=== PATIENT | female | born 1935 | race Caucasian/White ===

== ENCOUNTER 2020-01-27 10:09 | Outpatient (CLI) | payer MEDICARE, OTHER, SELFPAY ==
--- NOTE | ~2020-01-27 | CT_ITS ---
EXAMINATION: CT chest high resolution wo ms DATE: 01/27/2020 11:01 INDICATION: J84.9 - Interstitial pulmonary disease, unspecified TECHNIQUE: Computed tomography (CT) of the chest was performed without intravenous contrast. Addition al 3D reconstructions utilizing coronal maximum intensity projection (MIP) were performed. Automated exposure control and iterative reconstruction technique were employed. The dose-length product was 48 7.44 mGy-cm. COMPARISON: 07/28/2017 FINDINGS: Mild emphysema. Again seen is irregular septal line thickening associated honeycombing at the periphe ry of both lungs with lower lung predominance. This appears unchanged however there has been improvem ent in the prior/of more diffuse groundglass opacities. Mild bronchiectatic changes in the bilateral lower lungs. No pleural effusion or pneumothorax. Compressive atelectasis in the bilateral lower lobe s along side a large sliding-type hiatal hernia. Heart size is normal. Atherosclerotic coronary arter y calcifications. No pericardial effusion. Thoracic aorta is normal in caliber. Mild enlargement of t he central pulmonary arteries consistent with pulmonary arterial hypertension. No pathologically enla rged thoracic lymphadenopathy. Mild bilateral renal cortical atrophy. Partially visualized at least 5 .1 cm left renal cyst. Thoracic kyphosis with severe spondylosis and multiple chronic compression fra ctures in the mid and lower thoracic spine. There is also an old healed sternal fracture. Moderate le ft and severe right glenohumeral osteoarthritis. IMPRESSION: 1. Chronic interstitial lung disease with usual interstitial pneumonia (UIP) pattern with improvement in prior more diffuse groundglass opacities but no significant change in the peripheral reticular co mponent with honeycombing. 2. Mild bronchiectasis with bilateral lower lung predominance. 3. Mild emphysema. 4. Large sliding-type hiatal hernia. Reviewed, dictated and finalized at location A. RESSIONAL ASSISTANT IMPRESSION: 1. 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 2. Mild bronchiectasis with bilateral lower lung predominance. 3. Mild emphysema. 4. Large sliding-type hiatal hernia.
== END 2020-01-27 10:10 | disposition home or self-care (01) ==
LOC: ANHIMG 10:21
PROVIDERS: PCP Family Medicine; Visit Provider Nurse Practitioner Family
DX: J84.9 Interstitial pulmonary disease, unspecified (principal); M05.79 Rheumatoid arthritis with rheumatoid factor of multiple sites without organ or systems involvement; J44.9 Chronic obstructive pulmonary disease, unspecified; M48.54XA Collapsed vertebra, not elsewhere classified, thoracic region, initial encounter for fracture; R06.02 Shortness of breath; J98.11 Atelectasis; K44.9 Diaphragmatic hernia without obstruction or gangrene; I25.10 Atherosclerotic heart disease of native coronary artery without angina pectoris; I28.9 Disease of pulmonary vessels, unspecified; N28.1 Cyst of kidney, acquired; N26.1 Atrophy of kidney (terminal); M40.204 Unspecified kyphosis, thoracic region; M47.814 Spondylosis without myelopathy or radiculopathy, thoracic region; M19.012 Primary osteoarthritis, left shoulder; M19.011 Primary osteoarthritis, right shoulder
CPT/HCPCS: 71250

== ENCOUNTER 2020-03-05 14:25 | Emergency (ER) | payer MEDICARE, OTHER, SELFPAY ==
--- NOTE | ~2020-03-05 | XR_ITS ---
EXAMINATION: XR shoulder RT min 2V INDICATION: Right shoulder pain, initial encounter TECHNIQUE: Two views of the right shoulder are submitted. COMPARISON: 05/12/2018 FINDINGS: There is an acute, traumatic, closed, transverse fracture of the proximal humerus. There is severe osteoarthritis of the glenohumeral joint and mild osteoarthritis of the acromioclavicular neri nt. Soft tissues are unremarkable. IMPRESSION: 1. Acute proximal humerus fracture. 2. Severe glenohumeral joint osteoarthritis. Reviewed, dictated and finalized at location A. ONICS TECHNICIAN
[2020-03-05 14:18] VITALS: BP 163/82; PULSE 62; RESP 18; TEMP 36.6; O2SAT 98
--- NOTE | 2020-03-05 15:13 | ED.GENADULT ---
HPI - General Adult General Chief complaint: Extremity Injury, Upper Stated complaint: FALL/R SHOULDER PAIN Time Seen by Provider: 03/05/20 14:48 Source: patient History of Present Illness HPI narrative: Patient is a 84 y/o female complaining of right shoulder pain following a fall 1 hour ago. She states that she was in the waiting room of her eye doctor. She attempted to sit down and missed the chair. She landed on right shoulder. She denies any head injury or LOC. She describes her pain as aching and rates it as 8/10. She states that her pain radiates to her right elbow. Movement aggravates her pain. Related Data Home Medications Medication Instructions Recorded Confirmed amlodipine 5 mg tablet 5 mg PO DAILY 01/27/19 01/25/20 cholecalciferol (vitamin D3) 125 5,000 unit PO DAILY 01/27/19 01/25/20 mcg (5,000 unit) capsule fluticasone fur. 100 mcg-umeclid 1 inhalation INHALATION DAILY 01/27/19 01/25/20 62.5 mcg-vilant 25 mcg inhalat.powder pantoprazole 40 mg tablet,delayed 40 mg PO QAM 05/17/19 01/25/20 release aspirin 81 mg tablet,delayed 81 mg PO DAILY 08/30/19 01/25/20 release lactobacillus combination no.9 4 4,000 mmu cells PO DAILY 08/30/19 01/25/20 billion cell capsule Allergies Allergy/AdvReac Type Severity Reaction Status Date / Time ampicillin Allergy Unknown hives Verified 01/25/20 14:43 cyclobenzaprine Allergy Unknown loopy Verified 01/25/20 14:43 Review of Systems Constitutional: Constitutional: Denies chills, Denies fever(s), Denies headache(s) and Denies weakness Eyes: Eyes: Denies blurry vision ENT: Denies headache(s) and Denies neck pain Cardiovascular: Cardiovascular: Denies chest pain and Denies dyspnea Respiratory: Respiratory: Denies cough and Denies dyspnea Gastrointestinal: Gastrointestinal: Denies abdominal pain, Denies diarrhea, Denies nausea and Denies vomiting Genitourinary: Genitourinary: Denies hematuria and Denies dysuria Musculoskeletal: Musculoskeletal: Denies back pain, Reports arthralgias (right shoulder pain) and Denies neck pain Neurologic: Denies headache(s) and Denies weakness [facility] Past Medical History Medical History Counseling on health promotion and disease prevention Encounter for screening for other viral diseases H/O malignant neoplasm of esophagus Rheumatoid arthritis with rheumatoid factor of multiple sites without organ or systems involvement Surgical History Surgical History H/O section H/O hernia repair Hip replacement planned History of ankle surgery History of toe surgery Tonsillectomy planned Family History Family History Mother Diabetes mellitus Father Hypertension Other Asthma Social History Social History Smoking status: Former smoker Smoking end date: 02/23/77 Alcohol intake: never Substance use: never Exam Const: General: no acute distress and well developed Orientation/consciousness: oriented to person, oriented to place, oriented to time and patient oriented x3 HENMT: Head: normocephalic Ears: external ears normal General nose exam: Normal external nose present Eyes: General: appearance normal, both eyes and all related structures Conjunctivae: conjunctivae normal Neck: Neck: normal visual inspection and full ROM Chest: Chest palpation & inspection: normal inspection of the chest and no tenderness Resp: Effort & Inspection: normal respiratory effort Auscultation: clear to auscultation bilaterally Cardio: Rate: regular rate Rhythm: regular rhythm GI: GI Palp: No abdominal tenderness and Yes Soft to palpation Skin: General skin exam: normal color and turgor normal Neuro: General: oriented to person, oriented to place, oriented to time and patient oriented x3 Cognition (Neuro):
[2020-03-05 15:27] VITALS: BP 174/88; PULSE 61; RESP 19; O2SAT 96
[2020-03-05] MEDS: HYDROcodone/acetaminophen (*CRX) 5-325 MG TABLET 1 TAB PO (15:27)
[2020-03-05 15:40] VITALS: BP 180/71; PULSE 57; RESP 20; O2SAT 93
== END 2020-03-05 15:43 | disposition home or self-care (01) ==
PROVIDERS: Emergency Provider Emergency Medicine; PCP Family Medicine
DX: S42.291A Other displaced fracture of upper end of right humerus, initial encounter for closed fracture (principal); Z79.82 Long term (current) use of aspirin; M05.79 Rheumatoid arthritis with rheumatoid factor of multiple sites without organ or systems involvement; Z85.01 Personal history of malignant neoplasm of esophagus; Z87.891 Personal history of nicotine dependence; M19.011 Primary osteoarthritis, right shoulder
CPT/HCPCS: 73030; 99284; A9270

== ENCOUNTER 2020-03-07 12:22 | Inpatient (IN) | payer MEDICARE, OTHER, SELFPAY ==
[2020-03-07] VITALS (38 sets, daily range): BP systolic 73–102; BP diastolic 53–63; PULSE 66–76; RESP 13–22; TEMP 36.3–36.4; O2SAT 86–99; BMI 33.9
--- NOTE | ~2020-03-07 | XR_ITS ---
EXAMINATION: XR chest 2V DATE: 03/07/2020 13:39 INDICATION: Weakness TECHNIQUE: AP and lateral views of the chest are obtained. COMPARISON: 06/09/2018 FINDINGS: There is a large hiatal hernia. Small pleural effusions are present. Bibasilar airspace opa cities likely reflect atelectasis. No pneumothorax is identified. There are chronic mid thoracic comp ression fractures with associated focal kyphosis. IMPRESSION: 1. Small pleural effusions. 2. Large hiatal hernia. Reviewed, dictated and finalized at location A. TRON GUN INSPECTOR
--- NOTE | ~2020-03-07 | CT_ITS ---
EXAMINATION: CT brain wo con EXAM DATE: 03/07/2020 13:34 INDICATION: Fell 2 days ago. TECHNIQUE: Spiral CT of the head was performed without contrast. Axial, coronal and sagittal images were reviewed. The dose-length product (DLP) for this examination was 605.33 mGy-cm. The exposure w as tailored according to patient size, and iterative reconstruction (ASIR) was used as additional dos e reduction technique. Comparison is made to prior examination from 10/11/2018. FINDINGS: There is no acute intraparenchymal hemorrhage. No evidence of intraparenchymal brain mass lesion. No evidence of acute infarction. Please note that initial head CT has limited sensitivity f or small or acute infarctions. There is mild periventricular and subcortical hypodensity, nonspecific but probably related to small vessel ischemic disease. There is moderate prominence of the sulci a nd ventricles related to cerebral atrophy. There is intracranial carotid arteriosclerosis. There a re no extra-axial collections. There is no mass effect or midline shift. The orbits are unremarkabl e. Soft tissue is unremarkable. Completely opacified left sphenoid sinus. IMPRESSION: 1. No acute intracranial findings. 2. Chronic age related findings. Reviewed, dictated and finalized at location B. UITMENT MANAGER
--- NOTE | ~2020-03-07 | US_ITS ---
EXAMINATION: US renal BI DATE: 03/08/2020 09:54 INDICATION: Acute kidney injury. TECHNIQUE: Multiple ultrasound grayscale images of the kidneys were obtained. COMPARISON: Ultrasound 09/29/2017, CT abdomen and pelvis 05/15/2014 FINDINGS: The right kidney measures 9.0 x 4.6 x 4.7 cm. The left kidney measures 11.7 x 6.8 cm. The kidneys dem onstrate increased parenchymal echogenicity. There are 3.3 cm and 5.0 cm hypoechoic masses in left ki dney that measured fluid attenuation on a prior CT, consistent with hemorrhagic cysts. There is no hy dronephrosis. The bladder is decompressed by a Cantor catheter. IMPRESSION: 1. Normal kidney sizes. No hydronephrosis. Increased renal parenchymal echogenicity, consistent with nonspecific nephropathy. Reviewed, dictated and finalized at location A. T METAL WORKER APPRENTICE IMPRESSION: 1. Normal kidney sizes. No hydronephrosis. Increased renal parenchymal echogeni city, consistent with nonspecific nephropathy.
--- NOTE | 2020-03-07 12:49 | ECG_ITS ---
Measurements Intervals [place] Rate: 71 P: 111 DE: 178 QRS: 28 QRSD: 102 T: -12 QT: 487 QTc: 529 Interpretive Statements SINUS RHYTHM T WAVE ABNORMALITY IN ANTERIOR LEADS- CONSIDER ISCHEMIA BASELINE ARTIFACT- I, II, AVR, AVL, AVF, V3-V6 ABNORMAL ECG Electronically Signed On 03-07-2020 14:37:06 HAND PACKER/PACKAGER by Walter Jarvis D.O.
--- NOTE | 2020-03-07 13:02 | ED.WEAKNESS ---
HPI - Weakness General Chief complaint: Weakness Stated complaint: FALL Time Seen by Provider: 03/07/20 12:49 History of Present Illness HPI Narrative: 84 years old white female brought to the emergency room by her daughter because of generalized weakness over the last 2 days. Patient had a fall 2 days ago, fracture right shoulder, started on hydrocodone, but not able to eat or drink over the last 48 hours plus taking her blood pressure medications every day. Her blood pressure was low over the last 48 hours. Today patient slid out of the wheelchair and hit the back of her head on the ground, no loss of consciousness. Currently feel nauseated, did not eat or drink over the last 48 hours. Patient denies any fever, chills, vomiting, headache, chest pain, shortness of breath, back pain, abdominal pain, history of COVID-19 or exposure to anybody known having COVID-19 infection. Patient is DNR. Patient report skin rash when she had ampicillin when she was a little. Related Data Home Medications Medication Instructions Recorded Confirmed amlodipine 5 mg tablet 5 mg PO DAILY 01/27/19 01/25/20 cholecalciferol (vitamin D3) 125 5,000 unit PO DAILY 01/27/19 01/25/20 mcg (5,000 unit) capsule fluticasone fur. 100 mcg-umeclid 1 inhalation INHALATION DAILY 01/27/19 01/25/20 62.5 mcg-vilant 25 mcg inhalat.powder pantoprazole 40 mg tablet,delayed 40 mg PO QAM 05/17/19 01/25/20 release aspirin 81 mg tablet,delayed 81 mg PO DAILY 08/30/19 01/25/20 release lactobacillus combination no.9 4 4,000 mmu cells PO DAILY 08/30/19 01/25/20 billion cell capsule Allergies Allergy/AdvReac Type Severity Reaction Status Date / Time ampicillin Allergy Unknown hives Verified 01/25/20 14:43 cyclobenzaprine Allergy Unknown loopy Verified 01/25/20 14:43 Review of Systems Review of Systems: Narrative: CONSTITUTIONAL: Denies fever, chills, or sweats. EYES: Denies visual changes, redness, or discharge. ENT: Denies rhinorrhea, congestion, sore throat, or otalgia. CARDIOVASCULAR: Denies chest pain, palpitations, or edema. RESPIRATORY: Denies cough or dyspnea. GASTROINTESTINAL: Denies abdominal pain, nausea, vomiting, or diarrhea. GENITOURINARY: Denies dysuria or hematuria. SKIN: Denies rash or itching. MUSCULOSKELETAL: Denies back pain, joint pain, or myalgia. NEUROLOGIC: Denies headache, numbness, PSYCHIATRIC: Denies anxiety or depression. [facility] Past Medical History Medical History Counseling on health promotion and disease prevention Encounter for screening for other viral diseases H/O malignant neoplasm of esophagus Rheumatoid arthritis with rheumatoid factor of multiple sites without organ or systems involvement Surgical History Surgical History H/O section H/O hernia repair Hip replacement planned History of ankle surgery History of toe surgery Tonsillectomy planned Family History Family History Mother Diabetes mellitus Father Hypertension Other Asthma Social History Social History Smoking status: Former smoker Smoking end date: 02/23/77 Alcohol intake: never Substance use: never Exam Narrative: Exam Narrative: General appearance: Well-developed, well-nourished Skin: Normal color Head: Normocephalic, nontraumatic Eyes: Clear conjunctiva ENT: Oropharynx normal, ears normal, nose normal Neck: Supple, nontender Chest and respiratory: Airway patent, no respiratory distress, no accessory muscle use Heart: Regular rate/rhythm Abdomen: Soft, nontender, no organomegaly, quiet bowel sounds Vascular: Normal peripheral pulses, normal capillary refill. Musculoskeletal: Right upper extremity immobilization Neurologic: Alert and oriented ?3, ELECTRODYNAMICIST is normal as tested, no gross motor deficit
[2020-03-07] MEDS: SODIUM CHLORIDE 0.9% IV 2,200 ML/1,000 ML BAG 999 ML IV CONT ×3 (14:06→15:53)
[2020-03-07 14:50] LABS: Basophils Percent Auto 0.2 % (0.2-1.2); Eosinophils Percent Auto 0.4 % (0-4.4); Hemoglobin 10.1 g/dL (12.0-15.0); Immature Granulocyte Absolute 0.04 K/mm3 (0.00-0.031); Immature Granulocyte Percent A 0.4 % (0-0.5); Lymphocytes Absolute Auto 0.94 K/mm3 (0.9-3.2); Lymphocytes Percent Auto 8.4 % (18.3-44.2); Mean Corpuscular HGB Conc 31.6 g/dl (32-36); Mean Corpuscular Hemoglobin 28.8 pg (26-34); Mean Corpuscular Volume 91.2 fl (80-100); Mean Platelet Volume 9.6 fl (7.4-10.4); Monocytes Absolute Auto 0.7 K/mm3 (0.1-0.6); Neutrophils Absolute Auto 9.5 K/mm3 (1.3-6.7); Neutrophils Percent Auto 84.6 % (45.5-73.1); Platelet Count Result 142 k/mm3 (150-375); Red Blood Count 3.51 M/mm3 (4.2-5.4); Red Cell Distribution Width 14.1 % (11.5-14.5); White Blood Count 11.3 K/mm3 (4.5-10.0)
[2020-03-07 15:01] LABS: INR 1.1; Prothrombin Time 14.9 Seconds (11.1-14.7)
[2020-03-07 15:03] LABS: Lactic Acid Reflex 1.4 mmol/L (0.7-2.1)
[2020-03-07 15:06] LABS: Add Urine Microscopic? YES; Appearance Urine Cloudy (Clear); Bacteria Urine 4+ /hpf; Bilirubin Urine Negative (Negative); Blood Urine Negative (Negative); Color Urine Yellow (Yellow); Glucose Urine UA Negative (Negative); Ketones Urine Negative (Negative); Leukocyte Esterase Ur 2+ LEU/UL (Negative); Nitrate Urine Negative (Negative); Protein Urine 1+ mg/dL (Negative); RBC Urine 0-2 /hpf (0-2); Specific Grav Ur 1.013 (1.001-1.035); Urobilinogen Urine Negative mg/dL (<2.0); WBC Clumps Urine Present /HPF; WBC Urine 31-50 /hpf
[2020-03-07 15:09] LABS: Alanine Aminotransferase 13 U/L (4-35); Albumin Level 3.7 g/dL (3.5-5.1); Alkaline Phosphatase 72 U/L (38-126); Anion Gap 11 mmol/L (8-16); Aspartate Amino Transferase 35 U/L (14-36); Bilirubin,Total 0.4 mg/dL (0.2-1.3); Blood Urea Nitrogen 47 mg/dL (7-17); CRP 7.8 mg/dL (<1.0); Calcium 7.8 mg/dL (8.4-10.2); Carbon Dioxide 22 mmol/L (22-30); Chloride 102 mmol/L (98-107); Estimated CRCL calculation 6 ml/min; Estimated Glomerular Filt Rate 7; Glucose 122 mg/dL (65-105); Potassium 4.5 mmol/L (3.4-5.0); Sodium 135 mmol/L (137-145)
[2020-03-07] MEDS: ASPIRIN 81 MG CHEWABLE TABLET 324 MG PO (16:10)
[2020-03-07] MEDS: SODIUM CHLORIDE 0.9% IV 1,000 ML 150 ML IV CONT (18:35)
--- NOTE | 2020-03-07 19:00 | PM.IMHP ---
H&P: HPI History of Present Illness Date/Time: 03/07/20 19:00 Chief Complaint: Weak. Narrative: This is a pleasant 84-year-old female with hyperlipidemia, diastolic congestive heart failure, chronic kidney disease, COPD, rheumatoid arthritis, and chronic anemia who presented to the emergency department earlier today from home with complaints of weakness. Two days ago on 03/05/2020 she was at an eye appointment and unfortunately she missed the chair when she went to sit down and fell onto her right shoulder. She was found to have an acute proximal humerus fracture for which she had an upcoming appointment with Dr. Hamm today. Unfortunately she has not been feeling well since her fall with generalized malaise, fatigue, decreased appetite, nausea, and chills. Family members came over today to help her get to that follow-up appointment, and unfortunately she slid out of her wheelchair and struck the back of her head on the steps. She was too weak to stand up and EMS was summoned. Blood pressure was 74/52 on arrival to the emergency department she was found to have an acute on chronic kidney injury. With further questioning she has noticed a decreased urine output over the past 1 week or so, which is prior to the onset of her symptoms as detailed above. She has not had dysuria, urgency, hesitancy, or feelings of incomplete bladder evacuation. Also of note, troponins were drawn the emergency department and were found to be elevated and her EKG does demonstrate T-wave inversions in anterior leads concerning for ischemia. She has no known history of coronary artery disease and has not had chest pain, pleuritic pain, or shortness of breath. No fevers to her knowledge. She frequently has loose stools after eating a meal but that is not new and is unchanged. She denies sick contacts. No exposure to those positive for COVID-19. No new changes in medications or dosing. She does not use NSAIDs and has been taking Tylenol and hydrocodone for her pain. Review of Systems Review of Systems: Narrative: Twelve systems were reviewed with pertinent positives and negatives as per HPI. No headache. She denies sinus congestion, rhinorrhea, otalgia, and odynophagia. No cough. Except as documented, all other systems were reviewed and are negative. [facility] Past Medical History Medical History (Updated 03/07/20 @ 23:25 by Maricruz Salazar PA-C) Flores esophagus Benign colon polyp Chronic anemia Chronic diastolic congestive heart failure Ventricular systolic function and size with moderate concentric left ventricular hypertrophy, impaired diastolic relaxation grade 1, and an ejection fraction estimated 60 to 65%. Chronic kidney disease, stage 4 (severe) Baseline creatinine is between 1.4 and 1.60. Chronic obstructive pulmonary disease Gastroesophageal reflux disease Osteoporosis Rheumatoid arthritis Vitamin D deficiency Surgical History Surgical History (Updated 03/07/20 @ 23:07 by Maricruz Salazar PA-C) History of ankle surgery (~2014) ORIF left ankle fracture. History of appendectomy (~2009) History of bunionectomy of right great toe History of section History of cholecystectomy (~2001) History of hammertoe correction History of left hip replacement (~12/2016) Due to left hip fracture sustained in a fall. History of umbilical hernia repair Family History Family History Mother Diabetes mellitus Father Hypertension Other Asthma Social History Social History (Updated 03/07/20 @ 23:09 by Maricruz Salazar PA-C) Social History: The patient has been for many years and lives in [place] with her cat. She has 4 daughters, 1 who is . The patient grew up in [facility]. She is a former smoker, perhaps 1/4 to 1 pack of cigarettes a day for about 20 years. She quit in 1977. No alcohol or illicit substance use. Daughters Flavia Rogers and Miley Cho
--- NOTE | 2020-03-07 22:06 | ADMGEN ---
This patient, Jackelin Beasley, was admitted to IMU Room 206-02. Patient/family oriented to hospital policies and general routines including ID bracelet, bed and alarms, visiting hours, pain management, procedures, bathroom and other care routines, personal items, smoking policy, room service/diet, and visiting hours. Information on how to activate the Rapid Response Team has been discussed. Patient/Family are encouraged to report perceived risks to care and to ask questions if they do not understand what they are told or what they should do. 1899
[2020-03-08] VITALS (16 sets, daily range): BP systolic 79–143; BP diastolic 49–73; PULSE 58–77; RESP 18–22; TEMP 36–36.7; O2SAT 94–99
--- NOTE | 2020-03-08 | ECHO_ITS ---
Patient Info Name: Jackelin Beasley Age: 84 years : 1935 Gender: Female Ht: 61 in Wt: 179 lbs BSA: 1.91 m2 HR: 66 bpm BP: 98 / 62 mmHg Technical Quality: Good Exam Date: 03/08/2020 7:56 AM Exam Location: [facility] Pulmonary Patient Status: Inpatient Admit Date: 03/07/2020 Staff Ordering Physician: Maricruz Salazar PA-C [employer] Professor: Christoph Dorantes RDCS, RT Attending Provider: Leandro Wyatt MD Referring Physician: Marie SHAH; Exam Type: CA echo doppler color flow Study Info Indications I50.9 - Heart failure, unspecified Complete two-dimensional, color flow and Doppler transthoracic echocardiogram is performed. Summary 1. Complete two-dimensional, color flow and Doppler transthoracic echocardiogram is performed. 2. Left ventricular chamber dimension is normal. 3. Left ventricular systolic function is normal, estimated at 60-65%. 4. There is mildly increased left ventricular wall thickness. 5. The left ventricular diastolic function is grade I diastolic dysfunction. 6. E/e' 10 is mildly elevated. 7. Right ventricular systolic function is reduced with TAPSE at 1.6 cm. 8. Right ventricular chamber dimension is moderately enlarged. 9. Right atrial chamber dimension is moderately enlarged. 10. There is mild aortic valve sclerosis. 11. There is moderate tricuspid valve regurgitation. 12. Mild pulmonary hypertension, estimated pulmonary arterial systolic pressure is 42 mmHg. 13. There is trace pulmonic regurgitation. 14. Small atheroma in anterior and posterior aortic root. Left Ventricle E/e' 10 is mildly elevated. Left ventricular chamber dimension is normal. Left ventricular systolic function is normal, estimated at 60-65%. There is mildly increased left ventricular wall thickness. The left ventricular diastolic function is grade I diastolic dysfunction. Right Ventricle Right ventricular systolic function is reduced with TAPSE at 1.6 cm. Moderator band noted is normal variant. Right ventricular chamber dimension is moderately enlarged. Left Atria Left atrial chamber dimension is normal. Right Atria Right atrial chamber dimension is moderately enlarged. Aortic Valve The aortic valve is trileaflet. There is mild aortic valve sclerosis. There is no aortic valve stenosis. There is no aortic valve regurgitation. Pulmonic Valve There is trace pulmonic regurgitation. Mitral Valve There is no mitral valve stenosis. There is no mitral valve regurgitation. Tricuspid Valve There is moderate tricuspid valve regurgitation. Mild pulmonary hypertension, estimated pulmonary arterial systolic pressure is 42 mmHg. Pericardium/Pleural There is no pericardial effusion. Inferior Vena Cava Inferior vena cava is not well visualized. Aorta Small atheroma in anterior and posterior aortic root. The aortic root size at the sinus of Valsalva is normal. Left Ventricular Outflow Tract Name Value Normal LVOT 2D LVOT Diameter 2.0 cm LVOT Doppler LVOT Peak Gradient 2 mmHg LVOT Mean Gradient 1 mmHg LVOT VTI
[2020-03-08] MEDS: SODIUM CHLORIDE 0.9% IV 1,000 ML 999 ML IV CONT (00:04)
[2020-03-08] MEDS: ENOXAPARIN 80 MG/0.8 ML SYRINGE SUB-Q (00:04)
[2020-03-08] MEDS: SODIUM CHLORIDE 0.9% IV 1,000 ML 100 ML IV CONT ×4 (00:05→20:16)
--- NOTE | 2020-03-08 01:02 | PC.NURSE ---
Spoke with Dr. Galvan about blood pressure still being low after the 1L bolus. She said to rebolus another 500 and check bp after the first 250 is in and call her
[2020-03-08 05:41] LABS: Basophils Percent Auto 0.4 % (0.2-1.2); Eosinophils Absolute Auto 0.2 K/mm3 (0-0.3); Eosinophils Percent Auto 2.2 % (0-4.4); Hematocrit 27.6 % (37.0-47.0); Hemoglobin 8.6 g/dL (12.0-15.0); Immature Granulocyte Absolute 0.02 K/mm3 (0.00-0.031); Immature Granulocyte Percent A 0.3 % (0-0.5); Lymphocytes Absolute Auto 1.14 K/mm3 (0.9-3.2); Lymphocytes Percent Auto 15.6 % (18.3-44.2); Mean Corpuscular HGB Conc 31.2 g/dl (32-36); Mean Corpuscular Hemoglobin 29.2 pg (26-34); Mean Corpuscular Volume 93.6 fl (80-100); Mean Platelet Volume 10.2 fl (7.4-10.4); Monocytes Absolute Auto 0.6 K/mm3 (0.1-0.6); Monocytes Percent Auto 8.6 % (2.6-8.5); Neutrophils Absolute Auto 5.3 K/mm3 (1.3-6.7); Neutrophils Percent Auto 72.9 % (45.5-73.1); Platelet Count Result 112 k/mm3 (150-375); Red Blood Count 2.95 M/mm3 (4.2-5.4); Red Cell Distribution Width 14.3 % (11.5-14.5); White Blood Count 7.3 K/mm3 (4.5-10.0)
[2020-03-08 05:52] LABS: Alanine Aminotransferase 15 U/L (4-35); Albumin Level 2.9 g/dL (3.5-5.1); Alkaline Phosphatase 68 U/L (38-126); Anion Gap 8 mmol/L (8-16); Aspartate Amino Transferase 40 U/L (14-36); Bilirubin,Total 0.3 mg/dL (0.2-1.3); Blood Urea Nitrogen 51 mg/dL (7-17); Calcium 6.9 mg/dL (8.4-10.2); Carbon Dioxide 19 mmol/L (22-30); Chloride 109 mmol/L (98-107); Creatine Kinase 393 U/L (30-135); Estimated CRCL calculation 7 ml/min; Estimated Glomerular Filt Rate 8; Glucose 86 mg/dL (65-105); Magnesium 1.4 mg/dL (1.6-2.3); Phosphorus 5.7 mg/dL (2.5-4.5); Potassium 4.2 mmol/L (3.4-5.0); Sodium 136 mmol/L (137-145)
--- NOTE | 2020-03-08 06:00 | ECG_ITS ---
Measurements Intervals [place] Rate: 74 P: 43 [place]: 180 QRS: 28 QRSD: 102 T: -23 QT: 442 QTc: 493 Interpretive Statements SINUS RHYTHM ST-T WAVE ABNORMALITY IN ANT/INF LEADS- CONSIDER ISCHEMIA BASELINE WANDER- V3 ABNORMAL ECG Electronically Signed On 03-08-2020 11:29:35 UTILITY MECHANIC by Walter Jarvis D.O.
[2020-03-08] MEDS: FOLIC ACID 1 MG TABLET PO (08:49)
[2020-03-08] MEDS: ASPIRIN 81 MG ENTERIC TABLET PO (08:49)
[2020-03-08] MEDS: SIMVASTATIN 20 MG TABLET 40 MG PO (08:50)
[2020-03-08] MEDS: predniSONE 1 MG TABLET PO (08:50)
[2020-03-08] MEDS: PANTOPRAZOLE 40 MG TABLET PO ×2 (08:50→17:45)
[2020-03-08] MEDS: CHOLECALCIFEROL 1,000 UNITS TABLET 5000 UNITS PO (08:51)
[2020-03-08] MEDS: FLUTICASONE/UMECLIDIN/VILANTER 100-62.5-25 MCG ELLIPTA 1 PUFF INHALATION (08:54)
[2020-03-08] MEDS: MAGNESIUM SULF 1 GM/D5W 100 ML 1 GM/100 ML BAG IVPB (09:05)
[2020-03-08] MEDS: methylPREDNISolone SOD SUCC 40 MG VIAL IV PUSH ×2 (11:42→17:45)
--- NOTE | 2020-03-08 14:04 | PM.CNCAR ---
Assessment and Plan Assessment and plan (1) Non-STEMI (non-ST elevated myocardial infarction): Code(s): I21.4 - Non-ST elevation (NSTEMI) myocardial infarction Status: Acute Assessment and Plan: Significant troponin elevation in setting of acute renal failure, hypotension and anemia. Can't exclude subacute AR as troponins were already trending downward at admission, however, patient reports no anginal symptoms of any kind. This may be explained by undiagnosed underlying CAD along with her comorbidities in conjunction her acute illness at presentation. Given the severity of her renal function coronary angiography will not be pursued. Echocardiogram reveals normal LV function without wall motion abnormalities. EKG with T-wave abnormality yet patient is asymptomatic. Given thrombocytopenia and anemia with recent fall involving head injury and right arm fracture continue aspirin but hold off on systemic anticoagulation for the time being. Of note, patient received 80 mg subcutaneous enoxaparin earlier today. -conservative medical management. Statin, aspirin. BP improved although antihypertensives and beta blockers held for the time being. Further recommendations dependent upon patient's clinical course and response to therapy. Discussed with patient in detail who verbalized understanding and agreed with plan of care. -gentle hydration -DVT prophylaxis -PT OT given recurrent falls. (2) Acute on chronic kidney failure: Code(s): N17.9 - Acute kidney failure, unspecified; N18.9 - Chronic kidney disease, unspecified Status: Acute Assessment and Plan: Slight improvement with IV fluids. Acute on chronic pattern related to intravascular volume depletion and medical therapy. Avoid nephrotoxic agents. Nephrology consultation appreciated. (3) Hypotension: Code(s): I95.9 - Hypotension, unspecified Status: Acute Assessment and Plan: Improved with IV fluids. Hold antihypertensives for the time being. Monitor volume status. History of Present Illness History of Present Illness Consult date/time: Date of service: 03/08/20 14:04 Cardiology consultation by Maricruz Salazar of the [facility] service for our opinion regarding elevated troponin. Requesting physician: Maricruz Salazar PA-C Consult reason: Other (Elevated troponin) Reason For Visit: UTI/SHAVONNE/DEHYDRATION/ELEVATED TROPONIN Narrative: Patient is a pleasant 84-year-old female with past medical history significant for heart failure with preserved ejection fraction, chronic kidney disease, COPD, rheumatoid arthritis, anemia chronic disease, dyslipidemia follows with Dr. Karimi as an outpatient did miss the chair 10 venous sent down 2 days prior to admission falling on her right shoulder. Evaluation revealed acute proximal humeral fracture. Subsequently she was not feeling well with progressive fatigue, at decline in appetite, chills and weakness. When family attempted to get her up for her appointment she slid out of the wheelchair falling back hitting her head on the status. As she was too weak to stand EMS was called and she was found to be hypotensive with systolic blood pressures in the 70s in the ER. She was in acute renal failure with a creatinine 6.0, BUN of 47 potassium 4.5. Initial troponin was 2.120 subsequently 1.900, and most recently 1.800. She has no history of CAD and denies chest pain or shortness of breath at any time. She was given IV fluids with improvement. Currently she feels tired but much better overall. She notes discomfort and right arm but denies chest pain, shortness of breath, palpitations. She denies loss of consciousness at any time. She states prior to all this she had been doing reasonably well and had been compliant with medications. She denies orthopnea PND, significant edema. 2D echocardiogram obtained today reveals normal LV function EF 60-65%, mild LVH, mild RV systolic dysfunction grade 1 suly
--- NOTE | 2020-03-08 16:01 | PM.IMPN ---
Progress Note: A&P Assessment and Plan (1) Acute on chronic kidney failure: Code(s): N17.9 - Acute kidney failure, unspecified; N18.9 - Chronic kidney disease, unspecified Status: Acute Assessment and Plan: Creatinine has fallen with IV hydration suggesting all pre renal secondary to hypotension. Continue hydration. Renal sonogram no obstruction. UA pyuria, cultured and empiric ceftriaxone (2) Non-STEMI (non-ST elevated myocardial infarction): Code(s): I21.4 - Non-ST elevation (NSTEMI) myocardial infarction Status: Acute Assessment and Plan: EF slightly lower than previous. EKG repeat is less ST changes anteriorly. Blood pressure too low for her beta-bhargavi her nitrates. Platelets 112 so Cardiology holding any further full anticoagulation Continue aspirin and conservative treatment (3) COPD (chronic obstructive pulmonary disease): Qualifiers: COPD type: unspecified COPD Qualified Code(s): J44.9 - Chronic obstructive pulmonary disease, unspecified Code(s): J44.9 - Chronic obstructive pulmonary disease, unspecified Status: Acute Assessment and Plan: Continue updrafts and O2 supplements (4) Chronic diastolic CHF (congestive heart failure): Code(s): I50.32 - Chronic diastolic (congestive) heart failure Status: Acute Assessment and Plan: Echo as above low normal EF continue hydration for now (5) HTN (hypertension): Code(s): I10 - Essential (primary) hypertension Status: Acute Assessment and Plan: Blood pressure low so Coreg and amlodipine on home No obvious reason for hypotension. Does not appear septic but cultures have been obtained. Could be secondary to ischemic heart disease (6) Rheumatoid arthritis with rheumatoid factor of multiple sites without organ or systems involvement: Code(s): M05.79 - Rheumatoid arthritis with rheumatoid factor of multiple sites without organ or systems involvement Status: Acute Assessment and Plan: Chronic steroid treatment so will do stress dosing with her hypotension with Solu-Medrol b.i.d. initially (7) Anemia: Code(s): D64.9 - Anemia, unspecified Status: Acute Assessment and Plan: Probable chronic disease but will check iron studies and B12 and follow (8) DVT prophylaxis: Code(s): Z29.9 - Encounter for prophylactic measures, unspecified Status: Acute Assessment and Plan: Had full-dose Lovenox last p.m.., will start low-dose Lovenox heparin a.m. 03/09 if platelets and hemoglobin her adequate Subjective Date/time seen: 03/08/20 16:01 Interval history: Date of visit 03/08. 84-year-old hypertensive white female with history of diastolic heart failure rheumatoid arthritis and COPD who presented to the hospital with weakness and found to have hypotension and acute renal failure.. She denies any chest pain but has had dyspnea on exertion and troponin level was also elevated with ST inversions anteriorly.. She feels better this a.m. after hydration with pressure systolic slowly climbing. Has chronic loose stools after eating but no change in no melena or hematochezia Exam Narrative: Exam Narrative: Blood pressure 98/68 pulse is 66 and regular sat 96% on 2 L nasal cannula afebrile Lungs clear CV regular hear no murmurs or gallops Abdomen soft nontender no masses Extremities without edema distal pulses are 1+ Neuro alert pleasant cooperative no focal deficit Objective Data Vital Signs Vital Signs: Vital Signs - 24 hr 03/07/20 16:18 03/07/20 16:30 03/07/20 16:31 Temperature Pulse Rate 72 72 72 Respiratory Rate 14 16 18 Blood Pressure 87/63 L Pulse Oximetry 94 93 03/07/20 16:32 03/07/20 16:59 03/07/20 17:00 Temperature Pulse Rate 72 71 71 Respiratory Rate 16 20 17 Blood Pressure Pulse Oximetry 91 91 91 03/07/20 17:01 03/07/20 17:15 03/07/20 17:16 Temperature Pulse Rate 70 69 69 Respiratory Rate
--- NOTE | 2020-03-08 16:19 | PM.CNNEP ---
Assessment and Plan Assessment and plan (1) SHAVONNE (acute kidney injury): Code(s): N17.9 - Acute kidney failure, unspecified Status: Acute Assessment and Plan: likely secondary to ATN and associated renal hypoperfusion resulting for severe hypotension likely worsened by ongoing use of ARB (olmesartan) as well some improvement noted in creatinine by AM labs making urine?? -- no dcoumentation follow-up on urine electrolytes renal ultrasound normal follow trend of repeat labs and UOP (2) Chronic kidney disease, stage 4 (severe): Code(s): N18.4 - Chronic kidney disease, stage 4 (severe) Status: Chronic Assessment and Plan: baseline creatinine runs around 1.4 - 1.9mg/dl due to hypertension, vascular disease, and age (based on outpatient evaluation (3) Hypotension: Code(s): I95.9 - Hypotension, unspecified Status: Acute Assessment and Plan: due volume depletion versus pain medications and BP medications(??) BP doing better holding antihypertensive medications follow trend of hemodynamics (4) Elevated troponin: Code(s): R77.8 - Other specified abnormalities of plasma proteins Status: Acute Assessment and Plan: as noted by admission labs Cardiology following with recommendations noted (5) Anemia: Code(s): D64.9 - Anemia, unspecified Status: Acute Assessment and Plan: due to SHAVONNE, CKD, and acute illness possible component of iron deficiency - check iron studies consider venofer if no contraindication Will continue to follow. History of Present Illness Reason for Consult Consult date: 03/08/20 Reason for consult: acute renal failure (chronic kidney disease) Chief Complaint Chief complaint: UTI/SHAVONNE/DEHYDRATION/ELEVATED TROPONIN History of Present Illness Narrative: The patient is a 84-year-old female with an extensive medical history as outlined below who presented to [facility] ER with complaints of generalized weakness. The patient had a recent fall about 3 days ago. She apparently was at an eye doctor's appointment and missed the examination chair and fell and hit her right shoulder. Subsequent evaluation at time demonstrated acute proximal humerus fracture and she was due to see orthopedics for further evaluation of this issue on the day of admission. However, since that fall, she has had ongoing issues/complaints with generalize malaise poor appetite, nausea, chills, and fatigue. Family members came on the day of admission to try to get her to her orthopedic appointment but she apparently fell out of her wheelchair and hit her head. She was too weak to get up on her own and hence EMS was called for further evaluation which subsequently led to her presentation to the ER. Workup and evaluation emergency room demonstrated the patient to be quite hypotensive with reported systolic BP in the 70s. Routine blood test demonstrated a marked decline in her kidney function from baseline as well. Upon further questioning to the patient, she did report decreased urine output over the last 6-7 days which was noted prior to her symptoms that led to her fall. She gave no complaints of dysuria, urgency, difficulty urinating, or bladder spasms. It was felt that dehydration/volume depletion may be playing a role with her low blood pressure and with aggressive IV fluid resuscitation in the emergency room, her blood pressure improved to the 90s to 100 systolic range. Given her complex medical history, the recent falls, and her acute kidney injury on chronic kidney disease, she was admitted the hospital for further evaluation and therapy. Since her admission, she has been continuing IV fluid resuscitation and her blood pressure appears to be doing better with some improvement in her kidney function. Her antihypertensive medications have been placed on hold as well. She states that she clinically feels better since her admis
[2020-03-09] VITALS (14 sets, daily range): BP systolic 101–177; BP diastolic 70–88; PULSE 49–87; RESP 18–24; TEMP 36.1–36.6; O2SAT 68–100
[2020-03-09 05:12] LABS: Hematocrit 27.7 % (37.0-47.0); Hemoglobin 8.7 g/dL (12.0-15.0); Immature Granulocyte Absolute 0.03 K/mm3 (0.00-0.031); Immature Granulocyte Percent A 0.7 % (0-0.5); Lymphocytes Absolute Auto 0.36 K/mm3 (0.9-3.2); Lymphocytes Percent Auto 8.6 % (18.3-44.2); Mean Corpuscular HGB Conc 31.4 g/dl (32-36); Mean Corpuscular Volume 92.3 fl (80-100); Monocytes Absolute Auto 0.1 K/mm3 (0.1-0.6); Monocytes Percent Auto 2.4 % (2.6-8.5); Neutrophils Absolute Auto 3.7 K/mm3 (1.3-6.7); Neutrophils Percent Auto 88.3 % (45.5-73.1); Platelet Count Result 124 k/mm3 (150-375); Red Cell Distribution Width 14.1 % (11.5-14.5); White Blood Count 4.2 K/mm3 (4.5-10.0)
[2020-03-09 05:20] LABS: Immature Reticulocyte Fraction 29.7 % (3.0-15.9); Reticulocyte Hemoglobin Conten 29.6 pg (28.2-35.7); Reticulocyte Percent 1.51 % (0.7-4.3); Reticulocytes Absolute 0.04 B/L (32.2-175.7)
[2020-03-09 05:35] LABS: Albumin Level 3.1 g/dL (3.5-5.1); Anion Gap 9 mmol/L (8-16); Blood Urea Nitrogen 52 mg/dL (7-17); Calcium 7.5 mg/dL (8.4-10.2); Carbon Dioxide 15 mmol/L (22-30); Chloride 112 mmol/L (98-107); Creatine Kinase 240 U/L (30-135); Estimated CRCL calculation 9 ml/min; Estimated Glomerular Filt Rate 10; Glucose 139 mg/dL (65-105); Magnesium 1.7 mg/dL (1.6-2.3); Phosphorus 5.6 mg/dL (2.5-4.5); Potassium 4.8 mmol/L (3.4-5.0); Sodium 136 mmol/L (137-145)
[2020-03-09 06:07] LABS: Iron 32 ug/dL (37-170)
[2020-03-09] MEDS: SODIUM CHLORIDE 0.9% IV 1,000 ML 100 ML IV CONT (06:11)
[2020-03-09 06:18] LABS: Percent Iron Saturation 12 % (20-50)
--- NOTE | 2020-03-09 09:01 | PM.CNOR ---
Assessment and Plan Assessment and plan (1) Closed right humeral fracture: Qualifiers: Encounter type: sequela Fracture morphology: unspecified fracture morphology Humerus Location: proximal Qualified Code(s): S42.201S - Unspecified fracture of upper end of right humerus, sequela Code(s): S42.301A - Unspecified fracture of shaft of humerus, right arm, initial encounter for closed fracture Status: Acute Assessment and Plan: Patient seen and examined. Care plan reviewed and discussed with Shea Yi PA-C. The surgical neck fracture is non displaced, and stable. 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 She is not a surgical candidate. Limited goals therapy. May WBAT progressively as pain allows. Fracture healing expected over 4-6 weeks. History of Present Illness HPI Consult date: 03/09/20 Chief complaint: UTI/SHAVONNE/DEHYDRATION/ELEVATED TROPONIN [facility] Past Medical History Medical History Flores esophagus Benign colon polyp Chronic anemia Chronic diastolic congestive heart failure Ventricular systolic function and size with moderate concentric left ventricular hypertrophy, impaired diastolic relaxation grade 1, and an ejection fraction estimated 60 to 65%. Chronic kidney disease, stage 4 (severe) Baseline creatinine is between 1.4 and 1.60. Chronic obstructive pulmonary disease Gastroesophageal reflux disease Osteoporosis Rheumatoid arthritis Vitamin D deficiency Surgical History Surgical History History of ankle surgery (~2014) ORIF left ankle fracture. History of appendectomy (~2009) History of bunionectomy of right great toe History of section History of cholecystectomy (~2001) History of hammertoe correction History of left hip replacement (~12/2016) Due to left hip fracture sustained in a fall. History of umbilical hernia repair Family History Family History Mother Diabetes mellitus Father Hypertension Other Asthma Social History Social History Social History: The patient has been for many years and lives in [place] with her cat. She has 4 daughters, 1 who is . The patient grew up in [facility]. She is a former smoker, perhaps 1/4 to 1 pack of cigarettes a day for about 20 years. She quit in 1977. No alcohol or illicit substance use. Daughters Flavia Rogers and Miley Zacarias are her emergency contacts. She is listed as a DNR. Smoking packs per day: 1 Smoking cigarettes per day: 20.0 Years smoked: 45 Smoking pack-years: 45.00 Smoking status: Former smoker Tobacco type: cigarettes Second hand tobacco smoke exposure: Yes Smoking end date: 02/23/77 Alcohol intake: never Substance use: never Gender identity (if verbalized by the patient): Female Spiritual care concerns: No Meds Home Medications and Allergies Home Medications Medication Instructions Recorded Confirmed Type omeprazole 40 mg capsule,delayed 40 mg PO BID #180 cap 12/30/18 03/07/20 Rx release amlodipine 5 mg tablet 5 mg PO DAILY 01/27/19 03/07/20 History cholecalciferol (vitamin D3) 125 5,000 unit PO DAILY 01/27/19 03/07/20 History mcg (5,000 unit) capsule fluticasone fur. 100 mcg-umeclid 1 inhalation INHALATION DAILY 01/27/19 03/07/20 History 62.5 mcg-vilant 25 mcg inhalat.powder simvastatin 40 mg tablet 40 mg PO DAILY #90 tablet 08/18/19 03/07/20 Rx aspirin 81 mg tablet,delayed 81 mg PO DAILY 08/30/19 03/07/20 History release lactobacillus combination no.9 4 4,000 mmu cells PO DAILY 08/30/19 03/07/20 History billion cell capsule carvedilol 25 mg tablet 25 mg PO Q12H #180 tablet 12/14/19 03/07/20 Rx olmesartan 20 mg tablet 20 mg PO DAILY #90 tablet
[2020-03-09] MEDS: methylPREDNISolone SOD SUCC 40 MG VIAL IV PUSH ×2 (11:46→16:34)
[2020-03-09] MEDS: ASPIRIN 81 MG ENTERIC TABLET PO (11:47)
[2020-03-09] MEDS: FOLIC ACID 1 MG TABLET PO (11:47)
[2020-03-09] MEDS: SIMVASTATIN 20 MG TABLET 40 MG PO (11:47)
[2020-03-09] MEDS: CHOLECALCIFEROL 1,000 UNITS TABLET 5000 UNITS PO (11:47)
[2020-03-09] MEDS: PANTOPRAZOLE 40 MG TABLET PO ×2 (11:47→16:34)
[2020-03-09] MEDS: ACIDOPHILUS/BULGARICUS CHEWABLE TABLET 1 TABLET PO (11:48)
[2020-03-09] MEDS: FLUTICASONE/UMECLIDIN/VILANTER 100-62.5-25 MCG ELLIPTA 1 PUFF INHALATION (11:48)
--- NOTE | 2020-03-09 13:04 | PM.PNCARD ---
Progress Note: A&P Assessment and Plan (1) Non-STEMI (non-ST elevated myocardial infarction): Code(s): I21.4 - Non-ST elevation (NSTEMI) myocardial infarction Status: Acute Assessment and Plan: Significant troponin elevation in setting of acute renal failure, hypotension and anemia. Can't exclude subacute PA as troponins were already trending downward at admission, however, patient reports no anginal symptoms of any kind. -This may be explained by undiagnosed underlying CAD along with her comorbidities precipitated by severe hypotension related to dehydration and medications, SHAVONNE, and anemia at presentation. -Given the severity of her renal function coronary angiography will not be pursued. EKG with T-wave abnormality yet patient is asymptomatic. -anticipate outpatient ischemic evaluation. Continue conservative medical management. No plans for invasive evaluations at this time. -statin, aspirin. Beta-bhargavi when able to tolerate with BP and heart rate. -echo with normal LV systolic function without wall motion abnormalities EF 60-65%. (2) Acute on chronic kidney failure: Code(s): N17.9 - Acute kidney failure, unspecified; N18.9 - Chronic kidney disease, unspecified Status: Acute Assessment and Plan: Slow improvement since admission. Acute on chronic pattern related to intravascular volume depletion and medical therapy. Avoid nephrotoxic agents. Nephrology consultation appreciated. (3) Thrombocytopenia: Code(s): D69.6 - Thrombocytopenia, unspecified Status: Acute Assessment and Plan: Stable, slight recovery. Monitor for bleeding. Cont ASA. (4) Chronic anemia: Code(s): D64.9 - Anemia, unspecified Status: Acute Assessment and Plan: H&H stable. No evidence of active bleed. (5) Hypotension: Code(s): I95.9 - Hypotension, unspecified Status: Acute Assessment and Plan: Improved with IV fluids, now hypertensive as of this morning. Antihypertensive remain on hold. If she remains hypertensive resume low-dose amlodipine and carvedilol. Monitor volume status. Subjective Date/time seen: Date of service: 03/09/20 13:04 Follow-up for elevated troponin No new issues overnight. Patient states she feels better. No nausea or chest pain. States she is short of breath which is chronic for her. She does admit has been worse with past several months but related to her COPD. She has occasional swelling in her ankles which resolved after few days. No new issues at this time. Eating well. Review of Systems Review of Systems: All systems reviewed & are unremarkable except as noted in HPI and below Constitutional: Constitutional: Reports as per HPI, Reports no additional constitutional complaints, Reports chills, Reports fatigue, Reports lethargy and Reports weakness Eyes: Eyes: Reports as per HPI and Reports no additional eye complaints ENT: Reports system reviewed and no additional complaints, except as documented and Reports as per HPI Cardiovascular: Cardiovascular: Reports as per HPI, Reports no additional cardiovascular complaints, Denies chest pain, Denies diaphoresis, Reports lightheadedness, Denies palpitations, Denies dyspnea and Denies dyspnea on exertion Respiratory: Respiratory: Reports as per HPI, Reports no additional respiratory complaints, Denies cough, Denies dyspnea, Denies dyspnea on exertion and Denies wheezing Gastrointestinal: Gastrointestinal: Reports as per HPI, Reports no additional gastrointestinal complaints, Denies abdominal pain, Denies melena, Denies bloating, Denies hematochezia, Denies nausea and Denies vomiting Genitourinary: Genitourinary: Reports as per HPI, Denies hematuria and Denies flank pain Musculoskeletal: Musculoskeletal: Reports no additional musculoskeletal complaints, Reports as per HPI and Reports arthralgias Integumentary/Breasts: Skin/Breast: Reports system reviewed and no additional complaints, e
--- NOTE | 2020-03-09 14:25 | P.PNNP_ITS ---
Progress Note: A&P Assessment and Plan (1) SHAVONNE (acute kidney injury): Code(s): N17.9 - Acute kidney failure, unspecified Status: Acute Assessment and Plan: * likely secondary to ATN and associated renal hypoperfusion resulting for severe hypotension * likely worsened by ongoing use of ARB (olmesartan) as well * urinary tract infection may be playing a role too * improvement noted in creatinine by AM labs * making urine * follow-up on urine electrolytes * renal ultrasound normal * follow trend of repeat labs and UOP (2) Chronic kidney disease, stage 4 (severe): Code(s): N18.4 - Chronic kidney disease, stage 4 (severe) Status: Chronic Assessment and Plan: * baseline creatinine runs around 1.4 - 1.9mg/dl * due to hypertension, vascular disease, and age (based on outpatient evaluation (3) Urinary tract infection: Qualifiers: Hematuria presence: with hematuria Urinary tract infection type: site unspecified Qualified Code(s): N39.0 - Urinary tract infection, site not specified; R31.9 - Hematuria, unspecified Code(s): N39.0 - Urinary tract infection, site not specified Status: Acute Assessment and Plan: * culture with E.coli * on antibiotics (4) Hypotension: Code(s): I95.9 - Hypotension, unspecified Status: Acute Assessment and Plan: * due volume depletion versus pain medications and BP medications(??) * BP doing better holding antihypertensive medications * follow trend of hemodynamics * would allow her BP to rise a bit to ensure renal perfusion given SHAVONNE (5) Elevated troponin: Code(s): R77.8 - Other specified abnormalities of plasma proteins Status: Acute Assessment and Plan: * as noted by admission labs * Cardiology following with recommendations noted (6) Anemia: Code(s): D64.9 - Anemia, unspecified Status: Acute Assessment and Plan: * due to SHAVONNE, CKD, and acute illness * iron deficiency as noted by anemia studies * hold venofer given UTI Will continue to follow. Subjective Date/time seen: 03/09/20 14:25 Overall, the patient continues to feel better since admission; her blood pressure is higher now and consistent with baseline readings without anti- hypertensive medications; no apparent distress voiced at this time; no events overnight or earlier this AM. Exam Narrative: Exam Narrative: General: Elderly female in NAD Heart: normal S1 and S2; no rub Lungs: clear to auscultation Abdomen: soft, nontender, nondistended, positive bowel sounds Extremities: no cyanosis or clubbing; trace edema Skin: warm and dry Objective Data Vital Signs Vital Signs: Vital Signs Temp Pulse Resp BP Pulse Ox 03/09/20 12:00 36.6 C 74 24 H 177/88 H 99 03/09/20 08:00 36.3 C L 68 20 154/86 H 68 L 03/09/20 06:00 54 L 03/09/20 04:00 36.1 C L 69 18 164/82 H 98 03/09/20 00:00 36.1 C L 62 18 137/84 97 03/08/20 22:00 58 L 03/08/20 20:00 36.0 C L 62 20 143/73 H 95 Intake/Output Intake/Output: Intake & Output 03/06/20 03/07/20 03/08/20 03/09/20 23:59 23:59 23:59 23:59 Intake Total 3050 4010 1840 Output Total 750 Balance 3050 4010 1090 Meds/Results Medications: Active Medications Generic Na
--- NOTE | 2020-03-09 14:25 | PM.PNNEP ---
Progress Note: A&P Assessment and Plan (1) SHAVONNE (acute kidney injury): Code(s): N17.9 - Acute kidney failure, unspecified Status: Acute Assessment and Plan: likely secondary to ATN and associated renal hypoperfusion resulting for severe hypotension likely worsened by ongoing use of ARB (olmesartan) as well urinary tract infection may be playing a role too improvement noted in creatinine by AM labs making urine follow-up on urine electrolytes renal ultrasound normal follow trend of repeat labs and UOP (2) Chronic kidney disease, stage 4 (severe): Code(s): N18.4 - Chronic kidney disease, stage 4 (severe) Status: Chronic Assessment and Plan: baseline creatinine runs around 1.4 - 1.9mg/dl due to hypertension, vascular disease, and age (based on outpatient evaluation (3) Urinary tract infection: Qualifiers: Hematuria presence: with hematuria Urinary tract infection type: site unspecified Qualified Code(s): N39.0 - Urinary tract infection, site not specified; R31.9 - Hematuria, unspecified Code(s): N39.0 - Urinary tract infection, site not specified Status: Acute Assessment and Plan: culture with E.coli on antibiotics (4) Hypotension: Code(s): I95.9 - Hypotension, unspecified Status: Acute Assessment and Plan: due volume depletion versus pain medications and BP medications(??) BP doing better holding antihypertensive medications follow trend of hemodynamics would allow her BP to rise a bit to ensure renal perfusion given SHAVONNE (5) Elevated troponin: Code(s): R77.8 - Other specified abnormalities of plasma proteins Status: Acute Assessment and Plan: as noted by admission labs Cardiology following with recommendations noted (6) Anemia: Code(s): D64.9 - Anemia, unspecified Status: Acute Assessment and Plan: due to SHAVONNE, CKD, and acute illness iron deficiency as noted by anemia studies hold venofer given UTI Will continue to follow. Subjective Date/time seen: 03/09/20 14:25 Overall, the patient continues to feel better since admission; her blood pressure is higher now and consistent with baseline readings without anti-hypertensive medications; no apparent distress voiced at this time; no events overnight or earlier this AM. Exam Narrative: Exam Narrative: General: Elderly female in NAD Heart: normal S1 and S2; no rub Lungs: clear to auscultation Abdomen: soft, nontender, nondistended, positive bowel sounds Extremities: no cyanosis or clubbing; trace edema Skin: warm and dry Objective Data Vital Signs Vital Signs: Vital Signs Temp Pulse Resp BP Pulse Ox 03/09/20 12:00 36.6 C 74 24 H 177/88 H 99 03/09/20 08:00 36.3 C L 68 20 154/86 H 68 L 03/09/20 06:00 54 L 03/09/20 04:00 36.1 C L 69 18 164/82 H 98 03/09/20 00:00 36.1 C L 62 18 137/84 97 03/08/20 22:00 58 L 03/08/20 20:00 36.0 C L 62 20 143/73 H 95 Intake/Output Intake/Output: Intake & Output 03/06/20 03/07/20 03/08/20 03/09/20 23:59 23:59 23:59 23:59 Intake Total 3050 4010 1840 Output Total 750 Balance 3050 4010 1090 Meds/Results Medications: Active Medications Generic Name Dose Route Start Last Admin Trade Name Freq PRN Reason Stop Dose Admin Acetaminophen 650 mg 03/09/20 08:32 Acetaminophen 325 Mg Tablet PO Q4H PRN Mild Pain (1-3) or Fever Albuterol 1 puff 03/07/20 23:31 Albuterol Sulfate (*Sp) Aerosol 1 Puff INHALATION Q4-6H PRN shortness of breath or wheezing Aspirin 81 mg 03/08/20 09:00 03/09/20 11:47 Aspirin 81 Mg Enteric Tablet PO 81 mg DAILY [facility] Administration Enoxaparin Sodium 30 mg 03/09/20 21:00 Enoxaparin 30 Mg/0.3 Ml Syringe SUB-Q HS [facility] Fluticasone/Umeclidinium/Vilanterol 1 puff 03/08/20 09:00 03/09/20 11:48 Fluticasone/Umeclidin/Vilanter 100-62.5-2
--- NOTE | 2020-03-09 14:35 | PM.CNOR ---
Assessment and Plan Assessment and plan (1) Closed right humeral fracture: Qualifiers: Encounter type: sequela Fracture morphology: unspecified fracture morphology Humerus Location: proximal Qualified Code(s): S42.201S - Unspecified fracture of upper end of right humerus, sequela Code(s): S42.301A - Unspecified fracture of shaft of humerus, right arm, initial encounter for closed fracture Status: Acute Assessment and Plan: Finn 80-year-old female with history of hyperlipidemia, diastolic congestive heart failure, chronic kidney disease, COPD, rheumatoid arthritis, and chronic anemia was admitted to the hospital for an acute on chronic kidney injury. On 03/05/2020 she fell 2 times at an eye appointment onto her right shoulder. She has been having frequent falls at home. She lives at home by herself. She was found to have low blood pressure. After her fall she had worsening Right shoulder pain. She was found to have a nondisplaced proximal humerus fracture. Patient is a current patient of Dr. Hamm's. She has a history of severe glenohumeral arthritis. She was offered Total shoulder arthroplasty in the past. Due to current medical conditions she is not a good surgical candidate. After review of current, previous radiographs, and CT's it is likely that she has fractured her glenoid in the past. This is now healed. Proximal humerus fracture is non-displaced and can be treated nonoperatively. Continue shoulder immobilizer. She may remove her wrist from immobilizer for comfort. Encourage range of motion of elbow, wrist, and fingers. Weightbearing as tolerated using a walker. She is currently using a Saraste[place] for transfers due to shortness of breath. Patient understands she will have decreased range of motion due to severe arthritis and proximal humerus fracture. Follow-up in 4 weeks virtually or in office with Dr. Hamm. History of Present Illness HPI Consult date: 03/09/20 Consult reason: fracture Chief complaint: UTI/SHAVONNE/DEHYDRATION/ELEVATED TROPONIN Narrative: Finn 80-year-old female with history of hyperlipidemia diastolic congestive heart failure chronic kidney disease COPD rheumatoid arthritis and chronic anemia was admitted to the hospital for an acute on chronic kidney injury. On 03/05/2020 she fell 2 times at an eye appointment onto her right shoulder. She has been having frequent falls at home. She lives at home by herself. She was found to have low blood pressure. She is a current patient of Dr. Salgado. We have seen her in the past for severe glenohumeral arthritis at the right shoulder. She states she has been having trouble with her shoulder for the past few years. She is unable to lift her arm above her head. She has been managing without surgical intervention. Today she complains of pain at her right shoulder. Pain is manageable. Pain does not radiate. Wearing immobilizer sling. Review of Systems Review of Systems: All systems reviewed & are unremarkable except as noted in HPI and below [facility] Past Medical History Medical History Flores esophagus Benign colon polyp Chronic anemia Chronic diastolic congestive heart failure Ventricular systolic function and size with moderate concentric left ventricular hypertrophy, impaired diastolic relaxation grade 1, and an ejection fraction estimated 60 to 65%. Chronic kidney disease, stage 4 (severe) Baseline creatinine is between 1.4 and 1.60. Chronic obstructive pulmonary disease Gastroesophageal reflux disease Osteoporosis Rheumatoid arthritis Vitamin D deficiency Surgical History Surgical History History of ankle surgery (~2014) ORIF left ankle fracture. History of appendectomy (~2009) History of bunionectomy of right great toe History of section History of cholecystectomy (~2001) History of leon
[2020-03-09] MEDS: SODIUM BICARBONATE 8.4% 150 MEQ in DEXTROSE 5% 1,000 ML 950 ML 100 ML IV CONT (16:31)
--- NOTE | 2020-03-09 17:35 | PM.IMPN ---
Progress Note: A&P Assessment and Plan (1) Acute on chronic kidney failure: Code(s): N17.9 - Acute kidney failure, unspecified; N18.9 - Chronic kidney disease, unspecified Status: Acute Assessment and Plan: Creatinine has fallen with IV hydration suggesting all pre renal secondary to hypotension. Continue hydration. Renal sonogram no obstruction. UA pyuria, culture growing E coli greater than 100,000 sensitive to ceftriaxone and will continue day 2. (2) Non-STEMI (non-ST elevated myocardial infarction): Code(s): I21.4 - Non-ST elevation (NSTEMI) myocardial infarction Status: Acute Assessment and Plan: EF slightly lower than previous. EKG repeat is less ST changes anteriorly. Blood pressure too low for her beta-bhargavi her nitrates initially Platelets 112 so Cardiology holding any further full anticoagulation but up to 124 K today Continue aspirin and conservative treatment Echo no wall motion abnormalities (3) COPD (chronic obstructive pulmonary disease): Qualifiers: COPD type: unspecified COPD Qualified Code(s): J44.9 - Chronic obstructive pulmonary disease, unspecified Code(s): J44.9 - Chronic obstructive pulmonary disease, unspecified Status: Acute Assessment and Plan: Continue updrafts and O2 supplements (4) Chronic diastolic CHF (congestive heart failure): Code(s): I50.32 - Chronic diastolic (congestive) heart failure Status: Acute Assessment and Plan: Echo EF 60% with no wall motion abnormalities and grade 1 diastolic dysfunction (5) HTN (hypertension): Code(s): I10 - Essential (primary) hypertension Status: Acute Assessment and Plan: Blood pressure low so Coreg and amlodipine on hold No obvious reason for hypotension. Does not appear septic blood cultures negative be urine did grow E coli. Could be secondary to ischemic heart disease We will not treat blood pressure today because to know what a lower pressure potential further decrease in renal perfusion (6) Rheumatoid arthritis with rheumatoid factor of multiple sites without organ or systems involvement: Code(s): M05.79 - Rheumatoid arthritis with rheumatoid factor of multiple sites without organ or systems involvement Status: Acute Assessment and Plan: Chronic steroid treatment so will do stress dosing with her hypotension with Solu-Medrol b.i.d. and tapering (7) Anemia: Code(s): D64.9 - Anemia, unspecified Status: Acute Assessment and Plan: Probable chronic disease and supported by Fe studies (8) DVT prophylaxis: Code(s): Z29.9 - Encounter for prophylactic measures, unspecified Status: Acute Assessment and Plan: Had full-dose Lovenox last p.m.., will start low-dose Lovenox this pm with platelets up to 124K Subjective Date/time seen: 03/09/20 17:35 Interval history: Date of visit 03/09. 84-year-old hypertensive white female with history of diastolic heart failure rheumatoid arthritis and COPD who presented to the hospital with weakness and found to have hypotension and acute renal failure.. She denies any chest pain but has had dyspnea on exertion and troponin level was also elevated with ST inversions anteriorly.. She feels better this a.m. after hydration with pressure systolic climbing. Has chronic loose stools after eating but no change in no melena or hematochezia Exam Narrative: Exam Narrative: Blood pressure 160/80 pulse is 56 and regular sat 96% on 2 L nasal cannula afebrile Lungs clear CV regular hear no murmurs or gallops Abdomen soft nontender no masses Extremities without edema distal pulses are 1+ Neuro alert pleasant cooperative no focal deficit Objective Data Vital Signs Vital Signs: Vital Signs - 24 hr 03/08/20 18:00 03/08/20 20:00 03/08/20 22:00 Temperature 36.0 C L Pulse Rate 77 62 58 L Respiratory Rate 20 Blood Pressure 143/73 H Pulse Oximetry 95 03/09/20
[2020-03-09] MEDS: ENOXAPARIN 30 MG/0.3 ML SYRINGE SUB-Q (21:50)
[2020-03-09] MEDS: ALBUTEROL SULFATE (*SP) AEROSOL 1 PUFF INHALATION (21:58)
[2020-03-09 23:00] LABS: Creatinine Urine 100.8 mg/dL; Total Protein Urine Random 26 mg/dL; Ur Ttl Prot Creatinine Ratio 0.26 mg/mg (0-0.20)
[2020-03-09 23:36] LABS: Sodium Urine Random 58 meq/L
[2020-03-10] VITALS (22 sets, daily range): BP systolic 153–176; BP diastolic 65–90; PULSE 39–78; RESP 16–20; TEMP 35.9–36.5; O2SAT 92–100
--- NOTE | 2020-03-10 03:38 | ECG_ITS ---
Measurements Intervals [place]ers Rate: 45 P: 23 ND: 193 QRS: 32 QRSD: 105 T: 5 QT: 562 QTc: 490 Interpretive Statements SINUS BRADYCARDIA T WAVE ABNORMALITY IN ANTERIOR LEADS- CONSIDER ISCHEMIA BASELINE WANDER- V5-V6 ABNORMAL ECG Electronically Signed On 03-10-2020 8:06:28 [employer] by Walter Jarvis D.O.
[2020-03-10] MEDS: SODIUM BICARBONATE 8.4% 150 MEQ in DEXTROSE 5% 1,000 ML 950 ML 100 ML IV CONT ×2 (04:35→14:23)
[2020-03-10 05:14] LABS: Basophils Percent Auto 0.2 % (0.2-1.2); Hematocrit 26.1 % (37.0-47.0); Hemoglobin 8.4 g/dL (12.0-15.0); Immature Granulocyte Absolute 0.04 K/mm3 (0.00-0.031); Immature Granulocyte Percent A 0.8 % (0-0.5); Lymphocytes Absolute Auto 0.42 K/mm3 (0.9-3.2); Lymphocytes Percent Auto 7.9 % (18.3-44.2); Mean Corpuscular HGB Conc 32.2 g/dl (32-36); Mean Corpuscular Hemoglobin 29.1 pg (26-34); Mean Corpuscular Volume 90.3 fl (80-100); Mean Platelet Volume 9.9 fl (7.4-10.4); Monocytes Absolute Auto 0.3 K/mm3 (0.1-0.6); Monocytes Percent Auto 5.8 % (2.6-8.5); Neutrophils Absolute Auto 4.6 K/mm3 (1.3-6.7); Neutrophils Percent Auto 85.3 % (45.5-73.1); Platelet Count Result 138 k/mm3 (150-375); Red Blood Count 2.89 M/mm3 (4.2-5.4); Red Cell Distribution Width 13.9 % (11.5-14.5); White Blood Count 5.3 K/mm3 (4.5-10.0)
[2020-03-10 05:26] LABS: Albumin Level 3.1 g/dL (3.5-5.1); Anion Gap 5 mmol/L (8-16); Blood Urea Nitrogen 53 mg/dL (7-17); Calcium 7.5 mg/dL (8.4-10.2); Carbon Dioxide 23 mmol/L (22-30); Chloride 106 mmol/L (98-107); Estimated CRCL calculation 13 ml/min; Estimated Glomerular Filt Rate 15; Glucose 221 mg/dL (65-105); Potassium 4.1 mmol/L (3.4-5.0); Sodium 134 mmol/L (137-145)
[2020-03-10] MEDS: methylPREDNISolone SOD SUCC 40 MG VIAL 30 MG IV PUSH (08:33)
[2020-03-10] MEDS: SIMVASTATIN 20 MG TABLET 40 MG PO (08:33)
[2020-03-10] MEDS: FLUTICASONE/UMECLIDIN/VILANTER 100-62.5-25 MCG ELLIPTA 1 PUFF INHALATION (08:33)
[2020-03-10] MEDS: FOLIC ACID 1 MG TABLET PO (08:33)
[2020-03-10] MEDS: PANTOPRAZOLE 40 MG TABLET PO ×2 (08:33→16:34)
[2020-03-10] MEDS: ACIDOPHILUS/BULGARICUS CHEWABLE TABLET 1 TABLET PO (08:35)
[2020-03-10] MEDS: CHOLECALCIFEROL 1,000 UNITS TABLET 5000 UNITS PO (08:35)
[2020-03-10] MEDS: ASPIRIN 81 MG ENTERIC TABLET PO (08:35)
--- NOTE | 2020-03-10 11:58 | PM.PNCARD ---
Progress Note: A&P Assessment and Plan (1) Non-STEMI (non-ST elevated myocardial infarction): Code(s): I21.4 - Non-ST elevation (NSTEMI) myocardial infarction Status: Acute Assessment and Plan: Significant troponin elevation in setting of acute renal failure, hypotension and anemia. Can't exclude subacute [place] as troponins were already trending downward at admission, however, patient reports no anginal symptoms of any kind. -This may be explained by undiagnosed underlying CAD along with her comorbidities precipitated by severe hypotension related to dehydration and medications, SHAVONNE, and anemia at presentation. -Given the severity of her renal function coronary angiography will not be pursued. EKG with T-wave abnormality yet patient is asymptomatic. -anticipate outpatient ischemic evaluation. Continue conservative medical management. No plans for invasive evaluations at this time. -statin, aspirin. Beta-bhargavi when able to tolerate with BP and heart rate. -echo with normal LV systolic function without wall motion abnormalities EF 60-65%. (2) Acute on chronic kidney failure: Code(s): N17.9 - Acute kidney failure, unspecified; N18.9 - Chronic kidney disease, unspecified Status: Acute Assessment and Plan: Slow improvement since admission. Acute on chronic pattern related to intravascular volume depletion and medical therapy. Avoid nephrotoxic agents. Nephrology consultation appreciated. (3) Thrombocytopenia: Code(s): D69.6 - Thrombocytopenia, unspecified Status: Acute Assessment and Plan: Stable, slight recovery. Monitor for bleeding. Cont ASA. (4) Chronic anemia: Code(s): D64.9 - Anemia, unspecified Status: Acute Assessment and Plan: H&H stable. No evidence of active bleed. (5) Hypotension: Code(s): I95.9 - Hypotension, unspecified Status: Acute Assessment and Plan: Blood pressure is not elevated. Will restart some low-dose amlodipine. She was bradycardic earlier today and therefore will continue to hold carvedilol. Amlodipine 2.5 mg p.o. daily Subjective Date/time seen: 03/10/20 11:58 Interval history: 84-year-old hypertensive white female with history of diastolic heart failure rheumatoid arthritis and COPD who presented to the hospital with weakness and found to have hypotension and acute renal failure.. She denies any chest pain but has had dyspnea on exertion and troponin level was also elevated with ST inversions anteriorly.. Date of service 03/10/20: She feels much better. Renal function continues to improve. No chest pain or shortness of breath Review of Systems Review of Systems: All systems reviewed & are unremarkable except as noted in HPI and below Constitutional: Constitutional: Reports as per HPI, Reports no additional constitutional complaints, Reports chills, Reports fatigue, Reports lethargy and Reports weakness Eyes: Eyes: Reports as per HPI and Reports no additional eye complaints ENT: Reports system reviewed and no additional complaints, except as documented and Reports as per HPI Cardiovascular: Cardiovascular: Reports as per HPI, Reports no additional cardiovascular complaints, Denies chest pain, Denies diaphoresis, Reports lightheadedness, Denies palpitations, Denies dyspnea and Denies dyspnea on exertion Respiratory: Respiratory: Reports as per HPI, Reports no additional respiratory complaints, Denies cough, Denies dyspnea, Denies dyspnea on exertion and Denies wheezing Gastrointestinal: Gastrointestinal: Reports as per HPI, Reports no additional gastrointestinal complaints, Denies abdominal pain, Denies melena, Denies bloating, Denies hematochezia, Denies nausea and Denies vomiting Genitourinary: Genitourinary: Reports as per HPI, Denies hematuria and Denies flank pain Musculoskeletal: Musculoskeletal: Reports no additional musculoskeletal complaints, Reports as per HPI and Reports arthralgias Integu
[2020-03-10] MEDS: amLODIPine BESYLATE 2.5 MG TABLET PO (12:46)
--- NOTE | 2020-03-10 12:46 | P.PNNP_ITS ---
Progress Note: A&P Assessment and Plan (1) SHAVONNE (acute kidney injury): Code(s): N17.9 - Acute kidney failure, unspecified Status: Acute Assessment and Plan: * likely secondary to ATN and associated renal hypoperfusion resulting from severe hypotension * likely worsened by ongoing use of ARB (olmesartan) as well * urinary tract infection may be playing a role too * improvement noted in creatinine by AM labs with better hemodynamics * making urine with no critical electrolytes * follow trend of repeat labs and UOP (2) Chronic kidney disease, stage 4 (severe): Code(s): N18.4 - Chronic kidney disease, stage 4 (severe) Status: Chronic Assessment and Plan: * baseline creatinine runs around 1.4 - 1.9mg/dl * due to hypertension, vascular disease, and age (based on outpatient evaluation) (3) Urinary tract infection: Qualifiers: Hematuria presence: with hematuria Urinary tract infection type: site unspecified Qualified Code(s): N39.0 - Urinary tract infection, site not specified; R31.9 - Hematuria, unspecified Code(s): N39.0 - Urinary tract infection, site not specified Status: Acute Assessment and Plan: * culture with E.coli * on antibiotics (4) Hypotension: Code(s): I95.9 - Hypotension, unspecified Status: Acute Assessment and Plan: * due volume depletion versus pain medications and BP medications(??) * BP doing better holding antihypertensive medications * follow trend of hemodynamics * would avoid overcontrol allow her BP to be a little on the higher side of normal to ensure renal perfusion given SHAVONNE (5) Elevated troponin: Code(s): R77.8 - Other specified abnormalities of plasma proteins Status: Acute Assessment and Plan: * as noted by admission labs * Cardiology following with recommendations noted (6) Anemia: Code(s): D64.9 - Anemia, unspecified Status: Acute Assessment and Plan: * due to SHAVONNE, CKD, and acute illness * iron deficiency as noted by anemia studies * hold venofer given UTI Will continue to follow. Subjective Date/time seen: 03/10/20 12:46 Overall, she continues to feel better and indicates she is vastly improved compared to how she was on admission; no apparent distress voiced at the time of my visit; no events overnight. Exam Narrative: Exam Narrative: General: Elderly female in NAD Heart: normal S1 and S2; no rub Lungs: clear to auscultation Abdomen: soft, nontender, nondistended, positive bowel sounds Extremities: no cyanosis or clubbing; trace edema Skin: warm and intact Objective Data Vital Signs Vital Signs: Vital Signs Temp Pulse Resp BP Pulse Ox 03/10/20 12:00 92 03/10/20 11:55 36.2 C L 51 L 20 155/75 H 92 03/10/20 10:00 72 03/10/20 09:02 93 03/10/20 08:41 98 03/10/20 08:00 52 L 03/10/20 07:57 36.4 C L 52 L 20 176/90 H 98 03/10/20 06:00 44 L 03/10/20 04:00 35.9 C L 51 L 18 153/82 H 98 03/10/20 02:00 40 L 03/10/20 01:37 36.4 C L 03/10/20 01:29 36.4 C L 03/10/20 00:00 35.9 C L 39 L 20 175/71 H 100 03/09/20 22:05 59 L 20 03/09/20 22:00 59 L 03/09/20 21:38 55 L 98 03/09/20 20:00 71 100 03/09/20 19:29 36.4 C L 71 20 101/70 100
--- NOTE | 2020-03-10 12:46 | PM.PNNEP ---
Progress Note: A&P Assessment and Plan (1) SHAVONNE (acute kidney injury): Code(s): N17.9 - Acute kidney failure, unspecified Status: Acute Assessment and Plan: likely secondary to ATN and associated renal hypoperfusion resulting from severe hypotension likely worsened by ongoing use of ARB (olmesartan) as well urinary tract infection may be playing a role too improvement noted in creatinine by AM labs with better hemodynamics making urine with no critical electrolytes follow trend of repeat labs and UOP (2) Chronic kidney disease, stage 4 (severe): Code(s): N18.4 - Chronic kidney disease, stage 4 (severe) Status: Chronic Assessment and Plan: baseline creatinine runs around 1.4 - 1.9mg/dl due to hypertension, vascular disease, and age (based on outpatient evaluation) (3) Urinary tract infection: Qualifiers: Hematuria presence: with hematuria Urinary tract infection type: site unspecified Qualified Code(s): N39.0 - Urinary tract infection, site not specified; R31.9 - Hematuria, unspecified Code(s): N39.0 - Urinary tract infection, site not specified Status: Acute Assessment and Plan: culture with E.coli on antibiotics (4) Hypotension: Code(s): I95.9 - Hypotension, unspecified Status: Acute Assessment and Plan: due volume depletion versus pain medications and BP medications(??) BP doing better holding antihypertensive medications follow trend of hemodynamics would avoid overcontrol allow her BP to be a little on the higher side of normal to ensure renal perfusion given SHAVONNE (5) Elevated troponin: Code(s): R77.8 - Other specified abnormalities of plasma proteins Status: Acute Assessment and Plan: as noted by admission labs Cardiology following with recommendations noted (6) Anemia: Code(s): D64.9 - Anemia, unspecified Status: Acute Assessment and Plan: due to SHAVONNE, CKD, and acute illness iron deficiency as noted by anemia studies hold venofer given UTI Will continue to follow. Subjective Date/time seen: 03/10/20 12:46 Overall, she continues to feel better and indicates she is vastly improved compared to how she was on admission; no apparent distress voiced at the time of my visit; no events overnight. Exam Narrative: Exam Narrative: General: Elderly female in NAD Heart: normal S1 and S2; no rub Lungs: clear to auscultation Abdomen: soft, nontender, nondistended, positive bowel sounds Extremities: no cyanosis or clubbing; trace edema Skin: warm and intact Objective Data Vital Signs Vital Signs: Vital Signs Temp Pulse Resp BP Pulse Ox 03/10/20 12:00 92 03/10/20 11:55 36.2 C L 51 L 20 155/75 H 92 03/10/20 10:00 72 03/10/20 09:02 93 03/10/20 08:41 98 03/10/20 08:00 52 L 03/10/20 07:57 36.4 C L 52 L 20 176/90 H 98 03/10/20 06:00 44 L 03/10/20 04:00 35.9 C L 51 L 18 153/82 H 98 03/10/20 02:00 40 L 03/10/20 01:37 36.4 C L 03/10/20 01:29 36.4 C L 03/10/20 00:00 35.9 C L 39 L 20 175/71 H 100 03/09/20 22:05 59 L 20 03/09/20 22:00 59 L 03/09/20 21:38 55 L 98 03/09/20 20:00 71 100 03/09/20 19:29 36.4 C L 71 20 101/70 100 03/09/20 18:00 49 L 03/09/20 16:00 36.4 C L 57 L 24 H 160/85 H 99 03/09/20 14:00 72 Intake/Output Intake/Output: Intake & Output 03/07/20 03/08/20 03/09/20 03/10/20 23:59 23:59 23:59 23:59 Intake Total 3050 4010 2130 1350 Output Total 750 550 Balance 3050 4010 1380 800 Meds/Results Medications: Active Medications Generic Name Dose Route Start Last Admin Trade Name Freq PRN Reason Stop Dose Admin Acetaminophen 650 mg 03/09/20 08:32 Acetaminophen 325 Mg Tablet PO Q4H PRN Mild Pain (1-3) or Fever Albuterol 1 puff 03/07/20 23:31 03/09/20 21:58 Albuterol Sulfate (*Sp)
--- NOTE | 2020-03-10 15:53 | PC.NURSE ---
notified dr. collier of patient's heart rate sustaining 130/140s. Orders received to let amio gtt run for 24 hours. RN will stop gtt at 1900 and give po amio and metoprolol at 1800.
--- NOTE | 2020-03-10 16:06 | PM.IMPN ---
Progress Note: A&P Assessment and Plan (1) Acute on chronic kidney failure: Code(s): N17.9 - Acute kidney failure, unspecified; N18.9 - Chronic kidney disease, unspecified Status: Acute Assessment and Plan: Creatinine has fallen with IV hydration suggesting all pre renal secondary to hypotension. Continue hydration. Renal sonogram no obstruction. UA pyuria, culture growing E coli greater than 100,000 sensitive to ceftriaxone and will continue day 3. (2) Non-STEMI (non-ST elevated myocardial infarction): Code(s): I21.4 - Non-ST elevation (NSTEMI) myocardial infarction Status: Acute Assessment and Plan: EF slightly lower than previous. EKG repeat is less ST changes anteriorly. Blood pressure too low for her beta-bhargavi her nitrates initially Platelets 112 so Cardiology holding any further full anticoagulation but up to 138 K today Continue aspirin and conservative treatment Echo no wall motion abnormalities (3) COPD (chronic obstructive pulmonary disease): Qualifiers: COPD type: unspecified COPD Qualified Code(s): J44.9 - Chronic obstructive pulmonary disease, unspecified Code(s): J44.9 - Chronic obstructive pulmonary disease, unspecified Status: Acute Assessment and Plan: Continue updrafts and O2 supplements (4) Chronic diastolic CHF (congestive heart failure): Code(s): I50.32 - Chronic diastolic (congestive) heart failure Status: Acute Assessment and Plan: Echo EF 60% with no wall motion abnormalities and grade 1 diastolic dysfunction (5) HTN (hypertension): Code(s): I10 - Essential (primary) hypertension Status: Acute Assessment and Plan: Blood pressure low so Coreg and amlodipine were held No obvious reason for hypotension. Does not appear septic, blood cultures negative, but urine did grow E coli. Could be secondary to ischemic heart disease With bp staying up will added amlodipine at 2.5 qd (6) Rheumatoid arthritis with rheumatoid factor of multiple sites without organ or systems involvement: Code(s): M05.79 - Rheumatoid arthritis with rheumatoid factor of multiple sites without organ or systems involvement Status: Acute Assessment and Plan: Chronic steroid treatment so have done stress dosing with her hypotension with Solu-Medrol b.i.d. and tapering now (7) Anemia: Code(s): D64.9 - Anemia, unspecified Status: Acute Assessment and Plan: Probable chronic disease and supported by Fe studies hgb 8.4 today and platelet increased to 138K today (8) DVT prophylaxis: Code(s): Z29.9 - Encounter for prophylactic measures, unspecified Status: Acute Assessment and Plan: Had full-dose Lovenox on admission.., started low-dose Lovenox 115 pm with platelets up to 124K, now 138k. Subjective Date/time seen: 03/10/20 16:06 Interval history: Date of visit 03/10. 84-year-old hypertensive white female with history of diastolic heart failure rheumatoid arthritis and COPD who presented to the hospital with weakness and found to have hypotension and acute renal failure.. She denies any chest pain but has had dyspnea on exertion and troponin level was also elevated with ST inversions anteriorly.. She feels better this a.m. after hydration with pressure systolic climbing. Has chronic loose stools after eating but no change in no melena or hematochezia some sore throat and non productive cough today Exam Narrative: Exam Narrative: Blood pressure 150/82 pulse is 52 and regular sat 96% on 2 L nasal cannula afebrile throat appears normal Lungs clear CV regular hear no murmurs or gallops Abdomen soft nontender no masses Extremities without edema distal pulses are 1+ Neuro alert pleasant cooperative no focal deficit Objective Data Vital Signs Vital Signs: Vital Signs - 24 hr 03/09/20 18:00 03/09/20 19:29 03/09/20 20:00 Temperature 36.4 C L Pulse Rate 49 L 71 71 Resp
[2020-03-10] MEDS: ACETAMINOPHEN 325 MG TABLET 650 MG PO (18:10)
[2020-03-10 18:46] LABS: SARS-CoV-2 RNA PCR Negative
[2020-03-10] MEDS: ENOXAPARIN 30 MG/0.3 ML SYRINGE SUB-Q (20:46)
[2020-03-11] VITALS (11 sets, daily range): BP systolic 130–182; BP diastolic 64–89; PULSE 43–72; RESP 16–20; TEMP 35.6–36.8; O2SAT 95–96
[2020-03-11] MEDS: ALBUTEROL SULFATE (*SP) AEROSOL 1 PUFF INHALATION (00:01)
[2020-03-11] MEDS: SODIUM BICARBONATE 8.4% 150 MEQ in DEXTROSE 5% 1,000 ML 950 ML 100 MEQ IV CONT (01:33)
[2020-03-11] MEDS: ACETAMINOPHEN 325 MG TABLET 650 MG PO ×3 (04:46→22:17)
[2020-03-11 05:07] LABS: Hematocrit 24.6 % (37.0-47.0); Hemoglobin 8.4 g/dL (12.0-15.0); Immature Granulocyte Absolute 0.04 K/mm3 (0.00-0.031); Immature Granulocyte Percent A 0.6 % (0-0.5); Lymphocytes Absolute Auto 0.73 K/mm3 (0.9-3.2); Lymphocytes Percent Auto 10.7 % (18.3-44.2); Mean Corpuscular HGB Conc 34.1 g/dl (32-36); Mean Corpuscular Hemoglobin 29.1 pg (26-34); Mean Corpuscular Volume 85.1 fl (80-100); Mean Platelet Volume 10.5 fl (7.4-10.4); Monocytes Absolute Auto 0.6 K/mm3 (0.1-0.6); Monocytes Percent Auto 9.4 % (2.6-8.5); Neutrophils Absolute Auto 5.4 K/mm3 (1.3-6.7); Neutrophils Percent Auto 79.3 % (45.5-73.1); Platelet Count Result 159 k/mm3 (150-375); Red Blood Count 2.89 M/mm3 (4.2-5.4); Red Cell Distribution Width 13.8 % (11.5-14.5); White Blood Count 6.8 K/mm3 (4.5-10.0)
[2020-03-11 05:16] LABS: Hemoglobin A1C 6.3 % (<5.7)
[2020-03-11 08:29] LABS: Anion Gap 6 mmol/L (8-16); Blood Urea Nitrogen 48 mg/dL (7-17); Calcium 7.5 mg/dL (8.4-10.2); Carbon Dioxide 31 mmol/L (22-30); Chloride 98 mmol/L (98-107); Estimated CRCL calculation 19 ml/min; Estimated Glomerular Filt Rate 24; Glucose 177 mg/dL (65-105); Phosphorus 2.8 mg/dL (2.5-4.5); Potassium 3.5 mmol/L (3.4-5.0); Sodium 135 mmol/L (137-145)
[2020-03-11] MEDS: PANTOPRAZOLE 40 MG TABLET PO ×2 (08:38→16:13)
[2020-03-11] MEDS: SIMVASTATIN 20 MG TABLET 40 MG PO (08:38)
[2020-03-11] MEDS: FOLIC ACID 1 MG TABLET PO (08:38)
[2020-03-11] MEDS: amLODIPine BESYLATE 2.5 MG TABLET PO ×2 (08:39→11:16)
[2020-03-11] MEDS: ASPIRIN 81 MG ENTERIC TABLET PO (08:39)
[2020-03-11] MEDS: ACIDOPHILUS/BULGARICUS CHEWABLE TABLET 1 TABLET PO (08:39)
[2020-03-11] MEDS: predniSONE 20 MG TABLET PO (08:39)
[2020-03-11] MEDS: FLUTICASONE/UMECLIDIN/VILANTER 100-62.5-25 MCG ELLIPTA 1 PUFF INHALATION (08:39)
[2020-03-11] MEDS: CHOLECALCIFEROL 1,000 UNITS TABLET 5000 UNITS PO (08:39)
--- NOTE | 2020-03-11 09:42 | PM.IMPN ---
Progress Note: A&P Assessment and Plan (1) Acute on chronic kidney failure: Code(s): N17.9 - Acute kidney failure, unspecified; N18.9 - Chronic kidney disease, unspecified Status: Acute Assessment and Plan: Creatinine has fallen with IV hydration suggesting all pre renal secondary to hypotension(6.0 to 2.0 today) Renal sonogram no obstruction. UA pyuria, culture growing E coli greater than 100,000 sensitive to ceftriaxone and will continue day 4 stop IV fluids with some evidence of overlaod on PE and creatinine falling. (2) Non-STEMI (non-ST elevated myocardial infarction): Code(s): I21.4 - Non-ST elevation (NSTEMI) myocardial infarction Status: Acute Assessment and Plan: EF 60-65% . EKG repeat is less ST changes anteriorly. Blood pressure was too low for her beta-bhargavi initially and still bradycardic Platelets 112 so Cardiology holding any further full anticoagulation but up to 159 K today Continue aspirin and conservative treatment Echo no wall motion abnormalities (3) COPD (chronic obstructive pulmonary disease): Qualifiers: COPD type: unspecified COPD Qualified Code(s): J44.9 - Chronic obstructive pulmonary disease, unspecified Code(s): J44.9 - Chronic obstructive pulmonary disease, unspecified Status: Acute Assessment and Plan: Continue updrafts and O2 supplements (4) Chronic diastolic CHF (congestive heart failure): Code(s): I50.32 - Chronic diastolic (congestive) heart failure Status: Acute Assessment and Plan: Echo EF 60% with no wall motion abnormalities and grade 1 diastolic dysfunction d/c IV fluid today (5) HTN (hypertension): Code(s): I10 - Essential (primary) hypertension Status: Acute Assessment and Plan: Blood pressure low so Coreg and amlodipine were held initially No obvious reason for hypotension. Does not appear septic, blood cultures negative, but urine did grow E coli. Could be secondary to ischemic heart disease With bp staying up added amlodipine at 2.5 qd 03/10 and will increase to 5.0mg with bp high throughout night coreg still on hold with bradycardia (6) Rheumatoid arthritis with rheumatoid factor of multiple sites without organ or systems involvement: Code(s): M05.79 - Rheumatoid arthritis with rheumatoid factor of multiple sites without organ or systems involvement Status: Acute Assessment and Plan: Chronic steroid treatment so have done stress dosing with her hypotension with Solu-Medrol b.i.d. and tapering now to po prednisone (7) Anemia: Code(s): D64.9 - Anemia, unspecified Status: Acute Assessment and Plan: Probable chronic disease and supported by Fe studies hgb 8.4 again today and platelet increased to 159 K today (8) DVT prophylaxis: Code(s): Z29.9 - Encounter for prophylactic measures, unspecified Status: Acute Assessment and Plan: Had full-dose Lovenox on admission.., started low-dose Lovenox 03/09 pm with platelets up to 124K, now 138k. (9) Glucose intolerance: Code(s): E74.39 - Other disorders of intestinal carbohydrate absorption Status: Acute Assessment and Plan: FBS 177 today on IV D5. A1c 6.3 , continue to moniter and d/c IV fluid Subjective Date/time seen: 03/11/20 09:42 Interval history: Date of visit 03/11. 84-year-old hypertensive white female with history of diastolic heart failure rheumatoid arthritis and COPD who presented to the hospital with weakness and found to have hypotension and acute renal failure.. She denies any chest pain but has had dyspnea on exertion and troponin level was also elevated with ST inversions anteriorly.. She feels better this a.m. after hydration with pressure systolic climbing. Has chronic loose stools after eating but no change in no melena or hematochezia throat feels better but a little wheezing last pm Exam Narrative: Exam Narrative: Blood pressure 150/
--- NOTE | 2020-03-11 10:47 | PM.PNCARD ---
Progress Note: A&P Assessment and Plan (1) Non-STEMI (non-ST elevated myocardial infarction): Code(s): I21.4 - Non-ST elevation (NSTEMI) myocardial infarction Status: Acute Assessment and Plan: Significant troponin elevation in setting of acute renal failure, hypotension and anemia. Can't exclude subacute VA as troponins were already trending downward at admission, however, patient reports no anginal symptoms of any kind. -This may be explained by undiagnosed underlying CAD along with her comorbidities precipitated by severe hypotension related to dehydration and medications, SHAVONNE, and anemia at presentation. -Given the severity of her renal function coronary angiography will not be pursued. EKG with T-wave abnormality yet patient is asymptomatic. -anticipate outpatient ischemic evaluation. Continue conservative medical management. No plans for invasive evaluations at this time. -statin, aspirin. Beta-bhargavi when able to tolerate with BP and heart rate. -echo with normal LV systolic function without wall motion abnormalities EF 60-65%. (2) Acute on chronic kidney failure: Code(s): N17.9 - Acute kidney failure, unspecified; N18.9 - Chronic kidney disease, unspecified Status: Acute Assessment and Plan: Slow improvement since admission. Acute on chronic pattern related to intravascular volume depletion and medical therapy. Avoid nephrotoxic agents. (3) Thrombocytopenia: Code(s): D69.6 - Thrombocytopenia, unspecified Status: Acute Assessment and Plan: Stable, slight recovery. Monitor for bleeding. Cont ASA. (4) Chronic anemia: Code(s): D64.9 - Anemia, unspecified Status: Acute Assessment and Plan: H&H stable. No evidence of active bleed. (5) Hypotension: Code(s): I95.9 - Hypotension, unspecified Status: Acute Assessment and Plan: Blood pressure is not elevated. Will restart some low-dose amlodipine. She was bradycardic earlier today and therefore will continue to hold carvedilol. A (6) HTN (hypertension): Code(s): I10 - Essential (primary) hypertension Status: Acute Assessment and Plan: Now hypertensive. Renal function is near baseline. Will increase amlodipine to 10 mg daily Subjective Date/time seen: 03/11/20 10:47 Interval history: 84-year-old hypertensive white female with history of diastolic heart failure rheumatoid arthritis and COPD who presented to the hospital with weakness and found to have hypotension and acute renal failure.. She denies any chest pain but has had dyspnea on exertion and troponin level was also elevated with ST inversions anteriorly.. Date of service 03/11/20: She feels much better. She did feel little wheezy last night. No chest pain or shortness of breath today Review of Systems Review of Systems: All systems reviewed & are unremarkable except as noted in HPI and below Constitutional: Constitutional: Reports as per HPI, Reports no additional constitutional complaints, Reports chills, Reports fatigue, Reports lethargy and Reports weakness Eyes: Eyes: Reports as per HPI and Reports no additional eye complaints ENT: Reports system reviewed and no additional complaints, except as documented and Reports as per HPI Cardiovascular: Cardiovascular: Reports as per HPI, Reports no additional cardiovascular complaints, Denies chest pain, Denies diaphoresis, Reports lightheadedness, Denies palpitations, Denies dyspnea and Denies dyspnea on exertion Respiratory: Respiratory: Reports as per HPI, Reports no additional respiratory complaints, Denies cough, Denies dyspnea, Denies dyspnea on exertion and Denies wheezing Gastrointestinal: Gastrointestinal: Reports as per HPI, Reports no additional gastrointestinal complaints, Denies abdominal pain, Denies melena, Denies bloating, Denies hematochezia, Denies nausea and Denies vomiting Genitourinary: Genitourinary: Reports as per HPI, Denies
[2020-03-11] MEDS: POTASSIUM CHLORIDE 20 MEQ TABLET 40 MEQ PO (11:15)
--- NOTE | 2020-03-11 12:02 | PM.PNNEP ---
Progress Note: A&P Assessment and Plan (1) SHAVONNE (acute kidney injury): Code(s): N17.9 - Acute kidney failure, unspecified Status: Acute Assessment and Plan: likely secondary to ATN and associated renal hypoperfusion resulting from severe hypotension likely worsened by ongoing use of ARB (olmesartan) as well urinary tract infection may be playing a role too improvement noted in creatinine with better hemodynamics making urine with no critical electrolytes follow trend of repeat labs and UOP (2) Chronic kidney disease, stage 4 (severe): Code(s): N18.4 - Chronic kidney disease, stage 4 (severe) Status: Chronic Assessment and Plan: baseline creatinine runs around 1.4 - 1.9mg/dl due to hypertension, vascular disease, and age (based on outpatient evaluation) (3) Urinary tract infection: Qualifiers: Hematuria presence: with hematuria Urinary tract infection type: site unspecified Qualified Code(s): N39.0 - Urinary tract infection, site not specified; R31.9 - Hematuria, unspecified Code(s): N39.0 - Urinary tract infection, site not specified Status: Acute Assessment and Plan: culture with E.coli on antibiotics (4) Hypotension: Code(s): I95.9 - Hypotension, unspecified Status: Acute Assessment and Plan: due volume depletion versus pain medications and BP medications(??) BP doing better holding antihypertensive medications follow trend of hemodynamics would avoid overcontrol allow her BP to be a little on the higher side of normal to ensure renal perfusion given SHAVONNE (5) Elevated troponin: Code(s): R77.8 - Other specified abnormalities of plasma proteins Status: Acute Assessment and Plan: as noted by admission labs Cardiology following with recommendations noted (6) Anemia: Code(s): D64.9 - Anemia, unspecified Status: Acute Assessment and Plan: due to SHAVONNE, CKD, and acute illness iron deficiency as noted by anemia studies hold venofer given UTI Will continue to follow. Subjective Date/time seen: 03/11/20 12:02 She continues to feel better each day since her admission; no acute complaints or issues at this time; no events overnight overnight or this AM; she did state she felt a little wheezy last night but no so at the time of my visit; no apparent distress otherwise noted.feels much better. Exam Narrative: Exam Narrative: General: Elderly female in NAD Heart: normal S1 and S2; no rub Lungs: clear to auscultation Abdomen: soft, nontender, nondistended, positive bowel sounds Extremities: no cyanosis or clubbing; trace edema Skin: no rash or nodules Objective Data Vital Signs Vital Signs: Vital Signs Temp Pulse Resp BP Pulse Ox 03/11/20 12:00 36.3 C L 55 L 18 181/89 H 95 03/11/20 10:00 55 L 03/11/20 08:00 35.6 C L 52 L 16 148/69 H 96 03/11/20 06:00 43 L 03/11/20 04:00 36.4 C 46 L 18 182/76 H 96 03/11/20 02:00 46 L 03/11/20 00:00 46 L 96 03/10/20 23:47 36.1 C L 55 L 20 174/65 H 96 03/10/20 22:00 49 L 03/10/20 20:00 51 L 93 03/10/20 19:46 36.1 C L 56 L 20 162/68 H 93 03/10/20 18:00 69 03/10/20 16:40 96 03/10/20 16:00 55 L 03/10/20 15:57 36.5 C 52 L 16 153/88 H 96 Intake/Output Intake/Output: Intake & Output 03/08/20 03/09/20 03/10/20 03/11/20 23:59 23:59 23:59 23:59 Intake Total 4010 2130 3390 2390 Output Total 750 1400 1150 Balance 4010 1380 1990 1240 Meds/Results Medications: Active Medications Generic Name Dose Route Start Last Admin Trade Name Reedq PRN Reason Stop Dose Admin Acetaminophen 650 mg 03/09/20 08:32 03/11/20 11:15 Acetaminophen 325 Mg Tablet PO 650 mg Q4H PRN Administration Mild Pain (1-3) or Fever Albuterol 1 puff 03/07/20 23:31 03/11/20 00:01 Albuterol Sulfate (*Sp) Aerosol 1 Puff INHALATION
--- NOTE | 2020-03-11 13:10 | PC.NURSE ---
This patient, Jackelin Beasley, was received from IMU on 03/11/20 at 1324. Patient/family oriented to unit policies and routines. Report received from MONIKA Gonzalez.
--- NOTE | 2020-03-11 13:17 | PC.NURSE ---
This patient, Jackelin Beasley, was transferred to [facility] on 03/11/20 at 1310. Personal belongings sent with patient. Report given to Carmen FRANK. Appropriate documentation sent with patient.
[2020-03-11] MEDS: ENOXAPARIN 30 MG/0.3 ML SYRINGE SUB-Q (20:42)
[2020-03-12] VITALS (13 sets, daily range): BP systolic 132–174; BP diastolic 68–86; PULSE 49–83; RESP 18–20; TEMP 36.4–36.8; O2SAT 92–96
[2020-03-12 05:29] LABS: Basophils Percent Auto 0.1 % (0.2-1.2); Eosinophils Percent Auto 0.3 % (0-4.4); Hematocrit 27.3 % (37.0-47.0); Immature Granulocyte Absolute 0.06 K/mm3 (0.00-0.031); Immature Granulocyte Percent A 0.9 % (0-0.5); Lymphocytes Absolute Auto 1.33 K/mm3 (0.9-3.2); Lymphocytes Percent Auto 19.5 % (18.3-44.2); Mean Corpuscular Hemoglobin 28.7 pg (26-34); Mean Corpuscular Volume 86.9 fl (80-100); Mean Platelet Volume 9.7 fl (7.4-10.4); Monocytes Absolute Auto 0.7 K/mm3 (0.1-0.6); Monocytes Percent Auto 10.4 % (2.6-8.5); Neutrophils Absolute Auto 4.7 K/mm3 (1.3-6.7); Neutrophils Percent Auto 68.8 % (45.5-73.1); Nucleated Red Blood Cells Perc 0.3 % (0.0-0.2); Platelet Count Result 156 k/mm3 (150-375); Red Blood Count 3.14 M/mm3 (4.2-5.4); Red Cell Distribution Width 13.9 % (11.5-14.5); White Blood Count 6.8 K/mm3 (4.5-10.0)
[2020-03-12 05:43] LABS: Albumin Level 3.1 g/dL (3.5-5.1); Anion Gap 2 mmol/L (8-16); Blood Urea Nitrogen 42 mg/dL (7-17); Carbon Dioxide 32 mmol/L (22-30); Chloride 100 mmol/L (98-107); Estimated CRCL calculation 22 ml/min; Estimated Glomerular Filt Rate 29; Glucose 96 mg/dL (65-105); Phosphorus 2.6 mg/dL (2.5-4.5); Potassium 4.3 mmol/L (3.4-5.0); Sodium 134 mmol/L (137-145)
[2020-03-12] MEDS: predniSONE 10 MG TABLET PO (08:54)
[2020-03-12] MEDS: CHOLECALCIFEROL 1,000 UNITS TABLET 5000 UNITS PO (08:54)
[2020-03-12] MEDS: PANTOPRAZOLE 40 MG TABLET PO ×2 (09:00→16:38)
[2020-03-12] MEDS: ASPIRIN 81 MG ENTERIC TABLET PO (09:00)
[2020-03-12] MEDS: FOLIC ACID 1 MG TABLET PO (09:00)
[2020-03-12] MEDS: amLODIPine BESYLATE 5 MG TABLET 10 MG PO (09:00)
[2020-03-12] MEDS: FLUTICASONE/UMECLIDIN/VILANTER 100-62.5-25 MCG ELLIPTA 1 PUFF INHALATION (09:01)
[2020-03-12] MEDS: SIMVASTATIN 20 MG TABLET 40 MG PO (09:01)
[2020-03-12] MEDS: ACIDOPHILUS/BULGARICUS CHEWABLE TABLET 1 TABLET PO (09:01)
--- NOTE | 2020-03-12 10:33 | PM.PNCARD ---
Progress Note: A&P Additional Plan 84-year-old woman with: Longstanding essential hypertension patient has sinus bradycardia necessitating discontinuance of her beta-bhargavi. Accordingly her amlodipine dosage has been increased. She had a troponin level on admission that was out of normal range with no clinical evidence of a coronary problem this is not going to be investigated. Ernie Keating MD [facility] Subjective Date/time seen: Date of service: 03/12/20 10:33 Interval history: 84-year-old hypertensive white female with history of diastolic heart failure rheumatoid arthritis and COPD who presented to the hospital with weakness and found to have hypotension and acute renal failure.. She denies any chest pain but has had dyspnea on exertion and troponin level was also elevated with ST inversions anteriorly.. Date of service 03/12/2020. Patient has no cardiovascular complaints. Her amlodipine dosage has been up titrated since her carvedilol has been stopped. Blood pressure is reasonable today. Will try to avoid further manipulation in her hypertension medication while she is in the hospital. She is awaiting decision of regarding her being a candidate for rehab bed. Exam Narrative: Exam Narrative: General: Well developed, alert and oriented x3. No apparent distress, comfortable, pleasant, and cooperative. Head: atraumatic, normocephalic Eyes: EOM intact, sclerae anicteric, conjunctivae unremarkable Ears/Nose: external inspection of ears and nose were grossly normal Mouth/Throat: oral mucosa pink and moist Neck: supple, normal range of motion, no jugular venous distention or carotid bruits, thyroid nonpalpable, trachea midline. Cardiac: Regular rate and rhythm, normal S1-S2, no murmurs, clicks, gallops, or rubs. Lungs: Diminished breath sounds diffusely, no rales, wheezes, or rhonchi. Abdomen: Soft, nontender, nondistended, positive bowel sounds throughout. No appreciable hepatosplenomegaly, no rebound guarding or rigidity noted. Abdominal aorta nonpalpable, no appreciable bruits. Extremities: Trace bilateral lower extremity edema, no clubbing, and or cyanosis. Extremities warm and well perfused. Skin: Warm and dry without ecchymoses, rashes, and/or petechiae. Musculoskeletal: Muscle strength and tone intact throughout without obvious deformities. Right arm in sling, superficial bruising noted. Vascular: Carotid upstrokes 2+ bilaterally, radial pulses 2+ bilaterally, dorsalis pedis pulses 2+ bilaterally, posterior tibialis pulses palpable bilaterally. Neurologic: Cranial nerves 2-12 grossly intact, examination grossly nonfocal Pscyhiatric: Mood calm and appropriate. Const: General: No confusion Orientation/consciousness: No confusion Neuro: General: No confusion Objective Data Vital Signs Vital Signs: Vital Signs - 24 hr 03/11/20 12:00 03/11/20 14:00 03/11/20 16:00 Temperature 36.3 C L 36.8 C Pulse Rate 55 L 72 55 L Respiratory Rate 18 16 Blood Pressure 181/89 H 130/64 Pulse Oximetry 95 96 03/11/20 20:00 03/11/20 21:12 03/12/20 00:00 Temperature 36.5 C 36.6 C Pulse Rate 56 L 56 L 62 Respiratory Rate 20 20 18 Blood Pressure 149/73 H 174/68 H Pulse Oximetry 95 95 96 03/12/20 00:42 03/12/20 04:00 03/12/20 05:02 Temperature 36.8 C Pulse Rate 52 L 62 49 L Respiratory Rate 20 Blood Pressure 159/86 H Pulse Oximetry 92 03/12/20 09:00 03/12/20 09:38 03/12/20 10:00 Temperature 36.4 C Pulse Rate 56 L Respiratory Rate 18 Blood Pressure 132/86 Pulse Oximetry 92 96 Intake/Output Intake/Output: Intake & Output 03/09/20 03/10/20 03/11/20 03/12/20 23:59 23:59 23:59 23:59 Intake Total 2130 3390 2970 410 Output Total 750 1400 3100 2200 Balance 1380 1989 Meds/Results Medications: Active Medications Generic Name Dose Route Start Last Admin Trade Name Freq PRN Reason Stop Dose Admin Acetaminophen
--- NOTE | 2020-03-12 13:37 | PM.PNNEP ---
Progress Note: A&P Assessment and Plan (1) SHAVONNE (acute kidney injury): Code(s): N17.9 - Acute kidney failure, unspecified Status: Acute Assessment and Plan: likely secondary to ATN and associated renal hypoperfusion resulting from severe hypotension likely worsened by ongoing use of ARB (olmesartan) as well urinary tract infection may be playing a role too creatinine is improving. Now down to 1.7 which is close to baseline. Making good urine (2) Chronic kidney disease, stage 4 (severe): Code(s): N18.4 - Chronic kidney disease, stage 4 (severe) Status: Chronic Assessment and Plan: baseline creatinine runs around 1.4 - 1.9mg/dl due to hypertension, vascular disease, and age (based on outpatient evaluation) (3) Urinary tract infection: Qualifiers: Hematuria presence: with hematuria Urinary tract infection type: site unspecified Qualified Code(s): N39.0 - Urinary tract infection, site not specified; R31.9 - Hematuria, unspecified Code(s): N39.0 - Urinary tract infection, site not specified Status: Acute Assessment and Plan: culture with E.coli on antibiotics (4) Hypotension: Code(s): I95.9 - Hypotension, unspecified Status: Acute Assessment and Plan: blood pressure is better (5) Elevated troponin: Code(s): R77.8 - Other specified abnormalities of plasma proteins Status: Acute Assessment and Plan: as noted by admission labs Cardiology following with recommendations noted (6) Anemia: Code(s): D64.9 - Anemia, unspecified Status: Acute Assessment and Plan: due to SHAVONNE, CKD, and acute illness iron deficiency as noted by anemia studies hold venofer given UTI Will continue to follow. Subjective Date/time seen: 03/12/20 13:37 Interval history: Patient is feeling better today. Sitting in semi mckeon's position eating breakfast. No chest pain or shortness of breath. Review of Systems Cardiovascular: Cardiovascular: Reports no additional cardiovascular complaints Respiratory: Respiratory: Reports no additional respiratory complaints Gastrointestinal: Gastrointestinal: Reports no additional gastrointestinal complaints Genitourinary: Genitourinary: Reports no additional female genitourinary complaints Exam Narrative: Exam Narrative: General: Elderly female in NAD Heart: normal S1 and S2; no rub Lungs: clear Abdomen: soft, nontender, nondistended, positive bowel sounds Extremities: no cyanosis or clubbing; trace edema Skin: No skin rash Objective Data Vital Signs Vital Signs: Vital Signs - 24 hr 03/11/20 14:00 03/11/20 16:00 03/11/20 20:00 Temperature 36.8 C Pulse Rate 72 55 L 56 L Respiratory Rate 16 20 Blood Pressure 130/64 Pulse Oximetry 96 95 03/11/20 21:12 03/12/20 00:00 03/12/20 00:42 Temperature 36.5 C 36.6 C Pulse Rate 56 L 62 52 L Respiratory Rate 20 18 Blood Pressure 149/73 H 174/68 H Pulse Oximetry 95 96 03/12/20 04:00 03/12/20 05:02 03/12/20 08:00 Temperature 36.8 C Pulse Rate 62 49 L 81 Respiratory Rate 20 Blood Pressure 159/86 H Pulse Oximetry 92 03/12/20 09:00 03/12/20 09:38 03/12/20 10:00 Temperature 36.4 C Pulse Rate 56 L Respiratory Rate 18 Blood Pressure 132/86 Pulse Oximetry 92 96 Intake/Output Intake/Output: Intake & Output 03/09/20 03/10/20 03/11/20 03/12/20 23:59 23:59 23:59 23:59 Intake Total 2130 3390 2970 410 Output Total 750 1400 3100 2800 Balance 1380 1989 130 623 Meds/Results Medications: Active Medications Generic Name Dose Route Start Last Admin Trade Name Freq PRN Reason Stop Dose Admin Acetaminophen 650 mg 03/09/20 08:32 03/11/20 22:17 Acetaminophen 325 Mg Tablet PO 650 mg Q4H PRN Administration Mild Pain (1-3) or Fever Albuterol 1 puff 03/07/20 23:31 03/11/20 00:01 Albuterol Sulfate (*Sp) Aerosol 1
[2020-03-12] MEDS: ALBUTEROL SULFATE (*SP) AEROSOL 1 PUFF INHALATION (14:00)
--- NOTE | 2020-03-12 14:29 | PM.IMPN ---
Progress Note: A&P Assessment and Plan (1) Acute on chronic kidney failure: Code(s): N17.9 - Acute kidney failure, unspecified; N18.9 - Chronic kidney disease, unspecified Status: Acute Assessment and Plan: Creatinine has fallen with IV hydration suggesting all pre renal secondary to hypotension(6.0 to 1.7 today) Renal sonogram no obstruction. UA pyuria, culture growing E coli greater than 100,000 sensitive to ceftriaxone and will continue day 5 stopped IV fluids 03/11 . (2) Non-STEMI (non-ST elevated myocardial infarction): Code(s): I21.4 - Non-ST elevation (NSTEMI) myocardial infarction Status: Acute Assessment and Plan: EF 60-65% . EKG repeat is less ST changes anteriorly. Blood pressure was too low for her beta-bhargavi initially and still bradycardic Platelets 112 so Cardiology holding any further full anticoagulation but up to 156 K today Continue aspirin and conservative treatment Echo no wall motion abnormalities (3) COPD (chronic obstructive pulmonary disease): Qualifiers: COPD type: unspecified COPD Qualified Code(s): J44.9 - Chronic obstructive pulmonary disease, unspecified Code(s): J44.9 - Chronic obstructive pulmonary disease, unspecified Status: Acute Assessment and Plan: Continue updrafts and O2 supplements (4) Chronic diastolic CHF (congestive heart failure): Code(s): I50.32 - Chronic diastolic (congestive) heart failure Status: Acute Assessment and Plan: Echo EF 60% with no wall motion abnormalities and grade 1 diastolic dysfunction d/c IV fluid today (5) HTN (hypertension): Code(s): I10 - Essential (primary) hypertension Status: Acute Assessment and Plan: Blood pressure low so Coreg and amlodipine were held initially No obvious reason for hypotension. Does not appear septic, blood cultures negative, but urine did grow E coli. 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 and tapering now to po prednisone 5 mg daily(home dose of 1mg qd) (7) Anemia: Code(s): D64.9 - Anemia, unspecified Status: Acute Assessment and Plan: Probable chronic disease and supported by Fe studies hgb 9.0 today and platelet increased to 156 K today (8) DVT prophylaxis: Code(s): Z29.9 - Encounter for prophylactic measures, unspecified Status: Acute Assessment and Plan: Had full-dose Lovenox on admission.., started low-dose Lovenox 1/15 pm with platelets up to 124K, now 156k. (9) Glucose intolerance: Code(s): E74.39 - Other disorders of intestinal carbohydrate absorption Status: Acute Assessment and Plan: FBS 96 today. A1c 6.3 , continue to moniter (10) Urinary tract infection: Qualifiers: Hematuria presence: with hematuria Urinary tract infection type: site unspecified Qualified Code(s): N39.0 - Urinary tract infection, site not specified; R31.9 - Hematuria, unspecified Code(s): N39.0 - Urinary tract infection, site not specified Status: Acute Assessment and Plan: Ecoli > 100K sensitive to ceftriaxone, D #5 Subjective Date/time seen: 03/12/20 14:29 Interval history: Date of visit 03/12. 84-year-old hypertensive white female with history of diastolic heart failure rheumatoid arthritis and COPD who presented to the hospital with weakness and found to have hypotension and acute renal failure.. She denies any c
[2020-03-12] MEDS: guaiFENesin/DEXTROMETHORPHAN 10 ML UDC PO (16:38)
[2020-03-12] MEDS: ENOXAPARIN 30 MG/0.3 ML SYRINGE SUB-Q (20:35)
[2020-03-12] MEDS: DOCUSATE SODIUM 100 MG CAPSULE PO (20:36)
[2020-03-12 23:51] LABS: Albumin 2.8 g/dL (3.8-4.8); Alpha 1 Globulin 0.4 g/dL (0.2-0.3); Beta 1 Globulin 0.4 g/dL (0.4-0.6); Gamma Globulin 0.5 g/dL (0.8-1.7); Protein, Total 5.3 g/dL (6.1-8.1)
[2020-03-13] VITALS: BP 153/73; PULSE 57; PULSE 59; RESP 20; TEMP 36.6; O2SAT 97
[2020-03-13 00:29] LABS: Myoglobin, Urine <27 mcg/L (<28)
[2020-03-13] MEDS: ACETAMINOPHEN 325 MG TABLET 650 MG PO (02:41)
[2020-03-13 04:00] VITALS: BP 168/71; PULSE 63; RESP 20; TEMP 36.6; O2SAT 96
[2020-03-13 04:18] VITALS: PULSE 57
[2020-03-13 06:19] LABS: Basophils Percent Auto 0.1 % (0.2-1.2); Eosinophils Absolute Auto 0.1 K/mm3 (0-0.3); Eosinophils Percent Auto 1.7 % (0-4.4); Hemoglobin 8.8 g/dL (12.0-15.0); Immature Granulocyte Percent A 1.3 % (0-0.5); Lymphocytes Absolute Auto 1.81 K/mm3 (0.9-3.2); Lymphocytes Percent Auto 23.7 % (18.3-44.2); Mean Corpuscular HGB Conc 32.6 g/dl (32-36); Mean Corpuscular Hemoglobin 28.1 pg (26-34); Mean Corpuscular Volume 86.3 fl (80-100); Mean Platelet Volume 9.8 fl (7.4-10.4); Monocytes Absolute Auto 0.7 K/mm3 (0.1-0.6); Monocytes Percent Auto 8.9 % (2.6-8.5); Neutrophils Absolute Auto 4.9 K/mm3 (1.3-6.7); Neutrophils Percent Auto 64.3 % (45.5-73.1); Platelet Count Result 171 k/mm3 (150-375); Red Blood Count 3.13 M/mm3 (4.2-5.4); Red Cell Distribution Width 13.9 % (11.5-14.5); White Blood Count 7.6 K/mm3 (4.5-10.0)
[2020-03-13 06:32] LABS: Anion Gap 3 mmol/L (8-16); Blood Urea Nitrogen 40 mg/dL (7-17); Carbon Dioxide 31 mmol/L (22-30); Chloride 100 mmol/L (98-107); Estimated CRCL calculation 25 ml/min; Estimated Glomerular Filt Rate 33; Glucose 78 mg/dL (65-105); Phosphorus 2.4 mg/dL (2.5-4.5); Potassium 4.1 mmol/L (3.4-5.0); Sodium 134 mmol/L (137-145)
[2020-03-13 08:00] VITALS: PULSE 65
[2020-03-13] MEDS: CHOLECALCIFEROL 1,000 UNITS TABLET 5000 UNITS PO (08:51)
[2020-03-13] MEDS: amLODIPine BESYLATE 5 MG TABLET 10 MG PO (08:51)
[2020-03-13] MEDS: FLUTICASONE/UMECLIDIN/VILANTER 100-62.5-25 MCG ELLIPTA 1 PUFF INHALATION (08:52)
[2020-03-13] MEDS: SIMVASTATIN 20 MG TABLET 40 MG PO (08:52)
[2020-03-13] MEDS: FOLIC ACID 1 MG TABLET PO (08:52)
[2020-03-13] MEDS: ASPIRIN 81 MG ENTERIC TABLET PO (08:52)
[2020-03-13] MEDS: ACIDOPHILUS/BULGARICUS CHEWABLE TABLET 1 TABLET PO (08:52)
[2020-03-13] MEDS: PANTOPRAZOLE 40 MG TABLET PO ×2 (08:52→18:06)
[2020-03-13] MEDS: predniSONE 5 MG TABLET PO (08:52)
[2020-03-13 10:00] VITALS: BP 156/74; PULSE 61; RESP 18; TEMP 36.6; O2SAT 96
--- NOTE | 2020-03-13 10:03 | PM.PNCARD ---
Progress Note: A&P Assessment and Plan (1) Elevated troponin: Code(s): R77.8 - Other specified abnormalities of plasma proteins Status: Acute Assessment and Plan: Likely non ACS. Patient is currently asymptomatic from cardiovascular standpoint. Continue current medical treatment and supportive care. Outpatient cardiology follow-up and will follow-up on p.r.n. basis. Subjective Date/time seen: 03/13/20 10:03 Date of service 03/13/2020 Chief complaint: Right shoulder discomfort Interval history: Reports right shoulder discomfort. Denied chest pain. Patient has chronic lower extremity swelling. Exam Narrative: Exam Narrative: PHYSICAL EXAMINATION: GENERAL: Alert, oriented, no acute distress MENTAL STATUS: affect appropriate to mood EYES: Extraocular movements intact, no pallor EARS: External ears appear normal, hearing grossly normal NOSE: Normal and patent, no discharge MOUTH: Mucous membranes moist, tongue normal NECK: Supple, no JVD CHEST: Good respiratory effort, clear to auscultation HEART: Normal rate, regular rhythm, normal S1 and S2 ABDOMEN: Soft, nontender NEUROLOGICAL: Alert, oriented, normal speech, no gross motor deficits MUSCULOSKELETAL: Sling in place, limited range of motion EXTREMITIES: Mild pedal edema, no clubbing, no cyanosis SKIN: no rash on the exposed area, no cyanosis PSYCHIATRIC: Normal mood, appropriate affect Objective Data Vital Signs Vital Signs: Vital Signs - 24 hr 03/12/20 12:00 03/12/20 14:00 03/12/20 16:00 Temperature 36.4 C L Pulse Rate 73 80 63 Respiratory Rate 18 Blood Pressure 135/71 Pulse Oximetry 92 03/12/20 18:00 03/12/20 20:00 03/13/20 00:00 Temperature 36.7 C 36.4 C L 36.6 C Pulse Rate 68 83 57 L Respiratory Rate 18 20 20 Blood Pressure 133/70 133/70 153/73 H Pulse Oximetry 94 93 97 03/13/20 04:00 03/13/20 04:18 Temperature 36.6 C Pulse Rate 63 57 L Respiratory Rate 20 Blood Pressure 168/71 H Pulse Oximetry 96 Intake/Output Intake/Output: Intake & Output 03/10/20 03/11/20 03/12/20 03/13/20 23:59 23:59 23:59 23:59 Intake Total 3390 2970 1270 400 Output Total 1400 3100 3650 1125 Balance 1989 - -2380 -725 Meds/Results Medications: Active Medications Generic Name Dose Route Start Last Admin Trade Name Freq PRN Reason Stop Dose Admin Acetaminophen 650 mg 03/09/20 08:32 03/13/20 02:41 Acetaminophen 325 Mg Tablet PO 650 mg Q4H PRN Administration Mild Pain (1-3) or Fever Albuterol 1 puff 03/07/20 23:31 03/12/20 14:00 Albuterol Sulfate (*Sp) Aerosol 1 Puff INHALATION 1 puff Q4-6H PRN Administration shortness of breath or wheezing Amlodipine Besylate 10 mg 03/12/20 09:00 03/13/20 08:51 Amlodipine Besylate 5 Mg Tablet PO 10 mg QAM DAVON Administration Aspirin 81 mg 03/08/20 09:00 03/13/20 08:52 Aspirin 81 Mg Enteric Tablet PO 81 mg DAILY DAVON Administration Docusate Sodium 100 mg 03/12/20 20:04 03/12/20 20:36 Docusate Sodium 100 Mg Capsule PO 100 mg Q12H PRN Administration Constipation Enoxaparin Sodium 30 mg 03/09/20 21:00 03/12/20 20:35 Enoxaparin 30 Mg/0.3 Ml Syringe SUB-Q 30 mg HS DAVON Administration Fluticasone/Umeclidinium/Vilanterol 1 puff 03/08/20 09:00 03/13/20 08:52 Fluticasone/Umeclidin/Vilanter 100-62.5-25 Mcg Ellipta INHALATION 1 puff DAILY DAVON Administration Folic Acid 1 mg 03/08/20 09:00 03/13/20 08:52 Folic Acid 1 Mg Tablet PO 1 mg DAILY DAVON Administration Guaifenesin/Dextromethorphan 10 ml 03/12/20 14:40 03/12/20 16:38 Guaifenesin/Dextromethorphan 10 Ml Udc PO 10 ml Q4H PRN Administration Cough Ceftriaxone Sodium/Dextrose 1 gm in 50 mls @ 100 mls/hr 03/08/20 16:00 03/12/20 20:20 Rocephin 1 Gm/D5w 50 Ml IVPB Infused Q24H DAVON Infusion Lactobacillus Acidophilus 1 tablet 03/09/20 09:00 03/13/20 08:52 Acidophilus/Bulgaricus Chewable Tablet PO
--- NOTE | 2020-03-13 11:14 | P.PNNP_ITS ---
Progress Note: A&P Assessment and Plan (1) SHAVONNE (acute kidney injury): Code(s): N17.9 - Acute kidney failure, unspecified Status: Acute Assessment and Plan: * likely secondary to ATN and associated renal hypoperfusion resulting from severe hypotension * likely worsened by ongoing use of ARB (olmesartan) as well * urinary tract infection may be playing a role too * creatinine continues to improve. It is 1.5 now which is baseline. (2) Chronic kidney disease, stage 4 (severe): Code(s): N18.4 - Chronic kidney disease, stage 4 (severe) Status: Chronic Assessment and Plan: * baseline creatinine runs around 1.4 - 1.9mg/dl * due to hypertension, vascular disease, and age (based on outpatient evaluation) (3) Urinary tract infection: Qualifiers: Hematuria presence: with hematuria Urinary tract infection type: site unspecified Qualified Code(s): N39.0 - Urinary tract infection, site not specified; R31.9 - Hematuria, unspecified Code(s): N39.0 - Urinary tract infection, site not specified Status: Acute Assessment and Plan: * culture with E.coli * on antibiotics (4) Hypotension: Code(s): I95.9 - Hypotension, unspecified Status: Acute Assessment and Plan: * blood pressure is Under pretty good control, however it intermittently rises. * See how it is tomorrow for trend (5) Elevated troponin: Code(s): R77.8 - Other specified abnormalities of plasma proteins Status: Acute Assessment and Plan: * as noted by admission labs * Cardiology following with recommendations noted (6) Anemia: Code(s): D64.9 - Anemia, unspecified Status: Acute Assessment and Plan: * due to SHAVONNE, CKD, and acute illness * iron deficiency as noted by anemia studies * hold venofer given UTI Subjective Date/time seen: 03/13/20 11:14 Interval history: Patient is feeling better today. sitting up in a chair. Breathing is okay Exam Narrative: Exam Narrative: General: Elderly female in NAD Heart: normal S1 and S2; no rub Lungs: clear Abdomen: soft, nontender, nondistended, positive bowel sounds Extremities: no cyanosis or clubbing; trace edema Skin: No skin rash Objective Data Vital Signs Vital Signs: Vital Signs - 24 hr 03/12/20 12:00 03/12/20 14:00 03/12/20 16:00 Temperature 36.4 C L Pulse Rate 73 80 63 Respiratory Rate 18 Blood Pressure 135/71 Pulse Oximetry 92 03/12/20 18:00 03/12/20 20:00 03/13/20 00:00 Temperature 36.7 C 36.4 C L 36.6 C Pulse Rate 68 83 57 L Respiratory Rate 18 20 20 Blood Pressure 133/70 133/70 153/73 H Pulse Oximetry 94 93 97 03/13/20 04:00 03/13/20 04:18 03/13/20 10:00 Temperature 36.6 C 36.6 C Pulse Rate 63 57 L 61 Respiratory Rate 20 18 Blood Pressure 168/71 H 156/74 H Pulse Oximetry 96 96 Intake/Output Intake/Output: Intake & Output 03/10/20 03/11/20 03/12/20 03/13/20 23:59 23:59 23:59 23:59 Intake Total 3390 2970 1270 640 Output Total 1400 3100 3650 1125 Balance 1989 -130 -2380 -485 Meds/Results Medications: Active Medications Generic Na
--- NOTE | 2020-03-13 11:14 | PM.PNNEP ---
Progress Note: A&P Assessment and Plan (1) SHAVONNE (acute kidney injury): Code(s): N17.9 - Acute kidney failure, unspecified Status: Acute Assessment and Plan: likely secondary to ATN and associated renal hypoperfusion resulting from severe hypotension likely worsened by ongoing use of ARB (olmesartan) as well urinary tract infection may be playing a role too creatinine continues to improve. It is 1.5 now which is baseline. (2) Chronic kidney disease, stage 4 (severe): Code(s): N18.4 - Chronic kidney disease, stage 4 (severe) Status: Chronic Assessment and Plan: baseline creatinine runs around 1.4 - 1.9mg/dl due to hypertension, vascular disease, and age (based on outpatient evaluation) (3) Urinary tract infection: Qualifiers: Hematuria presence: with hematuria Urinary tract infection type: site unspecified Qualified Code(s): N39.0 - Urinary tract infection, site not specified; R31.9 - Hematuria, unspecified Code(s): N39.0 - Urinary tract infection, site not specified Status: Acute Assessment and Plan: culture with E.coli on antibiotics (4) Hypotension: Code(s): I95.9 - Hypotension, unspecified Status: Acute Assessment and Plan: blood pressure is Under pretty good control, however it intermittently rises. See how it is tomorrow for trend (5) Elevated troponin: Code(s): R77.8 - Other specified abnormalities of plasma proteins Status: Acute Assessment and Plan: as noted by admission labs Cardiology following with recommendations noted (6) Anemia: Code(s): D64.9 - Anemia, unspecified Status: Acute Assessment and Plan: due to SHAVONNE, CKD, and acute illness iron deficiency as noted by anemia studies hold venofer given UTI Subjective Date/time seen: 03/13/20 11:14 Interval history: Patient is feeling better today. sitting up in a chair. Breathing is okay Exam Narrative: Exam Narrative: General: Elderly female in NAD Heart: normal S1 and S2; no rub Lungs: clear Abdomen: soft, nontender, nondistended, positive bowel sounds Extremities: no cyanosis or clubbing; trace edema Skin: No skin rash Objective Data Vital Signs Vital Signs: Vital Signs - 24 hr 03/12/20 12:00 03/12/20 14:00 03/12/20 16:00 Temperature 36.4 C L Pulse Rate 73 80 63 Respiratory Rate 18 Blood Pressure 135/71 Pulse Oximetry 92 03/12/20 18:00 03/12/20 20:00 03/13/20 00:00 Temperature 36.7 C 36.4 C L 36.6 C Pulse Rate 68 83 57 L Respiratory Rate 18 20 20 Blood Pressure 133/70 133/70 153/73 H Pulse Oximetry 94 93 97 03/13/20 04:00 03/13/20 04:18 03/13/20 10:00 Temperature 36.6 C 36.6 C Pulse Rate 63 57 L 61 Respiratory Rate 20 18 Blood Pressure 168/71 H 156/74 H Pulse Oximetry 96 96 Intake/Output Intake/Output: Intake & Output 03/10/20 03/11/20 03/12/20 03/13/20 23:59 23:59 23:59 23:59 Intake Total 3390 2970 1270 640 Output Total 1400 3100 3650 1125 Balance 3493 -180 -2380 -676 Meds/Results Medications: Active Medications Generic Name Dose Route Start Last Admin Trade Name Freq PRN Reason Stop Dose Admin Acetaminophen 650 mg 03/09/20 08:32 03/13/20 02:41 Acetaminophen 325 Mg Tablet PO 650 mg Q4H PRN Administration Mild Pain (1-3) or Fever Albuterol 1 puff 03/07/20 23:31 03/12/20 14:00 Albuterol Sulfate (*Sp) Aerosol 1 Puff INHALATION 1 puff Q4-6H PRN Administration shortness of breath or wheezing Amlodipine Besylate 10 mg 03/12/20 09:00 03/13/20 08:51 Amlodipine Besylate 5 Mg Tablet PO 10 mg QAM DAVON Administration Aspirin 81 mg 03/08/20 09:00 03/13/20 08:52 Aspirin 81 Mg Enteric Tablet PO 81 mg DAILY DAVON Administration Docusate Sodium 100 mg 03/12/20 20:04 03/12/20 20:36 Docusate Sodium 100 Mg Capsule PO 100 mg Q12H PRN Administration Constipation
--- NOTE | 2020-03-13 14:02 | PC.NURSE ---
Report given to Amira in [facility], will be transferring to room 223-2
[2020-03-13 14:22] LABS: Chloride Rand Ur 72 mmol/L (32-290); Chloride/Creatinine Rand Ur 69 (38-318); Creatinine Random Urine 105 mg/dL (20-275)
--- NOTE | 2020-03-13 14:51 | PC.NURSE ---
Addendum entered by Amy Jhaveri RN 03/13/20 14:57: there is no iv access in patient at this time Original Note: at 1427 this patient, Jackelin Beasley was transferred to room 221 bed one. She is pleasant alert and oriented. No c/o any pain or discomfort.
[2020-03-13 15:26] VITALS: BP 134/68; PULSE 63; RESP 20; TEMP 36.2; O2SAT 95
--- NOTE | 2020-03-13 16:25 | PC.NURSE ---
patient still had rocephin order on APR. confirmed with 2nd floor nurse that had told her it was going to be discontinued when moved to [facility], 2nd floor nurse calling doctor for orders (iv access removed prior to arrival)
--- NOTE | 2020-03-13 17:17 | PM.IMPN ---
Progress Note: A&P Assessment and Plan (1) Elevated troponin: Code(s): R77.8 - Other specified abnormalities of plasma proteins Status: Acute Assessment and Plan: Medical management Appreciate Cardiology input (2) Chronic anemia: Code(s): D64.9 - Anemia, unspecified Status: Acute Assessment and Plan: Likely secondary to CKD Continue to monitor. (3) Non-STEMI (non-ST elevated myocardial infarction): Code(s): I21.4 - Non-ST elevation (NSTEMI) myocardial infarction Status: Acute Assessment and Plan: No further intervention at this point. Follow up in the outpatient setting. 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 (5) Chronic kidney disease, stage 4 (severe): Code(s): N18.4 - Chronic kidney disease, stage 4 (severe) Status: Chronic Assessment and Plan: Continue to monitor Bun/Cr. Subjective Date/time seen: 03/13/20 17:17 States that she feels good. Review of Systems Review of Systems: Narrative: Swelling of the legs. Constitutional: Comments: no chills, no fevers, no rigors. Musculoskeletal: Comments: B/L LE swelling. Exam Narrative: Exam Narrative: Sitting in chair. Const: General: cooperative, comfortable, no acute distress, alert, awake and Physically active Nutritional Appearance: average body habitus Orientation/consciousness: patient oriented x3 HENMT: Head: normal to inspection and normocephalic Face and sinus: normal facial exam Eyes: Pupils: Equal, round and reactive pupils present EOM: EOMs intact bilaterally Neck: Neck: no lymphadenopathy, supple and no JVD Lymphatic: no lymphadenopathy noted Resp: Auscultation: clear to auscultation bilaterally Cardio: Rate: regular rate Rhythm: regular rhythm GI: GI Palp: Yes Soft to palpation and Yes No hepatosplenomegaly present Skin: Rashes: no rashes Neuro: General: patient oriented x3 and CN's II-XI intact bilaterally Cranial nerves: Yes CN's II-XII intact bilaterally and Yes Equal, round and reactive pupils present Cognition (Neuro): normal cognition Speech: normal speech Motor exam (neuro): 5/5 motor strength present throughout Extrem: General: edema bilateral Objective Data Vital Signs Vital Signs: Vital Signs - 24 hr 01/18/21 18:00 03/12/20 20:00 03/13/20 00:00 Temperature 98.1 F 97.5 F L 97.8 F Pulse Rate 68 83 57 L Respiratory Rate 18 20 20 Blood Pressure 133/70 133/70 153/73 H Pulse Oximetry 94 93 97 03/13/20 04:00 03/13/20 04:18 03/13/20 08:00 Temperature 97.9 F Pulse Rate 63 57 L 65 Respiratory Rate 20 Blood Pressure 168/71 H Pulse Oximetry 96 03/13/20 10:00 03/13/20 15:26 Temperature 97.9 F 97.1 F L Pulse Rate 61 63 Respiratory Rate 18 20 Blood Pressure 156/74 H 134/68 Pulse Oximetry 96 95 Intake/Output Intake/Output: Intake & Output 03/10/20 03/11/20 03/12/20 03/13/20 23:59 23:59 23:59 23:59 Intake Total 3390 2970 1270 640 Output Total 1400 3100 3650 1125 Balance 1989 -944 -9335 -595 Meds/Results Medications: Active Medications Generic Name Dose Route Start Last Admin Trade Name Freq PRN Reason Stop Dose Admin Acetaminophen 650 mg 03/09/20 08:32 03/13/20 02:41 Acetaminophen 325 Mg Tablet PO 650 mg Q4H PRN Administration Mild Pain (1-3) or Fever Albuterol 1 puff 03/07/20 23:31 03/12/20 14:00 Albuterol Sulfate (*Sp) Aerosol 1 Puff INHALATION 1 puff Q4-6H PRN Administration shortness of breath or wheezing Amlodipine Besylate 10 mg 03/12/20 09:00 03/13/20 08:51 Amlodipine Besylate 5 Mg Tablet PO 10 mg QAM DAVON Administration Aspirin 81 mg 03/08/20 09:00 03/13/20 08:52 Aspirin 81 Mg Enteric Tablet PO 81 mg DAILY DAVON Administration Docusate Sodium 100 mg 03/12/20 20:04 03/12/20 20:36 Docusate Sodium 100 Mg Capsule P
[2020-03-13 18:38] LABS: SARS-CoV-2 RNA PCR Negative
--- NOTE | 2020-04-02 18:00 | PM.DS ---
DS: Admitting Diagnosis Admitting Diagnosis Admitting Diagnosis: Weakness. DS: Discharge Diagnosis Discharge Diagnosis (1) Shoulder joint dislocation: Code(s): S43.006A - Unspecified dislocation of unspecified shoulder joint, initial encounter Status: Acute (2) Hypoalbuminemia: Code(s): E88.09 - Other disorders of plasma-protein metabolism, not elsewhere classified Status: Acute (3) Glucose intolerance: Code(s): E74.39 - Other disorders of intestinal carbohydrate absorption Status: Acute (4) Elevated troponin: Code(s): R77.8 - Other specified abnormalities of plasma proteins Status: Acute (5) Anemia: Code(s): D64.9 - Anemia, unspecified Status: Acute (6) Chronic kidney disease, stage IV (severe): Code(s): N18.4 - Chronic kidney disease, stage 4 (severe) Status: Acute (7) Thrombocytopenia: Code(s): D69.6 - Thrombocytopenia, unspecified Status: Acute (8) Chronic anemia: Code(s): D64.9 - Anemia, unspecified Status: Acute (9) Non-STEMI (non-ST elevated myocardial infarction): Code(s): I21.4 - Non-ST elevation (NSTEMI) myocardial infarction Status: Acute (10) Chronic kidney disease, stage 4 (severe): Code(s): N18.4 - Chronic kidney disease, stage 4 (severe) Status: Chronic (11) Gastroesophageal reflux disease: Code(s): K21.9 - Gastro-esophageal reflux disease without esophagitis Status: Acute DS: Summary Hospital Course Reason for hospitalization: Weakness. Hospital Course: This is a pleasant 84-year-old female with hyperlipidemia, diastolic congestive heart failure, chronic kidney disease, COPD, rheumatoid arthritis, and chronic anemia who presented to the emergency department earlier today from home with complaints of weakness. Two days ago on 03/05/2020 she was at an eye appointment and unfortunately she missed the chair when she went to sit down and fell onto her right shoulder. She was found to have an acute proximal humerus fracture for which she had an upcoming appointment with Dr. Hamm today. Unfortunately she has not been feeling well since her fall with generalized malaise, fatigue, decreased appetite, nausea, and chills. Family members came over today to help her get to that follow-up appointment, and unfortunately she slid out of her wheelchair and struck the back of her head on the steps. She was too weak to stand up and EMS was called. Blood pressure was 74/52 on arrival to the emergency department she was found to have an acute on chronic kidney injury. With further questioning she has noticed a decreased urine output over the past 1 week or so, which is prior to the onset of her symptoms as detailed above. She has not had dysuria, urgency, hesitancy, or feelings of incomplete bladder evacuation. Also of note, troponins were drawn the emergency department and were found to be elevated and her EKG does demonstrate T-wave inversions in anterior leads concerning for ischemia. She has no known history of coronary artery disease and has not had chest pain, pleuritic pain, or shortness of breath. No fevers to her knowledge. She frequently has loose stools after eating a meal but that is not new and is unchanged. She denies sick contacts. No exposure to those positive for COVID-19. 1) Non-STEMI (non-ST elevated myocardial infarction): Code(s): I21.4 - Non-ST elevation (NSTEMI) myocardial infarction Status: Acute Assessment and Plan: Significant troponin elevation in setting of acute renal failure, hypotension and anemia. Can't exclude subacute AR as troponins were already trending downward at admission, however, patient reports no anginal symptoms of any kind. This may be explained by undiagnosed underlying CAD along with her comorbidities in conjunction her acute illness at presentation. Given the severity of her renal function coronary angiography will not be
== END 2020-03-13 18:06 | DRG 280 ==
LOC: ANHED 16:20 → ANHIMU 03-08 05:14 → ANHTRC 03-13 17:57 → ANH2MED 03-15 15:48 → ANHIMU 03-15 15:48 → ANHTRC 03-15 15:48
PROVIDERS: Family Medicine; Internal Medicine Nephrology; Physician Assistant; Admitting Provider Internal Medicine; Emergency Provider Emergency Medicine; PCP Family Medicine; Visit Provider Internal Medicine
DX: I21.4 Non-ST elevation (NSTEMI) myocardial infarction (principal); N17.0 Acute kidney failure with tubular necrosis; S42.391A Other fracture of shaft of right humerus, initial encounter for closed fracture; N18.4 Chronic kidney disease, stage 4 (severe); I13.0 Hypertensive heart and chronic kidney disease with heart failure and stage 1 through stage 4 chronic kidney disease, or unspecified chronic kidney disease; I50.32 Chronic diastolic (congestive) heart failure; N39.0 Urinary tract infection, site not specified; T46.5X5A Adverse effect of other antihypertensive drugs, initial encounter; Z20.822 Contact with and (suspected) exposure to COVID-19; B96.20 Unspecified Escherichia coli [E. coli] as the cause of diseases classified elsewhere; K22.70 Barrett's esophagus without dysplasia; D63.1 Anemia in chronic kidney disease; R79.89 Other specified abnormal findings of blood chemistry; E78.5 Hyperlipidemia, unspecified; M06.9 Rheumatoid arthritis, unspecified; J44.9 Chronic obstructive pulmonary disease, unspecified; K21.9 Gastro-esophageal reflux disease without esophagitis; D69.6 Thrombocytopenia, unspecified; I95.9 Hypotension, unspecified; M81.0 Age-related osteoporosis without current pathological fracture; E86.0 Dehydration; E55.9 Vitamin D deficiency, unspecified; Z66 Do not resuscitate; Z96.642 Presence of left artificial hip joint; Z85.01 Personal history of malignant neoplasm of esophagus; Z87.891 Personal history of nicotine dependence; Z90.49 Acquired absence of other specified parts of digestive tract; W18.39XA Other fall on same level, initial encounter
CPT/HCPCS: 36415; 51701; 70450; 71046; 73030; 76775; 80053; 80069; 81001; 81050; 82436; 82550; 82570; 82607; 82728; 83036; 83540; 83550; 83605; 83735; 83874; 84100; 84155; 84156; 84165; 84300; 84443; 84484; 85025; 85046; 85610; 85730; 85999; 86140; 87040; 87077; 87086; 87088; 87186; 93005; 93306; 94640; 96361; 96374; 97110; 97116; 97161; 97165; 97530; 97535; 99284; 99285; A9270; C9803; J0696; J1650; J2920; J3475; J7030; J7070; J7512; U0003; U0005

== ENCOUNTER 2020-03-13 18:05 | IRF | payer MEDICARE, OTHER, SELFPAY ==
--- NOTE | ~2020-03-13 | XR_ITS ---
EXAMINATION: XR chest 1V portable DATE: 03/21/2020 12:58 INDICATION: Cough, wheezing and edema TECHNIQUE: frontal view of the chest was obtained. COMPARISON: Chest radiograph dated 03/07/2020 FINDINGS: Air-fluid levels within a large retrocardiac hiatal hernia. Opacities at the bilateral lower lung zon es. No pulmonary edema or pneumothorax. Cardiomegaly. IMPRESSION: 1. Opacities at the bilateral lower lung zones which could be related to body habitus, atelectasis, p neumonia or small pleural effusions. 2. Cardiomegaly. 3. Large hiatal hernia. Reviewed, dictated and finalized at location B. [employer] MECH[employer]IC IMPRESSION: 1. Opacities at the bilateral lower lung zones which could be related to body h abitus, atelectasis, pneumonia or small pleural effusions. 2. Cardiomegaly. 3. Large hiatal hernia.
--- NOTE | ~2020-03-13 | XR_ITS ---
EXAMINATION: XR shoulder RT min 2V DATE: 03/26/2020 10:08 INDICATION: Proximal right humerus fracture. TECHNIQUE: 4 views of right shoulder were obtained. COMPARISON: Right shoulder radiographs 03/05/2020, 05/12/2018, chest CT 02/11, 07/28/2017 FINDINGS: Bone alignment is normal. There is a transverse fracture of surgical neck of proximal right humerus. The distal fracture fragment demonstrates 11 mm anterior displacement and 13 mm impaction. There is a comminuted fractures of the glenoid. There is severe osteoarthritis of glenohumeral joint and mild osteoarthritis of acromioclavicular joint. There are old healed left rib fractures. There ar e airspace opacities in right mid and lower lung zones. There is a large hiatal hernia. IMPRESSION: 1. Two-part fracture of proximal right humerus with worsened alignment. 2. Chronic comminuted fracture of glenoid. 3. Severe osteoarthritis of glenohumeral joint. 4. Airspace opacities in right mid and lower lung zones, consistent with atelectasis versus pneumonia . 5. Large hiatal hernia. Reviewed, dictated and finalized at location A. [employer] IMPRESSION: 1. Two-part fracture of proximal right humerus with worsened alignment. 2. Chronic comminuted fracture of glenoid. 3. Severe osteoarthritis of glenohumeral joint. 4. Airspace opacities in right mid and lower lung zones, consistent with atelec tasis versus pneumonia. 5. Large hiatal hernia.
--- NOTE | ~2020-03-13 | US_ITS ---
EXAMINATION: US venous doppler UE RT DATE: 03/22/2020 09:53 INDICATION: Right upper limb swelling. TECHNIQUE: Grayscale ultrasound images without and with compression and Doppler ultrasound images of the right upper extremity veins were obtained. COMPARISON: None. FINDINGS: The visualized portions of the right internal jugular vein, subclavian vein, axillary vein, brachial veins, basilic vein, cephalic vein, radial vein, and ulnar vein are patent. IMPRESSION: 1. No deep venous thrombosis. Reviewed, dictated and finalized at location A. [employer]
--- NOTE | 2020-03-13 18:16 | ADMGEN ---
This patient, Jackelin Beasley, was admitted to [facility] Room 223-02. Patient/family oriented to hospital policies and general routines including ID bracelet, bed and alarms, visiting hours, pain management, procedures, bathroom and other care routines, personal items, smoking policy, room service/diet, and visiting hours. Information on how to activate the Rapid Response Team has been discussed. Patient/Family are encouraged to report perceived risks to care and to ask questions if they do not understand what they are told or what they should do.
[2020-03-13 18:38] VITALS: BP 134/68; PULSE 63; RESP 20; TEMP 36.2; O2SAT 95; BMI 34.2
[2020-03-13 20:10] VITALS: PULSE 60; RESP 18; O2SAT 97
[2020-03-13 20:14] VITALS: BP 147/68; PULSE 63; RESP 18; TEMP 35.5; O2SAT 97
[2020-03-13] MEDS: PANTOPRAZOLE 40 MG TABLET PO (20:40)
[2020-03-13 20:41] VITALS: PULSE 60
[2020-03-13] MEDS: carvediloL 25 MG TABLET PO (20:41)
[2020-03-14 05:13] LABS: Basophils Percent Auto 0.1 % (0.2-1.2); Eosinophils Absolute Auto 0.3 K/mm3 (0-0.3); Eosinophils Percent Auto 3.8 % (0-4.4); Hematocrit 28.5 % (37.0-47.0); Hemoglobin 9.1 g/dL (12.0-15.0); Immature Granulocyte Percent A 1.3 % (0-0.5); Lymphocytes Absolute Auto 1.77 K/mm3 (0.9-3.2); Lymphocytes Percent Auto 23.3 % (18.3-44.2); Mean Corpuscular HGB Conc 31.9 g/dl (32-36); Mean Corpuscular Hemoglobin 27.7 pg (26-34); Mean Corpuscular Volume 86.9 fl (80-100); Mean Platelet Volume 9.1 fl (7.4-10.4); Monocytes Absolute Auto 0.6 K/mm3 (0.1-0.6); Monocytes Percent Auto 7.8 % (2.6-8.5); Neutrophils Absolute Auto 4.8 K/mm3 (1.3-6.7); Neutrophils Percent Auto 63.7 % (45.5-73.1); Nucleated Red Blood Cells Perc 0.3 % (0.0-0.2); Platelet Count Result 158 k/mm3 (150-375); Red Blood Count 3.28 M/mm3 (4.2-5.4); Red Cell Distribution Width 13.8 % (11.5-14.5); White Blood Count 7.6 K/mm3 (4.5-10.0)
[2020-03-14 05:28] LABS: Anion Gap 2 mmol/L (8-16); Blood Urea Nitrogen 33 mg/dL (7-17); Calcium 8.2 mg/dL (8.4-10.2); Carbon Dioxide 29 mmol/L (22-30); Chloride 103 mmol/L (98-107); Estimated CRCL calculation 24 ml/min; Estimated Glomerular Filt Rate 33; Glucose 86 mg/dL (65-105); Sodium 134 mmol/L (137-145)
[2020-03-14 05:42] VITALS: BP 165/64; PULSE 54; RESP 20; TEMP 36.1; O2SAT 93
[2020-03-14 08:00] VITALS: PULSE 66; RESP 20; O2SAT 93
[2020-03-14] MEDS: CHOLECALCIFEROL 1,000 UNITS TABLET 5000 UNITS PO (09:43)
[2020-03-14] MEDS: OLMESARTAN MEDOXOMIL 20 MG TABLET PO (09:43)
[2020-03-14 09:44] VITALS: PULSE 66
[2020-03-14] MEDS: FOLIC ACID 1 MG TABLET PO (09:44)
[2020-03-14] MEDS: carvediloL 25 MG TABLET PO ×2 (09:44→20:40)
[2020-03-14] MEDS: SIMVASTATIN 20 MG TABLET 40 MG PO (09:44)
[2020-03-14] MEDS: PANTOPRAZOLE 40 MG TABLET PO ×2 (09:44→20:40)
[2020-03-14] MEDS: amLODIPine BESYLATE 5 MG TABLET PO (09:45)
[2020-03-14] MEDS: ASPIRIN 81 MG ENTERIC TABLET PO (09:45)
[2020-03-14] MEDS: ACIDOPHILUS/BULGARICUS CHEWABLE TABLET 1 TABLET PO (09:45)
[2020-03-14] MEDS: predniSONE 1 MG TABLET PO (09:45)
[2020-03-14] MEDS: FLUTICASONE/UMECLIDIN/VILANTER 100-62.5-25 MCG ELLIPTA 1 PUFF INHALATION (09:46)
[2020-03-14] MEDS: HYDROcodone/acetaminophen (*CRX) 5-325 MG TABLET 1 TAB PO (13:07)
[2020-03-14 13:10] VITALS: BMI 34.2
[2020-03-14 14:00] VITALS: BP 139/63; PULSE 55; RESP 18; TEMP 35.8; O2SAT 94
--- NOTE | 2020-03-14 14:55 | WPDREHABHP ---
H&P: HPI History of Present Illness Date/Time: 03/14/20 14:55 Chief Complaint: non ST elevation myocardial infarction Narrative: HISTORY OF PRESENT ILLNESS: The patient's primary rehab impairment category is 0 9 / cardiac The etiologic diagnosis is non ST elevation myocardial infarction I saw this patient [id number] on March 14, 2020 at 1:00 p.m. The patient is a 84 years old right-handed female with hyperlipidemia, diastolic congestive heart failure, chronic kidney disease, COPD, arthritis, chronic anemia presented to emergency department at [facility] on March 07, 2020 from home with complaints of weakness. Two days prior on March 05, 2020 stated she was at an eye appointment this the chair when she was sitting down. She stated she fell onto her right shoulder. He was found to have an acute proximal humerus fracture for which she had an upcoming appointment with on March 07, 2020. The patient reported she has not been feeling well since her fall with generalized malaise, fatigue, decreased appetite, nausea, and chills. Family members came on March 07, 2020 to help her get to her follow-up appointment, and she slid out of her wheelchair and struck the back of her head on the steps. She was too weak to stand up and EMS was summoned. Pressure was 74/52 on arrival to the emergency department she was found to have elevated troponins, EKG demonstrated T-wave inversions concerning for ischemia, non STEMI, and acute on chronic kidney injury. With further questioning she had noted a decreased urine output over the last 1 week or so which was prior to the onset of her symptoms as detailed above. Head CT scan revealed no acute intracranial finding and chronic age-related changes. Chest x-ray revealed small pleural effusion and large hiatal hernia. Co revealed an ejection fraction of 60 to 65%. Renal ultrasound revealed normal kidney sizes , increased renal parenchymal echogenicity consistent with nonspecific nephropathy. Initial lab work showed leukocytosis, Iman, low platelet counts, crease PT, hyponatremia, SHAVONNE, hyperglycemia, hypocalcemia, and UTI. Patient's troponins continue to trend down from admission. Neurology was consulted and suspected a subacute MRI versus undiagnosed underlying coronary artery disease. Cardiology stated the patient was not a candidate for coronary angiography due to the severity of her renal function, and also recommended holding anticoagulation except aspirin. Nephrology was consulted suggested gentle hydration, cultures of urine which grew E coli, antibiotics and continued lab monitoring. Feedings for consulted and stated the humeral fracture was closed, is stable and non displaced. 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 Weightbearing to right arm as tolerated and shoulder immobilizer were recommended. On March 09, 2020 cardiology order to continue the patient's statin, aspirin, and to resume her beta [id number] when able to tolerate with blood pressure and heart rate. BUN creatinine levels continue to decrease with hydration, platelet increase in the patient was able to be started on Lovenox for DVT prophylaxis due to hypotension her Coreg and amlodipine continued on hold. Her COPD is managed with inhaler or nebulizers and oxygen 2L per nasal cannula at nighttime. Repeat EKG revealed less ST changes. On March 11, 2020 patient blood pressure is stable enough to restart amlodipine and patient was able to have IV hydration discontinued. Cardiology recommended outpatient ski make evaluation and continued conservative medical management. On March 12, 2020 carvedilol was discontinued rather than hold and amlodipine was titrated to desired dosage. The patient creatinine was 1.7 and almost back to her baseline. The patient is currently a moderate assist x1 for bed mobility, emesis x1 for transfers and am
[2020-03-14 20:02] VITALS: BP 144/70; PULSE 55; RESP 20; TEMP 36.1; O2SAT 96
[2020-03-14 20:40] VITALS: PULSE 58
[2020-03-15 04:57] VITALS: BP 150/66; PULSE 56; RESP 20; TEMP 35.9; O2SAT 97
[2020-03-15] MEDS: ACIDOPHILUS/BULGARICUS CHEWABLE TABLET 1 TABLET PO (09:02)
[2020-03-15 09:03] VITALS: PULSE 72
[2020-03-15] MEDS: amLODIPine BESYLATE 5 MG TABLET PO (09:03)
[2020-03-15] MEDS: carvediloL 25 MG TABLET PO ×2 (09:03→20:39)
[2020-03-15] MEDS: ASPIRIN 81 MG ENTERIC TABLET PO (09:03)
[2020-03-15] MEDS: FOLIC ACID 1 MG TABLET PO (09:04)
[2020-03-15] MEDS: CHOLECALCIFEROL 1,000 UNITS TABLET 5000 UNITS PO (09:04)
[2020-03-15] MEDS: OLMESARTAN MEDOXOMIL 20 MG TABLET PO (09:04)
[2020-03-15] MEDS: PANTOPRAZOLE 40 MG TABLET PO ×2 (09:04→20:40)
[2020-03-15] MEDS: FLUTICASONE/UMECLIDIN/VILANTER 100-62.5-25 MCG ELLIPTA 1 PUFF INHALATION (09:04)
[2020-03-15] MEDS: predniSONE 1 MG TABLET PO (09:04)
--- NOTE | 2020-03-15 09:04 | RPD ---
INDIVIDUALIZED PLAN OF CARE FOR Jackelin Beasley Brief Synthesis of Pre-Admission Screen, Post-Admission Evaluation and Therapy Evaluations: The patient presents to rehab with non-ST elevation myocardial infarction. Comorbidities include glucose intolerance, CKD stage 4 (baseline creatinine 1.40-1.60), thrombocytopenia, hypotension, dehydration, abnormal EKG, NSTEMI, acute on chronic kidney failure, GERD, albert's esophagus, rheumatoid arthritis, vitamin D deficiency, osteoporosis. COPD, UTI, SHAVONNE, hiatal hernia, closed right humeral fracture, hypoxemia, chronic diastolic CHF, interstitial lung disease, HTN, hyponatremia, hyperglycemia, hypocalcemia, hypomagnesemia, hyperphosphatemia, iron deficiency, anemia, hypoalbuminemia, leukocytosis, and elevated troponins. This patient requires intensive therapies to restore lost function due to NSTEMI, acute on chronic kidney failure, and closed humeral fracture in order to maximize their functional level of independence and quality of life. The complexity of the patient's medical management, nursing, and therapy needs require an inpatient rehab hospital stay with a physician-led interdisciplinary team approach. The patient?s needs will be best met in an intensive program vs. at a lower level of care. The patient requires physician services for medical oversight of present comorbidities (glucose intolerance, CKD stage 4 (baseline creatinine 1.40-1.60), thrombocytopenia, hypotension, dehydration, abnormal EKG, NSTEMI, acute on chronic kidney failure, GERD, albert's esophagus, rheumatoid arthritis, vitamin D deficiency, osteoporosis. COPD, UTI, SHAVONNE, hiatal hernia, closed right humeral fracture, hypoxemia, chronic diastolic CHF, interstitial lung disease, HTN, hyponatremia, hyperglycemia, hypocalcemia, hypomagnesemia, hyperphosphatemia, iron deficiency, anemia, hypoalbuminemia, leukocytosis, elevated troponins), and pain management. The patient requires nursing services for anticoagulation therapy, DVT prophylactics, IV administration, infection protection, medication management and education, and pressure relief. Deficits include:ADLs, Balance, Endurance, Family Training/Education, Mobility, Pain Management, ROM, Strength, Transfers, and Safety. Customer Solutions Specialist/Case Management for: Discharge Planning and Patient/Family Counseling Physical Therapy: 5 days per week for 90 minutes. Treatments may include: Therapeutic Exercise, Gait Training, Neuromuscular Re-education, Transfer Training, Community Reintegration, Bed Mobility, Patient/Family Education, Wheelchair Mobility Group Therapy/Concurrent Therapy Rationales: -Improve attention span during functional activities in a distracted environment. -Enhance problem solving and/or adequate judgment skills during functional activities in a distracted environment. -Promote increased safety awareness in a distracted environment to reduce fall risk with functional tasks, transfers, and ambulation to allow a more safe, self-sufficient return to the home environment. -Improve dynamic balance skills to promote safety and independence with functional activities in a distracted environment for maximum gain. Occupational Therapy: 5 days per week for 90 minutes. Treatments may include: Therapeutic Exercise, Therapeutic Activity, Cognitive Training, Self-Care Transfer Training, Community Reintegration, Home Management, Patient/Family Education, Wheelchair Mobility Training, Energy Conservation Training Group Therapy/Concurrent Therapy Rationales: -Allow therapist to observe and teach generalization and carry-over of skills learned in individual therapy. -Enhance problem solving and sequencing skills during therapeutic activities in a distracted environment. -Promote increased safety awareness in a realistic setting to reduce fall risk with functional tasks due to visual and verbal distractions. -Increase functional level with ADLs, ADL transfers and use of adaptive equipment through therapeutic activit
[2020-03-15] MEDS: SIMVASTATIN 20 MG TABLET 40 MG PO (09:05)
--- NOTE | 2020-03-15 11:58 | WPDNEURORHBP ---
Subjective Date/time seen: 03/15/20 11:58 84 [address] old lady with ST elevation myocardial infarction in addition to the history of 1. Congestive heart failure diastolic 2. Hyperlipidemia 3. Chronic renal disease 4. COPD 5. Arthritis 6. Anemia. Lab today revealed WBC 7.6 hemoglobin 9.1 platelet count of 158 electrolytes with sodium 134 creatinine 1.5 GFR only 33 but all stable albumin 3.0 and SARS-CoV-2 id negative, medications unchanged Review of Systems Review of Systems: All systems reviewed & are unremarkable except as noted in HPI and below Functional Status Ambulation Ability Ability to Ambulate 10 Feet: Contact Guard Ability to Ambulate 50 Feet With 2 Turns: Contact Guard Ambulation Assistive Devices: Cane, Louis Exam Const: General: cooperative, comfortable, no acute distress, alert and awake Nutritional Appearance: obese HENMT: Head: normal to inspection Ears: hearing grossly normal bilaterally General nose exam: Normal external nose present and No nasal discharge present Face and sinus: normal facial exam Mouth: Yes Normal oral and palatal mucosa present Eyes: General: appearance normal, both eyes and all related structures Neck: Neck: full ROM Resp: Effort & Inspection: normal respiratory effort Auscultation: clear to auscultation bilaterally Cardio: Jugular venous distension: no JVD Rate: regular rate Rhythm: regular rhythm GI: Auscultation: normal bowel sounds Skin: General skin exam: no rashes or lesions noted Extrem: General: full ROM, capillary refill normal and edema ( bilateral pitting edema compression stockings ordered) Psych: Appearance: grossly normal Speech and movement: Normal speech and movement present Affect: normal affect Attitude: cooperative Thought process: Normal thought process present Thought content: Yes Normal thought content present Insight: Good insight present (Psych) Judgement: Good judgement present (Psych) Objective Data Vital Signs Vital Signs: Vital Signs - 24 hr 03/14/20 14:00 03/14/20 20:02 03/14/20 20:40 Temperature 35.8 C L 36.1 C L Pulse Rate 55 L 55 L 58 L Respiratory Rate 18 20 Blood Pressure 139/63 144/70 H Pulse Oximetry 94 96 03/15/20 04:57 03/15/20 09:03 Temperature 35.9 C L Pulse Rate 56 L 72 Respiratory Rate 20 Blood Pressure 150/66 H Pulse Oximetry 97 Intake/Output Intake/Output: Intake & Output 01/1803/13/20 03/14/20 03/15/20 23:59 23:59 23:59 23:59 Intake Total 720 240 Balance 720 240 Meds/Results Medications: Active Medications Generic Name Dose Route Start Last Admin Trade Name Freq PRN Reason Stop Dose Admin Hydrocodone Bitart/Acetaminophen 1 tab 03/13/20 18:48 03/14/20 13:07 Hydrocodone/Acetaminophen (*Crx) 5-325 Mg Tablet PO 1 tab Q6H PRN Administration pain Albuterol 1 puff 03/13/20 18:48 Albuterol Sulfate (*Sp) Aerosol 1 Puff INHALATION Q4-6H PRN shortness of breath or wheezing Amlodipine Besylate 5 mg 03/14/20 09:00 03/15/20 09:03 Amlodipine Besylate 5 Mg Tablet PO 5 mg DAILY DAVON Administration Aspirin 81 mg 03/14/20 09:00 03/15/20 09:03 Aspirin 81 Mg Enteric Tablet PO 81 mg DAILY DAVON Administration Carvedilol 25 mg 03/13/20 21:00 03/15/20 09:03 Carvedilol 25 Mg Tablet PO 25 mg Q12HR DAVON Administration Fluticasone/Umeclidinium/Vilanterol 1 puff 03/14/20 09:00 03/15/20 09:04 Fluticasone/Umeclidin/Vilanter 100-62.5-25 Mcg Ellipta INHALATION 1 puff DAILY DAVON Administration Folic Acid 1 mg 03/14/20 09:00 03/15/20 09:04 Folic Acid 1 Mg Tablet PO 1 mg DAILY DAVON Administration Lactobacillus Acidophilus 1 tablet 03/14/20 09:00 03/15/20 09:02 Acidophilus/Bulgaricus Chewable Tablet PO 04/13/20 09:01 1 tablet DAILY DAVON Administration Olmesartan 20 mg 03/14/20 09:00 03/15/20 09:04 Olmesartan Medoxomil 20 Mg Tablet PO 20 mg DAILY DAVON Administration Pantoprazole Sodium 40 mg 03/13/20 21:0
[2020-03-15] MEDS: HYDROcodone/acetaminophen (*CRX) 5-325 MG TABLET 1 TAB PO (12:56)
[2020-03-15 14:00] VITALS: BP 109/55; PULSE 58; RESP 16; TEMP 36.4; O2SAT 96
[2020-03-15 20:39] VITALS: PULSE 60
[2020-03-15 22:00] VITALS: BP 112/60; PULSE 62; RESP 20; TEMP 36.4; O2SAT 96
[2020-03-16 06:00] VITALS: BP 145/66; PULSE 67; RESP 20; TEMP 36.4; O2SAT 98
[2020-03-16] MEDS: ACIDOPHILUS/BULGARICUS CHEWABLE TABLET 1 TABLET PO (09:09)
[2020-03-16] MEDS: CHOLECALCIFEROL 1,000 UNITS TABLET 5000 UNITS PO (09:09)
[2020-03-16] MEDS: PANTOPRAZOLE 40 MG TABLET PO ×2 (09:10→20:39)
[2020-03-16] MEDS: predniSONE 1 MG TABLET PO (09:10)
[2020-03-16] MEDS: SIMVASTATIN 20 MG TABLET 40 MG PO (09:10)
[2020-03-16] MEDS: ASPIRIN 81 MG ENTERIC TABLET PO (09:10)
[2020-03-16] MEDS: OLMESARTAN MEDOXOMIL 20 MG TABLET PO (09:10)
[2020-03-16] MEDS: carvediloL 25 MG TABLET PO ×2 (09:10→20:38)
[2020-03-16] MEDS: FOLIC ACID 1 MG TABLET PO (09:11)
[2020-03-16] MEDS: amLODIPine BESYLATE 5 MG TABLET PO (09:11)
[2020-03-16] MEDS: FLUTICASONE/UMECLIDIN/VILANTER 100-62.5-25 MCG ELLIPTA 1 PUFF INHALATION (09:14)
--- NOTE | 2020-03-16 13:20 | WPDNEURORHBP ---
Subjective Date/time seen: 03/16/20 13:20 84 [address] old lady with ST-elevation myocardial infarction in addition to the history of 1. Congestive heart failure diastolic in nature 2. Hyperlipidemia 3 chronic renal disease stage IV 4. COPD 5. Arthritis 6. Anemia she remains afebrile with temp of 36.4? respirations 20 blood pressure 145/66 and pulse of 67 pulse ox 98% on room air, no new lab Review of Systems Review of Systems: All systems reviewed & are unremarkable except as noted in HPI and below Functional Status Ambulation Ability Ability to Ambulate 10 Feet: Contact Guard Ability to Ambulate 50 Feet With 2 Turns: Contact Guard Ambulation Assistive Devices: Cane, Louis Exam Const: General: comfortable, no acute distress, alert and awake Nutritional Appearance: overweight Limitations: no limitations HENMT: Ears: hearing grossly normal bilaterally General nose exam: Normal external nose present and No nasal discharge present Mouth: Yes Normal oral and palatal mucosa present Eyes: General: appearance normal, both eyes and all related structures Neck: Neck: full ROM Resp: Effort & Inspection: normal respiratory effort Auscultation: clear to auscultation bilaterally Cardio: Jugular venous distension: no JVD Rate: regular rate Rhythm: regular rhythm GI: Auscultation: normal bowel sounds Skin: General skin exam: no rashes or lesions noted Neuro: General: oriented to time Cranial nerves: Yes CN's II-XII intact bilaterally Cognition (Neuro): normal cognition Motor exam (neuro): 5/5 motor strength present throughout Sensory Exam: normal sensation Plantar Reflex Responses: downgoing: right, left and bilateral Extrem: General: full ROM Psych: Appearance: grossly normal Objective Data Vital Signs Vital Signs: Vital Signs - 24 hr 03/15/20 14:00 03/15/20 20:39 03/15/20 22:00 Temperature 36.4 C L 36.4 C Pulse Rate 58 L 60 62 Respiratory Rate 16 20 Blood Pressure 109/55 L 112/60 Pulse Oximetry 96 96 03/16/20 06:00 Temperature 36.4 C Pulse Rate 67 Respiratory Rate 20 Blood Pressure 145/66 H Pulse Oximetry 98 Intake/Output Intake/Output: Intake & Output 03/13/20 03/14/20 03/15/20 03/16/20 23:59 23:59 23:59 23:59 Intake Total 520 311 008 Balance 566 290 480 Meds/Results Medications: Active Medications Generic Name Dose Route Start Last Admin Trade Name Freq PRN Reason Stop Dose Admin Hydrocodone Bitart/Acetaminophen 1 tab 03/13/20 18:48 03/15/20 12:56 Hydrocodone/Acetaminophen (*Crx) 5-325 Mg Tablet PO 1 tab Q6H PRN Administration pain Albuterol 1 puff 03/13/20 18:48 Albuterol Sulfate (*Sp) Aerosol 1 Puff INHALATION Q4-6H PRN shortness of breath or wheezing Amlodipine Besylate 5 mg 03/14/20 09:00 03/16/20 09:11 Amlodipine Besylate 5 Mg Tablet PO 5 mg DAILY DAVON Administration Aspirin 81 mg 03/14/20 09:00 03/16/20 09:10 Aspirin 81 Mg Enteric Tablet PO 81 mg DAILY DAVON Administration Carvedilol 25 mg 03/13/20 21:00 03/16/20 09:10 Carvedilol 25 Mg Tablet PO 25 mg Q12HR DAVON Administration Fluticasone/Umeclidinium/Vilanterol 1 puff 03/14/20 09:00 03/16/20 09:14 Fluticasone/Umeclidin/Vilanter 100-62.5-25 Mcg Ellipta INHALATION 1 puff DAILY DAVON Administration Folic Acid 1 mg 03/14/20 09:00 03/16/20 09:11 Folic Acid 1 Mg Tablet PO 1 mg DAILY DAVON Administration Lactobacillus Acidophilus 1 tablet 03/14/20 09:00 03/16/20 09:09 Acidophilus/Bulgaricus Chewable Tablet PO 04/13/20 09:01 1 tablet DAILY DAVON Administration Olmesartan 20 mg 03/14/20 09:00 03/16/20 09:10 Olmesartan Medoxomil 20 Mg Tablet PO 20 mg DAILY DAVON Administration Pantoprazole Sodium 40 mg 03/13/20 21:00 03/16/20 09:10 Pantoprazole 40 Mg Tablet PO 40 mg Q12HR DAVON Administration Prednisone 1 mg 03/14/20 09:00 03/16/20 09:10 Prednisone 1 Mg Tablet PO 1 mg DAILY DAVON Administration Simvastatin
[2020-03-16 14:00] VITALS: BP 121/64; PULSE 66; RESP 20; TEMP 36.5; O2SAT 96
[2020-03-16] MEDS: HYDROcodone/acetaminophen (*CRX) 5-325 MG TABLET 1 TAB PO (14:26)
[2020-03-16 20:30] VITALS: PULSE 72; RESP 20; O2SAT 96
[2020-03-16 20:38] VITALS: PULSE 72
[2020-03-16 22:00] VITALS: PULSE 64; RESP 18; TEMP 36.1; O2SAT 98
[2020-03-17 05:09] VITALS: BP 141/72; PULSE 68; RESP 18; TEMP 36.5; O2SAT 92
[2020-03-17 08:00] VITALS: PULSE 61; RESP 18; O2SAT 95
[2020-03-17] MEDS: FOLIC ACID 1 MG TABLET PO (10:36)
[2020-03-17] MEDS: PANTOPRAZOLE 40 MG TABLET PO ×2 (10:36→21:08)
[2020-03-17] MEDS: SIMVASTATIN 20 MG TABLET 40 MG PO (10:36)
[2020-03-17] MEDS: CHOLECALCIFEROL 1,000 UNITS TABLET 5000 UNITS PO (10:36)
[2020-03-17] MEDS: ACIDOPHILUS/BULGARICUS CHEWABLE TABLET 1 TABLET PO (10:36)
[2020-03-17 10:37] VITALS: PULSE 60
[2020-03-17] MEDS: OLMESARTAN MEDOXOMIL 20 MG TABLET PO (10:37)
[2020-03-17] MEDS: carvediloL 25 MG TABLET PO ×2 (10:37→21:08)
[2020-03-17] MEDS: ASPIRIN 81 MG ENTERIC TABLET PO (10:37)
[2020-03-17] MEDS: predniSONE 1 MG TABLET PO (10:37)
[2020-03-17] MEDS: amLODIPine BESYLATE 5 MG TABLET PO (10:37)
[2020-03-17] MEDS: FLUTICASONE/UMECLIDIN/VILANTER 100-62.5-25 MCG ELLIPTA 1 PUFF INHALATION (10:38)
[2020-03-17] MEDS: HYDROcodone/acetaminophen (*CRX) 5-325 MG TABLET 1 TAB PO ×2 (11:04→17:37)
[2020-03-17 14:00] VITALS: BP 100/49; PULSE 61; RESP 18; TEMP 36.1; O2SAT 95
[2020-03-17] MEDS: ALBUTEROL SULFATE (*SP) AEROSOL 1 PUFF INHALATION (16:33)
--- NOTE | 2020-03-17 19:45 | PC.NURSE ---
Went to check on patients pain level after getting Standish this afternoon, and patient states that it has not helped her shoulder/arm and her pain is going back up to a 10 on the pain scale. Called Dr. Floyd at 1941 and got an order for Standish 10-325 Q6H PRN
[2020-03-17] MEDS: HYDROcodone/acetaminophen (*CRX) 10-325 MG TABLET 1 TAB PO (20:06)
[2020-03-17 21:08] VITALS: PULSE 65
[2020-03-17 21:28] VITALS: BP 116/74; PULSE 65; RESP 18; TEMP 35.7; O2SAT 95
[2020-03-18] VITALS (7 sets, daily range): BP systolic 120–131; BP diastolic 62–79; PULSE 58–69; RESP 18; TEMP 36.2; O2SAT 90–92
[2020-03-18] MEDS: HYDROcodone/acetaminophen (*CRX) 10-325 MG TABLET 1 TAB PO (09:19)
[2020-03-18] MEDS: FLUTICASONE/UMECLIDIN/VILANTER 100-62.5-25 MCG ELLIPTA 1 PUFF INHALATION (09:20)
[2020-03-18] MEDS: SIMVASTATIN 20 MG TABLET 40 MG PO (09:21)
[2020-03-18] MEDS: predniSONE 1 MG TABLET PO (09:21)
[2020-03-18] MEDS: amLODIPine BESYLATE 5 MG TABLET PO (09:21)
[2020-03-18] MEDS: CHOLECALCIFEROL 1,000 UNITS TABLET 5000 UNITS PO (09:21)
[2020-03-18] MEDS: OLMESARTAN MEDOXOMIL 20 MG TABLET PO (09:22)
[2020-03-18] MEDS: ASPIRIN 81 MG ENTERIC TABLET PO (09:22)
[2020-03-18] MEDS: carvediloL 25 MG TABLET PO ×2 (09:22→20:15)
[2020-03-18] MEDS: FOLIC ACID 1 MG TABLET PO (09:22)
[2020-03-18] MEDS: ACIDOPHILUS/BULGARICUS CHEWABLE TABLET 1 TABLET PO (09:22)
[2020-03-18] MEDS: PANTOPRAZOLE 40 MG TABLET PO ×2 (09:22→20:15)
--- NOTE | 2020-03-18 11:34 | WPDNEURORHBP ---
Subjective Date/time seen: 03/18/20 11:34 84 years old with history of ST elevated myocardial infarction 2. Congestive heart failure diastolic in nature 3. Hyperlipidemia 4. Chronic renal disease 5 COPD 6. Arthritis for 7 anemia and 8. Documented right shoulder fracture as well for which she will be followed by Dr. Hamm she continues to have mild discomfort but she is aware of the situation the joint is on bone on bone but in addition she also complaining of pain in the right forearm without any obvious swelling redness, her lab on 03/14 was compatible with WBC 7.6 hemoglobin 9.1 platelet count of 158 and electrolytes were normal her COVID has been negative Review of Systems Review of Systems: All systems reviewed & are unremarkable except as noted in HPI and below Functional Status Ambulation Ability Ability to Ambulate 10 Feet: Contact Guard Ability to Ambulate 50 Feet With 2 Turns: Contact Guard Ambulation Assistive Devices: Cane, Louis Exam Const: General: cooperative, alert and awake Nutritional Appearance: overweight Orientation/consciousness: patient oriented x3 Limitations: physical limitations HENMT: Ears: hearing grossly normal bilaterally General nose exam: Normal external nose present and No nasal discharge present Face and sinus: normal facial exam Mouth: Yes Normal oral and palatal mucosa present Eyes: General: appearance normal, both eyes and all related structures Neck: Neck: full ROM Resp: Effort & Inspection: normal respiratory effort Auscultation: clear to auscultation bilaterally Cardio: Jugular venous distension: no JVD Rate: regular rate Rhythm: regular rhythm GI: Auscultation: normal bowel sounds Skin: General skin exam: normal color and erythema Rashes: no rashes Wounds: no wounds Neuro: General: patient oriented x3 Cranial nerves: Yes CN's II-XII intact bilaterally Cognition (Neuro): normal cognition Speech: normal speech Motor exam (neuro): Pronator motor function not present and Normal motor muscle tone present throughout Deep tendon reflexes (DTR's): Right triceps reflex intensity grade: 1+, Left triceps reflex intensity grade: 1+, Rt Biceps (C5, C6): 1+, Left biceps reflex intensity grade: 1+, Right brachioradialis reflex intensity grade: 1+, Left brachioradialis reflex intensity grade: 1+, Right patellar reflex intensity grade: 1+, Left patellar reflex intensity grade: 1+, Right ankle reflex intensity grade: 1+ and Left ankle reflex intensity grade: 1+ Plantar Reflex Responses: downgoing: bilateral Coordination: [id number] test normal Extrem: General: no joint enlargement and pedal edema ( right side is better left still 1+ pitting edema) Psych: Appearance: grossly normal Mental Status: mental status grossly normal Speech and movement: Normal speech and movement present Affect: normal affect Attitude: cooperative Thought process: Normal thought process present Thought content: Yes Normal thought content present Insight: Good insight present (Psych) Judgement: Good judgement present (Psych) Objective Data Vital Signs Vital Signs: Vital Signs - 24 hr 03/17/20 14:00 03/17/20 21:08 03/17/20 21:28 Temperature 36.1 C L 35.7 C L Pulse Rate 61 65 65 Respiratory Rate 18 18 Blood Pressure 100/49 L 116/74 Pulse Oximetry 95 95 03/18/20 06:00 03/18/20 09:22 Temperature 36.2 C L Pulse Rate 58 L 68 Respiratory Rate 18 Blood Pressure 120/73 Pulse Oximetry 90 Intake/Output Intake/Output: Intake & Output 03/15/20 03/16/20 03/17/20 03/18/20 23:59 23:59 23:59 23:59 Intake Total 580 720 720 240 Balance 580 720 720 240 Meds/Results Medications: Active Medications Generic Name Dose Route Start Last Admin Trade Name Freq PRN Reason Stop Dose Admin Hydrocodone Bitart/Acetaminophen 1 tab 03/13/20 18:48 03/17/20 17:37 Hydrocodone/Acetaminophen (*Crx) 5-325 Mg Tablet PO 1 tab Q6H PRN Administration pain 4-6 Hydrocodone Bitart/Acetaminophen
[2020-03-19] VITALS (8 sets, daily range): BP systolic 100–136; BP diastolic 52–76; PULSE 58–73; RESP 18–20; TEMP 36.1–36.9; O2SAT 92–94
[2020-03-19] MEDS: HYDROcodone/acetaminophen (*CRX) 10-325 MG TABLET 1 TAB PO (05:41)
[2020-03-19] MEDS: FOLIC ACID 1 MG TABLET PO (09:31)
[2020-03-19] MEDS: amLODIPine BESYLATE 5 MG TABLET PO (09:31)
[2020-03-19] MEDS: OLMESARTAN MEDOXOMIL 20 MG TABLET PO (09:31)
[2020-03-19] MEDS: carvediloL 25 MG TABLET PO ×2 (09:32→20:53)
[2020-03-19] MEDS: SIMVASTATIN 20 MG TABLET 40 MG PO (09:32)
[2020-03-19] MEDS: predniSONE 1 MG TABLET PO (09:32)
[2020-03-19] MEDS: ASPIRIN 81 MG ENTERIC TABLET PO (09:32)
[2020-03-19] MEDS: ACIDOPHILUS/BULGARICUS CHEWABLE TABLET 1 TABLET PO (09:33)
[2020-03-19] MEDS: PANTOPRAZOLE 40 MG TABLET PO ×2 (09:33→20:54)
[2020-03-19] MEDS: CHOLECALCIFEROL 1,000 UNITS TABLET 5000 UNITS PO (09:33)
[2020-03-19] MEDS: FLUTICASONE/UMECLIDIN/VILANTER 100-62.5-25 MCG ELLIPTA 1 PUFF INHALATION (09:43)
--- NOTE | 2020-03-19 12:39 | PCDIET ---
Nutrition Follow-Up Complete: No nutrition diagnosis at this time. Nutrition Goal: Patient to consume 50% of meals or greater and maintain weight. Goal met. Average intake since 03/15/20 has been 73% of meals. Patient sleeping soundly at time of visit and did not awaken to verbal cue or throughout discussion with roommate. Diet is heart healthy which is appropriate. Last recorded weight is 82.2 kg. Recommend obtaining new weight. Bowel Motility: Last documented BM on 03/17/20. Labs Reviewed: No new labs available. Meds Noted: Albuterol, Coreg, Folic Acid, Lactinex, Protonix, Prednisone, Zocor, Vitamin D Additional Notes: No documented skin breakdown. Will continue to monitor with same goal. Nutrition Monitoring and Evaluation: Follow up in 7 days.
[2020-03-19] MEDS: traMADol HCL (*CRX) 50 MG TABLET PO ×2 (14:28→17:40)
[2020-03-19] MEDS: ALBUTEROL SULFATE (*SP) AEROSOL 1 PUFF INHALATION (14:28)
--- NOTE | 2020-03-19 14:55 | PCPTNOTE ---
Jackelin Beasley was evaluated for a lucrecia cane on 03/19/2020 by this physical therapist support assistant. The lucrecia cane will resolve patient's mobility limitations and will be used for ADL's within the home. The patient can safely use the lucrecia cane. ?The lucrecia cane will resolve the patient?s mobility deficits, including impaired balance, decreased strength and endurance.
[2020-03-20] MEDS: traMADol HCL (*CRX) 50 MG TABLET PO ×4 (00:11→17:40)
[2020-03-20 06:00] VITALS: BP 121/63; PULSE 66; RESP 20; TEMP 36.1; O2SAT 94
[2020-03-20 08:00] VITALS: PULSE 66; RESP 20; O2SAT 94
[2020-03-20 08:41] VITALS: PULSE 66
[2020-03-20] MEDS: CHOLECALCIFEROL 1,000 UNITS TABLET 5000 UNITS PO (08:41)
[2020-03-20] MEDS: amLODIPine BESYLATE 5 MG TABLET PO (08:41)
[2020-03-20] MEDS: ASPIRIN 81 MG ENTERIC TABLET PO (08:41)
[2020-03-20] MEDS: carvediloL 25 MG TABLET PO ×2 (08:41→22:10)
[2020-03-20] MEDS: predniSONE 1 MG TABLET PO (08:42)
[2020-03-20] MEDS: SIMVASTATIN 20 MG TABLET 40 MG PO (08:42)
[2020-03-20] MEDS: FOLIC ACID 1 MG TABLET PO (08:42)
[2020-03-20] MEDS: ACIDOPHILUS/BULGARICUS CHEWABLE TABLET 1 TABLET PO (08:42)
[2020-03-20] MEDS: OLMESARTAN MEDOXOMIL 20 MG TABLET PO (08:42)
[2020-03-20] MEDS: PANTOPRAZOLE 40 MG TABLET PO ×2 (08:42→22:10)
--- NOTE | 2020-03-20 11:12 | WPDNEURORHBP ---
Subjective Date/time seen: 03/20/20 11:12 84 years old with history of ST elevated myocardial infarction 2. Congestive heart failure diastolic in nature 3. Hyperlipidemia 4. Chronic renal disease 5. COPD 6. Arthritis 7. Anemia 8. Right shoulder fracture for which she will be followed by orthopedic physician as planned before. He will also require physical therapy occupational therapy and special cane and family is coming here for the family training Review of Systems Review of Systems: All systems reviewed & are unremarkable except as noted in HPI and below Functional Status Ambulation Ability Ability to Ambulate 10 Feet: Contact Guard Ability to Ambulate 50 Feet With 2 Turns: Contact Guard Ambulation Assistive Devices: Cane, Louis Exam Const: General: cooperative Nutritional Appearance: average body habitus HENMT: General nose exam: Normal external nose present Face and sinus: normal facial exam Mouth: Yes Normal oral and palatal mucosa present Eyes: General: appearance normal, both eyes and all related structures Neck: Neck: full ROM Resp: Effort & Inspection: normal respiratory effort Auscultation: clear to auscultation bilaterally Cardio: Jugular venous distension: no JVD Rate: regular rate Rhythm: regular rhythm GI: Auscultation: normal bowel sounds Skin: General skin exam: no rashes or lesions noted Neuro: General: patient oriented x3 Cranial nerves: Yes CN's II-XII intact bilaterally Cognition (Neuro): normal cognition Speech: normal speech Coordination: [id number] test normal ( left side) Extrem: General: full ROM ( left-sided) Right upper extremity: normal to inspection ( in immobilizer) Left upper extremity: normal to inspection ( fair) Objective Data Vital Signs Vital Signs: Vital Signs - 24 hr 03/19/20 14:00 03/19/20 20:00 03/19/20 20:53 Temperature 36.9 C Pulse Rate 69 58 L 58 L Respiratory Rate 20 18 Blood Pressure 108/52 L Pulse Oximetry 93 92 03/19/20 22:00 03/20/20 06:00 03/20/20 08:00 Temperature 36.1 C L 36.1 C L Pulse Rate 58 L 66 66 Respiratory Rate 18 20 20 Blood Pressure 100/55 L 121/63 Pulse Oximetry 92 94 94 03/20/20 08:41 Temperature Pulse Rate 66 Respiratory Rate Blood Pressure Pulse Oximetry Intake/Output Intake/Output: Intake & Output 03/17/20 03/18/20 03/19/20 01/26/21 23:59 23:59 23:59 23:59 Intake Total 720 480 480 100 Balance 720 480 480 100 Meds/Results Medications: Active Medications Generic Name Dose Route Start Last Admin Trade Name Freq PRN Reason Stop Dose Admin Albuterol 1 puff 03/13/20 18:48 03/19/20 14:28 Albuterol Sulfate (*Sp) Aerosol 1 Puff INHALATION 1 puff Q4-6H PRN Administration shortness of breath or wheezing Amlodipine Besylate 5 mg 03/14/20 09:00 03/20/20 08:41 Amlodipine Besylate 5 Mg Tablet PO 5 mg DAILY DAVON Administration Aspirin 81 mg 03/14/20 09:00 03/20/20 08:41 Aspirin 81 Mg Enteric Tablet PO 81 mg DAILY DAVON Administration Carvedilol 25 mg 03/13/20 21:00 03/20/20 08:41 Carvedilol 25 Mg Tablet PO 25 mg Q12HR DAVON Administration Fluticasone/Umeclidinium/Vilanterol 1 puff 03/14/20 09:00 03/19/20 09:43 Fluticasone/Umeclidin/Vilanter 100-62.5-25 Mcg Ellipta INHALATION 1 puff DAILY DAVON Administration Folic Acid 1 mg 03/14/20 09:00 03/20/20 08:42 Folic Acid 1 Mg Tablet PO 1 mg DAILY DAVON Administration Lactobacillus Acidophilus 1 tablet 03/14/20 09:00 03/20/20 08:42 Acidophilus/Bulgaricus Chewable Tablet PO 04/13/20 09:01 1 tablet DAILY DAVON Administration Olmesartan 20 mg 03/14/20 09:00 03/20/20 08:42 Olmesartan Medoxomil 20 Mg Tablet PO 20 mg DAILY DAVON Administration Ondansetron HCl 4 mg 03/19/20 00:11 Ondansetron Hcl Odt 4 Mg Tablet PO Q6H PRN Nausea And Vomiting Pantoprazole Sodium 40 mg 03/13/20 21:00 03/20/20 08:42 Pantoprazole 40 Mg Tablet PO 40 mg Q12HR DAVON Administ
[2020-03-20] MEDS: FLUTICASONE/UMECLIDIN/VILANTER 100-62.5-25 MCG ELLIPTA 1 PUFF INHALATION (11:43)
[2020-03-20] MEDS: TAMSULOSIN HCL 0.4 MG CAPSULE PO (12:24)
[2020-03-20] MEDS: ALBUTEROL SULFATE (*SP) AEROSOL 1 PUFF INHALATION (13:16)
[2020-03-20 14:00] VITALS: BP 100/47; PULSE 62; RESP 18; TEMP 36.6; O2SAT 94
[2020-03-20 22:10] VITALS: PULSE 66
[2020-03-21] VITALS (7 sets, daily range): BP systolic 105–133; BP diastolic 56–81; PULSE 53–66; RESP 16–20; TEMP 35.9–36.2; O2SAT 93–98
[2020-03-21] MEDS: traMADol HCL (*CRX) 50 MG TABLET PO ×4 (00:47→17:22)
[2020-03-21 05:20] LABS: Basophils Percent Auto 0.1 % (0.2-1.2); Eosinophils Absolute Auto 0.2 K/mm3 (0-0.3); Eosinophils Percent Auto 2.3 % (0-4.4); Hematocrit 26.6 % (37.0-47.0); Hemoglobin 8.6 g/dL (12.0-15.0); Immature Granulocyte Absolute 0.04 K/mm3 (0.00-0.031); Immature Granulocyte Percent A 0.5 % (0-0.5); Lymphocytes Percent Auto 13.5 % (18.3-44.2); Mean Corpuscular HGB Conc 32.3 g/dl (32-36); Mean Corpuscular Hemoglobin 28.8 pg (26-34); Mean Platelet Volume 9.5 fl (7.4-10.4); Monocytes Absolute Auto 0.8 K/mm3 (0.1-0.6); Monocytes Percent Auto 10.4 % (2.6-8.5); Neutrophils Absolute Auto 5.4 K/mm3 (1.3-6.7); Neutrophils Percent Auto 73.2 % (45.5-73.1); Platelet Count Result 192 k/mm3 (150-375); Red Blood Count 2.99 M/mm3 (4.2-5.4); Red Cell Distribution Width 14.1 % (11.5-14.5); White Blood Count 7.4 K/mm3 (4.5-10.0)
[2020-03-21 05:21] LABS: Anion Gap 8 mmol/L (8-16); Blood Urea Nitrogen 24 mg/dL (7-17); Calcium 8.3 mg/dL (8.4-10.2); Carbon Dioxide 24 mmol/L (22-30); Chloride 98 mmol/L (98-107); Estimated CRCL calculation 21 ml/min; Estimated Glomerular Filt Rate 27; Glucose 92 mg/dL (65-105); Potassium 3.6 mmol/L (3.4-5.0); Sodium 130 mmol/L (137-145)
[2020-03-21] MEDS: amLODIPine BESYLATE 5 MG TABLET PO (08:46)
[2020-03-21] MEDS: ACIDOPHILUS/BULGARICUS CHEWABLE TABLET 1 TABLET PO (08:46)
[2020-03-21] MEDS: ASPIRIN 81 MG ENTERIC TABLET PO (08:46)
[2020-03-21] MEDS: carvediloL 25 MG TABLET PO ×2 (08:47→20:07)
[2020-03-21] MEDS: predniSONE 1 MG TABLET PO (08:47)
[2020-03-21] MEDS: FOLIC ACID 1 MG TABLET PO (08:47)
[2020-03-21] MEDS: CHOLECALCIFEROL 1,000 UNITS TABLET 5000 UNITS PO (08:47)
[2020-03-21] MEDS: PANTOPRAZOLE 40 MG TABLET PO ×2 (08:47→20:07)
[2020-03-21] MEDS: SIMVASTATIN 20 MG TABLET 40 MG PO (08:47)
[2020-03-21] MEDS: TAMSULOSIN HCL 0.4 MG CAPSULE PO (08:47)
[2020-03-21] MEDS: OLMESARTAN MEDOXOMIL 20 MG TABLET PO (08:47)
[2020-03-21] MEDS: FLUTICASONE/UMECLIDIN/VILANTER 100-62.5-25 MCG ELLIPTA 1 PUFF INHALATION (08:48)
--- NOTE | 2020-03-21 10:00 | WPDNEURORHBP ---
Subjective Date/time seen: 03/21/20 10:00 84 years old with history of ST elevated myocardial infarction with congestive heart failure hyperlipidemia chronic renal disease COPD and arthritis and also history of right shoulder fracture for which she will be followed by orthopedic physician as planned before today she is having some wheezing for which x-ray chest has been ordered she is receiving the oxygen her legs have been swollen will obtain the x-ray of the chest and treatment who provided accordingly if necessary we will get her cardiology consultation as well Review of Systems Review of Systems: All systems reviewed & are unremarkable except as noted in HPI and below Functional Status Ambulation Ability Ability to Ambulate 10 Feet: Contact Guard Ability to Ambulate 50 Feet With 2 Turns: Contact Guard Ambulation Assistive Devices: Cane, Louis Exam Const: General: cooperative and comfortable Nutritional Appearance: well nourished Orientation/consciousness: oriented to person, oriented to place and oriented to time Neck: Neck: full ROM Resp: Effort & Inspection: normal respiratory effort, able to speak in complete sentences and decreased respiratory effort Cardio: Rate: regular rate Rhythm: regular rhythm Skin: General skin exam: no rashes or lesions noted Neuro: General: patient oriented x3 Cranial nerves: Yes CN's II-XII intact bilaterally Cognition (Neuro): normal cognition Speech: normal speech Gait exam (Neuro): Unable to assess gait Psych: Appearance: grossly normal Objective Data Vital Signs Vital Signs: Vital Signs - 24 hr 03/20/20 14:00 03/20/20 22:10 03/21/20 06:00 Temperature 36.6 C 36.0 C L Pulse Rate 62 66 66 Respiratory Rate 18 20 Blood Pressure 100/47 L 133/81 Pulse Oximetry 94 94 03/21/20 08:47 Temperature Pulse Rate 66 Respiratory Rate Blood Pressure Pulse Oximetry Intake/Output Intake/Output: Intake & Output 03/18/20 03/19/20 03/20/20 03/21/20 23:59 23:59 23:59 23:59 Intake Total 480 480 340 240 Balance 480 480 340 240 Meds/Results Medications: Active Medications Generic Name Dose Route Start Last Admin Trade Name Freq PRN Reason Stop Dose Admin Albuterol 1 puff 03/13/20 18:48 03/20/20 13:16 Albuterol Sulfate (*Sp) Aerosol 1 Puff INHALATION 1 puff Q4-6H PRN Administration shortness of breath or wheezing Amlodipine Besylate 5 mg 03/14/20 09:00 03/21/20 08:46 Amlodipine Besylate 5 Mg Tablet PO 5 mg DAILY DAVON Administration Aspirin 81 mg 03/14/20 09:00 03/21/20 08:46 Aspirin 81 Mg Enteric Tablet PO 81 mg DAILY DAVON Administration Carvedilol 25 mg 03/13/20 21:00 03/21/20 08:47 Carvedilol 25 Mg Tablet PO 25 mg Q12HR DAVON Administration Fluticasone/Umeclidinium/Vilanterol 1 puff 03/14/20 09:00 03/21/20 08:48 Fluticasone/Umeclidin/Vilanter 100-62.5-25 Mcg Ellipta INHALATION 1 puff DAILY DAVON Administration Folic Acid 1 mg 03/14/20 09:00 03/21/20 08:47 Folic Acid 1 Mg Tablet PO 1 mg DAILY DAVON Administration Lactobacillus Acidophilus 1 tablet 03/14/20 09:00 03/21/20 08:46 Acidophilus/Bulgaricus Chewable Tablet PO 04/13/20 09:01 1 tablet DAILY DAVON Administration Olmesartan 20 mg 03/14/20 09:00 03/21/20 08:47 Olmesartan Medoxomil 20 Mg Tablet PO 20 mg DAILY DAVON Administration Ondansetron HCl 4 mg 03/19/20 00:11 Ondansetron Hcl Odt 4 Mg Tablet PO Q6H PRN Nausea And Vomiting Pantoprazole Sodium 40 mg 03/13/20 21:00 03/21/20 08:47 Pantoprazole 40 Mg Tablet PO 40 mg Q12HR DAVON Administration Prednisone 1 mg 03/14/20 09:00 03/21/20 08:47 Prednisone 1 Mg Tablet PO 1 mg DAILY DAVON Administration Simvastatin 40 mg 03/14/20 09:00 03/21/20 08:47 Simvastatin 20 Mg Tablet PO 40 mg DAILY DAVON Administration Tamsulosin HCl 0.4 mg 03/20/20 12:10 03/21/20 08:47 Tamsulosin Hcl 0.4 Mg Capsule PO 0.4 mg QAM DAVON Administration
--- NOTE | 2020-03-21 10:02 | PM.PNORT ---
Progress Note: A&P Assessment and Plan (1) Closed right humeral fracture: Qualifiers: Encounter type: sequela Fracture morphology: unspecified fracture morphology Humerus Location: proximal Qualified Code(s): S42.201S - Unspecified fracture of upper end of right humerus, sequela Code(s): S42.301A - Unspecified fracture of shaft of humerus, right arm, initial encounter for closed fracture Status: Acute Assessment and Plan: Patient is 2.5 weeks status post nondisplaced proximal humerus fracture. Finn 80-year-old female with history of hyperlipidemia, diastolic congestive heart failure, chronic kidney disease, COPD, rheumatoid arthritis, and chronic anemia. On 03/05/2020 she fell 2 times at an eye appointment onto her right shoulder. She has been having frequent falls at home. She lives at home by herself. She was found to have low blood pressure. After her fall she had worsening Right shoulder pain. She was found to have a nondisplaced proximal humerus fracture. Since last visit patient has been moved to [facility]. Patient is a current patient of Dr. Hamm'shashi. She has a history of severe glenohumeral arthritis. She was offered Total shoulder arthroplasty in the past. Due to current medical conditions she is not a good surgical candidate. The surgical neck fracture is non displaced, and stable. 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 Limited goals therapy. May WBAT progressively as pain allows. Fracture healing expected over 4-6 weeks. Spoke with patient's nurse. Continue shoulder immobilizer. She may remove her wrist from immobilizer for comfort. May remove sling for comfort while sitting or in bed. She may switch to a regular sling if it is more comfortable. Encourage range of motion of elbow, wrist, and fingers. Weightbearing as tolerated using a walker. She may come out of wrist portion of immobilizer for ambulating with walker. Patient understands she will have decreased range of motion due to severe arthritis and proximal humerus fracture. We will need a shoulder xray before she leaves to asses healing. Ordered for 03/26/20. Subjective Subjective Date/Time Seen: 03/21/20 10:02 Finn 80-year-old female with history of hyperlipidemia diastolic congestive heart failure chronic kidney disease COPD rheumatoid arthritis and chronic anemia was admitted to the hospital for an acute on chronic kidney injury. On 03/05/2020 she fell 2 times at an eye appointment onto her right shoulder. She has been having frequent falls at home. She lives at home by herself. She was found to have low blood pressure. She is a current patient of Dr. Galavizs. We have seen her in the past for severe glenohumeral arthritis at the right shoulder. She states she has been having trouble with her shoulder for the past few years. She is unable to lift her arm above her head. She has been managing without surgical intervention. Saw patient today in rehab. She complains of pain at her right shoulder. Pain is manageable. Pain does not radiate. Wearing immobilizer sling. No numbness or tingling in her fingers. She complains on some mild wrist pain due to the sling. She states she had a rough night last night due to coughing. Review of Systems Review of Systems: All systems reviewed & are unremarkable except as noted in HPI and below Exam Narrative: Exam Narrative: Pleasant obese female. A and O x3. Sitting in chair. Wearing O2 nasal canula. No acute distress. Right shoulder slightly displaced anteriorly. Arm in shoulder immobilizer. Mild swelling at right arm. No warmth or erythema. Radial pulse palpable. Light touch sensation intact. Good finger and wrist range of motion Objective Data Vital Signs Vital Signs: Vital Signs - 24 hr 03/20/20 14:00 03/20/20 22:10 03/21/20 06:00 Temperature 97.8 F 96.8 F L Pulse Rate 62 66 66 Respiratory Rate 18 20 Blood Pressure 100/47
--- NOTE | 2020-03-21 13:45 | PC.NURSE ---
cxr results called to Dr. Floyd, orders only to keep HOB elevated 30 degrees. Pt stating this afternoon that she feels some better and breathing is easier, remains on 2L O2, dropped to 83 with ambulation at 1L.
[2020-03-22] VITALS (10 sets, daily range): BP systolic 109–118; BP diastolic 49–71; PULSE 56–79; RESP 18–20; TEMP 35.2–36.2; O2SAT 93–95; BMI 10.0
[2020-03-22] MEDS: traMADol HCL (*CRX) 50 MG TABLET PO ×5 (00:05→23:39)
[2020-03-22 08:19] LABS: Basophils Percent Auto 0.3 % (0.2-1.2); Eosinophils Absolute Auto 0.2 K/mm3 (0-0.3); Eosinophils Percent Auto 2.3 % (0-4.4); Hemoglobin 9.1 g/dL (12.0-15.0); Immature Granulocyte Absolute 0.02 K/mm3 (0.00-0.031); Immature Granulocyte Percent A 0.3 % (0-0.5); Lymphocytes Absolute Auto 0.73 K/mm3 (0.9-3.2); Lymphocytes Percent Auto 10.4 % (18.3-44.2); Mean Corpuscular HGB Conc 32.5 g/dl (32-36); Mean Corpuscular Hemoglobin 28.8 pg (26-34); Mean Corpuscular Volume 88.6 fl (80-100); Mean Platelet Volume 9.1 fl (7.4-10.4); Monocytes Absolute Auto 0.6 K/mm3 (0.1-0.6); Monocytes Percent Auto 8.7 % (2.6-8.5); Neutrophils Absolute Auto 5.5 K/mm3 (1.3-6.7); Platelet Count Result 216 k/mm3 (150-375); Red Blood Count 3.16 M/mm3 (4.2-5.4)
[2020-03-22] MEDS: OLMESARTAN MEDOXOMIL 20 MG TABLET PO (08:38)
[2020-03-22] MEDS: ASPIRIN 81 MG ENTERIC TABLET PO (08:38)
[2020-03-22] MEDS: predniSONE 1 MG TABLET PO (08:38)
[2020-03-22] MEDS: TAMSULOSIN HCL 0.4 MG CAPSULE PO (08:38)
[2020-03-22] MEDS: ACIDOPHILUS/BULGARICUS CHEWABLE TABLET 1 TABLET PO (08:38)
[2020-03-22] MEDS: PANTOPRAZOLE 40 MG TABLET PO ×2 (08:38→20:06)
[2020-03-22] MEDS: SIMVASTATIN 20 MG TABLET 40 MG PO (08:38)
[2020-03-22] MEDS: CHOLECALCIFEROL 1,000 UNITS TABLET 5000 UNITS PO (08:39)
[2020-03-22] MEDS: amLODIPine BESYLATE 5 MG TABLET PO (08:39)
[2020-03-22] MEDS: carvediloL 25 MG TABLET PO ×2 (08:40→20:06)
[2020-03-22] MEDS: FOLIC ACID 1 MG TABLET PO (08:40)
[2020-03-22] MEDS: FLUTICASONE/UMECLIDIN/VILANTER 100-62.5-25 MCG ELLIPTA 1 PUFF INHALATION (08:40)
[2020-03-22] MEDS: guaiFENesin 12 HR 600 MG TABCR PO ×2 (08:41→20:06)
[2020-03-22] MEDS: SODIUM CHLORIDE 1 GM TABLET PO ×2 (08:42→17:20)
[2020-03-22 08:43] LABS: Alanine Aminotransferase 23 U/L (4-35); Albumin Level 3.6 g/dL (3.5-5.1); Alkaline Phosphatase 100 U/L (38-126); Anion Gap 6 mmol/L (8-16); Aspartate Amino Transferase 33 U/L (14-36); Bilirubin,Total 0.6 mg/dL (0.2-1.3); Blood Urea Nitrogen 21 mg/dL (7-17); Calcium 8.9 mg/dL (8.4-10.2); Carbon Dioxide 25 mmol/L (22-30); Chloride 100 mmol/L (98-107); Estimated CRCL calculation 24 ml/min; Estimated Glomerular Filt Rate 33; Glucose 99 mg/dL (65-105); Sodium 131 mmol/L (137-145)
[2020-03-22 08:53] LABS: NT Pro B Type Natriuretic Pept 2180 PG/ML (5-100)
--- NOTE | 2020-03-22 11:51 | PCPTNOTE ---
Yesika SandyVicky Epstein, YENNY completed an inpatient rehab wheelchair evaluation on Jackelin Beasley on 03/22/2020. The patient is unable to safely and independently ambulate household distances due to their current impairments. Their diagnosis is non-Stemi, acute on chronic kidney injury and their impairments include decreased strength, decreased endurance, decreased range of motion, decreased balance and lower extremity weakness. Jackelin's weight bearing status is weight-bearing as tolerated on the bilateral lower legs. The patient demonstrates significant functional mobility limitations that impair their ability to participate in mobility-related activities of daily living (MRADLs), including toileting, feeding, dressing, grooming, and bathing in the customary locations in the home. These limitations cannot be sufficiently resolved by the use of an appropriately fitted cane or walker. It is recommended that the patient utilize a wheelchair for functional mobility within the home in order to facilitate optimal safety, independence and participation in all MRADL's and adequately access their home environment on a regular basis. The patient's home provides adequate access between rooms, maneuvering space, and surfaces to accommodate the recommended wheelchair. The use of a wheelchair for functional mobility is strongly recommended and the patient is receptive to using the wheelchair. The use of this wheelchair will significantly improve the patient's ability to participate in MRADLS and the patient will use it on a regular basis in the home. This will facilitate optimal safety, independence, and participation. The patient has demonstrated sufficient physical and mental capabilities needed to safely propel a manual wheelchair that is provided in the home during a typical day. Recommended Wheelchair Frame: Standard Recommended Wheelchair Size: 18x18 Recommended Wheelchair Cushion:Standard Wheelchair Leg Recommendations: Bilateral swing sway elevated leg rests. - Elevating legrests are recommended because the patient has significant edema of the lower extremities that requires an elevating legrest. -Anti-tippers are recommended due to patient demonstrating increased risk for falls. They would benefit from anti-tippers with added safety and stabilization. Yesika Epstein AC[employer] STRENGTH INSPECTOR 03-22-2020 Evaluating Therapist Date I agree with and certify that the above recommendation is medically necessary. Referring Physician Date I agree with and certify that the above recommendation is medically necessary. Referring Physician Date
--- NOTE | 2020-03-22 15:20 | PM.CNCAR ---
Assessment and Plan Assessment and plan (1) Chronic diastolic CHF (congestive heart failure): Code(s): I50.32 - Chronic diastolic (congestive) heart failure Status: Acute Assessment and Plan: She has mild edema and some right arm swelling. The mild lower extremity edema could be related to some fluid retention from her diastolic heart failure or kidney disease. The right arm swelling probably a function of her fracture. Regardless, I will give her 1 dose of IV furosemide 40 mg IV x1. (2) Non-STEMI (non-ST elevated myocardial infarction): Code(s): I21.4 - Non-ST elevation (NSTEMI) myocardial infarction Status: Acute Assessment and Plan: Continue meds (3) Hypertensive chronic kidney disease with stage 1 through stage 4 chronic kidney disease, or unspecified chronic kidney disease: Code(s): I12.9 - Hypertensive chronic kidney disease with stage 1 through stage 4 chronic kidney disease, or unspecified chronic kidney disease Status: Acute (4) HTN (hypertension): Code(s): I10 - Essential (primary) hypertension Status: Acute Assessment and Plan: At goal History of Present Illness History of Present Illness Consult date/time: 03/22/20 15:20 Requesting physician: Naveed Floyd MD Consult reason: shortness of breath Reason For Visit: non-Stemi, acute on chronic kidney injury Narrative: Date of service 03/22/2020: Patient is an 84-year-old female who has a history of chronic kidney disease, heart failure with preserved ejection fraction, COPD, rheumatoid arthritis, anemia, dyslipidemia. She had an acute humeral fracture. Echocardiogram performed recently shows ejection fraction of 60 65% with mild pulmonary hypertension with RVSP of 42. I was asked to see her today in consultation as the patient has been moved to rehab. This is a new consultation since her admission to inpatient rehab. She has been having some worsening shortness of breath and swelling over the past 2 days. She also has some desaturations with activity. No syncope, presyncope, paroxysmal nocturnal dyspnea, orthopnea, palpitations. She does have some tenderness in the right arm and a venous Doppler was performed also which did not show DVT. Review of Systems Review of Systems: All systems reviewed & are unremarkable except as noted in HPI and below Constitutional: Constitutional: Reports weakness Eyes: Eyes: Denies blurry vision ENT: Reports Normal hearing present Cardiovascular: Cardiovascular: Denies chest pain and Reports pedal edema Respiratory: Respiratory: Reports dyspnea Gastrointestinal: Gastrointestinal: Denies abdominal pain Genitourinary: Genitourinary: Denies flank pain Musculoskeletal: Musculoskeletal: Denies back pain and Denies neck pain Integumentary/Breasts: Skin/Breast: Denies dry skin and Denies unusual bruising Neurologic: Denies headache(s) Psychiatric: Psychiatric: Denies anxiety and Denies confusion Endocrine: Endocrine: Denies excessive sweating Hematologic/Lymphatic: Hematologic/Lymphatic: Denies easy bleeding Allergic/Immunologic: Allergic/Immunologic: Denies GI upset with certain foods PMFSH Past Medical History Medical History Flores esophagus Benign colon polyp Chronic anemia Chronic diastolic congestive heart failure Ventricular systolic function and size with moderate concentric left ventricular hypertrophy, impaired diastolic relaxation grade 1, and an ejection fraction estimated 60 to 65%. Chronic kidney disease, stage 4 (severe) Baseline creatinine is between 1.4 and 1.60. Chronic obstructive pulmonary disease Gastroesophageal reflux disease Osteoporosis Rheumatoid arthritis Vitamin D deficiency Surgical History Surgical History History of ankle surgery (~2014) ORIF left ankle fracture. History of appendectomy (~2009) History
[2020-03-22] MEDS: FUROSEMIDE INJ 40 MG/4 ML VIAL IV PUSH (16:17)
[2020-03-22] MEDS: IPRATROPIUM BR 0.02% INH SOLN 0.5 MG/2.5 ML VIAL INHALATION (21:05)
[2020-03-22] MEDS: ALBUTEROL SULFATE NEB 2.5 MG/0.5 ML INH INHALATION (21:05)
[2020-03-23] VITALS (12 sets, daily range): BP systolic 103–117; BP diastolic 52–73; PULSE 56–67; RESP 12–20; TEMP 35.9–36; O2SAT 91–97
[2020-03-23] MEDS: ALBUTEROL SULFATE NEB 2.5 MG/0.5 ML INH INHALATION ×3 (02:29→14:55)
[2020-03-23] MEDS: IPRATROPIUM BR 0.02% INH SOLN 0.5 MG/2.5 ML VIAL INHALATION ×3 (02:29→14:55)
[2020-03-23] MEDS: traMADol HCL (*CRX) 50 MG TABLET PO ×4 (05:49→23:58)
[2020-03-23] MEDS: SIMVASTATIN 20 MG TABLET 40 MG PO (08:52)
[2020-03-23] MEDS: CHOLECALCIFEROL 1,000 UNITS TABLET 5000 UNITS PO (08:52)
[2020-03-23] MEDS: amLODIPine BESYLATE 5 MG TABLET PO (08:52)
[2020-03-23] MEDS: FOLIC ACID 1 MG TABLET PO (08:53)
[2020-03-23] MEDS: SODIUM CHLORIDE 1 GM TABLET PO ×2 (08:53→16:51)
[2020-03-23] MEDS: TAMSULOSIN HCL 0.4 MG CAPSULE PO (08:53)
[2020-03-23] MEDS: ACIDOPHILUS/BULGARICUS CHEWABLE TABLET 1 TABLET PO (08:53)
[2020-03-23] MEDS: carvediloL 25 MG TABLET PO ×2 (08:53→20:50)
[2020-03-23] MEDS: ASPIRIN 81 MG ENTERIC TABLET PO (08:53)
[2020-03-23] MEDS: PANTOPRAZOLE 40 MG TABLET PO ×2 (08:53→20:51)
[2020-03-23] MEDS: guaiFENesin 12 HR 600 MG TABCR PO ×2 (08:53→20:51)
[2020-03-23] MEDS: predniSONE 1 MG TABLET PO (08:54)
[2020-03-23] MEDS: FLUTICASONE/UMECLIDIN/VILANTER 100-62.5-25 MCG ELLIPTA 1 PUFF INHALATION (08:54)
[2020-03-23] MEDS: OLMESARTAN MEDOXOMIL 20 MG TABLET PO (08:54)
--- NOTE | 2020-03-23 10:14 | WPDNEURORHBP ---
Subjective Date/time seen: 03/23/20 10:14 84 years old lady with ST elevated myocardial infarction, congestive heart failure, chronic renal failure, COPD, and arthritis, and hyperlipidemia in addition to the history of right shoulder fracture for which she will be followed by orthopedic physician as an outpatient as planned before has been having some difficulties in breathing along with the wheezing for which cardiology consultation was obtained in addition to x-ray of the chest, chest revealed cardiomegaly with large hiatal hernia and opacities at the bilateral lower lung zones related to the body habitus, venous Doppler of right upper extremity was negative, cardiology consultation with Dr. Vargas obtained mild lower extremity edema was attributed to fluid retention secondary to her diastolic heart failure or superimposed kidney disease and the right upper extremity swelling was attributed to the fracture he gave her a dose of furosemide 40 mg intravenously only 1 time and other diagnoses remains same, most recent vital signs are temperature 36.0? pulse 63 respirations 18 pulse ox 91% on nasal cannula oxygen and the blood pressure 117/73, orthopedic consultation was also obtained because of humerus shaft fracture who suggested continue shoulder immobilizer and remove her wrist immobilizer for comfort also we can remove the sling for comfort while sitting in bed and switch her to a regular sling if it is more comfortable with encouragement to the range of motion at the elbow wrist and fingers and weight-bearing as tolerated and she can't come out of wrist portion of immobilizer for ambulating with a walker in addition they suggested shoulder x-ray before she leaves assess the healing which have been ordered for March 26, 2020 Review of Systems Review of Systems: All systems reviewed & are unremarkable except as noted in HPI and below Functional Status Ambulation Ability Ability to Ambulate 10 Feet: Contact Guard Ability to Ambulate 50 Feet With 2 Turns: Contact Guard Ambulation Assistive Devices: Cane, Louis Transfers Ability Ability to Transfer In/Out of Chair: Contact Guard Exam Const: General: cooperative and comfortable Nutritional Appearance: average body habitus and overweight Limitations: physical limitations HENMT: Ears: hearing grossly normal bilaterally General nose exam: Normal external nose present and No nasal discharge present Face and sinus: normal facial exam Mouth: Yes Normal oral and palatal mucosa present Eyes: General: appearance normal, both eyes and all related structures Neck: Neck: full ROM and no lymphadenopathy Resp: Effort & Inspection: normal respiratory effort Auscultation: clear to auscultation bilaterally Cardio: Rate: regular rate Rhythm: regular rhythm GI: Auscultation: normal bowel sounds Neuro: General: patient oriented x3 Cranial nerves: Yes CN's II-XII intact bilaterally Cognition (Neuro): normal cognition Speech: normal speech Motor exam (neuro): 5/5 motor strength present throughout ( generally decreased in addition to limitation because of the right upper e) Objective Data Vital Signs Vital Signs: Vital Signs - 24 hr 03/22/20 14:00 03/22/20 19:50 03/22/20 20:06 Temperature 36.2 C L Pulse Rate 58 L 60 Respiratory Rate 20 Blood Pressure 110/71 Pulse Oximetry 95 95 03/22/20 21:05 03/22/20 21:15 03/22/20 21:20 Temperature Pulse Rate 56 L 56 L 61 Respiratory Rate 18 18 18 Blood Pressure Pulse Oximetry 95 03/22/20 22:00 03/23/20 02:29 03/23/20 02:40 Temperature 35.2 C L Pulse Rate 79 59 L 60 Respiratory Rate 18 18 18 Blood Pressure 109/49 L Pulse Oximetry 94 03/23/20 06:00 03/23/20 08:46 03/23/20 08:48 Temperature 36.0 C L Pulse Rate 63 67 67 Respiratory Rate 20 18 18 Blood Pressure 117/73 Pulse Oximetry 92 91 03/23/20 08:53 Temperature Pulse Rate 63 Respiratory Rate Blood Pressure Pulse Oximetry Intake/Output In
--- NOTE | 2020-03-23 12:39 | PM.PNCARD ---
Progress Note: A&P Assessment and Plan (1) Chronic diastolic CHF (congestive heart failure): Code(s): I50.32 - Chronic diastolic (congestive) heart failure Status: Acute Assessment and Plan: Overall improved shortness of breath and swelling. Will give 1 more dose of IV furosemide 20 mg x 1. She may need a maintenance low-dose of p.o. furosemide. (2) Non-STEMI (non-ST elevated myocardial infarction): Code(s): I21.4 - Non-ST elevation (NSTEMI) myocardial infarction Status: Acute Assessment and Plan: Continue meds (3) Hypertensive chronic kidney disease with stage 1 through stage 4 chronic kidney disease, or unspecified chronic kidney disease: Code(s): I12.9 - Hypertensive chronic kidney disease with stage 1 through stage 4 chronic kidney disease, or unspecified chronic kidney disease Status: Acute (4) HTN (hypertension): Code(s): I10 - Essential (primary) hypertension Status: Acute Assessment and Plan: At goal Subjective Date/time seen: 03/23/20 12:39 Interval history: 84-year-old rate consult while in rehab for swelling and shortness of breath Date of service 03/23/2020: She feels much better today. No chest pain. Swelling is better. Review of Systems Review of Systems: All systems reviewed & are unremarkable except as noted in HPI and below Constitutional: Constitutional: Denies excessive sweating, Denies headache(s) and Reports weakness Eyes: Eyes: Denies blurry vision ENT: Reports Normal hearing present, Denies headache(s) and Denies neck pain Cardiovascular: Cardiovascular: Denies chest pain, Reports pedal edema and Reports dyspnea Respiratory: Respiratory: Reports dyspnea Gastrointestinal: Gastrointestinal: Denies abdominal pain Genitourinary: Genitourinary: Denies flank pain Musculoskeletal: Musculoskeletal: Denies back pain and Denies neck pain Integumentary/Breasts: Skin/Breast: Denies dry skin and Denies unusual bruising Neurologic: Reports Normal hearing present, Denies confusion, Denies headache(s) and Reports weakness Psychiatric: Psychiatric: Denies anxiety and Denies confusion Endocrine: Endocrine: Denies excessive sweating Hematologic/Lymphatic: Hematologic/Lymphatic: Denies easy bleeding Allergic/Immunologic: Allergic/Immunologic: Denies GI upset with certain foods Exam Narrative: Exam Narrative: Patient awake alert oriented. Const: General: comfortable and no acute distress; No confusion Orientation/consciousness: No confusion HENMT: General nose exam: Normal nares present Eyes: Sclera: abnormal sclerae Neck: Neck: supple and no JVD Chest: Other: No chest wall pain to palpation Resp: Auscultation: diminished lung sounds Cardio: Rate: regular rate Rhythm: regular rhythm Heart sounds: Murmur heart sound present Skin: General skin exam: normal color Neuro: General: No confusion Cranial nerves: Yes Normal hearing present Cognition (Neuro): normal cognition Speech: normal speech Extrem: General: edema Right upper extremity: edema Psych: Affect: normal affect Objective Data Vital Signs Vital Signs: Vital Signs - 24 hr 03/22/20 14:00 03/22/20 19:50 03/22/20 20:06 Temperature 36.2 C L Pulse Rate 58 L 60 Respiratory Rate 20 Blood Pressure 110/71 Pulse Oximetry 95 95 03/22/20 21:05 03/22/20 21:15 03/22/20 21:20 Temperature Pulse Rate 56 L 56 L 61 Respiratory Rate 18 18 18 Blood Pressure Pulse Oximetry 95 03/22/20 22:00 03/23/20 02:29 03/23/20 02:40 Temperature 35.2 C L Pulse Rate 79 59 L 60 Respiratory Rate 18 18 18 Blood Pressure 109/49 L Pulse Oximetry 94 03/23/20 06:00 03/23/20 08:46 03/23/20 08:48 Temperature 36.0 C L Pulse Rate 63 67 67 Respiratory Rate 20 18 18 Blood Pressure 117/73 Pulse Oximetry 92 91 03/23/20 08:53 03/23/20 11:00 Temperature Pulse Rate 63 Respiratory Rate Blood Pressure Pulse Oximetry 93
[2020-03-23] MEDS: FUROSEMIDE INJ 40 MG/4 ML VIAL 20 MG IV PUSH (13:47)
[2020-03-24] VITALS (16 sets, daily range): BP systolic 108–121; BP diastolic 55–67; PULSE 57–63; RESP 16–20; TEMP 35.2–36.4; O2SAT 92–97
[2020-03-24] MEDS: ALBUTEROL SULFATE NEB 2.5 MG/0.5 ML INH INHALATION ×4 (03:05→22:36)
[2020-03-24] MEDS: IPRATROPIUM BR 0.02% INH SOLN 0.5 MG/2.5 ML VIAL INHALATION ×4 (03:06→22:36)
[2020-03-24] MEDS: traMADol HCL (*CRX) 50 MG TABLET PO ×4 (05:52→23:49)
[2020-03-24] MEDS: ACIDOPHILUS/BULGARICUS CHEWABLE TABLET 1 TABLET PO (09:16)
[2020-03-24] MEDS: amLODIPine BESYLATE 5 MG TABLET PO (09:16)
[2020-03-24] MEDS: carvediloL 25 MG TABLET PO ×2 (09:17→20:00)
[2020-03-24] MEDS: ASPIRIN 81 MG ENTERIC TABLET PO (09:17)
[2020-03-24] MEDS: FLUTICASONE/UMECLIDIN/VILANTER 100-62.5-25 MCG ELLIPTA 1 PUFF INHALATION (09:17)
[2020-03-24] MEDS: CHOLECALCIFEROL 1,000 UNITS TABLET 5000 UNITS PO (09:17)
[2020-03-24] MEDS: FOLIC ACID 1 MG TABLET PO (09:18)
[2020-03-24] MEDS: TAMSULOSIN HCL 0.4 MG CAPSULE PO (09:18)
[2020-03-24] MEDS: guaiFENesin 12 HR 600 MG TABCR PO ×2 (09:18→20:00)
[2020-03-24] MEDS: SODIUM CHLORIDE 1 GM TABLET PO ×2 (09:18→17:50)
[2020-03-24] MEDS: PANTOPRAZOLE 40 MG TABLET PO ×2 (09:18→20:00)
[2020-03-24] MEDS: OLMESARTAN MEDOXOMIL 20 MG TABLET PO (09:18)
[2020-03-24] MEDS: predniSONE 1 MG TABLET PO (09:18)
[2020-03-24] MEDS: SIMVASTATIN 20 MG TABLET 40 MG PO (09:18)
[2020-03-25] VITALS (11 sets, daily range): BP systolic 96–108; BP diastolic 43–51; PULSE 60–74; RESP 14–22; TEMP 35.9–36.4; O2SAT 92–100
[2020-03-25] MEDS: ALBUTEROL SULFATE NEB 2.5 MG/0.5 ML INH INHALATION ×3 (03:20→13:36)
[2020-03-25] MEDS: IPRATROPIUM BR 0.02% INH SOLN 0.5 MG/2.5 ML VIAL INHALATION ×3 (03:20→13:36)
[2020-03-25] MEDS: traMADol HCL (*CRX) 50 MG TABLET PO ×3 (06:49→17:39)
[2020-03-25] MEDS: ALBUTEROL SULFATE (*SP) AEROSOL 1 PUFF INHALATION (09:05)
[2020-03-25] MEDS: ACIDOPHILUS/BULGARICUS CHEWABLE TABLET 1 TABLET PO (09:07)
[2020-03-25] MEDS: ASPIRIN 81 MG ENTERIC TABLET PO (09:07)
[2020-03-25] MEDS: carvediloL 25 MG TABLET PO ×2 (09:07→20:15)
[2020-03-25] MEDS: amLODIPine BESYLATE 5 MG TABLET PO (09:07)
[2020-03-25] MEDS: FLUTICASONE/UMECLIDIN/VILANTER 100-62.5-25 MCG ELLIPTA 1 PUFF INHALATION (09:08)
[2020-03-25] MEDS: CHOLECALCIFEROL 1,000 UNITS TABLET 5000 UNITS PO (09:08)
[2020-03-25] MEDS: FOLIC ACID 1 MG TABLET PO (09:08)
[2020-03-25] MEDS: SODIUM CHLORIDE 1 GM TABLET PO ×2 (09:09→17:39)
[2020-03-25] MEDS: SIMVASTATIN 20 MG TABLET 40 MG PO (09:09)
[2020-03-25] MEDS: guaiFENesin 12 HR 600 MG TABCR PO ×2 (09:09→20:16)
[2020-03-25] MEDS: predniSONE 1 MG TABLET PO (09:09)
[2020-03-25] MEDS: OLMESARTAN MEDOXOMIL 20 MG TABLET PO (09:09)
[2020-03-25] MEDS: PANTOPRAZOLE 40 MG TABLET PO ×2 (09:09→20:16)
[2020-03-25] MEDS: TAMSULOSIN HCL 0.4 MG CAPSULE PO (09:09)
--- NOTE | 2020-03-25 09:53 | PC.NURSE ---
Increased SOB this morning, gave prn Albuterol and bumped O2 to 2L. No change, placed call to cardiology; Dr. Stinson ebd special education teacher. Dr. Stinson arrived, assessed, and ordered 20 IVP Lasix now and then start PO 20mg Lasix daily as well as CBC and BMP. Respiratory called as well to administer neb treatments. Will continue to monitor.
[2020-03-25] MEDS: FUROSEMIDE INJ 40 MG/4 ML VIAL 20 MG IV PUSH (10:52)
--- NOTE | 2020-03-25 11:01 | PM.PNCARD ---
Progress Note: A&P Assessment and Plan (1) Chronic diastolic CHF (congestive heart failure): Code(s): I50.32 - Chronic diastolic (congestive) heart failure Status: Acute Assessment and Plan: Shortness of breath again worsening with increasing lower extremity edema, faint crackles on examination. Give additional dose of IV furosemide 20 mg x 1 as well as daily Lasix 20 mg p.o.. Will observe response to therapy tomorrow. Check BMP and CBC. (2) Non-STEMI (non-ST elevated myocardial infarction): Code(s): I21.4 - Non-ST elevation (NSTEMI) myocardial infarction Status: Acute Assessment and Plan: Continue meds. No new acute issues. (3) Hypertensive chronic kidney disease with stage 1 through stage 4 chronic kidney disease, or unspecified chronic kidney disease: Code(s): I12.9 - Hypertensive chronic kidney disease with stage 1 through stage 4 chronic kidney disease, or unspecified chronic kidney disease Status: Acute Assessment and Plan: BP stable. Check BMP. Blood pressure stable but on the lower side. Monitor renal function. (4) HTN (hypertension): Code(s): I10 - Essential (primary) hypertension Status: Acute Assessment and Plan: At goal as above. Subjective Date/time seen: Date of service: 03/25/20 11:02 Interval history: 84-year-old rate consult while in rehab for swelling and shortness of breath Patient complains of feeling more short of breath which began last night. Has been maintained on 1 L nasal cannula at rest increased to 2 L. slight increase in pedal edema. Patient denies chest pain and otherwise feels okay. Still able to work with therapy. Review of Systems Review of Systems: All systems reviewed & are unremarkable except as noted in HPI and below Constitutional: Constitutional: Denies excessive sweating, Denies headache(s) and Reports weakness Eyes: Eyes: Denies blurry vision ENT: Reports Normal hearing present, Denies headache(s) and Denies neck pain Cardiovascular: Cardiovascular: Denies chest pain, Reports pedal edema and Reports dyspnea Respiratory: Respiratory: Reports dyspnea Gastrointestinal: Gastrointestinal: Denies abdominal pain Genitourinary: Genitourinary: Denies flank pain Musculoskeletal: Musculoskeletal: Denies back pain and Denies neck pain Integumentary/Breasts: Skin/Breast: Denies dry skin and Denies unusual bruising Neurologic: Reports Normal hearing present, Denies confusion, Denies headache(s) and Reports weakness Psychiatric: Psychiatric: Denies anxiety and Denies confusion Endocrine: Endocrine: Denies excessive sweating Hematologic/Lymphatic: Hematologic/Lymphatic: Denies easy bleeding Allergic/Immunologic: Allergic/Immunologic: Denies GI upset with certain foods Exam Narrative: Exam Narrative: Patient awake alert oriented. O2 via nasal cannula no apparent distress breathing comfortably Const: General: comfortable and no acute distress; No confusion Orientation/consciousness: No confusion HENMT: General nose exam: Normal nares present Eyes: Sclera: abnormal sclerae Neck: Neck: supple and no JVD Chest: Other: No chest wall pain to palpation Resp: Auscultation: diminished lung sounds Cardio: Rate: regular rate Rhythm: regular rhythm Heart sounds: Murmur heart sound present Skin: General skin exam: normal color Neuro: General: No confusion Cranial nerves: Yes Normal hearing present Cognition (Neuro): normal cognition Speech: normal speech Extrem: General: edema Right upper extremity: edema Psych: Affect: normal affect Objective Data Vital Signs Vital Signs: Vital Signs - 24 hr 03/24/20 14:00 03/24/20 15:42 03/24/20 19:45 Temperature 36.2 C L 35.3 C L Pulse Rate 58 L 60 63 Respiratory Rate 20 16 20 Blood Pressure 112/55 L 108/62 Pulse Oximetry 94 97 03/24/20 20:00 03/24/20 20:50 03/24/20 21:20 Temperature 35.4 C L 35.2 C L Pulse Rate 63 Respira
[2020-03-25 11:13] LABS: Basophils Percent Auto 0.3 % (0.2-1.2); Eosinophils Absolute Auto 0.2 K/mm3 (0-0.3); Eosinophils Percent Auto 2.1 % (0-4.4); Hematocrit 27.7 % (37.0-47.0); Hemoglobin 9.1 g/dL (12.0-15.0); Immature Granulocyte Absolute 0.04 K/mm3 (0.00-0.031); Immature Granulocyte Percent A 0.5 % (0-0.5); Lymphocytes Absolute Auto 0.88 K/mm3 (0.9-3.2); Lymphocytes Percent Auto 9.9 % (18.3-44.2); Mean Corpuscular HGB Conc 32.9 g/dl (32-36); Mean Corpuscular Hemoglobin 28.6 pg (26-34); Mean Corpuscular Volume 87.1 fl (80-100); Mean Platelet Volume 8.6 fl (7.4-10.4); Monocytes Absolute Auto 0.6 K/mm3 (0.1-0.6); Neutrophils Absolute Auto 7.1 K/mm3 (1.3-6.7); Neutrophils Percent Auto 80.2 % (45.5-73.1); Platelet Count Result 251 k/mm3 (150-375); Red Blood Count 3.18 M/mm3 (4.2-5.4); White Blood Count 8.9 K/mm3 (4.5-10.0)
[2020-03-25 11:24] LABS: Anion Gap 5 mmol/L (8-16); Blood Urea Nitrogen 21 mg/dL (7-17); Calcium 8.5 mg/dL (8.4-10.2); Carbon Dioxide 26 mmol/L (22-30); Chloride 97 mmol/L (98-107); Estimated CRCL calculation 21 ml/min; Estimated Glomerular Filt Rate 27; Glucose 86 mg/dL (65-105); Potassium 3.8 mmol/L (3.4-5.0); Sodium 128 mmol/L (137-145)
[2020-03-26] VITALS (11 sets, daily range): BP systolic 96–116; BP diastolic 50–55; PULSE 61–80; RESP 16–20; TEMP 36.3–36.5; O2SAT 87–94
[2020-03-26] MEDS: traMADol HCL (*CRX) 50 MG TABLET PO ×4 (00:23→16:56)
[2020-03-26] MEDS: SODIUM CHLORIDE 1 GM TABLET PO ×2 (08:32→16:56)
[2020-03-26] MEDS: OLMESARTAN MEDOXOMIL 20 MG TABLET PO (08:32)
[2020-03-26] MEDS: guaiFENesin 12 HR 600 MG TABCR PO (08:32)
[2020-03-26] MEDS: predniSONE 1 MG TABLET PO (08:32)
[2020-03-26] MEDS: PANTOPRAZOLE 40 MG TABLET PO (08:32)
[2020-03-26] MEDS: ACIDOPHILUS/BULGARICUS CHEWABLE TABLET 1 TABLET PO (08:32)
[2020-03-26] MEDS: TAMSULOSIN HCL 0.4 MG CAPSULE PO (08:32)
[2020-03-26] MEDS: ASPIRIN 81 MG ENTERIC TABLET PO (08:32)
[2020-03-26] MEDS: amLODIPine BESYLATE 5 MG TABLET PO (08:32)
[2020-03-26] MEDS: SIMVASTATIN 20 MG TABLET 40 MG PO (08:32)
[2020-03-26] MEDS: FOLIC ACID 1 MG TABLET PO (08:32)
[2020-03-26] MEDS: CHOLECALCIFEROL 1,000 UNITS TABLET 5000 UNITS PO (08:33)
[2020-03-26] MEDS: carvediloL 25 MG TABLET PO (08:33)
[2020-03-26] MEDS: FUROSEMIDE 20 MG TABLET PO (08:33)
[2020-03-26] MEDS: FLUTICASONE/UMECLIDIN/VILANTER 100-62.5-25 MCG ELLIPTA 1 PUFF INHALATION (08:34)
[2020-03-26] MEDS: IPRATROPIUM BR 0.02% INH SOLN 0.5 MG/2.5 ML VIAL INHALATION ×3 (09:33→14:52)
[2020-03-26] MEDS: ALBUTEROL SULFATE NEB 2.5 MG/0.5 ML INH INHALATION ×3 (09:33→14:52)
--- NOTE | 2020-03-26 10:25 | WPDNEURORHBP ---
Subjective Date/time seen: 03/26/20 10:25 84 years old lady with congestive heart failure, chronic renal failure, COPD, arthritis, and hyperlipidemia, in addition to right shoulder fracture for which she will be followed by orthopedic physician as an outpatient as planned before during this hospitalization her course has been somewhat limited because of the edema of the lower extremities for which the cardiology consultation was obtained has been given couple of doses of the diuretics. at present her temperature is 36.3? with pulse 61 respiration 18 pulse ox 92 on nasal cannula, most recent WBC is 8.9 with a hemoglobin of 9.1 and the platelet count of 251 electrolytes normal except sodium is dropping down slowly has come down to 128 creatinine is 1.80 with BUN of 21, was seen by the lead oxide mill tender with the statement of shortness of breath again worsening with increasing lower extremity edema and faint crackles on the chest examination he is started on Lasix 20 mg daily and want to observe the response and look at the results of CBC and CMP and her cardiac exam remains unchanged Review of Systems Review of Systems: All systems reviewed & are unremarkable except as noted in HPI and below Functional Status Ambulation Ability Ability to Ambulate 10 Feet: Contact Guard Ability to Ambulate 50 Feet With 2 Turns: Contact Guard Ambulation Assistive Devices: Cane, Louis Transfers Ability Ability to Transfer In/Out of Chair: Contact Guard Exam Const: General: cooperative and comfortable Orientation/consciousness: patient oriented x3 HENMT: Head: normocephalic Ears: hearing grossly normal bilaterally General nose exam: Normal external nose present Face and sinus: normal facial exam Mouth: Yes Normal oral and palatal mucosa present Eyes: General: appearance normal, both eyes and all related structures Chest: Chest palpation & inspection: normal inspection of the chest Resp: Effort & Inspection: normal respiratory effort Auscultation: clear to auscultation bilaterally Cardio: Rate: regular rate Skin: General skin exam: no rashes or lesions noted Other: edema Neuro: General: patient oriented x3 Cranial nerves: Yes CN's II-XII intact bilaterally Cognition (Neuro): normal cognition Speech: normal speech Gait exam (Neuro): Unable to assess gait Motor exam (neuro): 5/5 motor strength present throughout ( generally decreased) Deep tendon reflexes (DTR's): Right triceps reflex intensity grade: 1+, Left triceps reflex intensity grade: 1+, Rt Biceps (C5, C6): 1+, Left biceps reflex intensity grade: 1+, Right brachioradialis reflex intensity grade: 1+, Left brachioradialis reflex intensity grade: 1+, Right patellar reflex intensity grade: 1+, Left patellar reflex intensity grade: 1+, Right ankle reflex intensity grade: 0 and Left ankle reflex intensity grade: 0 Plantar Reflex Responses: downgoing: bilateral Psych: Appearance: grossly normal Objective Data Vital Signs Vital Signs: Vital Signs - 24 hr 03/25/20 13:27 03/25/20 13:30 03/25/20 13:42 Temperature Pulse Rate 65 64 Respiratory Rate 20 20 Blood Pressure Pulse Oximetry 92 03/25/20 14:00 03/25/20 20:00 03/25/20 20:15 Temperature 35.9 C L Pulse Rate 62 60 60 Respiratory Rate 14 18 Blood Pressure 96/51 L Pulse Oximetry 100 100 03/25/20 21:51 03/26/20 06:00 03/26/20 08:00 Temperature 36.1 C L 36.3 C L Pulse Rate 65 67 61 Respiratory Rate 22 H 18 18 Blood Pressure 97/47 L 116/55 L Pulse Oximetry 92 94 92 03/26/20 08:33 03/26/20 09:36 Temperature Pulse Rate 67 61 Respiratory Rate 18 Blood Pressure Pulse Oximetry 92 Intake/Output Intake/Output: Intake & Output 03/23/20 03/24/20 03/25/20 03/26/20 23:59 23:59 23:59 23:59 Intake Total 240 600 460 120 Balance 240 600 460 120 Meds/Results Medications: Active Medications Generic Name Dose Route Start Last Admin Trade Name Freq PRN Reason Stop Dose Admin Albuterol 1 puff 03/13
--- NOTE | 2020-03-26 10:54 | PCDIET ---
Nutrition Follow-Up Complete: No nutrition diagnosis at this time. Goal: Patient to consume 50% of meals or greater and maintain weight. Patient has been meeting goal up until the last few days. Patient is currently receiving Ensure Enlive TID but is not consuming the whole thing so recommend decreasing Ensure Enlive to BID. No new goal at this time. Pt current nutrition is a heart healthy diet. Last recorded weight is 82.2 kg. Recommend reweighing patient. Bowel Motility: + BM 03/26 Labs Reviewed: Hgb 9.1, Hct 27.7, Na 128, GFR 27, BUN 21, Cr 1.8, Glu 27 Meds Noted: Norvasc, prednisone, folic acid, coreg, miralax, protonix, vitamin D, benicar, zocor, lactinex Additional Notes: Spoke with patient for a follow up. Patient reports to be eating well despite her abnormal appetite. She stated that her appetite has gotten slightly better but is not normal yet. Follow up in 5 days.
--- NOTE | 2020-03-26 11:11 | PCNSR ---
On 03/26/20, the student, Velma Sylvester, provided care and completed [facility] documentation on this patient. I have reviewed the student's documentation and agree with the findings.
--- NOTE | 2020-03-26 12:55 | PCRCNOTE ---
HOME O2 EVAL COMPLETE, 1 LITER AT REST AND 2 LITERS WITH ACTIVITY. PT HAS NOC HOME O2 WITH [facility]. [facility] TO DELIVER TANK TO PT'S ROOM TODAY. [employer] PHONE# [phone]
--- NOTE | 2020-03-26 15:03 | PM.PNCARD ---
Progress Note: A&P Assessment and Plan (1) Chronic diastolic CHF (congestive heart failure): Code(s): I50.32 - Chronic diastolic (congestive) heart failure Status: Acute Assessment and Plan: Continue current regimen including Lasix 20 mg daily. Disposition per [facility]. Follow up as documented above. Please call with any questions or concerns. (2) Non-STEMI (non-ST elevated myocardial infarction): Code(s): I21.4 - Non-ST elevation (NSTEMI) myocardial infarction Status: Acute Assessment and Plan: Continue meds. No new acute issues. (3) Hypertensive chronic kidney disease with stage 1 through stage 4 chronic kidney disease, or unspecified chronic kidney disease: Code(s): I12.9 - Hypertensive chronic kidney disease with stage 1 through stage 4 chronic kidney disease, or unspecified chronic kidney disease Status: Acute Assessment and Plan: BP stable. Cr variable 1.8 similar to 03/22/20. Blood pressure stable. Monitor renal function as outpatient. (4) HTN (hypertension): Code(s): I10 - Essential (primary) hypertension Status: Acute Assessment and Plan: At goal as above. Subjective Date/time seen: Date of service: 03/26/20 15:03 Interval history: 84-year-old rate consult while in rehab for swelling and shortness of breath Patient states he feels better, denies shortness of breath or orthopnea. Remains on O2. Tolerating Lasix. Discharge planned for today. Patient comfortable with going home on oxygen therapy. Basic metabolic panel as an outpatient follow-up with Dr. Karimi. Denies dizziness, chest pain, palpitations. Follow-up with the [facility] office [address] Pt has appointment with Meche Caban NP in our office Apr 06 2020 at 2PM. Please arrive 20 minutes prior to your appointment. Bring photo ID, insurance cards, and current medication list. If new to the practice, also bring completed new patient form. Review of Systems Review of Systems: All systems reviewed & are unremarkable except as noted in HPI and below Constitutional: Constitutional: Denies excessive sweating, Denies headache(s) and Reports weakness Eyes: Eyes: Denies blurry vision ENT: Reports Normal hearing present, Denies headache(s) and Denies neck pain Cardiovascular: Cardiovascular: Denies chest pain and Reports pedal edema Gastrointestinal: Gastrointestinal: Denies abdominal pain Genitourinary: Genitourinary: Denies flank pain Musculoskeletal: Musculoskeletal: Denies back pain and Denies neck pain Integumentary/Breasts: Skin/Breast: Denies dry skin and Denies unusual bruising Neurologic: Reports Normal hearing present, Denies confusion, Denies headache(s) and Reports weakness Psychiatric: Psychiatric: Denies anxiety and Denies confusion Endocrine: Endocrine: Denies excessive sweating Hematologic/Lymphatic: Hematologic/Lymphatic: Denies easy bleeding Allergic/Immunologic: Allergic/Immunologic: Denies GI upset with certain foods Exam Narrative: Exam Narrative: Patient awake alert oriented. O2 via nasal cannula no apparent distress breathing comfortably Const: General: comfortable and no acute distress; No confusion Orientation/consciousness: No confusion HENMT: General nose exam: Normal nares present Eyes: Sclera: abnormal sclerae Neck: Neck: supple and no JVD Chest: Other: No chest wall pain to palpation Resp: Auscultation: diminished lung sounds Cardio: Rate: regular rate Rhythm: regular rhythm Heart sounds: Murmur heart sound present Skin: General skin exam: normal color Neuro: General: No confusion Cranial nerves: Yes Normal hearing present Cognition (Neuro): normal cognition Speech: normal speech Extrem: General: edema (trace; improved) bilateral Right upper extremity: edema Psych: Affect: normal affect Objective Data Vital Signs Vital Signs: Vital Signs - 24 hr 03/25/20 20:00 03/25/20 20:15 02/25
--- NOTE | 2020-03-27 13:10 | PM.PNORT ---
Progress Note: A&P Assessment and Plan (1) Closed right humeral fracture: Qualifiers: Encounter type: sequela Fracture morphology: unspecified fracture morphology Humerus Location: proximal Qualified Code(s): S42.201S - Unspecified fracture of upper end of right humerus, sequela Code(s): S42.301A - Unspecified fracture of shaft of humerus, right arm, initial encounter for closed fracture Status: Acute Assessment and Plan: Patient is 3 weeks status post nondisplaced proximal humerus fracture. Finn 80-year-old female with history of hyperlipidemia, diastolic congestive heart failure, chronic kidney disease, COPD, rheumatoid arthritis, and chronic anemia. On 03/05/2020 she fell 2 times at an eye appointment onto her right shoulder. She has been having frequent falls at home. She lives at home by herself. She was found to have low blood pressure. After her fall she had worsening Right shoulder pain. She was found to have a nondisplaced proximal humerus fracture. Since last visit patient has been moved to [facility]. Patient is a current patient of Dr. Salgado. She has a history of severe glenohumeral arthritis. She was offered Total shoulder arthroplasty in the past. Due to current medical conditions she is not a good surgical candidate. The surgical neck fracture is non displaced, and stable. 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 Limited goals therapy. May WBAT progressively as pain allows. Fracture healing expected over 4-6 weeks. New radiographs taken 03/26/20 show mild displacement since previous radiograph. Some signs of early healing. Spoke with patient's nurse. She will be discharged home today. Her daughters will be checking up on her. Continue shoulder immobilizer or simple sling for comfort only. Encourage range of motion of elbow, wrist, and fingers. Weightbearing as tolerated using a walker. Patient understands she will have decreased range of motion due to severe arthritis and proximal humerus fracture. Follow up in office as needed. Subjective Subjective Date/Time Seen: 03/26/20 12:10 Finn 80-year-old female with history of hyperlipidemia diastolic congestive heart failure chronic kidney disease COPD rheumatoid arthritis and chronic anemia was admitted to the hospital for an acute on chronic kidney injury. On 03/05/2020 she fell 2 times at an eye appointment onto her right shoulder. She has been having frequent falls at home. She lives at home by herself. She was found to have low blood pressure. She is a current patient of Dr. Galavizs. We have seen her in the past for severe glenohumeral arthritis at the right shoulder. She states she has been having trouble with her shoulder for the past few years. She is unable to lift her arm above her head. She has been managing without surgical intervention. Saw patient today in rehab. She complains of pain at her right shoulder however the pain has gotten significantly better. Pain does not radiate. Wearing immobilizer sling. No numbness or tingling in her fingers. Review of Systems Review of Systems: All systems reviewed & are unremarkable except as noted in HPI and below Exam Narrative: Exam Narrative: Pleasant obese female. A and O x3. Sitting in chair. Wearing O2 nasal canula. No acute distress. Right shoulder slightly displaced anteriorly. Arm in shoulder immobilizer. Mild swelling at right arm. No warmth or erythema. Radial pulse palpable. Light touch sensation intact. Good finger and wrist range of motion Objective Data Vital Signs Vital Signs: Vital Signs - 24 hr 03/26/20 14:00 03/26/20 14:53 Temperature 97.7 F Pulse Rate 66 67 Respiratory Rate 16 20 Blood Pressure 96/50 L Pulse Oximetry 93 Intake/Output Intake/Output: Intake & Output 03/24/20 03/25/20 03/26/20 03/27/20 23:59 23:59 23:59 23:59 Intake Total 600 460 360 Balance 600 460 360 Meds/
--- NOTE | 2020-03-29 11:20 | WPDREHABHP ---
H&P: HPI History of Present Illness Date/Time: 03/29/20 11:20 Narrative: Jackelin Beasley is a 84 year old femaleADMISSION 84 years old right-handed female admitted to the rehab floor of [facility] with rehab impairment category of 0 9/cardiac an etiological diagnosis of non ST elevated myocardial infarction in addition to the comorbid conditions of 1. Hyperlipidemia 2. Diastolic congestive heart failure 3. Chronic kidney disease 4. COPD 5. Arthritis 6. Chronic anemia 7. No history of COVID 8. Osteoporosis 9. Rheumatoid arthritis and 10. Vitamin-D deficiency. At the time of admission to the rehab floor her functional measures were as follows. Eating [Set Up Only] Oral Care Partial assistance Toileting Hygiene patient refused Shower/Bathing substantial and maximal assistance Upper Body Dressing substantial and maximal assistance Lower Body Dressing substantial and maximal assistance Donning/[place] Footwear dependent Rolling Left and Right not applicable Sit to Lying not applicable Lying to Sitting not applicable Sit to Stand partial assistance Bed to Chair Transfers substantial and maximal assistance Toilet Transfers substantial and maximal assistance Car Transfers supervision Walking 10' supervision Walking 50' with Two Turns not applicable Walking 150' not applicable Curb or Step not applicable 4 Steps not applicable 12 Steps not applicable Picking Up Object not applicable [] [Wheelchair Mobility 150'] supervision GOALS: Eating [INDEPENDENT] Oral Care [INDEPENDENT] Toileting Hygiene supervision Shower/Bathing supervision Upper Body Dressing supervision Lower Body Dressing supervision Donning/[place] Footwear supervision Rolling Left and Right [INDEPENDENT] Sit to Lying [INDEPENDENT] Lying to Sitting [INDEPENDENT] Sit to Stand [INDEPENDENT] Bed to Chair Transfers [INDEPENDENT] Toilet Transfers [INDEPENDENT] Car Transfers [INDEPENDENT] Walking 10' [INDEPENDENT] Walking 50' with Two Turns not applicable Walking 150' [INDEPENDENT] Curb or Step [INDEPENDENT] 4 Steps [INDEPENDENT] 12 Steps [INDEPENDENT] Picking Up Object [INDEPENDENT] [Wheelchair Mobility 50'] [INDEPENDENT] [Wheelchair Mobility 150'] [INDEPENDENT] DISCHARGE PERFORMANCE: Eating set up Oral Care independent Toileting Hygiene [INDEPENDENT] Shower/Bathing partial and moderate assistance Upper Body Dressing partial and mod assistance Lower Body Dressing [ partial and moderate assistance Donning/[place] Footwear substantial and max assistance Rolling Left and Right partial and mod assistance Sit to Lying independent Lying to Sitting partial and moderate assistance Sit to Stand supervision Bed to Chair Transfers supervision Toilet Transfers supervision Car Transfers supervision Walking 10' supervision Walking 50' with Two Turns not applicable Walking 150' not applicable Curb or Step partial or more assistance 4 Steps partial or moderate assistance 12 Steps not applicable Picking Up Object supervision [Wheelchair Mobility 50'] [INDEPENDENT] [Wheelchair Mobility 150'] [INDEPENDENT] # during the hospitalization patient was actively involved in the physical therapy and occupational therapy. Patient was followed by the orthopedic as well security control assessor. Orthopedic were consulted for for the closed right humeral fracture involving the proximal bone of 3 weeks duration patient is the patient of Dr. 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 Dr. la saw her as a leasing sales consultant for the chronic diastolic congestive heart failure continued her medic
--- NOTE | 2020-03-29 12:05 | PM.DS ---
DS: Admitting Diagnosis Admitting Diagnosis Admitting Diagnosis: ST elevated myocardial infarction DS: Summary Hospital Course Hospital Course: received the ongoing physical therapy and occupational therapy remained stable seen by the orthopedic physician as well as the authorization specialist Time Spent with Patient Time attestation: Total time spent providing and/or coordinating discharge services: ADMISSION FUNCTION: 84 years old right-handed female admitted to the rehab floor with the impairment category of 0 9/ cardiac and etiological diagnosis of non ST elevated myocardial infarction in addition to the ongoing comorbid conditions of 1. Hyperlipidemia 2. Diastolic congestive heart failure 3 chronic renal disease for 4 COPD 5. Arthritis 6 chronic anemia 6. Chronic renal disease stage IV and 8. GERD 9. Osteoporosis 10. Vitamin-D deficiency. At the time of admission to the rehab floor as per the information available her functional status was as follows Eating [Set Up Only] Oral Care partial assisted Toileting Hygiene patient refused Shower/Bathing substantial or maximal assistance Upper Body Dressing substantial or maximal assistance Lower Body Dressing substantial or maximal assistance Donning/[place] Footwear dependent Rolling Left and Right not applicable Sit to Lying not applicable Lying to Sitting not applicable Sit to Stand partial assistance Bed to Chair Transfers substantial or maximal assistance Toilet Transfers substantial or maximal assistance Car Transfers super vision Walking 10' supervision Walking 50' with Two Turns not applicable Walking 150' not applicable Curb or Step not applicable 4 Steps not at 12 Steps not applicable Picking Up Object [ not applicable [Wheelchair Mobility 50'] supervision [Wheelchair Mobility 150'] super GOALS: Eating [INDEPENDENT] Oral Care [INDEPENDENT] Toileting Hygiene supervision Shower/Bathing supervision Upper Body Dressing supervision Lower Body Dressing supervision Donning/[place] Footwear supervision Rolling Left and Right [INDEPENDENT] Sit to Lying [INDEPENDENT] Lying to Sitting [INDEPENDENT] Sit to Stand [INDEPENDENT] Bed to Chair Transfers [INDEPENDENT] Toilet Transfers [INDEPENDENT] Car Transfers [INDEPENDENT] Walking 10' [INDEPENDENT] Walking 50' with Two Turns [INDEPENDENT] Walking 150' not applicable Curb or Step [INDEPENDENT] 4 Steps [INDEPENDENT] 12 Steps [INDEPENDENT] Picking Up Object [INDEPENDENT] [Wheelchair Mobility 50'] [INDEPENDENT] [Wheelchair Mobility 150'] [INDEPENDENT] DISCHARGE PERFORMANCE: Eating Fedder Oral Care [INDEPENDENT] Toileting Hygiene [INDEPENDENT] Shower/Bathing partial or mod assistance Upper Body Dressing partial or mod assistance Lower Body Dressing partial or mod assistance Donning/[place] Footwear substantial or max assistance Rolling Left and Right partial or mod assistance Lying to Sitting partial or mod assistance Sit to Stand supervision Bed to Chair Transfers supervision Toilet Transfers supervision Car Transfers supervision Walking 10' supervision Walking 50' with Two Turns not applicable Walking 150' not applicable Curb or Step partial or moderate assistance 4 Steps partial or mod assistance 12 Steps not applicable Picking Up Object supervision [Wheelchair Mobility 50'] [INDEPENDENT] [Wheelchair Mobility 150'] [INDEPENDENT] # during the hospitalization patient was actively involved in the physical therapy and occupational therapy. Patient was also evaluated by the orthopedic physician for the closed right humeral fracture 2.5 weeks status post. Reportedly she is a current patient Dr. Hamm who has offered her total shoulder arthroplasty in the past. at present because of a general condition she not a surgical candidate. her surgical neck fracture is nondisplaced and stable with end-stage advanced degenerative changes and pseudo paralysis. she was instructed to have weight-bearing as tolerated a
== END 2020-03-26 17:10 | disposition home health service (06) | DRG 281 ==
PROVIDERS: Internal Medicine Cardiovascular Disease; Admitting Provider Psychiatry & Neurology Neurology; PCP Family Medicine; Visit Provider Psychiatry & Neurology Neurology
DX: I21.4 Non-ST elevation (NSTEMI) myocardial infarction (principal); I13.0 Hypertensive heart and chronic kidney disease with heart failure and stage 1 through stage 4 chronic kidney disease, or unspecified chronic kidney disease; N18.4 Chronic kidney disease, stage 4 (severe); I50.32 Chronic diastolic (congestive) heart failure; S42.201D Unspecified fracture of upper end of right humerus, subsequent encounter for fracture with routine healing; D69.6 Thrombocytopenia, unspecified; D63.1 Anemia in chronic kidney disease; E74.39 Other disorders of intestinal carbohydrate absorption; E55.9 Vitamin D deficiency, unspecified; E78.5 Hyperlipidemia, unspecified; I95.9 Hypotension, unspecified; J44.9 Chronic obstructive pulmonary disease, unspecified; K21.9 Gastro-esophageal reflux disease without esophagitis; K22.70 Barrett's esophagus without dysplasia; K44.9 Diaphragmatic hernia without obstruction or gangrene; M06.9 Rheumatoid arthritis, unspecified; M19.011 Primary osteoarthritis, right shoulder; M81.0 Age-related osteoporosis without current pathological fracture; W19.XXXD Unspecified fall, subsequent encounter; R60.0 Localized edema; Z66 Do not resuscitate; Z96.642 Presence of left artificial hip joint; Z87.891 Personal history of nicotine dependence; Z85.01 Personal history of malignant neoplasm of esophagus
CPT/HCPCS: 36415; 71045; 73030; 80048; 80053; 83880; 85025; 93971; 94618; 94640; 97110; 97116; 97161; 97166; 97530; 97535; 97542; A4565; A9270; J1940

== ENCOUNTER 2020-04-02 12:19 | Outpatient (NON) | payer MEDICARE, OTHER, SELFPAY ==
[2020-04-02 12:31] LABS: Hematocrit 29.7 % (37.0-47.0); Hemoglobin 9.7 g/dL (12.0-15.0); Mean Corpuscular HGB Conc 32.7 g/dl (32-36); Mean Corpuscular Hemoglobin 28.2 pg (26-34); Mean Corpuscular Volume 86.3 fl (80-100); Mean Platelet Volume 9.2 fl (7.4-10.4); Platelet Count Result 331 k/mm3 (150-375); Red Blood Count 3.44 M/mm3 (4.2-5.4); Red Cell Distribution Width 14.3 % (11.5-14.5); White Blood Count 9.7 K/mm3 (4.5-10.0)
[2020-04-02 12:43] LABS: Anion Gap 11 mmol/L (8-16); Blood Urea Nitrogen 25 mg/dL (7-17); Calcium 9.4 mg/dL (8.4-10.2); Carbon Dioxide 26 mmol/L (22-30); Chloride 96 mmol/L (98-107); Estimated Glomerular Filt Rate 18; Glucose 177 mg/dL (65-105); Potassium 3.6 mmol/L (3.4-5.0); Sodium 133 mmol/L (137-145)
== END 2020-04-02 12:20 ==
PROVIDERS: PCP Family Medicine; Visit Provider Family Medicine
DX: S42.301D Unspecified fracture of shaft of humerus, right arm, subsequent encounter for fracture with routine healing (principal); I21.4 Non-ST elevation (NSTEMI) myocardial infarction; I50.32 Chronic diastolic (congestive) heart failure; I12.9 Hypertensive chronic kidney disease with stage 1 through stage 4 chronic kidney disease, or unspecified chronic kidney disease; X58.XXXD Exposure to other specified factors, subsequent encounter
CPT/HCPCS: 80048; 85027

== ENCOUNTER 2020-04-27 16:02 | Inpatient (IN) | payer MEDICARE, OTHER, SELFPAY ==
[2020-04-27] VITALS (7 sets, daily range): BP systolic 119–147; BP diastolic 68–81; PULSE 53–72; RESP 12–18; TEMP 36.3–36.7; O2SAT 97–99; BMI 30.9
--- NOTE | ~2020-04-27 | XR_ITS ---
EXAMINATION: XR chest 2V EXAM DATE: 04/29/2020 13:20 INDICATION: Cough. TECHNIQUE: Frontal and lateral projections of the chest obtained and reviewed. Comparison is made to prior examination from 03/21/2020. FINDINGS: There is cardiomegaly. There is intrathoracic stomach, large hiatal hernia. There is pulmo nary vascular congestion. There is bilateral pleural blunting, could be small pleural effusions or ch ronic blunting. Bibasilar opacity most likely subsegmental atelectasis. There is no pneumothorax susp ected. Lungs are hyperinflated. Old left rib fractures. There is aortic arteriosclerosis. There is mo derate lumbar dextroscoliosis, mild lower thoracic levoscoliosis and upper thoracic dextroscoliosis. IMPRESSION: 1. Findings suspicious for mild CHF exacerbation. 2. Bibasilar opacities most likely atelectasis. Pneumonia not excludable. 3. Small pleural effusions versus chronic blunting. 4. Large hiatal hernia. Reviewed, dictated and finalized at location A. NDER HEAD ASSEMBLER
--- NOTE | ~2020-04-27 | CT_ITS ---
EXAMINATION: CT brain wo con INDICATION: Dizziness, irregular blood pressure COMPARISON: 03/07/2020 TECHNIQUE: Standard unenhanced head CT. The dose-length product (DLP) was 605.33 mGy-cm. The mA was a djusted according to patient size. Iterative reconstruction technique was employed. FINDINGS: There is no acute intraparenchymal hemorrhage. No evidence of mass lesion. No evidence of a cute infarction. There is mild periventricular and subcortical hypodensity probably related to small vessel ischemic disease. There is moderate prominence of the sulci and ventricles related to cerebral atrophy. Intracranial calcified cerebral atherosclerosis is noted. There are no extra-axial collecti ons. There is no mass effect or midline shift. Changes in the globes are likely from ocular lens surg kg. There is unchanged complete opacification of the left sphenoid sinus. There is now complete opa cification of the left maxillary sinus. IMPRESSION: 1. No acute intracranial abnormality. 2. Age related findings. 3. Persistent complete opacification of the left sphenoid sinus and new complete opacification of the left maxillary sinus. Reviewed, dictated and finalized at location A. UND SALES REPRESENTATIVE IMPRESSION: 1. No acute intracranial abnormality. 2. Age related findings. 3. Persistent complete opacification of the left sphenoid sinus and new complet e opacification of the left maxillary sinus.
--- NOTE | ~2020-04-27 | XR_ITS ---
EXAMINATION: XR wrist LT min 3V EXAM DATE: 05/02/2020 12:52 INDICATION: No known recent injury provided at this time. Pain of the left wrist. TECHNIQUE: Left wrist frontal, frontal with ulnar deviation, oblique and lateral projections obtained and reviewed. Correlation is made to left hand examination 12/28/2011. FINDINGS: Left wrist scapholunate joint space is maintained. There is severe 1st carpometacarpal daniela london osteoarthritis, moderate at the triscaphe and radiocarpal joints. There are no bony erosions carl ntified. Bones are osteopenic. Please note that osteopenia limits sensitivity for detecting fracture s by radiographs. There are no acute fractures identified. Nonspecific swelling surrounding the wris t. IMPRESSION: 1. 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 2. Nonspecific soft tissue swelling. 3. Osteopenia. Reviewed, dictated and finalized at location B. ODONTIST IMPRESSION: 1. Left wrist polyarticular osteoarthritis, advanced at the 1st carpometacarpa l joint. 2. Nonspecific soft tissue swelling. 3. Osteopenia.
--- NOTE | 2020-04-27 16:19 | ECG_ITS ---
Measurements Intervals [place] Rate: 58 P: 66 [place]: 190 QRS: 23 QRSD: 106 T: 10 QT: 461 QTc: 453 Interpretive Statements SINUS BRADYCARDIA EARLY PRECORDIAL R/S TRANSITION BASELINE ARTIFACT- I, II, III, AVR, AVL, AVF, V1 BORDERLINE ECG Electronically Signed On 04-27-2020 19:56:51 CHEMICAL PATHOLOGIST by Walter Jarvis D.O.
--- NOTE | 2020-04-27 16:35 | ED.GENADULT ---
HPI - General Adult General Chief complaint: Recheck/Abnormal Lab/Rx Stated complaint: abn bp Time Seen by Provider: 04/27/20 16:12 Source: patient Mode of arrival: ambulatory Limitations: no limitations History of Present Illness HPI narrative: Patient is an 84-year-old female complaining of low blood pressure and felt lightheaded, worse when she gets up suddenly and walk. Patient states that her blood pressures been running low for the past 2 to 3 days and so she stopped taking her blood pressure medications. Patient states she is currently on 2 blood pressure medications. Patient denies any speech or visual disturbance, weakness, numbness, chest pain, shortness of breath, dull pain, nausea, vomiting, diarrhea, fever or chills. Related Data Home Medications Medication Instructions Recorded Confirmed cholecalciferol (vitamin D3) 125 5,000 unit PO DAILY 01/27/19 04/16/20 mcg (5,000 unit) capsule Allergies Allergy/AdvReac Type Severity Reaction Status Date / Time ampicillin Allergy Unknown ,Hives Verified 04/27/20 16:18 cyclobenzaprine Allergy Unknown Confusion,l Verified 04/27/20 16:18 oopy Review of Systems Review of Systems: All systems reviewed & are unremarkable except as noted in HPI and below Constitutional: Constitutional: Denies body ache(s), Denies chills, Denies excessive sweating, Denies fatigue, Denies fever(s), Denies headache(s), Denies lethargy, Denies malaise, Denies weakness and Denies weight loss Eyes: Eyes: Denies blurry vision, Denies change in vision and Denies loss of vision ENT: Denies dizziness, Denies ear discharge, Denies headache(s), Denies lip swelling, Denies epistaxis, Denies nasal congestion, Denies neck pain, Denies throat swelling and Denies tongue swelling Cardiovascular: Cardiovascular: Denies chest pain, Denies chest pain at rest, Denies chest pain with activity, Denies diaphoresis, Denies rapid heart rate, Denies edema, Denies irregular heart rhythm, Denies lightheadedness, Denies palpitations, Denies dyspnea and Denies dyspnea on exertion Respiratory: Respiratory: Denies chest congestion, Denies cough, Denies hemoptysis, Denies dyspnea and Denies dyspnea on exertion Gastrointestinal: Gastrointestinal: Denies abdominal pain, Denies melena, Denies hematochezia, Denies diarrhea, Denies nausea, Denies vomiting and Denies hematemesis Musculoskeletal: Musculoskeletal: Denies abnormal gait, Denies deformity, Denies joint swelling, Denies limited range of motion, Denies neck pain and Denies numbness Neurologic: Denies Abnormal speech present, Denies abnormal gait, Denies confusion, Denies dizziness, Denies headache(s), Denies focal weakness, Denies loss of vision, Denies numbness, Denies Other visual disturbances, Denies Sensory deficit (Neuro) and Denies weakness Psychiatric: Psychiatric: Denies confusion, Denies depression, Denies auditory hallucinations, Denies homicidal ideation and Denies suicidal ideation Endocrine: Endocrine: Denies cold intolerance, Denies excessive sweating, Denies fatigue, Denies heat intolerance and Denies palpitations Hematologic/Lymphatic: Hematologic/Lymphatic: Denies easy bleeding and Denies easy bruising Allergic/Immunologic: Allergic/Immunologic: Denies lip swelling, Denies throat swelling and Denies tongue swelling PMFSH Past Medical History Medical History Flores esophagus Benign colon polyp Chronic anemia Chronic diastolic congestive heart failure Ventricular systolic function and size with moderate concentric left ventricular hypertrophy, impaired diastolic relaxation grade 1, and an ejection fraction estimated 60 to 65%. Chronic kidney disease, stage 4 (severe) Baseline creatinine is between 1.4 and 1.60. Chronic obstructive pulmonary disease Gastroesophageal reflux disease Osteoporosis Rheumatoid arthritis Vitamin D deficiency Surgical History Surgical History (Reviewed 04/27/20 @ 16
[2020-04-27 16:50] LABS: Basophils Percent Auto 0.2 % (0.2-1.2); Eosinophils Absolute Auto 0.3 K/mm3 (0-0.3); Eosinophils Percent Auto 3.8 % (0-4.4); Hematocrit 27.7 % (37.0-47.0); Hemoglobin 9.3 g/dL (12.0-15.0); Immature Granulocyte Absolute 0.04 K/mm3 (0.00-0.031); Immature Granulocyte Percent A 0.5 % (0-0.5); Lymphocytes Absolute Auto 0.92 K/mm3 (0.9-3.2); Lymphocytes Percent Auto 11.4 % (18.3-44.2); Mean Corpuscular HGB Conc 33.6 g/dl (32-36); Mean Corpuscular Hemoglobin 27.4 pg (26-34); Mean Corpuscular Volume 81.7 fl (80-100); Mean Platelet Volume 8.8 fl (7.4-10.4); Monocytes Absolute Auto 0.7 K/mm3 (0.1-0.6); Monocytes Percent Auto 8.3 % (2.6-8.5); Neutrophils Absolute Auto 6.1 K/mm3 (1.3-6.7); Neutrophils Percent Auto 75.8 % (45.5-73.1); Platelet Count Result 209 k/mm3 (150-375); Red Blood Count 3.39 M/mm3 (4.2-5.4); Red Cell Distribution Width 14.4 % (11.5-14.5); White Blood Count 8.1 K/mm3 (4.5-10.0)
--- NOTE | 2020-04-27 16:59 | PC.NURSE ---
Pt unable to give urine sample at this time.
[2020-04-27 17:06] LABS: Alanine Aminotransferase 10 U/L (4-35); Albumin Level 3.9 g/dL (3.5-5.1); Alkaline Phosphatase 89 U/L (38-126); Anion Gap 8 mmol/L (8-16); Aspartate Amino Transferase 24 U/L (14-36); Bilirubin,Total 0.4 mg/dL (0.2-1.3); Blood Urea Nitrogen 22 mg/dL (7-17); Calcium 8.6 mg/dL (8.4-10.2); Carbon Dioxide 31 mmol/L (22-30); Chloride 80 mmol/L (98-107); Estimated CRCL calculation 25 ml/min; Estimated Glomerular Filt Rate 36; Glucose 128 mg/dL (65-105); Potassium 3.5 mmol/L (3.4-5.0); Sodium 119 mmol/L (137-145)
--- NOTE | 2020-04-27 17:06 | PC.NURSE ---
called lab, added on I [id number]
[2020-04-27] MEDS: LACTATED RINGERS 1,000 ML 999 ML IV CONT (17:11)
[2020-04-27 17:50] LABS: Troponin I < 0.012 ng/mL (0.000-0.034)
[2020-04-27] MEDS: ACETAMINOPHEN 325 MG TABLET 650 MG PO (18:45)
[2020-04-27 18:59] LABS: Add Urine Microscopic? YES; Appearance Urine Clear (Clear); Bilirubin Urine Negative (Negative); Blood Urine Negative (Negative); Color Urine Straw (Yellow); Glucose Urine UA Negative (Negative); Ketones Urine Negative (Negative); Leukocyte Esterase Ur Trace LEU/UL (Negative); Nitrate Urine Negative (Negative); Protein Urine Negative (Negative); RBC Urine 0-2 /hpf (0-2); Specific Grav Ur 1.005 (1.001-1.035); Squamous Epithelial Cell Urine Rare /hpf (Few); Urobilinogen Urine Negative mg/dL (<2.0)
--- NOTE | 2020-04-27 19:30 | PM.IMHP ---
H&P: HPI History of Present Illness Date/Time: 04/27/20 19:30 Chief Complaint: Low blood pressure, weak. Narrative: This is a pleasant 84-year-old female with hyperlipidemia, diastolic congestive heart failure, chronic kidney disease, COPD, rheumatoid arthritis, and chronic anemia who presented to the emergency department earlier today from home with complaints of weakness and low blood pressure. She is known to the hospitalist service as she was admitted to us in February with weakness and acute kidney injury attributed to dehydration. Prior to that she had at the sustained a humeral fracture and she was discharged to acute rehab. At that time she was started on sodium chloride tablets for what appears to be chronic mild hyponatremia, and she ran out of those a couple of days ago and states they were not refilled. Over the past couple of days she has not been feeling well with generalized weakness and lightheadedness with low blood pressures. She has stopped taking her antihypertensives due to the symptoms but continues to feel quite weak. After speaking with her primary care prior she was directed to the emergency department where her blood pressures have been anywhere from 119 to 147 systolic. She was found to have a decrease in her sodium to 119 and she is being admitted in this setting. She has had some slight nausea but her oral intake has been as per usual. She typically drinks 4, 16 ounce bottles of water a day. Appetite has been a bit decreased due to the nausea but she has not had any vomiting. No edema or swelling of any sort. She has not had a headache or confusion. No recent change in medications except for the fact that she ran out of the sodium chloride tablets as detailed above. Review of Systems Review of Systems: Narrative: Twelve systems were reviewed with pertinent positives and negatives as per HPI. She denies fever, chills, and sweats. No cold or flu symptoms. She denies cough and shortness of breath. No chest pain. She has occasional issues emptying her bladder but apparently that is a longstanding problem and she does not feel as though she is retaining urine at this time. No dysuria. Weight has remained stable. No history of malignancy. No thyroid disease. She is on chronic prednisone at 1 milligram a day and has been on such for many years due to rheumatoid arthritis. She has not missed any doses. Except as documented, all other systems were reviewed and are negative. [facility] Past Medical History Medical History (Updated 04/27/20 @ 22:39 by Maricruz Salazar PA-C) Flores esophagus Benign colon polyp Chronic anemia Chronic diastolic congestive heart failure Ventricular systolic function and size with moderate concentric left ventricular hypertrophy, impaired diastolic relaxation grade 1, and an ejection fraction estimated 60 to 65%. Chronic kidney disease, stage 4 (severe) Baseline creatinine is between 1.4 and 1.60. Chronic obstructive pulmonary disease Chronic respiratory failure with hypoxia, on home oxygen therapy Gastroesophageal reflux disease Hypertension Non-STEMI (non-ST elevated myocardial infarction) (~02/2020) Patient had no anginal symptoms and echocardiogram was unremarkable. Osteoporosis Rheumatoid arthritis Vitamin D deficiency Surgical History Surgical History History of ankle surgery (~2014) ORIF left ankle fracture. History of appendectomy (~2009) History of bunionectomy of right great toe History of section History of cholecystectomy (~2001) History of hammertoe correction History of left hip replacement (~12/2016) Due to left hip fracture sustained in a fall. History of umbilical hernia repair Family History Family History Mother Diabetes mellitus Father Hypertension Other Asthma Social History Social History (Reviewed 04/27/20 @ 22:33 by Gerardo
--- NOTE | 2020-04-27 20:54 | ADMGEN ---
This patient, Jackelin Beasley, was admitted to Medical Room 348-01. Patient/family oriented to hospital policies and general routines including ID bracelet, bed and alarms, visiting hours, pain management, procedures, bathroom and other care routines, personal items, smoking policy, room service/diet, and visiting hours. Information on how to activate the Rapid Response Team has been discussed. Patient/Family are encouraged to report perceived risks to care and to ask questions if they do not understand what they are told or what they should do.
[2020-04-27] MEDS: SODIUM CHLORIDE 0.9% IV 1,000 ML 100 ML IV CONT (22:33)
[2020-04-27 23:07] LABS: Anion Gap 3 mmol/L (8-16); Blood Urea Nitrogen 19 mg/dL (7-17); Calcium 8.5 mg/dL (8.4-10.2); Carbon Dioxide 35 mmol/L (22-30); Chloride 82 mmol/L (98-107); Estimated CRCL calculation 22 ml/min; Estimated Glomerular Filt Rate 31; Glucose 116 mg/dL (65-105); Magnesium 1.1 mg/dL (1.6-2.3); Potassium 3.1 mmol/L (3.4-5.0); Sodium 120 mmol/L (137-145)
[2020-04-28] VITALS (10 sets, daily range): BP systolic 97–142; BP diastolic 55–78; PULSE 58–78; RESP 14–20; TEMP 36.7–36.8; O2SAT 92–97
[2020-04-28] MEDS: guaiFENesin 12 HR 600 MG TABCR PO ×3 (00:17→21:29)
[2020-04-28] MEDS: carvediloL 25 MG TABLET PO ×3 (00:17→21:29)
[2020-04-28] MEDS: MAGNESIUM SULF 2 GM/WATER 50ML 2 GM/50 ML BAG IVPB (00:17)
[2020-04-28] MEDS: POTASSIUM CHLORIDE 20 MEQ TABLET PO (00:18)
[2020-04-28 00:48] LABS: Creatinine Urine 33.5 mg/dL
[2020-04-28 00:49] LABS: Sodium Urine Random 47 meq/L
[2020-04-28] MEDS: SODIUM CHLORIDE 0.9% IV 500 ML 50 ML IV CONT (01:17)
[2020-04-28 01:42] LABS: Sodium 121 mmol/L (137-145)
[2020-04-28 08:36] LABS: Hemoglobin 8.9 g/dL (12.0-15.0); Mean Corpuscular Hemoglobin 26.7 pg (26-34); Mean Corpuscular Volume 81.1 fl (80-100); Mean Platelet Volume 8.5 fl (7.4-10.4); Platelet Count Result 196 k/mm3 (150-375); Red Blood Count 3.33 M/mm3 (4.2-5.4); Red Cell Distribution Width 14.4 % (11.5-14.5); White Blood Count 6.5 K/mm3 (4.5-10.0)
[2020-04-28 09:01] LABS: Anion Gap 6 mmol/L (8-16); Blood Urea Nitrogen 17 mg/dL (7-17); Carbon Dioxide 32 mmol/L (22-30); Chloride 87 mmol/L (98-107); Estimated CRCL calculation 25 ml/min; Estimated Glomerular Filt Rate 36; Glucose 99 mg/dL (65-105); Magnesium 1.9 mg/dL (1.6-2.3); Potassium 3.5 mmol/L (3.4-5.0); Sodium 125 mmol/L (137-145)
[2020-04-28] MEDS: ENOXAPARIN 40 MG/0.4 ML SYRINGE SUB-Q (09:13)
[2020-04-28] MEDS: TAMSULOSIN HCL 0.4 MG CAPSULE PO (09:14)
[2020-04-28] MEDS: ASPIRIN 81 MG ENTERIC TABLET PO (09:14)
[2020-04-28] MEDS: CHOLECALCIFEROL 1,000 UNITS TABLET 5000 UNITS PO (09:14)
[2020-04-28] MEDS: FLUTICASONE/UMECLIDIN/VILANTER 100-62.5-25 MCG ELLIPTA 1 PUFF INHALATION (09:14)
[2020-04-28] MEDS: amLODIPine BESYLATE 5 MG TABLET PO (09:14)
[2020-04-28] MEDS: ACIDOPHILUS/BULGARICUS CHEWABLE TABLET 1 TABLET BY MOUTH (09:14)
[2020-04-28] MEDS: OLMESARTAN MEDOXOMIL 20 MG TABLET PO (09:14)
[2020-04-28] MEDS: PANTOPRAZOLE 40 MG TABLET PO ×2 (09:14→16:49)
[2020-04-28] MEDS: FOLIC ACID 1 MG TABLET PO (09:14)
[2020-04-28] MEDS: SIMVASTATIN 20 MG TABLET 40 MG PO (09:14)
[2020-04-28] MEDS: predniSONE 1 MG TABLET PO (09:15)
[2020-04-28] MEDS: FUROSEMIDE 20 MG TABLET PO (09:15)
--- NOTE | 2020-04-28 10:25 | PM.IMPN ---
Progress Note: A&P Assessment and Plan (1) Hyponatremia: Code(s): E87.1 - Hypo-osmolality and hyponatremia Status: Acute (2) Generalized weakness: Code(s): R53.1 - Weakness Status: Acute (3) Opacification of maxillary sinus: Code(s): R93.0 - Abnormal findings on diagnostic imaging of skull and head, not elsewhere classified Status: Acute (4) Acute hyponatremia: Code(s): E87.1 - Hypo-osmolality and hyponatremia Status: Acute (5) Acute hypotension: Code(s): I95.9 - Hypotension, unspecified Status: Acute (6) Light-headedness: Code(s): R42 - Dizziness and giddiness Status: Acute (7) Chronic anemia: Code(s): D64.9 - Anemia, unspecified Status: Acute (8) Hypertension: Code(s): I10 - Essential (primary) hypertension Status: Acute Additional Plan This is a pleasant 84-year-old female with hyperlipidemia, diastolic congestive heart failure, chronic kidney disease, COPD, rheumatoid arthritis, and chronic anemia who presented to the emergency department earlier today from home with complaints of weakness and low blood pressure. # Generalised weakness: likely from hyponatremia. na slowly improving. nephrology on [place]. apprecaite their recs. # Severe hyponatremia: admisision Na 119, now 124. continue to monitor. nephrology on board. she used to be on nacl tabelts, now stopped since last month. had been on since her prior admission in feb 2020 with right humerus fracture. # Hypotension: reported at home. stable since admission. orthostatic checked were okay. on amlod 5 mg , carvedilol, durosemide , olmesartan at home. # Hypomagnesemia: replaced. mg level normal today. # recent hx of hyponatremia, corrected with NaCl tablets. # mild chornic hyponatrmeia in 130s low # abnormal brain CT: chronic opacification of sphenoid sinus/complete opacification of maxillary sinus. asymptomatic. # COPD: not in exacerbation.relegy. # Flores esophagus # Benign colon polyp # Chronic anemia: blood counts are stable. # Chronic diastolic congestive heart failure: Ventricular systolic function and size with moderate concentric left ventricular hypertrophy, impaired diastolic relaxation grade 1, and an ejection fraction estimated 60 to 65%. # Chronic kidney disease,stage III baseline Cr 1.4 o 1.6: at baseline since admission not suggestive of any SHAVONNE. # Chronic respiratory failure with hypoxia, on home oxygen therapy # Gastroesophageal reflux disease # Hypertension # Osteoporosis # Rheumatoid arthritis # Vitamin D deficiency # DVT proph: prabhu # Full code status # Disposition: PT/OT Subjective Date/time seen: 04/28/20 10:25she is feeling better today. no sob, chest pain. she denies any cough. her weakness is better. no nausea, vomitign. she had ansuea about a week ago. no abdominal pain. no dairrhea. Review of Systems Constitutional: Constitutional: Denies body ache(s), Denies chills, Reports fatigue, Reports lethargy and Reports weakness Eyes: Eyes: Denies blurry vision and Denies photophobia ENT: Denies nasal congestion and Denies nasal discharge Cardiovascular: Cardiovascular: Denies chest pain and Denies diaphoresis Respiratory: Respiratory: Denies cough, Denies dyspnea and Denies dyspnea on exertion Gastrointestinal: Gastrointestinal: Denies abdominal pain, Denies bloating, Denies diarrhea, Denies nausea and Denies vomiting Genitourinary: Genitourinary: Denies hematuria and Denies flank pain Musculoskeletal: Musculoskeletal: Denies back pain, Reports arthralgias and Denies neck pain Comments: right shoulder pain which is chrnoic Integumentary/Breasts: Skin/Breast: Denies dry skin and Denies skin pain Neurologic: Denies confusion and Denies numbness Psychiatric: Psychiatric: Denies anxiety and Denies behavioral changes Exam Narrative: Exam Narrative: General: No acute distress, alert and oriented x 3 HEENT: mucous membranes ar
[2020-04-28 10:42] LABS: Sodium 124 mmol/L (137-145)
--- NOTE | 2020-04-28 10:43 | PM.CNNEP ---
Assessment and Plan Assessment and plan (1) Hyponatremia: Code(s): E87.1 - Hypo-osmolality and hyponatremia Status: Acute Assessment and Plan: the patient has chronic hyponatremia. This is been going on for years. Etiology of this is unclear. She is not on any suspicious medications. 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 She had a CT of the head in the past which was negative. A chest x-ray was negative in the past. She does have a history of esophageal cancer and probably should see GI just to be sure this is not recurrent. The patient has acute hyponatremia. She has a good urine output. Her urine specific gravity is only 1.005. And she has a history of excess water drinking. This is most likely due to excess water drinking the presence of Acute and chronic kidney disease. She might have been a little dehydrated as well since her creatinine was up on admission. so she has a limited capacity to excrete fluid because of her kidney disease and dehydration and on top of that drinking excess fluid. She has received some IV fluids and her creatinine is better. Now that her creatinine is better she is starting to diurese and her sodium level is improving as well. Will do 1 more sodium level just to make sure she is not overly rapidly correcting. her admission level was 119 and her most recent level is 124. It has been 18 hours. So I think it is reasonable just of follow this along. I do not think we should fluid restrict her. Although I told her to drink only if she is thirsty and not if she is not which will By itself reduce the amount of fluid that she is consuming. Will check a sodium and I will have the nurse call me with the results and we will decide what to do than. If overly rapidly correcting that we can always give DDAVP and possibly some D5W. (2) Acute on chronic kidney failure: Code(s): N17.9 - Acute kidney failure, unspecified; N18.9 - Chronic kidney disease, unspecified Status: Acute Assessment and Plan: The patient has chronic kidney disease. She sees Dr. Pereyra in the office. This is most likely due to hypertension and possibly vascular disease. The patient has acute kidney injury. Most likely this is from poor eating. This is better with a little bit of IV fluids. Her IV fluids have been discontinued now that she is back to baseline Will keep an eye on the creatinine as we go (3) Hypertension: Code(s): I10 - Essential (primary) hypertension Status: Acute Assessment and Plan: patient's blood pressure is doing well. (4) Anemia: Code(s): D64.9 - Anemia, unspecified Status: Acute Assessment and Plan: Hemoglobin is 8.9.0 This is about what it has been running. Will check iron levels. (5) H/O malignant neoplasm of esophagus: Code(s): Z85.01 - Personal history of malignant neoplasm of esophagus Status: Acute History of Present Illness Reason for Consult Consult date: 04/28/20 Chief Complaint Chief complaint: Acute hyonatremia, hypotension History of Present Illness Narrative: Jackelin is a very pleasant 84-year-old lady who has multiple medical problems including hyperlipidemia, diastolic congestive heart failure, chronic kidney disease, COPD, rheumatoid arthritis, and chronic anemia. the patient has been feeling weak for the last few days. She went to see her primary care doctor who saw her and do some blood work and found that her sodium level was low so she was sent to the emergency room. In the ER she was evaluated and found to have the low sodium. She was felt to be a little dehydrated. They gave her some IV fluids and admitted her to the floor. Looking back in the records she has had low sodiums for a long time. She always has sodium levels in the mid 130 is going back years. on admission, however, her sodium level is 119. Overnight it bari to 125. She is making plenty of urine.
[2020-04-28 11:40] LABS: Immature Reticulocyte Fraction 10.1 % (3.0-15.9); Reticulocyte Hemoglobin Conten 31.5 pg (28.2-35.7); Reticulocyte Percent 1.51 % (0.7-4.3); Reticulocytes Absolute 0.05 B/L (32.2-175.7)
[2020-04-28 12:31] LABS: Iron 43 ug/dL (37-170)
--- NOTE | 2020-04-28 12:37 | PCOTNOTE ---
attempted OT evaluation, patient eating lunch, will continue to attempt.
[2020-04-28 12:40] LABS: Percent Iron Saturation 15 % (20-50)
[2020-04-28 14:21] LABS: Sodium 125 mmol/L (137-145)
[2020-04-28 17:38] LABS: Sodium 125 mmol/L (137-145)
[2020-04-28 19:46] LABS: Sodium 126 mmol/L (137-145)
[2020-04-29] VITALS (11 sets, daily range): BP systolic 107–133; BP diastolic 57–74; PULSE 62–81; RESP 18; TEMP 36.1–36.6; O2SAT 93–97
[2020-04-29 05:38] LABS: Basophils Percent Auto 0.3 % (0.2-1.2); Eosinophils Absolute Auto 0.3 K/mm3 (0-0.3); Eosinophils Percent Auto 4.5 % (0-4.4); Hematocrit 25.5 % (37.0-47.0); Hemoglobin 8.2 g/dL (12.0-15.0); Immature Granulocyte Absolute 0.04 K/mm3 (0.00-0.031); Immature Granulocyte Percent A 0.6 % (0-0.5); Lymphocytes Absolute Auto 1.29 K/mm3 (0.9-3.2); Lymphocytes Percent Auto 18.1 % (18.3-44.2); Mean Corpuscular HGB Conc 32.2 g/dl (32-36); Mean Corpuscular Hemoglobin 26.6 pg (26-34); Mean Corpuscular Volume 82.8 fl (80-100); Mean Platelet Volume 8.9 fl (7.4-10.4); Monocytes Absolute Auto 0.6 K/mm3 (0.1-0.6); Neutrophils Absolute Auto 4.8 K/mm3 (1.3-6.7); Neutrophils Percent Auto 67.5 % (45.5-73.1); Platelet Count Result 191 k/mm3 (150-375); Red Blood Count 3.08 M/mm3 (4.2-5.4); Red Cell Distribution Width 14.6 % (11.5-14.5); White Blood Count 7.1 K/mm3 (4.5-10.0)
[2020-04-29 05:56] LABS: Albumin Level 3.3 g/dL (3.5-5.1); Anion Gap 3 mmol/L (8-16); Blood Urea Nitrogen 20 mg/dL (7-17); Calcium 8.6 mg/dL (8.4-10.2); Carbon Dioxide 33 mmol/L (22-30); Chloride 91 mmol/L (98-107); Estimated CRCL calculation 23 ml/min; Estimated Glomerular Filt Rate 33; Glucose 107 mg/dL (65-105); Potassium 3.6 mmol/L (3.4-5.0); Sodium 127 mmol/L (137-145)
--- NOTE | 2020-04-29 09:13 | PM.IMPN ---
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 chronic kidney disease: Code(s): N18.32 - Chronic kidney disease, stage 3b; D63.1 - Anemia in chronic kidney disease Status: Acute (8) Hypotension: Code(s): I95.9 - Hypotension, unspecified Status: Acute (9) Chronic obstructive pulmonary disease: Code(s): J44.9 - Chronic obstructive pulmonary disease, unspecified Status: Acute (10) Chronic respiratory failure with hypoxia, on home oxygen therapy: Code(s): J96.11 - Chronic respiratory failure with hypoxia; Z99.81 - Dependence on supplemental oxygen Status: Acute Additional Plan This is a pleasant 84-year-old female with hyperlipidemia, diastolic congestive heart failure, chronic kidney disease, COPD, rheumatoid arthritis, and chronic anemia who presented to the emergency department earlier today from home with complaints of weakness and low blood pressure. # Generalised weakness: likely from hyponatremia. na slowly improving. nephrology on [place]. apprecaite their recs. # Severe hyponatremia: admisision Na 119. continues to improe. up to 127 this am. nephrology on board. she used to be on nacl tabelts, now stopped since last month. had been on since her prior admission in feb 2020 with right humerus fracture. # Hypotension: reported at home. stable since admission. orthostatic checked were okay. on amlod 5 mg , carvedilol, durosemide , olmesartan at home. # Hypomagnesemia: replaced. mg level normal # recent hx of hyponatremia, corrected with NaCl tablets. # mild chornic hyponatrmeia in 130s low # abnormal brain CT: chronic opacification of sphenoid sinus/complete opacification of maxillary sinus. asymptomatic. # COPD: not in exacerbation.relegy. # Flores esophagus # Benign colon polyp # Chronic anemia: blood counts are stable. # Chronic diastolic congestive heart failure: Ventricular systolic function and size with moderate concentric left ventricular hypertrophy, impaired diastolic relaxation grade 1, and an ejection fraction estimated 60 to 65%. # Chronic kidney disease,stage III baseline Cr 1.4 o 1.6: at baseline since admission not suggestive of any SHAVONNE. # Chronic respiratory failure with hypoxia, on home oxygen therapy # Gastroesophageal reflux disease # Hypertension # Osteoporosis # Rheumatoid arthritis # Vitamin D deficiency # DVT proph: lovenox # Full code status # Disposition: PT/OT Time Spent With Patient Time with patient: 15 - 25 minutes Subjective Date/time seen: 04/29/20 09:13 Interval history: no overnight evets slept well, no ausea, vomiting,. no fever, chills. she is feelig little better. she has some cough which is chroni c Review of Systems Constitutional: Constitutional: Reports fatigue and Reports weakness Eyes: Eyes: Denies blurry vision and Denies photophobia ENT: Denies nasal congestion and Denies nasal discharge Cardiovascular: Cardiovascular: Denies diaphoresis and Denies lightheadedness Respiratory: Respiratory: Reports cough, Denies hemoptysis and Denies dyspnea Gastrointestinal: Gastrointestinal: Denies abdominal pain, Denies constipation, Denies diarrhea and Denies hematemesis Genitourinary: Genitourinary: Denies hematuria and Denies flank pain Musculoskeletal: Musculoskeletal: Denies back pain and Denies neck pain Inte
[2020-04-29] MEDS: FOLIC ACID 1 MG TABLET PO (09:14)
[2020-04-29] MEDS: SIMVASTATIN 20 MG TABLET 40 MG PO (09:14)
[2020-04-29] MEDS: ENOXAPARIN 40 MG/0.4 ML SYRINGE SUB-Q (09:14)
[2020-04-29] MEDS: FLUTICASONE/UMECLIDIN/VILANTER 100-62.5-25 MCG ELLIPTA 1 PUFF INHALATION (09:14)
[2020-04-29] MEDS: FUROSEMIDE 20 MG TABLET PO (09:15)
[2020-04-29] MEDS: predniSONE 1 MG TABLET PO (09:15)
[2020-04-29] MEDS: carvediloL 25 MG TABLET PO ×2 (09:15→20:36)
[2020-04-29] MEDS: PANTOPRAZOLE 40 MG TABLET PO ×2 (09:15→16:56)
[2020-04-29] MEDS: ACIDOPHILUS/BULGARICUS CHEWABLE TABLET 1 TABLET BY MOUTH (09:15)
[2020-04-29] MEDS: guaiFENesin 12 HR 600 MG TABCR PO ×2 (09:15→20:36)
[2020-04-29] MEDS: OLMESARTAN MEDOXOMIL 20 MG TABLET PO (09:15)
[2020-04-29] MEDS: TAMSULOSIN HCL 0.4 MG CAPSULE PO (09:15)
[2020-04-29] MEDS: amLODIPine BESYLATE 5 MG TABLET PO (09:15)
[2020-04-29] MEDS: ASPIRIN 81 MG ENTERIC TABLET PO (09:15)
[2020-04-29] MEDS: CHOLECALCIFEROL 1,000 UNITS TABLET 5000 UNITS PO (09:15)
--- NOTE | 2020-04-29 10:35 | PM.PNNEP ---
Progress Note: A&P Assessment and Plan (1) Hyponatremia: Code(s): E87.1 - Hypo-osmolality and hyponatremia Status: Acute Assessment and Plan: the patient has chronic hyponatremia. This is been going on for years. Etiology of this is unclear. She is not on any suspicious medications. 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 She had a CT of the head in the past which was negative. A chest x-ray was negative in the past. She does have a history of esophageal cancer and probably should see GI just to be sure this is not recurrent. The patient has acute hyponatremia. She has a good urine output. Her urine specific gravity is only 1.005. And she has a history of excess water drinking. This is most likely due to excess water drinking the presence of acute and chronic kidney disease as well as the underlying chronic hyponatremia. At this point she is on fluid restriction alone. Sodium level is 127 today. This is within ate of her baseline. So I think she is okay for discharge from the renal standpoint. (2) Acute on chronic kidney failure: Code(s): N17.9 - Acute kidney failure, unspecified; N18.9 - Chronic kidney disease, unspecified Status: Acute Assessment and Plan: The patient has chronic kidney disease. She sees Dr. Pereyra in the office. This is most likely due to hypertension and possibly vascular disease. Renal function has returned to baseline. (3) Hypertension: Code(s): I10 - Essential (primary) hypertension Status: Acute Assessment and Plan: patient's blood pressure is doing well. (4) Anemia: Code(s): D64.9 - Anemia, unspecified Status: Acute Assessment and Plan: Hemoglobin is 8.9.0 This is about what it has been running. T sat only 15. Will give iron (5) H/O malignant neoplasm of esophagus: Code(s): Z85.01 - Personal history of malignant neoplasm of esophagus Status: Acute Subjective Date/time seen: 04/29/20 10:35 Interval history: Jackelin is feeling better today. She is eating some breakfast. She has no chest pain or shortness of breath. She is not thirsty. Review of Systems Cardiovascular: Cardiovascular: Reports no additional cardiovascular complaints Respiratory: Respiratory: Reports no additional respiratory complaints Gastrointestinal: Gastrointestinal: Reports no additional gastrointestinal complaints Genitourinary: Genitourinary: Reports no additional female genitourinary complaints Exam Narrative: Exam Narrative: WDWN in NAD skin no rash or subcu nodules head ncat lungs clear cor reg no rub abd BS+ nontender and soft ext no edema. Objective Data Vital Signs Vital Signs: Vital Signs - 24 hr 04/28/20 11:56 04/28/20 14:17 04/28/20 20:20 Temperature 36.7 C Pulse Rate 78 Respiratory Rate 20 Blood Pressure 97/55 L 115/57 L Pulse Oximetry 92 97 92 04/28/20 21:15 04/28/20 21:29 04/29/20 06:00 Temperature 36.6 C Pulse Rate 78 65 Respiratory Rate 18 Blood Pressure 117/57 L Pulse Oximetry 92 96 04/29/20 08:00 04/29/20 08:13 04/29/20 09:15 Temperature Pulse Rate 64 62 76 Respiratory Rate Blood Pressure 130/72 133/74 Pulse Oximetry 04/29/20 09:24 Temperature Pulse Rate Respiratory Rate Blood Pressure Pulse Oximetry 96 Intake/Output Intake/Output: Intake & Output 04/26/20 04/27/20 04/28/20 04/29/20 23:59 23:59 23:59 23:59 Intake Total 1000 1770 120 Output Total 2700 500 Balance 1000 -560 -380 Meds/Results Medications: Active Medications Generic Name Dose Route Start Last Admin Trade Name Freq PRN Reason Stop Dose Admin Albuterol 2 puff 04/29/20 08:44 Albuterol Sulfate (*Sp) Aerosol 1 Puff INHALATION Q6HRT PRN Shortness Of Breath Amlodipine Besylate 5 mg 04/28/20 09:00 04/29/20 09:15 Amlodipine Besylate 5 Mg Tablet PO 5 mg DAILY DAVON Administration Aspirin 81 mg
[2020-04-29] MEDS: FERROUS SULFATE 324 MG TABLET PO (16:56)
[2020-04-30] VITALS (10 sets, daily range): BP systolic 99–124; BP diastolic 55–88; PULSE 75–84; RESP 14–20; TEMP 36–36.8; O2SAT 91–98
[2020-04-30 06:18] LABS: Albumin Level 3.3 g/dL (3.5-5.1); Anion Gap 7 mmol/L (8-16); Blood Urea Nitrogen 25 mg/dL (7-17); Calcium 8.4 mg/dL (8.4-10.2); Carbon Dioxide 31 mmol/L (22-30); Chloride 96 mmol/L (98-107); Estimated CRCL calculation 17 ml/min; Estimated Glomerular Filt Rate 24; Glucose 91 mg/dL (65-105); Potassium 3.9 mmol/L (3.4-5.0); Sodium 134 mmol/L (137-145)
[2020-04-30 06:48] LABS: Basophils Percent Auto 0.5 % (0.2-1.2); Eosinophils Absolute Auto 0.3 K/mm3 (0-0.3); Eosinophils Percent Auto 4.1 % (0-4.4); Hemoglobin 8.3 g/dL (12.0-15.0); Immature Granulocyte Absolute 0.04 K/mm3 (0.00-0.031); Immature Granulocyte Percent A 0.5 % (0-0.5); Lymphocytes Absolute Auto 1.54 K/mm3 (0.9-3.2); Lymphocytes Percent Auto 20.3 % (18.3-44.2); Mean Corpuscular HGB Conc 31.9 g/dl (32-36); Mean Corpuscular Hemoglobin 26.9 pg (26-34); Mean Corpuscular Volume 84.1 fl (80-100); Mean Platelet Volume 9.3 fl (7.4-10.4); Monocytes Absolute Auto 0.7 K/mm3 (0.1-0.6); Monocytes Percent Auto 9.2 % (2.6-8.5); Neutrophils Percent Auto 65.4 % (45.5-73.1); Platelet Count Result 223 k/mm3 (150-375); Red Blood Count 3.09 M/mm3 (4.2-5.4); White Blood Count 7.6 K/mm3 (4.5-10.0)
[2020-04-30] MEDS: ACIDOPHILUS/BULGARICUS CHEWABLE TABLET 1 TABLET BY MOUTH (09:35)
[2020-04-30] MEDS: FERROUS SULFATE 324 MG TABLET PO ×2 (09:35→17:11)
[2020-04-30] MEDS: SIMVASTATIN 20 MG TABLET 40 MG PO (09:35)
[2020-04-30] MEDS: predniSONE 1 MG TABLET PO (09:35)
[2020-04-30] MEDS: ASPIRIN 81 MG ENTERIC TABLET PO (09:35)
[2020-04-30] MEDS: PANTOPRAZOLE 40 MG TABLET PO ×2 (09:36→17:11)
[2020-04-30] MEDS: CHOLECALCIFEROL 1,000 UNITS TABLET 5000 UNITS PO (09:36)
[2020-04-30] MEDS: carvediloL 25 MG TABLET PO ×2 (09:36→21:00)
[2020-04-30] MEDS: amLODIPine BESYLATE 5 MG TABLET PO (09:36)
[2020-04-30] MEDS: FOLIC ACID 1 MG TABLET PO (09:36)
[2020-04-30] MEDS: ENOXAPARIN 40 MG/0.4 ML SYRINGE SUB-Q (09:36)
[2020-04-30] MEDS: OLMESARTAN MEDOXOMIL 20 MG TABLET PO (09:36)
[2020-04-30] MEDS: FUROSEMIDE 20 MG TABLET PO (09:36)
[2020-04-30] MEDS: TAMSULOSIN HCL 0.4 MG CAPSULE PO (09:36)
[2020-04-30] MEDS: guaiFENesin 12 HR 600 MG TABCR PO ×2 (09:36→21:00)
[2020-04-30] MEDS: FLUTICASONE/UMECLIDIN/VILANTER 100-62.5-25 MCG ELLIPTA 1 PUFF INHALATION (09:37)
--- NOTE | 2020-04-30 13:54 | PM.IMPN ---
Progress Note: A&P Assessment and Plan (1) Acute hyponatremia: Code(s): E87.1 - Hypo-osmolality and hyponatremia Status: Acute Assessment and Plan: Acute on chronic. Baseline is low 130s. She had been previously on sodium chloride tabs but this has been discontinued. Sodium on admission was 119. Sodium has slowly improved and is 134 today. Appreciate nephrology input. Continue fluid restriction diet Trend sodium (2) Chronic kidney disease, stage IV (severe): Code(s): N18.4 - Chronic kidney disease, stage 4 (severe) Status: Acute Assessment and Plan: Creatinine baseline 1.4-1.6, though does appear somewhat fluctuant. CKD likely realted to HTN and possible vascular disease. She had slight increase of Cr to 2.0 today. May be related to fluid restriction in combination with diuretics. Monitor kidney function closely. Consider holding furosemide if further increase in Cr Appreciate nephrology input (3) Generalized weakness: Code(s): R53.1 - Weakness Status: Acute Assessment and Plan: She feels very weak. This may be related to her acute hyponatremia in combination with chronic anemia and overall physical deconditioning. TSH wnl. Continue PT/OT Check B12 and folate. Fall precautions (4) Hypertension: Code(s): I10 - Essential (primary) hypertension Status: Acute Assessment and Plan: She has hx of HTN on several antihypertensive agents. BP reviewed and has been on low end. See below (5) Hypotension: Code(s): I95.9 - Hypotension, unspecified Status: Acute Assessment and Plan: She noted an episode of hypotension at home and BP here has been on lower end. She was not orthostatic. Last BP 114/56. Continue carvedilol, olmesartan, and amlodipine Monitor BP trends closely. Given advanced age and frailty, need to ensure her BP does not decline too low which puts her at risk for falls. Amlodipine could probably be discontinued if BP remains on low end. (6) Chronic obstructive pulmonary disease: Code(s): J44.9 - Chronic obstructive pulmonary disease, unspecified Status: Acute Assessment and Plan: Not in acute exacerbation. Maintaining adequate o2 saturations on her chronic 1 L supplemental O2. Lungs clear to auscultation without wheezing. Continue trelegy Supplemental O2 as needed with goal saturation 90% or above (7) Chronic respiratory failure with hypoxia, on home oxygen therapy: Code(s): J96.11 - Chronic respiratory failure with hypoxia; Z99.81 - Dependence on supplemental oxygen Status: Acute Assessment and Plan: Likely secondary to COPD. Continue supplemental O2. (8) Chronic diastolic CHF (congestive heart failure): Code(s): I50.32 - Chronic diastolic (congestive) heart failure Status: Acute Assessment and Plan: Grade I diastolic dysfunction noted on Echo with EF 60-65%. She has a negative fluid balance of almost 1 L. CXR yesterday was consistent with mild CHF exacerbation. She appears euvolemic at this time. Continue lasix. Weigh daily. Monitor intake and output. 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 No evidence of acute bleeding and vitals are stable. Iron saturation is low. Trend H&H Oral iron supplementation has been initiated. Subjective Date/time seen: 04/30/20 13:54 Interval history: Date of service: 04/30/20 Jackelin Beasley is an 85 year old female with a history of CKD, chronic anemia, CHF, COPD, HTN, and several other medical problems who is seen in follow up for hyponatremia. She is feeling very weak today. She does not feel that she can safely return home at this time. She feels a bit lightheaded with activ
--- NOTE | 2020-04-30 15:40 | PCOTNOTE ---
Attempted to see Patient this P.M. Patient sleeping, when awoke, Patient verbalized it is to late, I need to nap, I'm so tired, come back tomorrow . Patient declined to participate this afternoon.
--- NOTE | 2020-04-30 15:44 | PM.PNNEP ---
Progress Note: A&P Assessment and Plan (1) Hyponatremia: Code(s): E87.1 - Hypo-osmolality and hyponatremia Status: Acute Assessment and Plan: acute on chronic issue sodium levels usually run ~ 128 - 135mmol/L suspect related to kidney disease and excessive water intake evaluation has been otherwise negative to date: - no suspicious medications - no TUNNEL MAN issues -- last head CT negative - negative CXR - does have a history of esophageal cancer (no evidence of recurrence noted) sodium up to 134 today -- will ease up on fluid restriction follow trend of sodium (2) Chronic kidney disease, stage IV (severe): Code(s): N18.4 - Chronic kidney disease, stage 4 (severe) Status: Chronic Assessment and Plan: baseline creatinine runs around 1.4 - 1.9mg/dl due to hypertension, vascular disease, and age (based on outpatient evaluation) (3) Hypertension: Code(s): I10 - Essential (primary) hypertension Status: Chronic Assessment and Plan: well controlled follow trend of hemodynamics (4) Anemia: Code(s): D64.9 - Anemia, unspecified Status: Chronic Assessment and Plan: probably related to CKD iron deficiency noted by anemia studies on oral iron Will continue to follow. Subjective Date/time seen: 04/30/20 15:44 Still feeling a bit weak today -- reported some lightheadedness with movement as well; eating and drinking okay but not very happy with the fluid restriction; no events/issues overnight or earlier this AM. Exam Narrative: Exam Narrative: General: WD/WN female in NAD Heart: normal S1 and S2; no rub Lungs: clear to auscultation Abdomen: soft, nontender, nondistended, positive bowel sounds Extremities: no cyanosis or clubbing; no edema Skin: warm and dry Objective Data Vital Signs Vital Signs: Vital Signs Temp Pulse Resp BP Pulse Ox 04/30/20 13:01 75 117/55 L 04/30/20 13:00 82 109/64 04/30/20 12:59 36.6 C 84 18 99/61 L 95 04/30/20 09:36 75 04/30/20 09:30 94 04/30/20 06:23 114/56 L 04/30/20 05:05 36.8 C 75 14 114/58 L 96 04/30/20 00:24 91 04/29/20 20:36 78 03/07/21 20:30 97 04/29/20 20:00 114/58 L 04/29/20 19:53 36.6 C 81 18 107/58 L 97 Intake/Output Intake/Output: Intake & Output 04/27/20 04/28/20 04/29/20 04/30/20 23:59 23:59 23:59 23:59 Intake Total 1000 1770 360 480 Output Total 2700 1100 600 Balance 1000 -930 -740 -120 Meds/Results Medications: Active Medications Generic Name Dose Route Start Last Admin Trade Name Freq PRN Reason Stop Dose Admin Albuterol 2 puff 04/29/20 08:44 Albuterol Sulfate (*Sp) Aerosol 1 Puff INHALATION Q6HRT PRN Shortness Of Breath Amlodipine Besylate 5 mg 04/28/20 09:00 04/30/20 09:36 Amlodipine Besylate 5 Mg Tablet PO 5 mg DAILY DAVON Administration Aspirin 81 mg 04/28/20 09:00 04/30/20 09:35 Aspirin 81 Mg Enteric Tablet PO 81 mg DAILY DAVON Administration Carvedilol 25 mg 04/27/20 23:35 04/30/20 09:36 Carvedilol 25 Mg Tablet PO 25 mg Q12HR DAVON Administration Docusate Sodium 100 mg 04/27/20 23:24 Docusate Sodium 100 Mg Capsule PO Q12H PRN Constipation Enoxaparin Sodium 40 mg 04/28/20 09:00 04/30/20 09:36 Enoxaparin 40 Mg/0.4 Ml Syringe SUB-Q 40 mg DAILY DAVON Administration Ferrous Sulfate 324 mg 04/29/20 17:00 04/30/20 17:11 Ferrous Sulfate 324 Mg Tablet PO 324 mg BIDWM DAVON Administration Fluticasone/Umeclidinium/Vilanterol 1 puff 04/28/20 09:00 04/30/20 09:37 Fluticasone/Umeclidin/Vilanter 100-62.5-25 Mcg Ellipta INHALATION 1 puff DAILY DAVON Administration Folic Acid 1 mg 04/28/20 09:00 04/30/20 09:36 Folic Acid 1 Mg Tablet PO 1 mg DAILY DAVON Administration Furosemide 20 mg 04/28/20 09:00 04/30/20 09:36 Furosemide 20 Mg Table
[2020-05-01] VITALS (13 sets, daily range): BP systolic 92–132; BP diastolic 47–77; PULSE 63–82; RESP 16–18; TEMP 35.8–36.8; O2SAT 95–97
[2020-05-01] MEDS: traMADol HCL (*CRX) 50 MG TABLET PO (00:26)
[2020-05-01 06:09] LABS: Hematocrit 27.5 % (37.0-47.0); Hemoglobin 8.6 g/dL (12.0-15.0); Mean Corpuscular HGB Conc 31.3 g/dl (32-36); Mean Corpuscular Hemoglobin 26.8 pg (26-34); Mean Corpuscular Volume 85.7 fl (80-100); Platelet Count Result 211 k/mm3 (150-375); Red Blood Count 3.21 M/mm3 (4.2-5.4); Red Cell Distribution Width 15.3 % (11.5-14.5); White Blood Count 10.5 K/mm3 (4.5-10.0)
[2020-05-01 06:21] LABS: Anion Gap 8 mmol/L (8-16); Blood Urea Nitrogen 28 mg/dL (7-17); Calcium 9.2 mg/dL (8.4-10.2); Carbon Dioxide 30 mmol/L (22-30); Chloride 99 mmol/L (98-107); Estimated CRCL calculation 18 ml/min; Estimated Glomerular Filt Rate 25; Glucose 112 mg/dL (65-105); Potassium 3.9 mmol/L (3.4-5.0); Sodium 137 mmol/L (137-145)
[2020-05-01 07:31] LABS: Folic Acid > 20.0 ng/mL (2.76->20)
[2020-05-01] MEDS: FLUTICASONE/UMECLIDIN/VILANTER 100-62.5-25 MCG ELLIPTA 1 PUFF INHALATION (09:32)
[2020-05-01] MEDS: predniSONE 1 MG TABLET PO (09:34)
[2020-05-01] MEDS: SIMVASTATIN 20 MG TABLET 40 MG PO (09:34)
[2020-05-01] MEDS: amLODIPine BESYLATE 5 MG TABLET PO (09:34)
[2020-05-01] MEDS: PANTOPRAZOLE 40 MG TABLET PO ×2 (09:34→17:31)
[2020-05-01] MEDS: ACIDOPHILUS/BULGARICUS CHEWABLE TABLET 1 TABLET BY MOUTH (09:34)
[2020-05-01] MEDS: FOLIC ACID 1 MG TABLET PO (09:34)
[2020-05-01] MEDS: FERROUS SULFATE 324 MG TABLET PO ×2 (09:34→17:31)
[2020-05-01] MEDS: TAMSULOSIN HCL 0.4 MG CAPSULE PO (09:35)
[2020-05-01] MEDS: OLMESARTAN MEDOXOMIL 20 MG TABLET PO (09:35)
[2020-05-01] MEDS: guaiFENesin 12 HR 600 MG TABCR PO ×2 (09:35→20:45)
[2020-05-01] MEDS: FUROSEMIDE 20 MG TABLET PO (09:35)
[2020-05-01] MEDS: CHOLECALCIFEROL 1,000 UNITS TABLET 5000 UNITS PO (09:35)
[2020-05-01] MEDS: ASPIRIN 81 MG ENTERIC TABLET PO (09:35)
[2020-05-01] MEDS: ENOXAPARIN 40 MG/0.4 ML SYRINGE SUB-Q (09:36)
[2020-05-01] MEDS: carvediloL 25 MG TABLET PO ×2 (09:36→20:45)
--- NOTE | 2020-05-01 11:13 | PM.PNNEP ---
Progress Note: A&P Assessment and Plan (1) Hyponatremia: Code(s): E87.1 - Hypo-osmolality and hyponatremia Status: Acute Assessment and Plan: acute on chronic issue sodium levels usually run ~ 128 - 135mmol/L suspect related to kidney disease and excessive water intake evaluation has been otherwise negative to date: - no suspicious medications - no SWEDGER issues -- last head CT negative - negative CXR - does have a history of esophageal cancer (no evidence of recurrence noted) sodium continues to improve -- will ease up on fluid restriction follow trend of sodium (2) Chronic kidney disease, stage IV (severe): Code(s): N18.4 - Chronic kidney disease, stage 4 (severe) Status: Chronic Assessment and Plan: baseline creatinine runs around 1.4 - 1.9mg/dl due to hypertension, vascular disease, and age (based on outpatient evaluation) (3) Hypertension: Code(s): I10 - Essential (primary) hypertension Status: Chronic Assessment and Plan: well controlled follow trend of hemodynamics (4) Anemia: Code(s): D64.9 - Anemia, unspecified Status: Chronic Assessment and Plan: probably related to CKD iron deficiency noted by anemia studies on oral iron Will continue to follow. Subjective Date/time seen: 05/01/20 11:13 Appears to be doing reasonably well at the time of my visit; no new issues or problems to report at this time; feels reasonably well; no issues/events overnight or earlier this AM. Exam Narrative: Exam Narrative: General: WD/WN female in NAD Heart: normal S1 and S2; no rub Lungs: clear to auscultation Abdomen: soft, nontender, nondistended, positive bowel sounds Extremities: no cyanosis or clubbing; no edema Skin: warm and intact Objective Data Vital Signs Vital Signs: Vital Signs Temp Pulse Resp BP Pulse Ox 05/01/20 11:06 105/65 05/01/20 11:05 118/68 05/01/20 11:04 127/64 05/01/20 09:37 96 05/01/20 09:36 76 05/01/20 06:00 36.8 C 82 18 132/77 96 04/30/20 21:53 36.0 C L 81 20 124/62 98 04/30/20 21:00 83 97 04/30/20 13:01 75 117/55 L 04/30/20 13:00 82 109/64 04/30/20 12:59 36.6 C 84 18 99/61 L 95 Intake/Output Intake/Output: Intake & Output 04/28/20 04/29/20 04/30/20 05/01/20 23:59 23:59 23:59 23:59 Intake Total 1770 360 820 420 Output Total 2700 1100 1300 600 Balance -930 -740 -480 -180 Meds/Results Medications: Active Medications Generic Name Dose Route Start Last Admin Trade Name Freq PRN Reason Stop Dose Admin Albuterol 2 puff 04/29/20 08:44 Albuterol Sulfate (*Sp) Aerosol 1 Puff INHALATION Q6HRT PRN Shortness Of Breath Amlodipine Besylate 5 mg 04/28/20 09:00 05/01/20 09:34 Amlodipine Besylate 5 Mg Tablet PO 5 mg DAILY DAVON Administration Aspirin 81 mg 04/28/20 09:00 05/01/20 09:35 Aspirin 81 Mg Enteric Tablet PO 81 mg DAILY DAVON Administration Carvedilol 25 mg 04/27/20 23:35 05/01/20 09:36 Carvedilol 25 Mg Tablet PO 25 mg Q12HR DAVON Administration Docusate Sodium 100 mg 04/27/20 23:24 Docusate Sodium 100 Mg Capsule PO Q12H PRN Constipation Enoxaparin Sodium 40 mg 04/28/20 09:00 05/01/20 09:36 Enoxaparin 40 Mg/0.4 Ml Syringe SUB-Q 40 mg DAILY DAVON Administration Ferrous Sulfate 324 mg 04/29/20 17:00 05/01/20 09:34 Ferrous Sulfate 324 Mg Tablet PO 324 mg BIDWM DAVON Administration Fluticasone/Umeclidinium/Vilanterol 1 puff 04/28/20 09:00 05/01/20 09:32 Fluticasone/Umeclidin/Vilanter 100-62.5-25 Mcg Ellipta INHALATION 1 puff DAILY DAVON Administration Folic Acid 1 mg 04/28/20 09:00 05/01/20 09:34 Folic Acid 1 Mg Tablet PO 1 mg DAILY DAVON Administration Furosemide 20 mg 04/28/20 09:00 05/01/20 09:35 Furosemide 20 Mg Tablet PO 20 mg DAILY DAVON Administr
--- NOTE | 2020-05-01 13:34 | PM.IMPN ---
Progress Note: A&P Assessment and Plan (1) Acute hyponatremia: Code(s): E87.1 - Hypo-osmolality and hyponatremia Status: Acute Assessment and Plan: Acute on chronic. Baseline is low 130s. Etiology for chronic hyponatremia unclear but acute episode likely precipitated by excess free water intake. She had been previously on sodium chloride tabs but this has been discontinued. Sodium on admission was 119. Sodium has improved at appropriate rate and is 137 today. Appreciate nephrology input. Continue fluid restriction diet, increased fluid allowed today up to 1500 ml Trend sodium (2) Chronic kidney disease, stage IV (severe): Code(s): N18.4 - Chronic kidney disease, stage 4 (severe) Status: Chronic Assessment and Plan: Creatinine baseline 1.4-1.6, though does appear somewhat fluctuant. CKD likely realted to HTN and possible vascular disease. Cr is 1.9 today, slightly increased from baseline which may be due to fluid restriction in combination with diuretics. Monitor kidney function closely. Consider holding furosemide if further increase in Cr. Expect improvement with less restrictive fluid parameters Appreciate nephrology input (3) Generalized weakness: Code(s): R53.1 - Weakness Status: Acute Assessment and Plan: She feels very weak. This may be related to her acute hyponatremia in combination with chronic anemia and overall physical deconditioning. TSH, B12, and folate wnl. Continue PT/OT Fall precautions Home health is being arranged and will be at the home tomorrow. Hopeful discharge tomorrow (4) Hypertension: Code(s): I10 - Essential (primary) hypertension Status: Chronic Assessment and Plan: She has hx of HTN on several antihypertensive agents. BP reviewed and has been on low end. See below (5) Hypotension: Code(s): I95.9 - Hypotension, unspecified Status: Acute Assessment and Plan: She noted an episode of hypotension at home and BP here has been on lower end. She was noted to be orthostatic on BP evaluation today and endorses lightheadedness upon standing. Continue carvedilol, olmesartan, and amlodipine Monitor BP trends closely. Given advanced age and frailty, need to ensure her BP does not decline too low which puts her at risk for falls. Amlodipine could probably be discontinued if BP remains on low end. Initiate SHASHI hose. Expect some improvement with increased fluid allowance. Monitor BP trends and continue orthostatics q shift (6) Chronic obstructive pulmonary disease: Code(s): J44.9 - Chronic obstructive pulmonary disease, unspecified Status: Acute Assessment and Plan: Not in acute exacerbation. Maintaining adequate o2 saturations on her chronic 1 L supplemental O2. Lungs clear to auscultation without wheezing. Continue trelegy Supplemental O2 as needed with goal saturation 90% or above (7) Chronic respiratory failure with hypoxia, on home oxygen therapy: Code(s): J96.11 - Chronic respiratory failure with hypoxia; Z99.81 - Dependence on supplemental oxygen Status: Acute Assessment and Plan: Likely secondary to COPD. Continue supplemental O2. (8) Chronic diastolic CHF (congestive heart failure): Code(s): I50.32 - Chronic diastolic (congestive) heart failure Status: Acute Assessment and Plan: Grade I diastolic dysfunction noted on Echo with EF 60-65%. She has a negative fluid balance of almost 1.5 L. CXR 04/29 was consistent with mild CHF exacerbation. She appears euvolemic at this time. Continue PO lasix 20 mg daily Weigh daily. Monitor intake and output. 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 No evidence of acute ble
[2020-05-01 13:54] LABS: IFOB Positive Control Positive; Immunochemical Fecal Occult Bl Negative (N)
--- NOTE | 2020-05-01 15:50 | PC.NURSE ---
Observed care and reviewed documentation completed by Mandy Urbina [id number]
[2020-05-02] VITALS (7 sets, daily range): BP systolic 100–128; BP diastolic 52–82; PULSE 70–73; RESP 16–17; TEMP 36.1–36.7; O2SAT 92–99
[2020-05-02 02:44] LABS: Osmolality, Urine 175 mOsm/kg (50-1200)
[2020-05-02 05:45] LABS: Hematocrit 26.7 % (37.0-47.0); Hemoglobin 8.5 g/dL (12.0-15.0); Mean Corpuscular HGB Conc 31.8 g/dl (32-36); Mean Corpuscular Volume 84.8 fl (80-100); Mean Platelet Volume 9.2 fl (7.4-10.4); Platelet Count Result 215 k/mm3 (150-375); Red Blood Count 3.15 M/mm3 (4.2-5.4); Red Cell Distribution Width 15.3 % (11.5-14.5); White Blood Count 9.6 K/mm3 (4.5-10.0)
[2020-05-02 05:52] LABS: Anion Gap 6 mmol/L (8-16); Blood Urea Nitrogen 29 mg/dL (7-17); Calcium 8.9 mg/dL (8.4-10.2); Carbon Dioxide 32 mmol/L (22-30); Chloride 97 mmol/L (98-107); Estimated CRCL calculation 18 ml/min; Estimated Glomerular Filt Rate 25; Glucose 101 mg/dL (65-105); Potassium 3.9 mmol/L (3.4-5.0); Sodium 135 mmol/L (137-145)
[2020-05-02] MEDS: carvediloL 25 MG TABLET PO (08:17)
[2020-05-02] MEDS: SIMVASTATIN 20 MG TABLET 40 MG PO (08:17)
[2020-05-02] MEDS: amLODIPine BESYLATE 5 MG TABLET PO (08:17)
[2020-05-02] MEDS: FERROUS SULFATE 324 MG TABLET PO (08:17)
[2020-05-02] MEDS: FOLIC ACID 1 MG TABLET PO (08:17)
[2020-05-02] MEDS: ASPIRIN 81 MG ENTERIC TABLET PO (08:17)
[2020-05-02] MEDS: TAMSULOSIN HCL 0.4 MG CAPSULE PO (08:17)
[2020-05-02] MEDS: predniSONE 1 MG TABLET PO (08:17)
[2020-05-02] MEDS: PANTOPRAZOLE 40 MG TABLET PO (08:17)
[2020-05-02] MEDS: CHOLECALCIFEROL 1,000 UNITS TABLET 5000 UNITS PO (08:17)
[2020-05-02] MEDS: FUROSEMIDE 20 MG TABLET PO (08:17)
[2020-05-02] MEDS: ACIDOPHILUS/BULGARICUS CHEWABLE TABLET 1 TABLET BY MOUTH (08:17)
[2020-05-02] MEDS: OLMESARTAN MEDOXOMIL 20 MG TABLET PO (08:17)
[2020-05-02] MEDS: FLUTICASONE/UMECLIDIN/VILANTER 100-62.5-25 MCG ELLIPTA 1 PUFF INHALATION (08:18)
[2020-05-02] MEDS: guaiFENesin 12 HR 600 MG TABCR PO (09:09)
[2020-05-02] MEDS: ENOXAPARIN 30 MG/0.3 ML SYRINGE SUB-Q (09:10)
[2020-05-02] MEDS: ACETAMINOPHEN 325 MG TABLET 650 MG PO (12:49)
--- NOTE | 2020-05-02 13:35 | PM.DS ---
DS: Admitting Diagnosis Admitting Diagnosis Admitting Diagnosis: Hyponatremia DS: Discharge Diagnosis Discharge Diagnosis (1) Acute hyponatremia: Code(s): E87.1 - Hypo-osmolality and hyponatremia Status: Acute Assessment and Plan: Discharge Summary (Date of service 05/02/20): Mrs. Beasley is an 85 y.o. female with PMH significant for CKD, chronic anemia, CHF, COPD, HTN, and several other medical problems who presented to the emergency department 04/27/20 for the evaluation of weakness and concern for low blood pressure. Initial workup in the emergency department was notable for sodium of 119, Cr 1.4, BUN 22, Hb 9.3, Hct 27.7. CT brain demonstrated complete opacification of the left sphenoid sinus and left maxillary sinus with age related findings no acute abnormalities. CXR demonstrated large hiatal hernia and bibasilar opacities with small pleural effusion vs. chronic blunting w/ pulmonary vascular congestion. She was admitted to the hospitalist service for hyponatremia and nephrology was consulted. Hyponatremia was acute on chronic. Baseline is low 130s. Etiology for chronic hyponatremia was felt most likely secondary to kidney disease and excess free water intake. She had been previously on sodium chloride tabs which she ran out of which may have contributed. Sodium slowly improved with fluid restriction and was 135 on the day of discharge. I discussed her case with Dr. Pereyra, nephrology, who will continue to see her outpatient. He recommended that we resume sodium chloride tablets at a reduced dose of 500mg PO BID and continue fluid restriction of 1500cc. She will have a repeat BMP in 1 week for monitoring and was advised to see her PCP in 1 week for follow-up as well as Dr. Pereyra. She was doing very well overall with significant improvement. She did have some orthostasis which improved with increased fluid allowance. She no longer had any dizziness or lightheadedness with standing. She did complain of some mild joint pain the day of discharge and has known rheumatoid arthritis. She felt that her left wrist was bothersome so I did order plain films of the left wrist which showed no acute fracture and mild soft tissue swelling. There was no warmth or erythema. I advised that she take tylenol as needed for pain and use heat or ice as needed. She was advised to follow-up with her tufter operator as they have discussed DMARDs in the past. I advised she follow-up with her PCP should she have any concerns. Worrisome signs and symptoms which would warrant return to the emergency department were discussed. She was discharged in hemodynamically stable condition on the afternoon of 05/02/20. She will have home health for continued PT/OT and blood pressure monitoring. She needs to see her PCP for follow-up regarding her blood pressure as well. Her repeat labs can be drawn by home health. I discussed all of the discharge instructions with her daughter over the phone as well. Please see additional diagnoses for further information. (2) Chronic kidney disease, stage IV (severe): Code(s): N18.4 - Chronic kidney disease, stage 4 (severe) Status: Chronic Assessment and Plan: Creatinine baseline 1.4-1.6, though does appear somewhat fluctuant. CKD likely realted to HTN and possible vascular disease. Cr was 1.9 on the day of discharge, slightly increased from baseline which may be due to fluid restriction in combination with diuretics. I anticipate this will continue to improved with increased fluid allowance and she will have repeat BMP in 1 week for monitoring. (3) Generalized weakness: Code(s): R53.1 - Weakness Status: Acute Assessment and Plan: She expressed generalized weakness, likely related to her acute hyponatremia in combination with chronic anemia and overall physical deconditioning. TSH, B12, and folate wnl. She did very well with PT/OT and was walking with the walker with contact guard. She will continue
[2020-05-02 23:19] LABS: Albumin 3.1 g/dL (3.8-4.8); Alpha 1 Globulin 0.4 g/dL (0.2-0.3); Alpha 2 Globulin 1.1 g/dL (0.5-0.9); Beta 1 Globulin 0.4 g/dL (0.4-0.6); Gamma Globulin 0.6 g/dL (0.8-1.7); Protein, Total 5.8 g/dL (6.1-8.1)
== END 2020-05-02 16:35 | disposition home health service (06) | DRG 641 ==
LOC: ANHED 18:33 → ANH3MED 19:43
PROVIDERS: Internal Medicine; Internal Medicine Nephrology; Physician Assistant; Admitting Provider Internal Medicine; Emergency Provider Emergency Medicine; PCP Family Medicine; Visit Provider Physician Assistant
DX: E87.1 Hypo-osmolality and hyponatremia (principal); I13.0 Hypertensive heart and chronic kidney disease with heart failure and stage 1 through stage 4 chronic kidney disease, or unspecified chronic kidney disease; N18.4 Chronic kidney disease, stage 4 (severe); I50.32 Chronic diastolic (congestive) heart failure; J96.11 Chronic respiratory failure with hypoxia; N17.9 Acute kidney failure, unspecified; D63.1 Anemia in chronic kidney disease; I95.9 Hypotension, unspecified; R53.1 Weakness; R93.0 Abnormal findings on diagnostic imaging of skull and head, not elsewhere classified; M06.9 Rheumatoid arthritis, unspecified; J44.9 Chronic obstructive pulmonary disease, unspecified; K22.70 Barrett's esophagus without dysplasia; K21.9 Gastro-esophageal reflux disease without esophagitis; E55.9 Vitamin D deficiency, unspecified; M81.0 Age-related osteoporosis without current pathological fracture; Z66 Do not resuscitate; Z79.899 Other long term (current) drug therapy; Z99.81 Dependence on supplemental oxygen; Z85.01 Personal history of malignant neoplasm of esophagus; Z86.010 Personal history of colon polyps; Z87.891 Personal history of nicotine dependence
CPT/HCPCS: 36415; 70450; 71046; 73110; 80048; 80053; 80069; 81001; 82274; 82533; 82570; 82607; 82728; 82746; 83540; 83550; 83735; 83930; 83935; 84155; 84165; 84295; 84300; 84443; 84484; 85025; 85027; 85046; 93005; 96360; 97110; 97116; 97161; 97165; 97530; 97535; 99285; A9270; G0378; J1650; J3475; J7030; J7040; J7120

== ENCOUNTER 2020-05-09 09:56 | Outpatient (NON) | payer MEDICARE, OTHER, SELFPAY ==
[2020-05-09 10:21] LABS: Hematocrit 28.4 % (37.0-47.0); Hemoglobin 10.6 g/dL (12.0-15.0); Mean Corpuscular HGB Conc 37.3 g/dl (32-36); Mean Corpuscular Hemoglobin 32.2 pg (26-34); Mean Corpuscular Volume 86.3 fl (80-100); Mean Platelet Volume 9.3 fl (7.4-10.4); Platelet Count Result 286 k/mm3 (150-375); Red Blood Count 3.29 M/mm3 (4.2-5.4); Red Cell Distribution Width 15.4 % (11.5-14.5); White Blood Count 8.2 K/mm3 (4.5-10.0)
[2020-05-09 10:34] LABS: Anion Gap 10 mmol/L (8-16); Blood Urea Nitrogen 25 mg/dL (7-17); Calcium 9.1 mg/dL (8.4-10.2); Carbon Dioxide 27 mmol/L (22-30); Chloride 103 mmol/L (98-107); Estimated Glomerular Filt Rate 25; Glucose 109 mg/dL (65-105); Potassium 3.6 mmol/L (3.4-5.0); Sodium 140 mmol/L (137-145)
== END 2020-05-09 09:57 ==
PROVIDERS: PCP Family Medicine; Visit Provider Physician Assistant
DX: E87.1 Hypo-osmolality and hyponatremia (principal); N18.32 Chronic kidney disease, stage 3b; D63.1 Anemia in chronic kidney disease
CPT/HCPCS: 80048; 85027

== ENCOUNTER 2020-06-06 15:41 | Inpatient (IN) | payer MEDICARE, OTHER, SELFPAY ==
[2020-06-06] VITALS (7 sets, daily range): BP systolic 103–125; BP diastolic 57–70; PULSE 62–79; RESP 13–18; TEMP 35.8–36.4; O2SAT 94–97; BMI 28.5
--- NOTE | ~2020-06-06 | XR_ITS ---
EXAMINATION: XR chest 2V DATE: 06/11/2020 09:26 INDICATION: Shortness of breath. TECHNIQUE: Frontal and lateral views of the chest were obtained. COMPARISON: Chest 2 views 04/29/2020, chest CT 01/27/2020 FINDINGS: There are reticular opacities in the mid and lower lung zones. There are airspace opacities in the lower lobes. There is likely a small right pleural effusion. No pneumothorax. There is a larg e hiatal hernia. Cardiomegaly is noted. Again seen is a healing two-part fracture of proximal right h umerus. IMPRESSION: 1. Reticular opacities in the mid and lower lung zones and airspace opacities in the lower lobes, con sistent with atelectasis versus pneumonia superimposed on chronic interstitial lung disease. 2. Small right pleural effusion. 3. Large hiatal hernia. 4. Cardiomegaly. Reviewed, dictated and finalized at location B. IMPRESSION: 1. Reticular opacities in the mid and lower lung zones and airspace opacities i n the lower lobes, consistent with atelectasis versus pneumonia superimposed on chronic interstitial lung disease. 2. Small right pleural effusion. 3. Large hiatal hernia. 4. Cardiomegaly.
--- NOTE | ~2020-06-06 | XR_ITS ---
EXAMINATION: XR wrist LT 2V DATE: 06/09/2020 09:51 INDICATION: Left wrist pain and swelling TECHNIQUE: Posteroanterior and lateral views of the left wrist were obtained. COMPARISON: Left wrist radiographs dated 05/02/2020 and left hand radiographs dated 12/28/2011 FINDINGS: Diffuse osteopenia. No fracture. Chronic polyarticular osteoarthritis, severe at the triscaphe and fi rst carpal metacarpal joints, moderate to severe at the midcarpal, second and third proximal interpha langeal and fifth distal interphalangeal joint, moderate severity at the first and second metacarpoph alangeal and fourth and fifth interphalangeal joints and mild at the distal radioulnar, wrist and rem aining metacarpophalangeal and interphalangeal joints. Soft tissue swelling about the dorsal and ulna r aspects of the carpus and increased signal along the ulnar aspect of the wrist and distal forearm. IMPRESSION: 1. Nonspecific soft tissue on both the resting increasing along the ulnar side of the distal forearm. No acute osseous abnormality. 2. Diffuse osteopenia and moderate to severe polyarticular osteoarthritis. Reviewed, dictated and finalized at location A.
[2020-06-06 16:07] LABS: Basophils Absolute Auto 0.1 K/mm3 (0.0-0.1); Basophils Percent Auto 0.6 % (0.2-1.2); Eosinophils Absolute Auto 0.2 K/mm3 (0-0.3); Eosinophils Percent Auto 1.9 % (0-4.4); Hemoglobin 9.8 g/dL (12.0-15.0); Immature Granulocyte Absolute 0.05 K/mm3 (0.00-0.031); Immature Granulocyte Percent A 0.5 % (0-0.5); Lymphocytes Percent Auto 13.1 % (18.3-44.2); Mean Corpuscular HGB Conc 31.6 g/dl (32-36); Mean Corpuscular Hemoglobin 26.6 pg (26-34); Mean Platelet Volume 9.1 fl (7.4-10.4); Monocytes Absolute Auto 0.7 K/mm3 (0.1-0.6); Monocytes Percent Auto 6.7 % (2.6-8.5); Neutrophils Absolute Auto 8.3 K/mm3 (1.3-6.7); Neutrophils Percent Auto 77.2 % (45.5-73.1); Platelet Count Result 266 k/mm3 (150-375); Red Blood Count 3.69 M/mm3 (4.2-5.4); Red Cell Distribution Width 16.9 % (11.5-14.5); White Blood Count 10.7 K/mm3 (4.5-10.0)
[2020-06-06 16:19] LABS: Anion Gap 12 mmol/L (8-16); Blood Urea Nitrogen 52 mg/dL (7-17); Calcium 8.8 mg/dL (8.4-10.2); Carbon Dioxide 25 mmol/L (22-30); Chloride 100 mmol/L (98-107); Estimated CRCL calculation 10 ml/min; Estimated Glomerular Filt Rate 13; Glucose 134 mg/dL (65-105); Potassium 3.4 mmol/L (3.4-5.0); Sodium 137 mmol/L (137-145)
--- NOTE | 2020-06-06 19:21 | ED.GENADULT ---
HPI - General Adult General Chief complaint: Back Pain/Injury Stated complaint: Back Pain, No Urination in 24 Hrs Time Seen by Provider: 06/06/20 18:39 History of Present Illness HPI narrative: Patient is an 85-year-old female who presents ER with inability to urinate. Ongoing for the last 2 days. Has been on a fluid restriction for several weeks due to hyponatremia. She drinks 316 ounce bottles of water a day. She reports she feels like she needs to urinate but can get out no more than a teaspoon. She has had no overflow incontinence. She was without dysuria. She has some mild low back pain in the right SI region that occasionally goes into her leg. She is without saddle anesthesia. She is able to control her bowel function. No trauma to the back. Has taken a little bit of ibuprofen but does not take it daily. She does takes low-dose prednisone daily for her rheumatoid arthritis. Related Data Home Medications Medication Instructions Recorded Confirmed cholecalciferol (vitamin D3) 125 5,000 unit PO DAILY 01/27/19 04/27/20 mcg (5,000 unit) capsule tramadol 50 mg PO Q6HR PRN 04/27/20 04/27/20 Allergies Allergy/AdvReac Type Severity Reaction Status Date / Time ampicillin Allergy Unknown ,Hives Verified 06/06/20 18:59 cyclobenzaprine Allergy Unknown Confusion,l Verified 06/06/20 18:59 oopy Review of Systems Review of Systems: All systems reviewed & are unremarkable except as noted in HPI and below Constitutional: Constitutional: Denies chills, Denies fever(s) and Denies weakness ENT: Denies nasal congestion and Denies sore throat Cardiovascular: Cardiovascular: Denies chest pain, Denies rapid heart rate and Denies radiating jaw, neck or arm pain Respiratory: Respiratory: Denies cough, Denies dyspnea and Denies wheezing Musculoskeletal: Musculoskeletal: Reports back pain Neurologic: Denies focal weakness and Denies numbness [facility] Past Medical History Medical History (Updated 06/06/20 @ 22:53 by Jason Richter MD) 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 Chronic kidney disease, stage 4 (severe) Baseline creatinine is between 1.4 and 1.60. Chronic obstructive pulmonary disease Chronic respiratory failure with hypoxia, on home oxygen therapy Gastroesophageal reflux disease Hypertension Non-STEMI (non-ST elevated myocardial infarction) (~02/2020) Patient had no anginal symptoms and echocardiogram was unremarkable. Osteoporosis Rheumatoid arthritis Vitamin D deficiency Surgical History Surgical History History of ankle surgery (~2014) ORIF left ankle fracture. History of appendectomy (~2009) History of bunionectomy of right great toe History of section History of cholecystectomy (~2001) History of hammertoe correction History of left hip replacement (~12/2016) Due to left hip fracture sustained in a fall. History of umbilical hernia repair Family History Family History Mother Diabetes mellitus Father Hypertension Other Asthma Social History Social History Social History: The patient has been for many years and lives in [place] with her cat. She has 4 daughters, 1 who is . The patient grew up in [facility]. She is a former smoker, perhaps 1/4 to 1 pack of cigarettes a day for about 20 years. She quit in 1977. No alcohol or illicit substance use. Daughters Flavia Rogers and Miley Zacarias are her emergency contacts. She is listed as a DNR. Smoking packs per day: 1 Smoking cigarettes per day: 20.0 Years smo
--- NOTE | 2020-06-06 19:48 | PC.NURSE ---
Pt presents to ED with complaints of back pain and urinary retention for the past 27 hours. Per daughter, who is present at bedside, pt has been complaining of lower back pain since Thursday and has not urinated since yesterday at approx 1600. Pt straight cath's with an out put of 400ml; EDMD notified. Pt alert and oriented to baseline. Pt rates pain 10/10 at this time. Denies nvd, fever and chills. Pt currently afebrile. Breathing noted to be even and unlabored. Call button and personal items within reach. Advised to press call button for assistance.
[2020-06-06 19:55] LABS: Add Urine Microscopic? YES; Appearance Urine Cloudy (Clear); Bacteria Urine Trace /hpf; Bilirubin Urine Negative (Negative); Blood Urine Negative (Negative); Color Urine Yellow (Yellow); Glucose Urine UA Negative (Negative); Ketones Urine Negative (Negative); Leukocyte Esterase Ur 3+ LEU/UL (Negative); Nitrate Urine Negative (Negative); Protein Urine Negative (Negative); Specific Grav Ur 1.009 (1.001-1.035); Urobilinogen Urine Negative mg/dL (<2.0); WBC Clumps Urine Present /HPF; WBC Urine >75 /hpf
[2020-06-06] MEDS: fentaNYL CITRATE INJ (*CRX) 100 MCG/2 ML VIAL 50 MCG IV PUSH ×2 (20:48→22:40)
[2020-06-06] MEDS: SODIUM CHLORIDE 0.9% IV 1,000 ML 999 ML IV CONT (20:49)
[2020-06-06] MEDS: LACTATED RINGERS 1,000 ML 125 ML IV CONT (22:07)
--- NOTE | 2020-06-06 22:34 | PC.NURSE ---
Report called to Ashlynn. GUTIERREZ to send to floor.
--- NOTE | 2020-06-06 23:15 | ADMGEN ---
This patient, Jackelin Beasley, was admitted to Medical Room 341-01. Patient/family oriented to hospital policies and general routines including ID bracelet, bed and alarms, visiting hours, pain management, procedures, bathroom and other care routines, personal items, smoking policy, room service/diet, and visiting hours. Information on how to activate the Rapid Response Team has been discussed. Patient/Family are encouraged to report perceived risks to care and to ask questions if they do not understand what they are told or what they should do.
[2020-06-07] VITALS (8 sets, daily range): BP systolic 92–114; BP diastolic 53–73; PULSE 68–80; RESP 16–18; TEMP 36.2–36.4; O2SAT 91–98; BMI 28.5
--- NOTE | 2020-06-07 01:13 | PM.IMHP ---
H&P: HPI History of Present Illness Date/Time: 06/07/20 01:13 Chief Complaint: Urinary retention++ Narrative: This is a pleasant 85 year old female with known CKD stage IV, CHF, and HTN presented to the hospital yesterday after she couldn't urinate. She reports that she last urinated over 24 hours before. The patient reports having had a sensation to urinate but simply could not urinate. She was straight cathed in the ER and shortly afterwards she again had the urge to urinate except this time she was able to urinate. The patient also reported low back pain while in the ER. Routine labs that were obtained demonstrated worsening renal failure and an abnormal urinalysis. She denied any fevers, chills, cough, headache, chest pain, abdominal pain, nausea, vomiting, diarrhea, or rectal bleeding. The patient uses NSAIDs sporadically. The patient has been treated with IV fluids and IV antibiotics. ER provider has consulted Nephrology. No other complaints. 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 Chronic kidney disease, stage 4 (severe) Baseline creatinine is between 1.4 and 1.60. Chronic obstructive pulmonary disease Chronic respiratory failure with hypoxia, on home oxygen therapy Gastroesophageal reflux disease Hypertension Non-STEMI (non-ST elevated myocardial infarction) (~02/2020) Patient had no anginal symptoms and echocardiogram was unremarkable. Osteoporosis Rheumatoid arthritis Vitamin D deficiency Surgical History Surgical History History of ankle surgery (~2014) ORIF left ankle fracture. History of appendectomy (~2009) History of bunionectomy of right great toe History of section History of cholecystectomy (~2001) History of hammertoe correction History of left hip replacement (~12/2016) Due to left hip fracture sustained in a fall. History of umbilical hernia repair Family History Family History Mother Diabetes mellitus Father Hypertension Other Asthma Social History Social History Social History: The patient has been for many years and lives in [place] with her cat. She has 4 daughters, 1 who is . The patient grew up in [facility]. She is a former smoker, perhaps 1/4 to 1 pack of cigarettes a day for about 20 years. She quit in 1977. No alcohol or illicit substance use. Daughters Flavia Rogers and Miley Zacarias are her emergency contacts. She is listed as a DNR. Smoking packs per day: 1 Smoking cigarettes per day: 20.0 Years smoked: 25 Smoking pack-years: 25.00 Smoking status: Former smoker Tobacco type: cigarettes Second hand tobacco smoke exposure: Yes Alcohol intake: never Substance use: never Substance use type: does not use Gender identity (if verbalized by the patient): Female Spiritual care concerns: No Meds Home Medications and Allergies Home Medications Medication Instructions Recorded Confirmed Type cholecalciferol (vitamin D3) 125 5,000 unit PO DAILY 01/27/19 06/06/20 History mcg (5,000 unit) capsule Adult 50 Plus Probiotic 4,000 mmu cells PO DAILY #30 cap 03/26/20 06/06/20 Rx Trelegy Ellipta 1 inh INHALATION DAILY #1 ea 03/26/20 06/06/20 Rx aspirin 81 mg PO DAILY #30 tablet 03/26/20 06/06/20 Rx carvedilol 25 mg PO Q12H #60 tablet 03/26/20 06/06/20 Rx docusate sodium 100 m
[2020-06-07 05:41] LABS: Basophils Percent Auto 0.5 % (0.2-1.2); Eosinophils Absolute Auto 0.2 K/mm3 (0-0.3); Eosinophils Percent Auto 2.7 % (0-4.4); Hemoglobin 8.9 g/dL (12.0-15.0); Immature Granulocyte Absolute 0.04 K/mm3 (0.00-0.031); Immature Granulocyte Percent A 0.5 % (0-0.5); Lymphocytes Absolute Auto 1.39 K/mm3 (0.9-3.2); Lymphocytes Percent Auto 16.8 % (18.3-44.2); Mean Corpuscular HGB Conc 31.8 g/dl (32-36); Mean Corpuscular Hemoglobin 26.8 pg (26-34); Mean Corpuscular Volume 84.3 fl (80-100); Mean Platelet Volume 9.1 fl (7.4-10.4); Monocytes Absolute Auto 0.6 K/mm3 (0.1-0.6); Monocytes Percent Auto 7.2 % (2.6-8.5); Neutrophils Percent Auto 72.3 % (45.5-73.1); Platelet Count Result 240 k/mm3 (150-375); Red Blood Count 3.32 M/mm3 (4.2-5.4); Red Cell Distribution Width 16.7 % (11.5-14.5); White Blood Count 8.3 K/mm3 (4.5-10.0)
[2020-06-07 05:53] LABS: Anion Gap 11 mmol/L (8-16); Blood Urea Nitrogen 44 mg/dL (7-17); Calcium 8.6 mg/dL (8.4-10.2); Carbon Dioxide 23 mmol/L (22-30); Chloride 105 mmol/L (98-107); Estimated CRCL calculation 12 ml/min; Estimated Glomerular Filt Rate 17; Glucose 88 mg/dL (65-105); Magnesium 0.9 mg/dL (1.6-2.3); Sodium 139 mmol/L (137-145)
[2020-06-07] MEDS: LACTATED RINGERS 1,000 ML 125 ML IV CONT ×2 (07:22→17:16)
[2020-06-07] MEDS: SODIUM CHLORIDE 0.9% IV 1,000 ML 100 ML IV CONT (08:32)
[2020-06-07] MEDS: FOLIC ACID 1 MG TABLET PO (08:33)
[2020-06-07] MEDS: TAMSULOSIN HCL 0.4 MG CAPSULE PO (08:33)
[2020-06-07] MEDS: CHOLECALCIFEROL 1,000 UNITS TABLET 5000 UNITS PO (08:33)
[2020-06-07] MEDS: carvediloL 25 MG TABLET PO ×2 (08:34→20:02)
[2020-06-07] MEDS: amLODIPine BESYLATE 5 MG TABLET PO (08:34)
[2020-06-07] MEDS: predniSONE 1 MG TABLET PO (08:34)
[2020-06-07] MEDS: ASPIRIN 81 MG ENTERIC TABLET PO (08:34)
[2020-06-07] MEDS: PANTOPRAZOLE 40 MG TABLET PO ×2 (08:34→17:18)
[2020-06-07] MEDS: FERROUS SULFATE 324 MG TABLET PO ×2 (08:35→17:18)
[2020-06-07] MEDS: SIMVASTATIN 20 MG TABLET 40 MG PO (08:35)
--- NOTE | 2020-06-07 12:40 | PM.IMPN ---
Progress Note: A&P Assessment and Plan (1) Acute on chronic kidney failure: Code(s): N17.9 - Acute kidney failure, unspecified; N18.9 - Chronic kidney disease, unspecified Status: Acute Assessment and Plan: Acute worsening renal function appears to be postrenal and secondary to urinary retention. The patient is now urinating on her own. Monitor renal function and urine output. Continue IV fluids that were started in the ER. Avoid nephrotoxic agents, renally dose medications. Nephrology was consulted by ER provider. Consider Urology consultation if the patient has any further urinary retention. 06/07/20 12:40 Patient 85-year-old female with recently discharged from the hospital after patient was treated for hyponatremia and was instructed to limit her fluid intake, however patient presented emergency department with complaint unable to urinate as patient was taking small amount of fluid, patient was straight cathed in the ER, he was started on IV fluid state improve her urine output, patient urine does show greater than 75 leuckcytes and suspicious for UTI patient started on ceftriaxone and being gently hydrated, follow-up on urine culture and sensitivity, will continue to monitor will have a PT OT evaluate the patient and further recommendation to follow. (2) Complicated UTI (urinary tract infection): Code(s): N39.0 - Urinary tract infection, site not specified Status: Acute Assessment and Plan: Continue IV antibiotics, urine culture pending. (3) Chronic respiratory failure with hypoxia, on home oxygen therapy: Code(s): J96.11 - Chronic respiratory failure with hypoxia; Z99.81 - Dependence on supplemental oxygen Status: Chronic Assessment and Plan: Continue oxygen therapy. (4) Chronic anemia: Code(s): D64.9 - Anemia, unspecified Status: Chronic Assessment and Plan: No signs of acute blood loss. Monitor H/H, transfuse prn. (5) HTN (hypertension): Code(s): I10 - Essential (primary) hypertension Status: Chronic Assessment and Plan: monitor blood pressure. continue amlodipine. (6) Gastroesophageal reflux disease: Code(s): K21.9 - Gastro-esophageal reflux disease without esophagitis Status: Chronic Assessment and Plan: Continue PPI therapy. (7) Hyperlipidemia: Code(s): E78.5 - Hyperlipidemia, unspecified Status: Chronic Assessment and Plan: Continue simvastatin PO. Subjective Date/time seen: 06/07/20 12:40 Patient 85-year-old female with recently discharged from the hospital after patient was treated for hyponatremia and was instructed to limit her fluid intake, however patient presented emergency department with complaint unable to urinate as patient was taking small amount of fluid, patient was straight cathed in the ER, he was started on IV fluid state improve her urine output, patient urine does show greater than 75 leuckcytes and suspicious for UTI patient started on ceftriaxone and being gently hydrated, follow-up on urine culture and sensitivity, will continue to monitor will have a PT OT evaluate the patient and further recommendation to follow. Review of Systems Review of Systems: All systems reviewed & are unremarkable except as noted in HPI and below Exam Narrative: Exam Narrative: Elderly frail Patient is comfortable, NAD HEENT: eyes are clear and none icteric LUNGS:CTA HEART: RR S1S2 ABD: BS+, Soft and nontender Lower extremities: no edema SKIN: nonjaundiced Neuro: grossly intact. Objective Data Vital Signs Vital Signs: Vital Signs - 24 hr 06/06/20 15:55 06/06/20 19:00 06/06/20 19:52 Temperature 96.4 F L 97.5 F L Pulse Rate 68 62 67 Respiratory Rate 16 18 17 Blood Pressure 107/59 L 122/68 112/63 Pulse Oximetry 95 97 97 06/06/20 20:56 06/06/20 21:48 06/06/20 22:35 Temperature Pulse Rate 68 73 79 Respiratory Rate 13 18 Blood Pressure 103/57 L 109/70 118/66
--- NOTE | 2020-06-07 14:40 | PM.CNNEP ---
Assessment and Plan Assessment and plan (1) SHAVONNE (acute kidney injury): Code(s): N17.9 - Acute kidney failure, unspecified Status: Acute Assessment and Plan: presumably due to urinary retention and possible infection (UTI) gentle IVFs -- monitor closely as she has diastolic heart failure follow trend of repeat labs and UOP (2) Chronic kidney disease, stage 4 (severe): Code(s): N18.4 - Chronic kidney disease, stage 4 (severe) Status: Chronic Assessment and Plan: baseline creatinine runs around 1.4 - 1.9mg/dl due to hypertension, vascular disease, and age (based on outpatient evaluation) (3) Complicated UTI (urinary tract infection): Code(s): N39.0 - Urinary tract infection, site not specified Status: Acute Assessment and Plan: urinalysis highly suggestive follow-up on urine culture on antibiotics (4) Urinary retention: Code(s): R33.9 - Retention of urine, unspecified Status: Acute Assessment and Plan: s/p straight catheterization follow bladder scans consider Urology consultation if recurs (5) Anemia: Code(s): D64.9 - Anemia, unspecified Status: Acute Assessment and Plan: due to CKD and acute infection follow trend of H/H (6) HTN (hypertension): Code(s): I10 - Essential (primary) hypertension Status: Chronic Assessment and Plan: BP a bit on the low side will BP medication with parameters follow trend of hemodynamics (7) Chronic respiratory failure with hypoxia, on home oxygen therapy: Code(s): J96.11 - Chronic respiratory failure with hypoxia; Z99.81 - Dependence on supplemental oxygen Status: Chronic Assessment and Plan: due to interstittial lung disease on chronic oxygen Will continue to follow. History of Present Illness Reason for Consult Consult date: 06/07/20 Reason for consult: acute renal failure (on chronic kidney disease stage 4) Chief Complaint Chief complaint: shavonne, uti History of Present Illness Narrative: The patient is a 85 year old female with and extensive past medical history as outlined below who presented to [facility] ER with complaints of difficulty urinating. The patient reports having had a sensation to urinate but simply could not urinate. This problems has been going on for at least 24 hours but denies any other symptoms with regard to fevers, chills, cough, headache, chest pain, abdominal pain, nausea, vomiting, diarrhea, or rectal bleeding. Due to the persistence of her in ability to urinate, she came to the ER for further evaluation. Workup and evaluation emergency room demonstrated the patient to be relatively hypotensive (systolic BP in the mid 90s) but otherwise in no acute distress. Given her acute complaints, she underwent a straight catheterization which clinically / symptomatic we made her feel better but I am unclear if she had a significant amount of urine retained as there is no documentation of what her urine output was following this procedure. However, when she had the urge to urinate again, she was able to do so without the need for any intervention. Her urinalysis was somewhat concerning for possible urinary tract infection as well. routine blood test demonstrated labs consistent with her known history of chronic kidney disease however her kidney function had was somewhat worse than baseline. Her CBC was consistent with her known history of chronic anemia with no other significant findings. Given these laboratory abnormalities as well as the symptoms that led to her presentation to the emergency room, the patient was admitted to the hospital for further evaluation and therapy Renal consultation was requested due to her acute kidney injury on her chronic kidney disease. The patient is familiar to me as I take care of her outpatient chronic kidney disease needs in the office. She normally runs a baseline cr
[2020-06-07] MEDS: HYDROcodone/acetaminophen (*CRX) 5-325 MG TABLET 1 TAB PO (20:00)
[2020-06-08] MEDS: HYDROcodone/acetaminophen (*CRX) 5-325 MG TABLET 1 TAB PO (03:23)
[2020-06-08] MEDS: SODIUM CHLORIDE 0.9% IV 1,000 ML 100 ML IV CONT ×2 (03:23→18:23)
[2020-06-08 04:36] VITALS: BP 107/61; PULSE 69; RESP 18; TEMP 36.1; O2SAT 95
[2020-06-08 05:47] LABS: Hematocrit 27.2 % (37.0-47.0); Hemoglobin 8.6 g/dL (12.0-15.0); Mean Corpuscular HGB Conc 31.6 g/dl (32-36); Mean Corpuscular Hemoglobin 26.3 pg (26-34); Mean Corpuscular Volume 83.2 fl (80-100); Mean Platelet Volume 9.1 fl (7.4-10.4); Platelet Count Result 241 k/mm3 (150-375); Red Blood Count 3.27 M/mm3 (4.2-5.4); Red Cell Distribution Width 16.9 % (11.5-14.5); White Blood Count 9.6 K/mm3 (4.5-10.0)
[2020-06-08 06:03] LABS: Anion Gap 7 mmol/L (8-16); Blood Urea Nitrogen 31 mg/dL (7-17); Calcium 8.3 mg/dL (8.4-10.2); Carbon Dioxide 27 mmol/L (22-30); Chloride 106 mmol/L (98-107); Estimated CRCL calculation 17 ml/min; Estimated Glomerular Filt Rate 24; Glucose 97 mg/dL (65-105); Potassium 2.9 mmol/L (3.4-5.0); Sodium 140 mmol/L (137-145)
[2020-06-08 08:03] LABS: Magnesium 0.9 mg/dL (1.6-2.3)
[2020-06-08] MEDS: FERROUS SULFATE 324 MG TABLET PO ×2 (08:36→17:09)
[2020-06-08] MEDS: FLUTICASONE/UMECLIDIN/VILANTER 100-62.5-25 MCG ELLIPTA 1 PUFF INHALATION (08:36)
[2020-06-08] MEDS: predniSONE 1 MG TABLET PO (08:36)
[2020-06-08 08:37] VITALS: PULSE 69
[2020-06-08] MEDS: POTASSIUM CHLORIDE 20 MEQ TABLET 40 MEQ PO (08:37)
[2020-06-08] MEDS: carvediloL 25 MG TABLET PO ×2 (08:37→20:53)
[2020-06-08] MEDS: amLODIPine BESYLATE 5 MG TABLET PO (08:37)
[2020-06-08] MEDS: ASPIRIN 81 MG ENTERIC TABLET PO (08:37)
[2020-06-08] MEDS: FOLIC ACID 1 MG TABLET PO (08:38)
[2020-06-08] MEDS: SIMVASTATIN 20 MG TABLET 40 MG PO (08:38)
[2020-06-08] MEDS: CHOLECALCIFEROL 1,000 UNITS TABLET 5000 UNITS PO (08:38)
[2020-06-08] MEDS: PANTOPRAZOLE 40 MG TABLET PO ×2 (08:38→17:10)
[2020-06-08] MEDS: TAMSULOSIN HCL 0.4 MG CAPSULE PO (08:38)
[2020-06-08] MEDS: MAGNESIUM SULFATE 3GM/D5W100ML 3 GM/100 ML BAG IVPB (10:31)
--- NOTE | 2020-06-08 12:55 | PM.IMPN ---
Progress Note: A&P Assessment and Plan (1) Acute on chronic kidney failure: Code(s): N17.9 - Acute kidney failure, unspecified; N18.9 - Chronic kidney disease, unspecified Status: Acute Assessment and Plan: Acute worsening renal function appears to be postrenal and secondary to urinary retention. The patient is now urinating on her own. Monitor renal function and urine output. Continue IV fluids that were started in the ER. Avoid nephrotoxic agents, renally dose medications. Nephrology was consulted by ER provider. Consider Urology consultation if the patient has any further urinary retention. 06/08/20 12:55 06/07 Patient 85-year-old female with recently discharged from the hospital after patient was treated for hyponatremia and was instructed to limit her fluid intake, however patient presented emergency department with complaint unable to urinate as patient was taking small amount of fluid, patient was straight cathed in the ER, he was started on IV fluid state improve her urine output, patient urine does show greater than 75 leuckcytes and suspicious for UTI patient started on ceftriaxone and being gently hydrated, follow-up on urine culture and sensitivity, will continue to monitor will have a PT OT evaluate the patient and further recommendation to follow. 06/08 urine culture is growing E coli sensitive to Rocephin will continue, seen by Nephrology recommended to continue gentle hydration and closely monitor as patient has a diastolic dysfunction, today patient states feeling much better denies any abdominal pain nausea or vomiting fever or chills, patient's sodium is close to normal, will continue present management will have a PT OT evaluate the patient and further recommendation to follow. (2) Complicated UTI (urinary tract infection): Code(s): N39.0 - Urinary tract infection, site not specified Status: Acute Assessment and Plan: Continue IV antibiotics, urine culture pending. (3) Chronic respiratory failure with hypoxia, on home oxygen therapy: Code(s): J96.11 - Chronic respiratory failure with hypoxia; Z99.81 - Dependence on supplemental oxygen Status: Chronic Assessment and Plan: Continue oxygen therapy. (4) Chronic anemia: Code(s): D64.9 - Anemia, unspecified Status: Chronic Assessment and Plan: No signs of acute blood loss. Monitor H/H, transfuse prn. (5) HTN (hypertension): Code(s): I10 - Essential (primary) hypertension Status: Chronic Assessment and Plan: monitor blood pressure. continue amlodipine. (6) Gastroesophageal reflux disease: Code(s): K21.9 - Gastro-esophageal reflux disease without esophagitis Status: Chronic Assessment and Plan: Continue PPI therapy. (7) Hyperlipidemia: Code(s): E78.5 - Hyperlipidemia, unspecified Status: Chronic Assessment and Plan: Continue simvastatin PO. Subjective Date/time seen: 06/08/20 12:55 06/07 Patient 85-year-old female with recently discharged from the hospital after patient was treated for hyponatremia and was instructed to limit her fluid intake, however patient presented emergency department with complaint unable to urinate as patient was taking small amount of fluid, patient was straight cathed in the ER, he was started on IV fluid state improve her urine output, patient urine does show greater than 75 leuckcytes and suspicious for UTI patient started on ceftriaxone and being gently hydrated, follow-up on urine culture and sensitivity, will continue to monitor will have a PT OT evaluate the patient and further recommendation to follow. 06/08 urine culture is growing E coli sensitive to Rocephin will continue, seen by Nephrology recommended to continue gentle hydration and closely monitor as patient has a diastolic dysfunction, today patient states feeling much better denies any abdominal pain nausea or vomiting fever or chills, patient's sodium
--- NOTE | 2020-06-08 13:45 | P.PNNP_ITS ---
Progress Note: A&P Assessment and Plan (1) SHAVONNE (acute kidney injury): Code(s): N17.9 - Acute kidney failure, unspecified Status: Acute Assessment and Plan: * resolving * presumably due to urinary retention and infection (UTI) * gentle IVFs -- monitor closely as she has diastolic heart failure; probably okay to stop if she is eating and drinking okay * follow trend of repeat labs and UOP (2) Chronic kidney disease, stage 4 (severe): Code(s): N18.4 - Chronic kidney disease, stage 4 (severe) Status: Chronic Assessment and Plan: * baseline creatinine runs around 1.4 - 1.9mg/dl * due to hypertension, vascular disease, and age (based on outpatient evaluation) (3) Complicated UTI (urinary tract infection): Code(s): N39.0 - Urinary tract infection, site not specified Status: Acute Assessment and Plan: * urine culture with E.coli * on antibiotics (4) Urinary retention: Code(s): R33.9 - Retention of urine, unspecified Status: Acute Assessment and Plan: * s/p straight catheterization * follow bladder scans * consider Urology consultation if recurs (5) Anemia: Code(s): D64.9 - Anemia, unspecified Status: Acute Assessment and Plan: * due to CKD and acute infection * follow trend of H/H (6) HTN (hypertension): Code(s): I10 - Essential (primary) hypertension Status: Chronic Assessment and Plan: * BP a bit on the low side * will BP medication with parameters * follow trend of hemodynamics (7) Chronic respiratory failure with hypoxia, on home oxygen therapy: Code(s): J96.11 - Chronic respiratory failure with hypoxia; Z99.81 - Dependence on supplemental oxygen Status: Chronic Assessment and Plan: * due to interstittial lung disease * on chronic oxygen Will continue to follow. Subjective Date/time seen: 06/08/20 13:45 Overall, she states she feels better but says she is stiff referring to upper and lower extremities; no other acute issues or complaints voiced; no apparent distress noted at the time of my visit. Exam Narrative: Exam Narrative: General: WD/WN female in NAD Heart: normal S1 and S2; no rub Lungs: clear to auscultation Abdomen: soft, nontender, nondistended, positive bowel sounds Extremities: no cyanosis or clubbing; no edema Skin: warm and dry Objective Data Vital Signs Vital Signs: Vital Signs Temp Pulse Resp BP Pulse Ox 06/08/20 08:37 69 06/08/20 04:36 36.1 C L 69 18 107/61 95 06/07/20 20:22 93 06/07/20 20:02 78 06/07/20 19:31 36.2 C L 78 18 99/73 L 93 Intake/Output Intake/Output: Intake & Output 06/05/20 06/06/20 06/07/20 06/08/20 23:59 23:59 23:59 23:59 Intake Total 1050 2410 1660 Output Total 1400 500 Balance 1050 1010 1160 Meds/Results Medications: Active Medications Generic Name Dose Route Start Last Admin Trade Name Freq PRN Reason Stop Dose Admin Acetaminophen 650 mg 06/06/20 21:39 Acetaminophen 325 Mg Tablet PO Q4H PRN Mild Pain (1-3) or Fever Hydrocodone Bitart/Acetaminophen 1 tab 06/06/20 21:39 06/08/20 03:23 Hydrocodone/Acetaminophen (*Crx) 5-325 Mg T
--- NOTE | 2020-06-08 13:45 | PM.PNNEP ---
Progress Note: A&P Assessment and Plan (1) SHAVONNE (acute kidney injury): Code(s): N17.9 - Acute kidney failure, unspecified Status: Acute Assessment and Plan: resolving presumably due to urinary retention and infection (UTI) gentle IVFs -- monitor closely as she has diastolic heart failure; probably okay to stop if she is eating and drinking okay follow trend of repeat labs and UOP (2) Chronic kidney disease, stage 4 (severe): Code(s): N18.4 - Chronic kidney disease, stage 4 (severe) Status: Chronic Assessment and Plan: baseline creatinine runs around 1.4 - 1.9mg/dl due to hypertension, vascular disease, and age (based on outpatient evaluation) (3) Complicated UTI (urinary tract infection): Code(s): N39.0 - Urinary tract infection, site not specified Status: Acute Assessment and Plan: urine culture with E.coli on antibiotics (4) Urinary retention: Code(s): R33.9 - Retention of urine, unspecified Status: Acute Assessment and Plan: s/p straight catheterization follow bladder scans consider Urology consultation if recurs (5) Anemia: Code(s): D64.9 - Anemia, unspecified Status: Acute Assessment and Plan: due to CKD and acute infection follow trend of H/H (6) HTN (hypertension): Code(s): I10 - Essential (primary) hypertension Status: Chronic Assessment and Plan: BP a bit on the low side will BP medication with parameters follow trend of hemodynamics (7) Chronic respiratory failure with hypoxia, on home oxygen therapy: Code(s): J96.11 - Chronic respiratory failure with hypoxia; Z99.81 - Dependence on supplemental oxygen Status: Chronic Assessment and Plan: due to interstittial lung disease on chronic oxygen Will continue to follow. Subjective Date/time seen: 06/08/20 13:45 Overall, she states she feels better but says she is stiff referring to upper and lower extremities; no other acute issues or complaints voiced; no apparent distress noted at the time of my visit. Exam Narrative: Exam Narrative: General: WD/WN female in NAD Heart: normal S1 and S2; no rub Lungs: clear to auscultation Abdomen: soft, nontender, nondistended, positive bowel sounds Extremities: no cyanosis or clubbing; no edema Skin: warm and dry Objective Data Vital Signs Vital Signs: Vital Signs Temp Pulse Resp BP Pulse Ox 06/08/20 08:37 69 06/08/20 04:36 36.1 C L 69 18 107/61 95 06/07/20 20:22 93 06/07/20 20:02 78 06/07/20 19:31 36.2 C L 78 18 99/73 L 93 Intake/Output Intake/Output: Intake & Output 06/05/20 06/06/20 06/07/20 06/08/20 23:59 23:59 23:59 23:59 Intake Total 1050 2410 1660 Output Total 1400 500 Balance 1050 1010 1160 Meds/Results Medications: Active Medications Generic Name Dose Route Start Last Admin Trade Name Freq PRN Reason Stop Dose Admin Acetaminophen 650 mg 06/06/20 21:39 Acetaminophen 325 Mg Tablet PO Q4H PRN Mild Pain (1-3) or Fever Hydrocodone Bitart/Acetaminophen 1 tab 06/06/20 21:39 06/08/20 03:23 Hydrocodone/Acetaminophen (*Crx) 5-325 Mg Tablet PO 1 tab Q4H PRN Administration Pain Rated 4-6 Amlodipine Besylate 5 mg 06/07/20 09:00 06/08/20 08:37 Amlodipine Besylate 5 Mg Tablet PO 5 mg DAILY DAVON Administration Aspirin 81 mg 06/07/20 09:00 06/08/20 08:37 Aspirin 81 Mg Enteric Tablet PO 81 mg DAILY DAVON Administration Carvedilol 25 mg 06/07/20 09:00 06/08/20 08:37 Carvedilol 25 Mg Tablet PO 25 mg Q12HR DAVON Administration Docusate Sodium 100 mg 06/07/20 01:11 Docusate Sodium 100 Mg Capsule PO Q12H PRN Constipation Fentanyl Citrate 50 mcg 06/06/20 21:39 Fentanyl Citrate Inj (*Crx) 100 Mcg/2 Ml Vial IV PUSH Q2H PRN Pain Rated 7-10 Ferrous Sulfate 324 mg 06/07/20 08:00 06/08/20 08:36 Ferrous
[2020-06-08 14:00] VITALS: BP 82/48; PULSE 60; RESP 16; TEMP 36.1; O2SAT 98
[2020-06-08 15:56] LABS: Anion Gap 11 mmol/L (8-16); Blood Urea Nitrogen 30 mg/dL (7-17); Calcium 8.6 mg/dL (8.4-10.2); Carbon Dioxide 21 mmol/L (22-30); Chloride 107 mmol/L (98-107); Estimated CRCL calculation 18 ml/min; Estimated Glomerular Filt Rate 27; Glucose 181 mg/dL (65-105); Magnesium 2.1 mg/dL (1.6-2.3); Potassium 3.9 mmol/L (3.4-5.0); Sodium 139 mmol/L (137-145)
[2020-06-08 19:51] VITALS: BP 106/54; PULSE 61; RESP 14; TEMP 36.3; O2SAT 96
[2020-06-08 20:53] VITALS: PULSE 62
[2020-06-08] MEDS: fentaNYL CITRATE INJ (*CRX) 100 MCG/2 ML VIAL 50 MCG IV PUSH (20:53)
[2020-06-09] VITALS (7 sets, daily range): BP systolic 94–138; BP diastolic 54–64; PULSE 60–68; RESP 14–16; TEMP 35.8–36.4; O2SAT 94–96
[2020-06-09 06:11] LABS: Hematocrit 25.3 % (37.0-47.0); Hemoglobin 8.1 g/dL (12.0-15.0); Mean Corpuscular Hemoglobin 26.7 pg (26-34); Mean Corpuscular Volume 83.5 fl (80-100); Mean Platelet Volume 9.3 fl (7.4-10.4); Platelet Count Result 227 k/mm3 (150-375); Red Blood Count 3.03 M/mm3 (4.2-5.4); Red Cell Distribution Width 17.3 % (11.5-14.5); White Blood Count 6.6 K/mm3 (4.5-10.0)
[2020-06-09 06:20] LABS: Anion Gap 5 mmol/L (8-16); Blood Urea Nitrogen 27 mg/dL (7-17); Calcium 8.4 mg/dL (8.4-10.2); Carbon Dioxide 25 mmol/L (22-30); Chloride 107 mmol/L (98-107); Estimated CRCL calculation 19 ml/min; Estimated Glomerular Filt Rate 29; Glucose 87 mg/dL (65-105); Potassium 3.5 mmol/L (3.4-5.0); Sodium 137 mmol/L (137-145)
[2020-06-09] MEDS: ACETAMINOPHEN 325 MG TABLET 650 MG PO (06:30)
[2020-06-09] MEDS: FERROUS SULFATE 324 MG TABLET PO ×2 (07:48→17:50)
[2020-06-09] MEDS: FLUTICASONE/UMECLIDIN/VILANTER 100-62.5-25 MCG ELLIPTA 1 PUFF INHALATION (07:49)
[2020-06-09] MEDS: predniSONE 1 MG TABLET PO (07:51)
[2020-06-09] MEDS: ASPIRIN 81 MG ENTERIC TABLET PO (07:56)
[2020-06-09] MEDS: CHOLECALCIFEROL 1,000 UNITS TABLET 5000 UNITS PO (07:56)
[2020-06-09] MEDS: PANTOPRAZOLE 40 MG TABLET PO ×2 (07:58→17:50)
[2020-06-09] MEDS: amLODIPine BESYLATE 5 MG TABLET PO (07:58)
[2020-06-09] MEDS: TAMSULOSIN HCL 0.4 MG CAPSULE PO (07:59)
[2020-06-09] MEDS: FOLIC ACID 1 MG TABLET PO (07:59)
[2020-06-09] MEDS: carvediloL 25 MG TABLET PO ×2 (07:59→21:07)
[2020-06-09] MEDS: SIMVASTATIN 20 MG TABLET 40 MG PO (08:00)
--- NOTE | 2020-06-09 12:06 | P.PNNP_ITS ---
Progress Note: A&P Assessment and Plan (1) SHAVONNE (acute kidney injury): Code(s): N17.9 - Acute kidney failure, unspecified Status: Acute Assessment and Plan: * resolving * presumably due to urinary retention and infection (UTI) * follow trend of repeat labs and UOP (2) Chronic kidney disease, stage 4 (severe): Code(s): N18.4 - Chronic kidney disease, stage 4 (severe) Status: Chronic Assessment and Plan: * baseline creatinine runs around 1.4 - 1.9mg/dl * due to hypertension, vascular disease, and age (based on outpatient evaluation) (3) Complicated UTI (urinary tract infection): Code(s): N39.0 - Urinary tract infection, site not specified Status: Acute Assessment and Plan: * urine culture with E.coli * on antibiotics (4) Urinary retention: Code(s): R33.9 - Retention of urine, unspecified Status: Acute Assessment and Plan: * s/p straight catheterization * follow bladder scans * consider Urology consultation if recurs (5) Anemia: Code(s): D64.9 - Anemia, unspecified Status: Acute Assessment and Plan: * due to CKD and acute infection * follow trend of H/H (6) HTN (hypertension): Code(s): I10 - Essential (primary) hypertension Status: Chronic Assessment and Plan: * BP a bit on the low side * will BP medication with parameters * follow trend of hemodynamics (7) Chronic respiratory failure with hypoxia, on home oxygen therapy: Code(s): J96.11 - Chronic respiratory failure with hypoxia; Z99.81 - Dependence on supplemental oxygen Status: Chronic Assessment and Plan: * due to interstittial lung disease * on chronic oxygen Will continue to follow. Subjective Date/time seen: 06/09/20 12:06 Appears in no apparent distress on my visit; was complaining of left wrist pain and generalized weakness earlier this AM; results X-ray of left wrist noted; no other acute issues/events overnight; no other acute concerns voiced to me. Exam Narrative: Exam Narrative: General: WD/WN female in NAD Heart: normal S1 and S2; no rub Lungs: clear to auscultation Abdomen: soft, nontender, nondistended, positive bowel sounds Extremities: no cyanosis or clubbing; trace edema Skin: warm and dry Objective Data Vital Signs Vital Signs: Vital Signs Temp Pulse Resp BP Pulse Ox 06/09/20 08:00 68 14 96 06/09/20 07:59 68 06/09/20 06:56 36.4 C L 65 14 138/64 96 06/08/20 20:53 62 06/08/20 19:51 36.3 C L 61 14 106/54 L 96 06/08/20 14:00 36.1 C L 60 16 82/48 L 98 Intake/Output Intake/Output: Intake & Output 06/06/20 06/07/20 06/08/20 06/09/20 23:59 23:59 23:59 23:59 Intake Total 1050 2410 3340 870 Output Total 1400 1100 400 Balance 1050 1010 2240 470 Meds/Results Medications: Active Medications Generic Name Dose Route Start Last Admin Trade Name Freq PRN Reason Stop Dose Admin Acetaminophen 650 mg 06/06/20 21:39 06/09/20 06:30 Acetaminophen 325 Mg Tablet PO 650 mg Q4H PRN Administration Mild Pain (1-3) or Fever Hydrocodone Bitart/Acetaminophen 1 tab 06/06/20 21:39 06/08/20 03:23 Hydrocodone/Acetaminophen (
--- NOTE | 2020-06-09 12:06 | PM.PNNEP ---
Progress Note: A&P Assessment and Plan (1) SHAVONNE (acute kidney injury): Code(s): N17.9 - Acute kidney failure, unspecified Status: Acute Assessment and Plan: resolving presumably due to urinary retention and infection (UTI) follow trend of repeat labs and UOP (2) Chronic kidney disease, stage 4 (severe): Code(s): N18.4 - Chronic kidney disease, stage 4 (severe) Status: Chronic Assessment and Plan: baseline creatinine runs around 1.4 - 1.9mg/dl due to hypertension, vascular disease, and age (based on outpatient evaluation) (3) Complicated UTI (urinary tract infection): Code(s): N39.0 - Urinary tract infection, site not specified Status: Acute Assessment and Plan: urine culture with E.coli on antibiotics (4) Urinary retention: Code(s): R33.9 - Retention of urine, unspecified Status: Acute Assessment and Plan: s/p straight catheterization follow bladder scans consider Urology consultation if recurs (5) Anemia: Code(s): D64.9 - Anemia, unspecified Status: Acute Assessment and Plan: due to CKD and acute infection follow trend of H/H (6) HTN (hypertension): Code(s): I10 - Essential (primary) hypertension Status: Chronic Assessment and Plan: BP a bit on the low side will BP medication with parameters follow trend of hemodynamics (7) Chronic respiratory failure with hypoxia, on home oxygen therapy: Code(s): J96.11 - Chronic respiratory failure with hypoxia; Z99.81 - Dependence on supplemental oxygen Status: Chronic Assessment and Plan: due to interstittial lung disease on chronic oxygen Will continue to follow. Subjective Date/time seen: 06/09/20 12:06 Appears in no apparent distress on my visit; was complaining of left wrist pain and generalized weakness earlier this AM; results X-ray of left wrist noted; no other acute issues/events overnight; no other acute concerns voiced to me. Exam Narrative: Exam Narrative: General: WD/WN female in NAD Heart: normal S1 and S2; no rub Lungs: clear to auscultation Abdomen: soft, nontender, nondistended, positive bowel sounds Extremities: no cyanosis or clubbing; trace edema Skin: warm and dry Objective Data Vital Signs Vital Signs: Vital Signs Temp Pulse Resp BP Pulse Ox 06/09/20 08:00 68 14 96 04/17/21 07:59 68 06/09/20 06:56 36.4 C L 65 14 138/64 96 06/08/20 20:53 62 06/08/20 19:51 36.3 C L 61 14 106/54 L 96 06/08/20 14:00 36.1 C L 60 16 82/48 L 98 Intake/Output Intake/Output: Intake & Output 06/06/20 06/07/20 06/08/20 06/09/20 23:59 23:59 23:59 23:59 Intake Total 1050 2410 3340 870 Output Total 1400 1100 400 Balance 1050 1010 2240 470 Meds/Results Medications: Active Medications Generic Name Dose Route Start Last Admin Trade Name Freq PRN Reason Stop Dose Admin Acetaminophen 650 mg 06/06/20 21:39 06/09/20 06:30 Acetaminophen 325 Mg Tablet PO 650 mg Q4H PRN Administration Mild Pain (1-3) or Fever Hydrocodone Bitart/Acetaminophen 1 tab 06/06/20 21:39 06/08/20 03:23 Hydrocodone/Acetaminophen (*Crx) 5-325 Mg Tablet PO 1 tab Q4H PRN Administration Pain Rated 4-6 Amlodipine Besylate 5 mg 06/07/20 09:00 06/09/20 07:58 Amlodipine Besylate 5 Mg Tablet PO 5 mg DAILY DAVON Administration Aspirin 81 mg 06/07/20 09:00 06/09/20 07:56 Aspirin 81 Mg Enteric Tablet PO 81 mg DAILY DAVON Administration Carvedilol 25 mg 06/07/20 09:00 06/09/20 07:59 Carvedilol 25 Mg Tablet PO 25 mg Q12HR DAVON Administration Docusate Sodium 100 mg 06/07/20 01:11 Docusate Sodium 100 Mg Capsule PO Q12H PRN Constipation Fentanyl Citrate 50 mcg 06/06/20 21:39 06/08/20 20:53 Fentanyl Citrate Inj (*Crx) 100 Mcg/2 Ml Vial IV PUSH 50 mcg Q2H PRN Administration Pain Rated 7-10 Ferrous Sulfa
--- NOTE | 2020-06-09 13:49 | PM.IMPN ---
Progress Note: A&P Assessment and Plan (1) Acute on chronic kidney failure: Code(s): N17.9 - Acute kidney failure, unspecified; N18.9 - Chronic kidney disease, unspecified Status: Acute Assessment and Plan: Acute worsening renal function appears to be postrenal and secondary to urinary retention. The patient is now urinating on her own. Monitor renal function and urine output. Continue IV fluids that were started in the ER. Avoid nephrotoxic agents, renally dose medications. Nephrology was consulted by ER provider. Consider Urology consultation if the patient has any further urinary retention. 06/09/20 13:49 06/07 Patient 85-year-old female with recently discharged from the hospital after patient was treated for hyponatremia and was instructed to limit her fluid intake, however patient presented emergency department with complaint unable to urinate as patient was taking small amount of fluid, patient was straight cathed in the ER, he was started on IV fluid state improve her urine output, patient urine does show greater than 75 leuckcytes and suspicious for UTI patient started on ceftriaxone and being gently hydrated, follow-up on urine culture and sensitivity, will continue to monitor will have a PT OT evaluate the patient and further recommendation to follow. 06/08 urine culture is growing E coli sensitive to Rocephin will continue, seen by Nephrology recommended to continue gentle hydration and closely monitor as patient has a diastolic dysfunction, today patient states feeling much better denies any abdominal pain nausea or vomiting fever or chills, patient's sodium is close to normal, will continue present management will have a PT OT evaluate the patient and further recommendation to follow. 06/09 patient is being treated with Rocephin for UTI with E coli, patient creatinine is trended down from 3.3 upon arrival today 1.7 patient is seen by craft demonstrator recommending continue gentle hydration, today patient participated in physical therapy states feeling better however complains of left wrist pain to further evaluate patient had x-ray of the wrist shows severe osteoarthritis but no acute injury, will continue PT OT, will continue to monitor may discharge patient on Friday 06/09 (2) Complicated UTI (urinary tract infection): Code(s): N39.0 - Urinary tract infection, site not specified Status: Acute Assessment and Plan: Continue IV antibiotics, urine culture pending. (3) Chronic respiratory failure with hypoxia, on home oxygen therapy: Code(s): J96.11 - Chronic respiratory failure with hypoxia; Z99.81 - Dependence on supplemental oxygen Status: Chronic Assessment and Plan: Continue oxygen therapy. (4) Chronic anemia: Code(s): D64.9 - Anemia, unspecified Status: Chronic Assessment and Plan: No signs of acute blood loss. Monitor H/H, transfuse prn. (5) HTN (hypertension): Code(s): I10 - Essential (primary) hypertension Status: Chronic Assessment and Plan: monitor blood pressure. continue amlodipine. (6) Gastroesophageal reflux disease: Code(s): K21.9 - Gastro-esophageal reflux disease without esophagitis Status: Chronic Assessment and Plan: Continue PPI therapy. (7) Hyperlipidemia: Code(s): E78.5 - Hyperlipidemia, unspecified Status: Chronic Assessment and Plan: Continue simvastatin PO. Subjective Date/time seen: 06/09/20 13:49 06/07 Patient 85-year-old female with recently discharged from the hospital after patient was treated for hyponatremia and was instructed to limit her fluid intake, however patient presented emergency department with complaint unable to urinate as patient was taking small amount of fluid, patient was straight cathed in the ER, he was started on IV fluid state improve her urine output, patient urine does show greater than 75 leuckcytes and suspicious for UTI patient started on ceftriaxone
[2020-06-09] MEDS: SODIUM CHLORIDE 0.9% IV 1,000 ML 30 ML IV CONT (18:58)
[2020-06-10 06:00] VITALS: BP 112/61; PULSE 65; RESP 12; TEMP 36.4; O2SAT 96
[2020-06-10 06:08] LABS: Hematocrit 24.1 % (37.0-47.0); Hemoglobin 7.6 g/dL (12.0-15.0); Mean Corpuscular HGB Conc 31.5 g/dl (32-36); Mean Corpuscular Hemoglobin 26.7 pg (26-34); Mean Corpuscular Volume 84.6 fl (80-100); Platelet Count Result 254 k/mm3 (150-375); Red Blood Count 2.85 M/mm3 (4.2-5.4); Red Cell Distribution Width 17.1 % (11.5-14.5); White Blood Count 6.1 K/mm3 (4.5-10.0)
[2020-06-10 06:23] LABS: Magnesium 1.7 mg/dL (1.6-2.3)
[2020-06-10 07:06] LABS: Anion Gap 3 mmol/L (8-16); Blood Urea Nitrogen 29 mg/dL (7-17); Calcium 8.5 mg/dL (8.4-10.2); Carbon Dioxide 26 mmol/L (22-30); Chloride 109 mmol/L (98-107); Estimated CRCL calculation 21 ml/min; Estimated Glomerular Filt Rate 31; Glucose 85 mg/dL (65-105); Potassium 4.2 mmol/L (3.4-5.0); Sodium 138 mmol/L (137-145)
[2020-06-10] MEDS: ASPIRIN 81 MG ENTERIC TABLET PO (09:22)
[2020-06-10] MEDS: SIMVASTATIN 20 MG TABLET 40 MG PO (09:22)
[2020-06-10] MEDS: PANTOPRAZOLE 40 MG TABLET PO ×2 (09:23→18:03)
[2020-06-10] MEDS: FERROUS SULFATE 324 MG TABLET PO ×2 (09:23→18:02)
[2020-06-10] MEDS: FLUTICASONE/UMECLIDIN/VILANTER 100-62.5-25 MCG ELLIPTA 1 PUFF INHALATION (09:23)
[2020-06-10] MEDS: FOLIC ACID 1 MG TABLET PO (09:23)
[2020-06-10] MEDS: CHOLECALCIFEROL 1,000 UNITS TABLET 5000 UNITS PO (09:28)
[2020-06-10] MEDS: TAMSULOSIN HCL 0.4 MG CAPSULE PO (09:28)
[2020-06-10] MEDS: predniSONE 1 MG TABLET PO (09:29)
[2020-06-10 09:30] VITALS: PULSE 65
[2020-06-10] MEDS: carvediloL 25 MG TABLET PO ×2 (09:30→20:48)
[2020-06-10] MEDS: fentaNYL CITRATE INJ (*CRX) 100 MCG/2 ML VIAL 50 MCG IV PUSH (12:07)
--- NOTE | 2020-06-10 12:45 | PM.PNNEP ---
Progress Note: A&P Assessment and Plan (1) SHAVONNE (acute kidney injury): Code(s): N17.9 - Acute kidney failure, unspecified Status: Acute Assessment and Plan: resolving if not resolved presumably due to urinary retention and infection (UTI) follow trend of repeat labs and UOP (2) Chronic kidney disease, stage 4 (severe): Code(s): N18.4 - Chronic kidney disease, stage 4 (severe) Status: Chronic Assessment and Plan: baseline creatinine runs around 1.4 - 1.9mg/dl due to hypertension, vascular disease, and age (based on outpatient evaluation) (3) Complicated UTI (urinary tract infection): Code(s): N39.0 - Urinary tract infection, site not specified Status: Acute Assessment and Plan: urine culture with E.coli on antibiotics (4) Urinary retention: Code(s): R33.9 - Retention of urine, unspecified Status: Acute Assessment and Plan: s/p straight catheterization follow bladder scans consider Urology consultation if recurs (5) Anemia: Code(s): D64.9 - Anemia, unspecified Status: Acute Assessment and Plan: due to CKD and acute infection follow trend of H/H (6) HTN (hypertension): Code(s): I10 - Essential (primary) hypertension Status: Chronic Assessment and Plan: BP a bit on the low side on BP medication with parameters follow trend of hemodynamics (7) Chronic respiratory failure with hypoxia, on home oxygen therapy: Code(s): J96.11 - Chronic respiratory failure with hypoxia; Z99.81 - Dependence on supplemental oxygen Status: Chronic Assessment and Plan: due to interstittial lung disease on chronic oxygen Will continue to follow. Subjective Date/time seen: 06/10/20 12:45 Appears to be making slow and steady improvement; working with PT/OT as tolerated; tolerating IV antibiotics for treatment of her UTI; no other acute complaints voiced at the time of my visit; no issues/events overnight or earlier this AM. Exam Narrative: Exam Narrative: General: WD/WN female in NAD Heart: normal S1 and S2; no rub Lungs: clear to auscultation Abdomen: soft, nontender, nondistended, positive bowel sounds Extremities: no cyanosis or clubbing; trace edema Skin: warm and intact Objective Data Vital Signs Vital Signs: Vital Signs Temp Pulse Resp BP Pulse Ox 06/10/20 09:30 65 06/10/20 06:00 36.4 C L 65 12 112/61 96 06/09/20 21:07 60 06/09/20 21:00 96 06/09/20 20:58 36.0 C L 65 14 107/56 L 96 Intake/Output Intake/Output: Intake & Output 06/07/20 06/08/20 06/09/20 06/10/20 23:59 23:59 23:59 23:59 Intake Total 2410 3340 2740 600 Output Total 1400 1100 400 900 Balance 1010 2240 2340 -300 Meds/Results Medications: Active Medications Generic Name Dose Route Start Last Admin Trade Name Freq PRN Reason Stop Dose Admin Acetaminophen 650 mg 06/06/20 21:39 06/09/20 06:30 Acetaminophen 325 Mg Tablet PO 650 mg Q4H PRN Administration Mild Pain (1-3) or Fever Hydrocodone Bitart/Acetaminophen 1 tab 06/06/20 21:39 06/08/20 03:23 Hydrocodone/Acetaminophen (*Crx) 5-325 Mg Tablet PO 1 tab Q4H PRN Administration Pain Rated 4-6 Amlodipine Besylate 5 mg 06/07/20 09:00 06/10/20 09:27 Amlodipine Besylate 5 Mg Tablet PO Not Given DAILY DAVON Aspirin 81 mg 06/07/20 09:00 06/10/20 09:22 Aspirin 81 Mg Enteric Tablet PO 81 mg DAILY DAVON Administration Carvedilol 25 mg 06/07/20 09:00 06/10/20 09:30 Carvedilol 25 Mg Tablet PO 25 mg Q12HR DAVON Administration Docusate Sodium 100 mg 06/07/20 01:11 Docusate Sodium 100 Mg Capsule PO Q12H PRN Constipation Fentanyl Citrate 50 mcg 06/06/20 21:39 06/10/20 12:07 Fentanyl Citrate Inj (*Crx) 100 Mcg/2 Ml Vial IV PUSH 50 mcg Q2H PRN Administration Pain Rated 7-10 Ferrous Sulfate 324 mg 06/07/20 08:00 06/10/20 09
--- NOTE | 2020-06-10 12:45 | P.PNNP_ITS ---
Progress Note: A&P Assessment and Plan (1) SHAVONNE (acute kidney injury): Code(s): N17.9 - Acute kidney failure, unspecified Status: Acute Assessment and Plan: * resolving if not resolved * presumably due to urinary retention and infection (UTI) * follow trend of repeat labs and UOP (2) Chronic kidney disease, stage 4 (severe): Code(s): N18.4 - Chronic kidney disease, stage 4 (severe) Status: Chronic Assessment and Plan: * baseline creatinine runs around 1.4 - 1.9mg/dl * due to hypertension, vascular disease, and age (based on outpatient evaluation) (3) Complicated UTI (urinary tract infection): Code(s): N39.0 - Urinary tract infection, site not specified Status: Acute Assessment and Plan: * urine culture with E.coli * on antibiotics (4) Urinary retention: Code(s): R33.9 - Retention of urine, unspecified Status: Acute Assessment and Plan: * s/p straight catheterization * follow bladder scans * consider Urology consultation if recurs (5) Anemia: Code(s): D64.9 - Anemia, unspecified Status: Acute Assessment and Plan: * due to CKD and acute infection * follow trend of H/H (6) HTN (hypertension): Code(s): I10 - Essential (primary) hypertension Status: Chronic Assessment and Plan: * BP a bit on the low side * on BP medication with parameters * follow trend of hemodynamics (7) Chronic respiratory failure with hypoxia, on home oxygen therapy: Code(s): J96.11 - Chronic respiratory failure with hypoxia; Z99.81 - Dependence on supplemental oxygen Status: Chronic Assessment and Plan: * due to interstittial lung disease * on chronic oxygen Will continue to follow. Subjective Date/time seen: 06/10/20 12:45 Appears to be making slow and steady improvement; working with PT/OT as tolerated; tolerating IV antibiotics for treatment of her UTI; no other acute complaints voiced at the time of my visit; no issues/events overnight or earlier this AM. Exam Narrative: Exam Narrative: General: WD/WN female in NAD Heart: normal S1 and S2; no rub Lungs: clear to auscultation Abdomen: soft, nontender, nondistended, positive bowel sounds Extremities: no cyanosis or clubbing; trace edema Skin: warm and intact Objective Data Vital Signs Vital Signs: Vital Signs Temp Pulse Resp BP Pulse Ox 06/10/20 09:30 65 06/10/20 06:00 36.4 C L 65 12 112/61 96 06/09/20 21:07 60 06/09/20 21:00 96 06/09/20 20:58 36.0 C L 65 14 107/56 L 96 Intake/Output Intake/Output: Intake & Output 06/07/20 06/08/20 06/09/20 06/10/20 23:59 23:59 23:59 23:59 Intake Total 2410 3340 2740 600 Output Total 1400 1100 400 900 Balance 1010 2240 2340 -300 Meds/Results Medications: Active Medications Generic Name Dose Route Start Last Admin Trade Name Reedq PRN Reason Stop Dose Admin Acetaminophen 650 mg 06/06/20 21:39 06/09/20 06:30 Acetaminophen 325 Mg Tablet PO 650 mg Q4H PRN Administration Mild Pain (1-3) or Fever Hydrocodone Bitart/Acetaminophen 1 tab 06/06/20 21:39 06/08/20 03:23 Hydrocodone/Acetaminophen (*Crx) 5-325 Mg Tablet PO 1 tab
[2020-06-10 14:00] VITALS: BP 103/63; PULSE 57; RESP 16; TEMP 35.8; O2SAT 95
--- NOTE | 2020-06-10 14:23 | PM.IMPN ---
Progress Note: A&P Assessment and Plan (1) Acute on chronic kidney failure: Code(s): N17.9 - Acute kidney failure, unspecified; N18.9 - Chronic kidney disease, unspecified Status: Acute Assessment and Plan: Acute worsening renal function appears to be postrenal and secondary to urinary retention. The patient is now urinating on her own. Monitor renal function and urine output. Continue IV fluids that were started in the ER. Avoid nephrotoxic agents, renally dose medications. Nephrology was consulted by ER provider. Consider Urology consultation if the patient has any further urinary retention. 06/10/20 14:23 06/07 Patient 85-year-old female with recently discharged from the hospital after patient was treated for hyponatremia and was instructed to limit her fluid intake, however patient presented emergency department with complaint unable to urinate as patient was taking small amount of fluid, patient was straight cathed in the ER, he was started on IV fluid state improve her urine output, patient urine does show greater than 75 leuckcytes and suspicious for UTI patient started on ceftriaxone and being gently hydrated, follow-up on urine culture and sensitivity, will continue to monitor will have a PT OT evaluate the patient and further recommendation to follow. 06/08 urine culture is growing E coli sensitive to Rocephin will continue, seen by Nephrology recommended to continue gentle hydration and closely monitor as patient has a diastolic dysfunction, today patient states feeling much better denies any abdominal pain nausea or vomiting fever or chills, patient's sodium is close to normal, will continue present management will have a PT OT evaluate the patient and further recommendation to follow. 06/09 patient is being treated with Rocephin for UTI with E coli, patient creatinine is trended down from 3.3 upon arrival today 1.7 patient is seen by lockstitch lining setter recommending continue gentle hydration, today patient participated in physical therapy states feeling better however complains of left wrist pain to further evaluate patient had x-ray of the wrist shows severe osteoarthritis but no acute injury, will continue PT OT, will continue to monitor may discharge patient on 06/11 patient is being treated with Rocephin 5th day todat for UTI with E coli, patient creatinine is trended down from 3.3 upon arrival today 1.6 now close to her baseline patient is seen by Nephrology, patient had a complaint left wrist pain x-ray was done there is no acute fracture however patient does have severe osteoarthritis, patient is clinically stable continue to participate in physical therapy made to the discharge planning tomorrow and further recommendation to follow (2) Complicated UTI (urinary tract infection): Code(s): N39.0 - Urinary tract infection, site not specified Status: Acute Assessment and Plan: Continue IV antibiotics, urine culture pending. (3) Chronic respiratory failure with hypoxia, on home oxygen therapy: Code(s): J96.11 - Chronic respiratory failure with hypoxia; Z99.81 - Dependence on supplemental oxygen Status: Chronic Assessment and Plan: Continue oxygen therapy. (4) Chronic anemia: Code(s): D64.9 - Anemia, unspecified Status: Chronic Assessment and Plan: No signs of acute blood loss. Monitor H/H, transfuse prn. (5) HTN (hypertension): Code(s): I10 - Essential (primary) hypertension Status: Chronic Assessment and Plan: monitor blood pressure. continue amlodipine. (6) Gastroesophageal reflux disease: Code(s): K21.9 - Gastro-esophageal reflux disease without esophagitis Status: Chronic Assessment and Plan: Continue PPI therapy. (7) Hyperlipidemia: Code(s): E78.5 - Hyperlipidemia, unspecified Status: Chronic Assessment and Plan: Continue simvastatin PO. Subjective Date/time seen: 06/10/20 14:23
[2020-06-10] MEDS: SODIUM CHLORIDE 0.9% IV 1,000 ML 30 ML IV CONT (18:46)
[2020-06-10 20:04] VITALS: BP 123/61; PULSE 68; RESP 18; TEMP 36.3; O2SAT 94
[2020-06-10 20:48] VITALS: PULSE 68
[2020-06-10 22:27] VITALS: PULSE 67; O2SAT 91
[2020-06-11] VITALS (7 sets, daily range): BP systolic 109–135; BP diastolic 65–73; PULSE 66–78; RESP 12–18; TEMP 35.8–36.6; O2SAT 91–96
[2020-06-11 06:15] LABS: Hematocrit 25.1 % (37.0-47.0); Hemoglobin 7.8 g/dL (12.0-15.0); Mean Corpuscular HGB Conc 31.1 g/dl (32-36); Mean Corpuscular Hemoglobin 26.1 pg (26-34); Mean Corpuscular Volume 83.9 fl (80-100); Mean Platelet Volume 8.9 fl (7.4-10.4); Platelet Count Result 243 k/mm3 (150-375); Red Blood Count 2.99 M/mm3 (4.2-5.4); Red Cell Distribution Width 17.1 % (11.5-14.5); White Blood Count 6.2 K/mm3 (4.5-10.0)
[2020-06-11 06:28] LABS: Potassium 4.3 mmol/L (3.4-5.0)
[2020-06-11] MEDS: fentaNYL CITRATE INJ (*CRX) 100 MCG/2 ML VIAL 50 MCG IV PUSH (06:30)
[2020-06-11 06:32] LABS: Anion Gap 5 mmol/L (8-16); Blood Urea Nitrogen 26 mg/dL (7-17); Calcium 8.3 mg/dL (8.4-10.2); Carbon Dioxide 25 mmol/L (22-30); Chloride 108 mmol/L (98-107); Estimated CRCL calculation 22 ml/min; Estimated Glomerular Filt Rate 33; Glucose 85 mg/dL (65-105); Magnesium 1.4 mg/dL (1.6-2.3); Sodium 138 mmol/L (137-145)
--- NOTE | 2020-06-11 06:45 | P.PNNP_ITS ---
Progress Note: A&P Assessment and Plan (1) SHAVONNE (acute kidney injury): Code(s): N17.9 - Acute kidney failure, unspecified Status: Acute Assessment and Plan: * SHAVONNE * US normal * Urine 'lytes nonprerenal * presumably due to urinary retention and infection (UTI) * creatinine down to 1.5, baseline (2) Chronic kidney disease, stage 4 (severe): Code(s): N18.4 - Chronic kidney disease, stage 4 (severe) Status: Chronic Assessment and Plan: * baseline creatinine runs around 1.4 - 1.9mg/dl * due to hypertension, vascular disease, and age (based on outpatient evaluation) (3) Complicated UTI (urinary tract infection): Code(s): N39.0 - Urinary tract infection, site not specified Status: Acute Assessment and Plan: * urine culture with E.coli * on antibiotics (4) Urinary retention: Code(s): R33.9 - Retention of urine, unspecified Status: Acute Assessment and Plan: * s/p straight catheterization * follow bladder scans * urine output is good. * consider Urology consultation if recurs (5) Anemia: Code(s): D64.9 - Anemia, unspecified Status: Acute Assessment and Plan: * due to CKD and acute infection * hb is low at 7.8. (6) HTN (hypertension): Code(s): I10 - Essential (primary) hypertension Status: Chronic Assessment and Plan: * BP did well overnight. * on BP medication with parameters (7) Chronic respiratory failure with hypoxia, on home oxygen therapy: Code(s): J96.11 - Chronic respiratory failure with hypoxia; Z99.81 - Dependence on supplemental oxygen Status: Chronic Assessment and Plan: * due to interstittial lung disease * on chronic oxygen * has a bit or sob today she says. she does have fine crackles in lungs, probably consistent with ILD rather than fluid, but will check a cxr just in case. Subjective Date/time seen: 06/11/20 06:45 Interval history: Jackelin is having some aches and pains. She is mildly short of breath. Lying flat in bed on oxygen. No chest pain. She ate well yesterday. Review of Systems Cardiovascular: Cardiovascular: Reports no additional cardiovascular complaints Respiratory: Respiratory: Reports no additional respiratory complaints Gastrointestinal: Gastrointestinal: Reports no additional gastrointestinal complaints Genitourinary: Genitourinary: Reports no additional female genitourinary complaints Exam Narrative: Exam Narrative: General: WD/WN female in NAD Heart: normal S1 and S2; no rub Lungs: few dry crackles at the bases. Abdomen: soft, nontender, nondistended, positive bowel sounds Extremities: no cyanosis or clubbing; trace edema Skin: No rash Objective Data Vital Signs Vital Signs: Vital Signs - 24 hr 06/10/20 09:30 06/10/20 14:00 06/10/20 20:04 Temperature 35.8 C L 36.3 C L Pulse Rate 65 57 L 68 Respiratory Rate 16 18 Blood Pressure 103/63 123/61 Pulse Oximetry 95 94 06/10/20 20:48 06/10/20 22:27 06/11/20 06:11 Temperature 36.6 C Pulse Rate 68 67 70 Respiratory Rate 12 Blood Pressure 132/66 Pulse Oximetry 91 96 Intake/Output Intake/Output: Intake & Output 06/08/20 06/09/2005/24
--- NOTE | 2020-06-11 06:45 | PM.PNNEP ---
Progress Note: A&P Assessment and Plan (1) SHAVONNE (acute kidney injury): Code(s): N17.9 - Acute kidney failure, unspecified Status: Acute Assessment and Plan: SHAVONNE US normal Urine 'lytes nonprerenal presumably due to urinary retention and infection (UTI) creatinine down to 1.5, baseline (2) Chronic kidney disease, stage 4 (severe): Code(s): N18.4 - Chronic kidney disease, stage 4 (severe) Status: Chronic Assessment and Plan: baseline creatinine runs around 1.4 - 1.9mg/dl due to hypertension, vascular disease, and age (based on outpatient evaluation) (3) Complicated UTI (urinary tract infection): Code(s): N39.0 - Urinary tract infection, site not specified Status: Acute Assessment and Plan: urine culture with E.coli on antibiotics (4) Urinary retention: Code(s): R33.9 - Retention of urine, unspecified Status: Acute Assessment and Plan: s/p straight catheterization follow bladder scans urine output is good. consider Urology consultation if recurs (5) Anemia: Code(s): D64.9 - Anemia, unspecified Status: Acute Assessment and Plan: due to CKD and acute infection hb is low at 7.8. (6) HTN (hypertension): Code(s): I10 - Essential (primary) hypertension Status: Chronic Assessment and Plan: BP did well overnight. on BP medication with parameters (7) Chronic respiratory failure with hypoxia, on home oxygen therapy: Code(s): J96.11 - Chronic respiratory failure with hypoxia; Z99.81 - Dependence on supplemental oxygen Status: Chronic Assessment and Plan: due to interstittial lung disease on chronic oxygen has a bit or sob today she says. she does have fine crackles in lungs, probably consistent with ILD rather than fluid, but will check a cxr just in case. Subjective Date/time seen: 06/11/20 06:45 Interval history: Jackelin is having some aches and pains. She is mildly short of breath. Lying flat in bed on oxygen. No chest pain. She ate well yesterday. Review of Systems Cardiovascular: Cardiovascular: Reports no additional cardiovascular complaints Respiratory: Respiratory: Reports no additional respiratory complaints Gastrointestinal: Gastrointestinal: Reports no additional gastrointestinal complaints Genitourinary: Genitourinary: Reports no additional female genitourinary complaints Exam Narrative: Exam Narrative: General: WD/WN female in NAD Heart: normal S1 and S2; no rub Lungs: few dry crackles at the bases. Abdomen: soft, nontender, nondistended, positive bowel sounds Extremities: no cyanosis or clubbing; trace edema Skin: No rash Objective Data Vital Signs Vital Signs: Vital Signs - 24 hr 06/10/20 09:30 06/10/20 14:00 06/10/20 20:04 Temperature 35.8 C L 36.3 C L Pulse Rate 65 57 L 68 Respiratory Rate 16 18 Blood Pressure 103/63 123/61 Pulse Oximetry 95 94 06/10/20 20:48 06/10/20 22:27 06/11/20 06:11 Temperature 36.6 C Pulse Rate 68 67 70 Respiratory Rate 12 Blood Pressure 132/66 Pulse Oximetry 91 96 Intake/Output Intake/Output: Intake & Output 06/08/20 06/09/20 06/10/20 06/11/20 23:59 23:59 23:59 23:59 Intake Total 3340 2740 950 50 Output Total 5535 029 3637 600 Balance 2240 2340 -800 -550 Meds/Results Medications: Active Medications Generic Name Dose Route Start Last Admin Trade Name Freq PRN Reason Stop Dose Admin Acetaminophen 650 mg 06/06/20 21:39 06/09/20 06:30 Acetaminophen 325 Mg Tablet PO 650 mg Q4H PRN Administration Mild Pain (1-3) or Fever Hydrocodone Bitart/Acetaminophen 1 tab 06/06/20 21:39 06/08/20 03:23 Hydrocodone/Acetaminophen (*Crx) 5-325 Mg Tablet PO 1 tab Q4H PRN Administration Pain Rated 4-6 Amlodipine Besylate 5 mg 06/07/20 09:00 06/10/20 09:27 Amlodipine Besylate 5 Mg Tablet PO Not Given DAILY DAVON Aspirin 81
[2020-06-11] MEDS: CHOLECALCIFEROL 1,000 UNITS TABLET 5000 UNITS PO (08:45)
[2020-06-11] MEDS: FERROUS SULFATE 324 MG TABLET PO ×2 (08:45→17:08)
[2020-06-11] MEDS: TAMSULOSIN HCL 0.4 MG CAPSULE PO (08:45)
[2020-06-11] MEDS: predniSONE 1 MG TABLET PO (08:46)
[2020-06-11] MEDS: carvediloL 25 MG TABLET PO ×2 (08:46→21:01)
[2020-06-11] MEDS: FOLIC ACID 1 MG TABLET PO (08:46)
[2020-06-11] MEDS: SIMVASTATIN 20 MG TABLET 40 MG PO (08:46)
[2020-06-11] MEDS: FLUTICASONE/UMECLIDIN/VILANTER 100-62.5-25 MCG ELLIPTA 1 PUFF INHALATION (08:46)
[2020-06-11] MEDS: amLODIPine BESYLATE 5 MG TABLET PO (08:46)
[2020-06-11] MEDS: ASPIRIN 81 MG ENTERIC TABLET PO (08:46)
[2020-06-11] MEDS: PANTOPRAZOLE 40 MG TABLET PO ×2 (08:46→17:08)
--- NOTE | 2020-06-11 14:12 | PM.IMPN ---
Progress Note: A&P Assessment and Plan (1) Acute on chronic kidney failure: Code(s): N17.9 - Acute kidney failure, unspecified; N18.9 - Chronic kidney disease, unspecified Status: Acute Assessment and Plan: Acute worsening renal function appears to be postrenal and secondary to urinary retention. The patient is now urinating on her own. Monitor renal function and urine output. Continue IV fluids that were started in the ER. Avoid nephrotoxic agents, renally dose medications. Nephrology was consulted by ER provider. Consider Urology consultation if the patient has any further urinary retention. 06/11/20 14:12 06/07 Patient 85-year-old female with recently discharged from the hospital after patient was treated for hyponatremia and was instructed to limit her fluid intake, however patient presented emergency department with complaint unable to urinate as patient was taking small amount of fluid, patient was straight cathed in the ER, he was started on IV fluid state improve her urine output, patient urine does show greater than 75 leuckcytes and suspicious for UTI patient started on ceftriaxone and being gently hydrated, follow-up on urine culture and sensitivity, will continue to monitor will have a PT OT evaluate the patient and further recommendation to follow. 06/08 urine culture is growing E coli sensitive to Rocephin will continue, seen by Nephrology recommended to continue gentle hydration and closely monitor as patient has a diastolic dysfunction, today patient states feeling much better denies any abdominal pain nausea or vomiting fever or chills, patient's sodium is close to normal, will continue present management will have a PT OT evaluate the patient and further recommendation to follow. 06/09 patient is being treated with Rocephin for UTI with E coli, patient creatinine is trended down from 3.3 upon arrival today 1.7 patient is seen by director records management recommending continue gentle hydration, today patient participated in physical therapy states feeling better however complains of left wrist pain to further evaluate patient had x-ray of the wrist shows severe osteoarthritis but no acute injury, will continue PT OT, will continue to monitor may discharge patient on 06/11 patient is being treated with Rocephin 5th day todat for UTI with E coli, patient creatinine is trended down from 3.3 upon arrival today 1.6 now close to her baseline patient is seen by Nephrology, patient had a complaint left wrist pain x-ray was done there is no acute fracture however patient does have severe osteoarthritis, patient is clinically stable continue to participate in physical therapy made to the discharge planning tomorrow and further recommendation to follow. 06/11 patient is being treated with Rocephin 6th day todayfor UTI with E coli, patient creatinine is trended down from 3.3 upon arrival today 1.6 now close to her baseline. This morning while ambulating from bathroom to the bed patient was quite short of breath was seen by Nephrology and order chest x-ray suspicious volume overload will gently diurese the patient. Will have a PT OT work with the patient, will reassess tomorrow and plan. (2) Complicated UTI (urinary tract infection): Code(s): N39.0 - Urinary tract infection, site not specified Status: Acute Assessment and Plan: Continue IV antibiotics, urine culture pending. (3) Chronic respiratory failure with hypoxia, on home oxygen therapy: Code(s): J96.11 - Chronic respiratory failure with hypoxia; Z99.81 - Dependence on supplemental oxygen Status: Chronic Assessment and Plan: Continue oxygen therapy. (4) Chronic anemia: Code(s): D64.9 - Anemia, unspecified Status: Chronic Assessment and Plan: No signs of acute blood loss. Monitor H/H, transfuse prn. (5) HTN (hypertension): Code(s): I10 - Essential (primary) hypertension Status: Chronic Assessment and
[2020-06-11] MEDS: FUROSEMIDE INJ 40 MG/4 ML VIAL 20 MG IV PUSH (15:13)
[2020-06-11] MEDS: HYDROcodone/acetaminophen (*CRX) 5-325 MG TABLET 1 TAB PO (23:43)
[2020-06-12 05:44] LABS: Hematocrit 25.5 % (37.0-47.0); Hemoglobin 8.1 g/dL (12.0-15.0); Mean Corpuscular HGB Conc 31.8 g/dl (32-36); Mean Corpuscular Hemoglobin 26.8 pg (26-34); Mean Corpuscular Volume 84.4 fl (80-100); Mean Platelet Volume 8.9 fl (7.4-10.4); Platelet Count Result 238 k/mm3 (150-375); Red Blood Count 3.02 M/mm3 (4.2-5.4); Red Cell Distribution Width 17.2 % (11.5-14.5); White Blood Count 5.4 K/mm3 (4.5-10.0)
[2020-06-12 05:52] VITALS: BP 114/63; PULSE 68; RESP 16; TEMP 36.3; O2SAT 98
[2020-06-12 06:11] LABS: Albumin Level 3.2 g/dL (3.5-5.1); Anion Gap 5 mmol/L (8-16); Blood Urea Nitrogen 25 mg/dL (7-17); Calcium 8.8 mg/dL (8.4-10.2); Carbon Dioxide 30 mmol/L (22-30); Chloride 103 mmol/L (98-107); Estimated CRCL calculation 22 ml/min; Estimated Glomerular Filt Rate 33; Glucose 79 mg/dL (65-105); Magnesium 1.2 mg/dL (1.6-2.3); Phosphorus 3.4 mg/dL (2.5-4.5); Potassium 4.1 mmol/L (3.4-5.0); Sodium 138 mmol/L (137-145)
--- NOTE | 2020-06-12 06:43 | P.PNNP_ITS ---
Progress Note: A&P Assessment and Plan (1) SHAVONNE (acute kidney injury): Code(s): N17.9 - Acute kidney failure, unspecified Status: Acute Assessment and Plan: * SHAVONNE * US normal * Urine 'lytes nonprerenal * presumably due to urinary retention and infection (UTI) * creatinine has settled into a value of around 1.5. (2) Chronic kidney disease, stage 4 (severe): Code(s): N18.4 - Chronic kidney disease, stage 4 (severe) Status: Chronic Assessment and Plan: * baseline creatinine runs around 1.4 - 1.9mg/dl * due to hypertension, vascular disease, and age (based on outpatient evaluation) (3) Complicated UTI (urinary tract infection): Code(s): N39.0 - Urinary tract infection, site not specified Status: Acute Assessment and Plan: * urine culture with E.coli * No dysuria. White cell count okay. * on Ceftriaxone. (4) Urinary retention: Code(s): R33.9 - Retention of urine, unspecified Status: Acute Assessment and Plan: * s/p straight catheterization * follow bladder scans * urine output is good. * consider Urology consultation if recurs (5) Anemia: Code(s): D64.9 - Anemia, unspecified Status: Acute Assessment and Plan: * due to CKD and acute infection * hb is improved somewhat to 8.1. (6) HTN (hypertension): Code(s): I10 - Essential (primary) hypertension Status: Chronic Assessment and Plan: * On amlodipine 5 mg per day and carvedilol 25 mg twice a day * BP did well overnight. * on BP medication with parameters (7) Chronic respiratory failure with hypoxia, on home oxygen therapy: Code(s): J96.11 - Chronic respiratory failure with hypoxia; Z99.81 - Dependence on supplemental oxygen Status: Chronic Assessment and Plan: * due to interstittial lung disease * on chronic oxygen * Breathing is better today. Subjective Date/time seen: 06/12/20 06:43 Interval history: Jackelin is feeling better today. She slept well. Breathing is better. Eager for discharge. Review of Systems Cardiovascular: Cardiovascular: Reports no additional cardiovascular complaints Respiratory: Respiratory: Reports no additional respiratory complaints Gastrointestinal: Gastrointestinal: Reports no additional gastrointestinal complaints Genitourinary: Genitourinary: Reports no additional female genitourinary complaints Exam Narrative: Exam Narrative: General: WD/WN female in NAD Heart: normal S1 and S2; no rub or gallop Lungs: few dry crackles at the bases. Abdomen: soft, nontender, nondistended, positive bowel sounds Extremities: no cyanosis or clubbing; trace edema Skin: No rash or subcu nodules Objective Data Vital Signs Vital Signs: Vital Signs - 24 hr 06/11/20 08:40 06/11/20 08:46 06/11/20 14:00 Temperature 35.8 C L Pulse Rate 78 70 66 Respiratory Rate 18 16 Blood Pressure 109/65 Pulse Oximetry 94 91 06/11/20 20:17 06/11/20 20:50 06/11/20 21:01 Temperature 36.4 C Pulse Rate 71 71 Respiratory Rate 17 Blood Pressure 135/73 Pulse Oximetry 91 93 06/12/20 05:52 Temperature 36.3 C L Pulse Rate 68 Respiratory Rate 16 Blood Pressure 1
--- NOTE | 2020-06-12 06:43 | PM.PNNEP ---
Progress Note: A&P Assessment and Plan (1) SHAVONNE (acute kidney injury): Code(s): N17.9 - Acute kidney failure, unspecified Status: Acute Assessment and Plan: SHAVONNE US normal Urine 'lytes nonprerenal presumably due to urinary retention and infection (UTI) creatinine has settled into a value of around 1.5. (2) Chronic kidney disease, stage 4 (severe): Code(s): N18.4 - Chronic kidney disease, stage 4 (severe) Status: Chronic Assessment and Plan: baseline creatinine runs around 1.4 - 1.9mg/dl due to hypertension, vascular disease, and age (based on outpatient evaluation) (3) Complicated UTI (urinary tract infection): Code(s): N39.0 - Urinary tract infection, site not specified Status: Acute Assessment and Plan: urine culture with E.coli No dysuria. White cell count okay. on Ceftriaxone. (4) Urinary retention: Code(s): R33.9 - Retention of urine, unspecified Status: Acute Assessment and Plan: s/p straight catheterization follow bladder scans urine output is good. consider Urology consultation if recurs (5) Anemia: Code(s): D64.9 - Anemia, unspecified Status: Acute Assessment and Plan: due to CKD and acute infection hb is improved somewhat to 8.1. (6) HTN (hypertension): Code(s): I10 - Essential (primary) hypertension Status: Chronic Assessment and Plan: On amlodipine 5 mg per day and carvedilol 25 mg twice a day BP did well overnight. on BP medication with parameters (7) Chronic respiratory failure with hypoxia, on home oxygen therapy: Code(s): J96.11 - Chronic respiratory failure with hypoxia; Z99.81 - Dependence on supplemental oxygen Status: Chronic Assessment and Plan: due to interstittial lung disease on chronic oxygen Breathing is better today. Subjective Date/time seen: 06/12/20 06:43 Interval history: Jackelin is feeling better today. She slept well. Breathing is better. Eager for discharge. Review of Systems Cardiovascular: Cardiovascular: Reports no additional cardiovascular complaints Respiratory: Respiratory: Reports no additional respiratory complaints Gastrointestinal: Gastrointestinal: Reports no additional gastrointestinal complaints Genitourinary: Genitourinary: Reports no additional female genitourinary complaints Exam Narrative: Exam Narrative: General: WD/WN female in NAD Heart: normal S1 and S2; no rub or gallop Lungs: few dry crackles at the bases. Abdomen: soft, nontender, nondistended, positive bowel sounds Extremities: no cyanosis or clubbing; trace edema Skin: No rash or subcu nodules Objective Data Vital Signs Vital Signs: Vital Signs - 24 hr 06/11/20 08:40 06/11/20 08:46 06/11/20 14:00 Temperature 35.8 C L Pulse Rate 78 70 66 Respiratory Rate 18 16 Blood Pressure 109/65 Pulse Oximetry 94 91 06/11/20 20:17 06/11/20 20:50 06/11/20 21:01 Temperature 36.4 C Pulse Rate 71 71 Respiratory Rate 17 Blood Pressure 135/73 Pulse Oximetry 91 93 06/12/20 05:52 Temperature 36.3 C L Pulse Rate 68 Respiratory Rate 16 Blood Pressure 114/63 Pulse Oximetry 98 Intake/Output Intake/Output: Intake & Output 06/09/20 06/10/20 06/11/20 06/12/20 23:59 23:59 23:59 23:59 Intake Total 2740 950 400 100 Output Total 400 1750 600 Balance 2340 -800 -200 100 Meds/Results Medications: Active Medications Generic Name Dose Route Start Last Admin Trade Name Freq PRN Reason Stop Dose Admin Acetaminophen 650 mg 06/06/20 21:39 06/09/20 06:30 Acetaminophen 325 Mg Tablet PO 650 mg Q4H PRN Administration Mild Pain (1-3) or Fever Hydrocodone Bitart/Acetaminophen 1 tab 06/06/20 21:39 06/11/20 23:43 Hydrocodone/Acetaminophen (*Crx) 5-325 Mg Tablet PO 1 tab Q4H PRN Administration Pain Rated 4-6 Amlodipine Besylate 5 mg 06/07/20 09:00 06/11/20 08:4
[2020-06-12 08:38] LABS: Hematocrit 25.1 % (37.0-47.0); Hemoglobin 8.1 g/dL (12.0-15.0); Mean Corpuscular HGB Conc 32.3 g/dl (32-36); Mean Corpuscular Hemoglobin 26.6 pg (26-34); Mean Corpuscular Volume 82.6 fl (80-100); Mean Platelet Volume 8.5 fl (7.4-10.4); Platelet Count Result 223 k/mm3 (150-375); Red Blood Count 3.04 M/mm3 (4.2-5.4); Red Cell Distribution Width 17.2 % (11.5-14.5); White Blood Count 5.5 K/mm3 (4.5-10.0)
[2020-06-12] MEDS: CHOLECALCIFEROL 1,000 UNITS TABLET 5000 UNITS PO (09:04)
[2020-06-12 09:05] VITALS: PULSE 72
[2020-06-12] MEDS: predniSONE 1 MG TABLET PO (09:05)
[2020-06-12] MEDS: FOLIC ACID 1 MG TABLET PO (09:05)
[2020-06-12] MEDS: carvediloL 25 MG TABLET PO (09:05)
[2020-06-12] MEDS: FLUTICASONE/UMECLIDIN/VILANTER 100-62.5-25 MCG ELLIPTA 1 PUFF INHALATION (09:08)
[2020-06-12] MEDS: SIMVASTATIN 20 MG TABLET 40 MG PO (09:08)
[2020-06-12] MEDS: ASPIRIN 81 MG ENTERIC TABLET PO (09:08)
[2020-06-12] MEDS: FERROUS SULFATE 324 MG TABLET PO (09:08)
[2020-06-12] MEDS: TAMSULOSIN HCL 0.4 MG CAPSULE PO (09:08)
[2020-06-12] MEDS: amLODIPine BESYLATE 5 MG TABLET PO (09:08)
[2020-06-12] MEDS: PANTOPRAZOLE 40 MG TABLET PO (09:08)
[2020-06-12] MEDS: ACETAMINOPHEN 325 MG TABLET 650 MG PO (09:11)
[2020-06-12] MEDS: MAGNESIUM SULF 2 GM/WATER 50ML 2 GM/50 ML BAG IVPB (09:11)
[2020-06-12] MEDS: MAGNESIUM OXIDE 400 MG TABLET PO (09:40)
--- NOTE | 2020-06-12 10:55 | PCNFU ---
Nutrition Follow-Up Complete: Involuntary weight loss related to decreased appetite and early satiety as evidenced by reported and documented 27 pound weight loss x 3 months. Goal: Patient to consume 50% of meals/supplements or greater. Progressing towards goal. We will continue current goal. Pt current nutrition is Regular with Ensure compact BID. Last recorded weight is 68.5 kg,no new weight reported. Bowel Motility:+BM reported 06/11 Labs Reviewed:Hct 25.1,Hgb 8.1 Meds Noted:Zocor,Coreg,Folic Acid,Mag ox, Rocephin,Sublimaze,Protonix, Prednisone. Additional Notes: Nutrition follow up today. Spoke with patient, she states appetite has been fair. She is consuming 40-100% of a heart healthy diet. She states she likes the ensure supplements but had them building up on her desk. Orders for ensure changed to PRN. Agree with diet orders. Monitoring: Follow up every 5 days.
[2020-06-12 14:26] VITALS: BP 127/58; PULSE 59; RESP 21; TEMP 35.7; O2SAT 91
--- NOTE | 2020-06-12 15:45 | PM.DS ---
DS: Admitting Diagnosis Admitting Diagnosis Admitting Diagnosis: Chief Complaint: Urinary retention++ DS: Discharge Diagnosis Discharge Diagnosis (1) Acute on chronic kidney failure: Code(s): N17.9 - Acute kidney failure, unspecified; N18.9 - Chronic kidney disease, unspecified Status: Acute Assessment and Plan: Acute worsening renal function appears to be postrenal and secondary to urinary retention. The patient is now urinating on her own. Monitor renal function and urine output. Continue IV fluids that were started in the ER. Avoid nephrotoxic agents, renally dose medications. Nephrology was consulted by ER provider. Consider Urology consultation if the patient has any further urinary retention. 06/11/20 14:12 06/07 Patient 85-year-old female with recently discharged from the hospital after patient was treated for hyponatremia and was instructed to limit her fluid intake, however patient presented emergency department with complaint unable to urinate as patient was taking small amount of fluid, patient was straight cathed in the ER, he was started on IV fluid state improve her urine output, patient urine does show greater than 75 leuckcytes and suspicious for UTI patient started on ceftriaxone and being gently hydrated, follow-up on urine culture and sensitivity, will continue to monitor will have a PT OT evaluate the patient and further recommendation to follow. 06/08 urine culture is growing E coli sensitive to Rocephin will continue, seen by Nephrology recommended to continue gentle hydration and closely monitor as patient has a diastolic dysfunction, today patient states feeling much better denies any abdominal pain nausea or vomiting fever or chills, patient's sodium is close to normal, will continue present management will have a PT OT evaluate the patient and further recommendation to follow. 06/09 patient is being treated with Rocephin for UTI with E coli, patient creatinine is trended down from 3.3 upon arrival today 1.7 patient is seen by laborer shellfish processing recommending continue gentle hydration, today patient participated in physical therapy states feeling better however complains of left wrist pain to further evaluate patient had x-ray of the wrist shows severe osteoarthritis but no acute injury, will continue PT OT, will continue to monitor may discharge patient on 06/11 patient is being treated with Rocephin 5th day todat for UTI with E coli, patient creatinine is trended down from 3.3 upon arrival today 1.6 now close to her baseline patient is seen by Nephrology, patient had a complaint left wrist pain x-ray was done there is no acute fracture however patient does have severe osteoarthritis, patient is clinically stable continue to participate in physical therapy made to the discharge planning tomorrow and further recommendation to follow. 06/11 patient is being treated with Rocephin 6th day todayfor UTI with E coli, patient creatinine is trended down from 3.3 upon arrival today 1.6 now close to her baseline. This morning while ambulating from bathroom to the bed patient was quite short of breath was seen by Nephrology and order chest x-ray suspicious volume overload will gently diurese the patient. Will have a PT OT work with the patient, will reassess tomorrow and plan. (2) Complicated UTI (urinary tract infection): Code(s): N39.0 - Urinary tract infection, site not specified Status: Acute Assessment and Plan: Continue IV antibiotics, urine culture pending. (3) Chronic respiratory failure with hypoxia, on home oxygen therapy: Code(s): J96.11 - Chronic respiratory failure with hypoxia; Z99.81 - Dependence on supplemental oxygen Status: Chronic Assessment and Plan: Continue oxygen therapy. (4) Chronic anemia: Code(s): D64.9 - Anemia, unspecified Status: Chronic Assessment and Plan: No signs of acute blood loss. Monitor H/H, transfuse prn. (5) HTN (hype
--- NOTE | 2020-06-12 15:50 | PC.NURSE ---
Observed care and reviewed documentation completed by Simone MANCERA [id number]
== END 2020-06-12 17:10 | disposition home health service (06) | DRG 690 ==
LOC: ANHED 18:57 → ANH3MED 22:27
PROVIDERS: Emergency Medicine; Internal Medicine Nephrology; Admitting Provider Family Medicine; Emergency Provider Emergency Medicine; PCP Family Medicine; Visit Provider Family Medicine
DX: N39.0 Urinary tract infection, site not specified (principal); N17.9 Acute kidney failure, unspecified; I13.0 Hypertensive heart and chronic kidney disease with heart failure and stage 1 through stage 4 chronic kidney disease, or unspecified chronic kidney disease; J96.11 Chronic respiratory failure with hypoxia; I50.32 Chronic diastolic (congestive) heart failure; N18.4 Chronic kidney disease, stage 4 (severe); R33.9 Retention of urine, unspecified; B96.20 Unspecified Escherichia coli [E. coli] as the cause of diseases classified elsewhere; D63.1 Anemia in chronic kidney disease; J44.9 Chronic obstructive pulmonary disease, unspecified; M06.9 Rheumatoid arthritis, unspecified; K21.9 Gastro-esophageal reflux disease without esophagitis; E78.5 Hyperlipidemia, unspecified; M54.5 Low back pain; I25.2 Old myocardial infarction; Z79.82 Long term (current) use of aspirin; Z87.891 Personal history of nicotine dependence; Z99.81 Dependence on supplemental oxygen
CPT/HCPCS: 36415; 51701; 71046; 73100; 80048; 80069; 81001; 83735; 85025; 85027; 87077; 87086; 87088; 87186; 96361; 96365; 96375; 96376; 97110; 97116; 97161; 97165; 97530; 97535; 99285; A9270; G0378; J0696; J1940; J3010; J3475; J7030; J7120

== ENCOUNTER 2020-06-19 10:07 | Outpatient (NON) | payer MEDICARE, OTHER, SELFPAY ==
[2020-06-19 13:32] LABS: Anion Gap 8 mmol/L (8-16); Blood Urea Nitrogen 21 mg/dL (7-17); Calcium 8.8 mg/dL (8.4-10.2); Carbon Dioxide 26 mmol/L (22-30); Chloride 104 mmol/L (98-107); Estimated Glomerular Filt Rate 29; Glucose 98 mg/dL (65-105); Potassium 3.7 mmol/L (3.4-5.0); Sodium 138 mmol/L (137-145)
== END 2020-06-19 10:08 | disposition home or self-care (01) ==
LOC: HOME HLTH 10:21
PROVIDERS: PCP Family Medicine; Visit Provider Family Medicine
DX: N39.0 Urinary tract infection, site not specified (principal); N17.9 Acute kidney failure, unspecified; N18.4 Chronic kidney disease, stage 4 (severe)
CPT/HCPCS: 80048

== ENCOUNTER 2020-07-06 11:03 | Outpatient (NON) | payer MEDICARE, OTHER, SELFPAY ==
[2020-07-06 11:57] LABS: Anion Gap 9 mmol/L (8-16); Blood Urea Nitrogen 23 mg/dL (7-17); Calcium 9.6 mg/dL (8.4-10.2); Carbon Dioxide 23 mmol/L (22-30); Chloride 106 mmol/L (98-107); Estimated Glomerular Filt Rate 33; Glucose 115 mg/dL (65-105); Potassium 3.9 mmol/L (3.4-5.0); Sodium 138 mmol/L (137-145)
== END 2020-07-06 11:04 | disposition home or self-care (01) ==
LOC: HOME HLTH 11:11
PROVIDERS: PCP Family Medicine; Visit Provider Family Medicine
DX: N39.0 Urinary tract infection, site not specified (principal); N17.9 Acute kidney failure, unspecified; I13.0 Hypertensive heart and chronic kidney disease with heart failure and stage 1 through stage 4 chronic kidney disease, or unspecified chronic kidney disease; N18.4 Chronic kidney disease, stage 4 (severe)
CPT/HCPCS: 80048

== ENCOUNTER 2020-07-20 11:32 | Outpatient (NON) | payer MEDICARE, OTHER, SELFPAY ==
[2020-07-20 12:02] LABS: Alanine Aminotransferase 9 U/L (4-35); Alkaline Phosphatase 89 U/L (38-126); Anion Gap 7 mmol/L (8-16); Aspartate Amino Transferase 23 U/L (14-36); Bilirubin,Total 0.4 mg/dL (0.2-1.3); Blood Urea Nitrogen 17 mg/dL (7-17); Calcium 9.7 mg/dL (8.4-10.2); Carbon Dioxide 30 mmol/L (22-30); Chloride 103 mmol/L (98-107); Estimated Glomerular Filt Rate 27; Glucose 110 mg/dL (65-105); Potassium 3.7 mmol/L (3.4-5.0); Sodium 140 mmol/L (137-145)
[2020-07-20 12:11] LABS: NT Pro B Type Natriuretic Pept 274 pg/mL (5-100)
== END 2020-07-20 11:33 | disposition home or self-care (01) ==
PROVIDERS: PCP Family Medicine; Visit Provider Internal Medicine Cardiovascular Disease
DX: I13.0 Hypertensive heart and chronic kidney disease with heart failure and stage 1 through stage 4 chronic kidney disease, or unspecified chronic kidney disease (principal); N39.0 Urinary tract infection, site not specified; N17.9 Acute kidney failure, unspecified; N18.4 Chronic kidney disease, stage 4 (severe); I50.32 Chronic diastolic (congestive) heart failure
CPT/HCPCS: 80053; 83880

== ENCOUNTER → 2021-06-20 10:14 | Outpatient (CLI) | payer MEDICARE, OTHER, SELFPAY ==
--- NOTE | ~2021-06-20 | DEXA_ITS ---
Bone Density Report Name: GERALDO MIKE Age: 86 Sex: Female Ethnicity: White Date of : 1935 Indication: postmenopausal; screening for osteoporosis; height loss; history of glucocorticoids; prior fracture; end stage renal disease; rheumatoid arthritis; secondary osteoporosis; Referring Provider: Dinorah, Keagan Whyte Study: Bone densitometry was performed. Exam Date: June 20, 2021 Accession number: [id number] Bone Density: Region BMD T-score Z-score Classification AP Spine (L1-L4) 0.923 -1.1 1.7 Osteopenia Femoral Neck (Right) 0.446 -3.6 -1.1 Osteoporosis Total Hip (Right) 0.525 -3.4 -1.1 Osteoporosis World Health Organization criteria for BMD impression classify patients as: Normal (T-score at or above -1.0), Osteopenia (T-score between -1.0 and -2.5), or Osteoporosis (T-score at or below -2.5). 10-year Fracture Risk: FRAX not reported because: Some T-score for Spine Total or Hip Total or Femoral Neck at or below -2.5 Prior hip or vertebral fracture Clinical Information Provided by Patient: Have had a previous hip or vertebral fracture Has had a low trauma fracture Has taken Glucocorticoids Has rheumatoid arthritis Has secondary osteoporosis Has used the following medications: Calcium, PREDNESONE Has the following medical conditions: End stage renal disease Patient maximum height was 64 Menopause Age: 48 No regular weight bearing exercise Does not regularly consume dairy products Drinks caffeinated beverages Onset of menses at age 12 Number of children 4 Impression: The patient has established osteoporosis, based on the Right Femoral Neck T-score and the existence of a prior fracture. The patient has risk factors, including: previous fracture, history of glucocorticoid therapy. Discussion: HIGH RISK OF FRACTURE. BONE DENSITY IS UNDESIRABLY LOW AT ONE OR MORE SKELETAL SITES, CONSISTENT WITH POSTMENOPAUSAL OSTEOPOROSIS. This patient's lowest T-score, in a patient who has previously fractured, meets the World Health Organization's (WHO) criteria for severe osteoporosis. In untreated patients, the risk of osteoporotic fracture increases approximately two-fold for each 1.0 SD decrease in T-score. Low bone density is not the only risk factor for fracture; also consider factors such as patient's age, frailty or poor health, risk of falling, risk of injury, previous osteoporotic fracture, family history of osteoporosis, cigarette smoking, low body weight, etc. Not everyone with low bone mineral density has osteoporosis; osteomalacia and other metabolic bone disorders should also be considered. Patients who have osteoporosis should be evaluated for specific diseases and conditions (secondary causes) that may cause or contribute to bone loss. The [place] [employer]ocr[employer] (AACE) and National Osteoporosis Foundation (NOF) recommend pharma
== END ==
PROVIDERS: PCP Family Medicine; Visit Provider Internal Medicine
DX: M81.0 Age-related osteoporosis without current pathological fracture (principal); M05.79 Rheumatoid arthritis with rheumatoid factor of multiple sites without organ or systems involvement; M85.88 Other specified disorders of bone density and structure, other site
CPT/HCPCS: 77080

== ENCOUNTER 2022-09-18 12:20 | Outpatient (CLI) | payer MEDICARE, OTHER, SELFPAY ==
--- NOTE | ~2022-09-18 | XR_ITS ---
Clinical Indication: Dyspnea PA and lateral views of the chest: Comparison: 06/11/2020 Findings: The lungs are clear, without evidence of focal consolidation or pleural effusion. Cardiome diastinal silhouette is within normal limits. Moderate to large hiatal hernia present. Probable chron ic fracture deformity the proximal right humerus. Stable compression fractures of T7 and T8 Impression: Moderate to large hiatal hernia. Compression fractures of T7 and T8, unchanged. Chronic fracture deformity of the proximal right humerus. Reviewed, dictated and finalized at location . Impression: Moderate to large hiatal hernia. Compression fractures of T7 and T8, unchanged. Chronic fracture deformity of the proximal right humerus.
== END 2022-09-18 12:21 | disposition home or self-care (01) ==
PROVIDERS: PCP Family Medicine; Visit Provider Nurse Practitioner Family
DX: R06.00 Dyspnea, unspecified (principal); R05.9 Cough, unspecified; K44.9 Diaphragmatic hernia without obstruction or gangrene; S22.060A Wedge compression fracture of T7-T8 vertebra, initial encounter for closed fracture; X58.XXXA Exposure to other specified factors, initial encounter
CPT/HCPCS: 71046

== ENCOUNTER 2022-12-09 16:46 | Emergency (ER) | payer MEDICARE, OTHER, SELFPAY ==
--- NOTE | 2022-12-09 16:50 | ED.SKABFB ---
HPI - Skin/Abscess/Foreign Bdy General Chief complaint: Skin/Abscess/Foreign Body Stated complaint: rash under breast Source: patient and RN notes reviewed Mode of arrival: ambulatory Limitations: no limitations History of Present Illness HPI narrative: Patient is an 87-year-old female who presents with a rash under her right breast. Patient states that when she 1st noticed the rash she states that she used an antifungal powder. She states that this did not seem to help the rash, so she started an antibiotic ointment. She states that the rash continues to get worse. She states that there is some irritation under the breast with mild itching. Denies recent illness, fever. Related Data Home Medications Medication Instructions Recorded Confirmed cholecalciferol (vitamin D3) 125 5,000 unit PO DAILY 01/27/19 11/06/22 mcg (5,000 unit) capsule prednisone 1 mg tablet 5 mg .Route .COMPLEX 06/19/21 11/06/22 azathioprine 100 mg tablet 300 mg PO DAILY 06/18/22 11/06/22 Allergies Allergy/AdvReac Type Severity Reaction Status Date / Time ampicillin Allergy Unknown Hives, Verified 12/09/22 17:11 cyclobenzaprine Allergy Unknown Confusion,l Verified 12/09/22 17:11 oopy Review of Systems Review of Systems: CONSTITUTIONAL: Denies fever, chills, or sweats. EYES: Denies visual changes, redness, or discharge. ENT: Denies otalgia and sore throat CARDIOVASCULAR: Denies chest pain, palpitations, or edema. RESPIRATORY: Denies cough or dyspnea. GASTROINTESTINAL: Denies abdominal pain, nausea, vomiting, or diarrhea. GENITOURINARY: Denies dysuria or hematuria. SKIN: Reports rash under right breast. MUSCULOSKELETAL: Denies back pain, joint pain, or myalgia. NEUROLOGIC: Denies headache, numbness, or weakness. Pertinent positives per HPI. 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 Chronic kidney disease, stage 4 (severe) Baseline creatinine is between 1.4 and 1.60. Chronic obstructive pulmonary disease Chronic respiratory failure with hypoxia, on home oxygen therapy Gastroesophageal reflux disease Hypertension Non-STEMI (non-ST elevated myocardial infarction) (~02/2020) Patient had no anginal symptoms and echocardiogram was unremarkable. Osteoporosis Vitamin D deficiency Surgical History Surgical History History of ankle surgery (~2014) ORIF left ankle fracture. History of appendectomy (~2009) History of bunionectomy of right great toe History of section History of cholecystectomy (~2001) History of hammertoe correction History of left hip replacement (~12/2016) Due to left hip fracture sustained in a fall. History of umbilical hernia repair Family History Family History Mother Diabetes mellitus Father Hypertension Other Asthma Social History Social History Social History: The patient has been for many years and lives in [place] with her cat. She has 4 daughters, 1 who is . The patient grew up in [facility]. She is a former smoker, perhaps 1/4 to 1 pack of cigarettes a day for about 20 years. She quit in 1977. No alcohol or illicit substance use. Daughters Flavia Rogers and Miley Zacarias are her emergency contacts. She is listed as a DNR. Smoking packs per day: 1 Smoking cigarettes per day: 20.0 Years smoked: 25 Smoking pack-years: 25.00 Smoking status: Never smoker Tobacco type: cigarettes Second hand tobacco smoke e
[2022-12-09 17:00] VITALS: BP 125/74; PULSE 82; RESP 82; TEMP 36.2; O2SAT 93
== END 2022-12-09 17:32 | disposition home or self-care (01) ==
PROVIDERS: Emergency Provider Nurse Practitioner; PCP Family Medicine
DX: B37.2 Candidiasis of skin and nail (principal); I13.0 Hypertensive heart and chronic kidney disease with heart failure and stage 1 through stage 4 chronic kidney disease, or unspecified chronic kidney disease; I50.32 Chronic diastolic (congestive) heart failure; N18.4 Chronic kidney disease, stage 4 (severe); I25.2 Old myocardial infarction
CPT/HCPCS: 99213; G0463

== ENCOUNTER 2023-07-15 00:38 | Emergency (ER) | payer MEDICARE, OTHER, SELFPAY ==
[2023-07-15 00:38] VITALS: BP 170/108; PULSE 86; RESP 18; TEMP 36.3; O2SAT 94
[2023-07-15 02:10] LABS: Basophils Percent Auto 0.4 % (0.2-1.2); Eosinophils Absolute Auto 0.1 K/mm3 (0-0.3); Hematocrit 38.2 % (37.0-47.0); Hemoglobin 12.7 g/dL (12.0-15.0); Immature Granulocyte Absolute 0.03 K/mm3 (0.00-0.031); Immature Granulocyte Percent A 0.4 % (0-0.5); Lymphocytes Absolute Auto 0.94 K/mm3 (0.9-3.2); Lymphocytes Percent Auto 13.4 % (18.3-44.2); Mean Corpuscular HGB Conc 33.2 g/dl (32-36); Mean Corpuscular Hemoglobin 34.7 pg (26-34); Mean Corpuscular Volume 104.4 fl (80-100); Mean Platelet Volume 8.9 fl (7.4-10.4); Monocytes Absolute Auto 0.6 K/mm3 (0.1-0.6); Monocytes Percent Auto 8.7 % (2.6-8.5); Neutrophils Absolute Auto 5.3 K/mm3 (1.3-6.7); Neutrophils Percent Auto 75.1 % (45.5-73.1); Platelet Count Result 214 k/mm3 (150-375); Red Blood Count 3.66 M/mm3 (4.2-5.4)
[2023-07-15 02:19] LABS: Alanine Aminotransferase 16 U/L (6-35); Albumin Level 4.5 g/dL (3.5-5.1); Alkaline Phosphatase 61 U/L (38-126); Anion Gap 8 mmol/L (4-12); Aspartate Amino Transferase 28 U/L (14-36); Bilirubin,Total 0.6 mg/dL (0.2-1.3); Blood Urea Nitrogen 22 mg/dL (7-17); Calcium 9.4 mg/dL (8.4-10.2); Carbon Dioxide 26 mmol/L (22-30); Chloride 103 mmol/L (98-107); Estimated CRCL calculation 23 ml/min; Estimated Glomerular Filt Rate 39; Glucose 120 mg/dL (65-110); Magnesium 1.8 mg/dL (1.6-2.3); Potassium 3.9 mmol/L (3.4-5.0); Sodium 137 mmol/L (137-145)
[2023-07-15 02:28] LABS: Add Urine Microscopic? NO; Appearance Urine Clear (Clear); Bilirubin Urine Negative (Negative); Blood Urine Negative (Negative); Color Urine Yellow (Yellow); Glucose Urine UA Negative (Negative); Ketones Urine Negative (Negative); Leukocyte Esterase Ur Negative LEU/UL (Negative); Nitrate Urine Negative (Negative); Protein Urine 1+ mg/dL (Negative); Specific Grav Ur 1.006 (1.001-1.035); Urobilinogen Urine 0.2 mg/dL (<2.0)
[2023-07-15 03:11] VITALS: BP 164/94; PULSE 63; RESP 16; O2SAT 95
--- NOTE | 2023-07-15 03:11 | ED.GENADULT ---
HPI - General Adult General Chief complaint: Recheck/Abnormal Lab/Rx Stated complaint: HTN Time Seen by Provider: 07/15/23 02:54 History of Present Illness HPI narrative: Patient is an 88-year-old female who presents to the emergency department this evening complaining of elevated blood pressure. Patient states that she does take blood pressure medication but she has noticed that for the past week her blood pressure has been fluctuating up and down and will go up as high as 190 systolic. Patient did bring a a blood pressure log measuring her blood pressure for the last 4 days which ranged anywhere from 129/80 - 190/100. Patient denies any symptoms including chest pain, shortness of breath, headaches, dizziness, blurry vision, focal weakness, numbness or tingling. She admits that she is currently being treated for urinary tract infection. Patient was recently seen at outside facility where she was evaluated for headache and UTI. At that time a CT of her head revealed no acute process. She states that a lot of blood work testing was done and she was sent home with hold all of her tests were negative. Patient denies any additional concerns or symptoms at this time. Related Data Home Medications Medication Instructions Recorded Confirmed cholecalciferol (vitamin D3) 125 5,000 unit PO DAILY 01/27/19 04/06/23 mcg (5,000 unit) capsule azathioprine 100 mg tablet 300 mg PO DAILY 06/18/22 04/06/23 prednisone 1 mg tablet 5 mg .Route .COMPLEX PRN 03/19/23 04/06/23 carvedilol 25 mg tablet 6.25 mg PO Q12H 04/06/23 04/06/23 furosemide 20 mg tablet 40 mg PO BID 04/06/23 04/06/23 Allergies Allergy/AdvReac Type Severity Reaction Status Date / Time ampicillin Allergy Unknown Hives, Verified 04/06/23 11:10 cyclobenzaprine Allergy Unknown Confusion,l Verified 04/06/23 11:10 oopy Review of Systems Review of Systems: All systems are reviewed and are negative unless stated otherwise in the HPI. 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 Chronic kidney disease, stage 4 (severe) Baseline creatinine is between 1.4 and 1.60. Chronic obstructive pulmonary disease Chronic respiratory failure with hypoxia, on home oxygen therapy Gastroesophageal reflux disease Hypertension Non-STEMI (non-ST elevated myocardial infarction) (~02/2020) Patient had no anginal symptoms and echocardiogram was unremarkable. Osteoporosis Vitamin D deficiency Surgical History Surgical History History of ankle surgery (~2014) ORIF left ankle fracture. History of appendectomy (~2009) History of bunionectomy of right great toe History of section History of cholecystectomy (~2001) History of hammertoe correction History of left hip replacement (~12/2016) Due to left hip fracture sustained in a fall. History of umbilical hernia repair Family History Family History Mother Diabetes mellitus Father Hypertension Other Asthma Social History Social History Social History: The patient has been for many years and lives in [place] with her cat. She has 4 daughters, 1 who is . The patient grew up in [facility]. She is a former smoker, perhaps 1/4 to 1 pack of cigarettes a day for about 20 years. She quit in 1977. No alcohol or illicit substance use. Daughters Flavia Rogers and Miley Zacarias are her emergency contacts. She is listed as a DNR. Smoking packs per day: 1 Smoking cigarettes pe
== END 2023-07-15 03:33 | disposition home or self-care (01) ==
PROVIDERS: Emergency Provider Emergency Medicine; PCP Family Medicine
DX: I13.0 Hypertensive heart and chronic kidney disease with heart failure and stage 1 through stage 4 chronic kidney disease, or unspecified chronic kidney disease (principal); N39.0 Urinary tract infection, site not specified; N18.4 Chronic kidney disease, stage 4 (severe); I50.32 Chronic diastolic (congestive) heart failure; D63.1 Anemia in chronic kidney disease; J44.9 Chronic obstructive pulmonary disease, unspecified; J96.11 Chronic respiratory failure with hypoxia; Z99.81 Dependence on supplemental oxygen; I25.2 Old myocardial infarction; E55.9 Vitamin D deficiency, unspecified; K21.9 Gastro-esophageal reflux disease without esophagitis; M81.0 Age-related osteoporosis without current pathological fracture; Z66 Do not resuscitate; Z96.642 Presence of left artificial hip joint; Z86.010 Personal history of colon polyps; Z87.891 Personal history of nicotine dependence; Z90.49 Acquired absence of other specified parts of digestive tract; Z79.82 Long term (current) use of aspirin; Z79.899 Other long term (current) drug therapy
CPT/HCPCS: 36415; 80053; 81003; 83735; 85025; 99283

== ENCOUNTER 2025-02-09 16:46 | Outpatient (CLI) | payer MEDICARE, OTHER, SELFPAY ==
[2025-02-09 17:13] LABS: Anion Gap 9 mmol/L (4-12); Blood Urea Nitrogen 24 mg/dL (7-17); Calcium 9.3 mg/dL (8.4-10.2); Carbon Dioxide 28 mmol/L (22-30); Chloride 100 mmol/L (98-107); Estimated Glomerular Filt Rate 30; Glucose 160 mg/dL (65-110); Potassium 3.9 mmol/L (3.4-5.0); Sodium 137 mmol/L (137-145)
[2025-02-09 17:21] LABS: NT Pro B Type Natriuretic Pept 706 pg/mL (19.9-100)
== END 2025-02-09 16:47 | disposition home or self-care (01) ==
PROVIDERS: PCP Family Medicine; Visit Provider Physician Assistant
DX: I50.32 Chronic diastolic (congestive) heart failure (principal); R60.0 Localized edema
CPT/HCPCS: 36415; 80048; 83880